=== PATIENT | male | born 1935 | race Asian ===

== ENCOUNTER → 2017-04-29 | Outpatient (CLI) | payer OTHER ==
[~2017-04-29] MED LIST: ASPI325T45 PO; ATOR-26 PO; INSDGI SC; ISOS30TA3 PO; LOSA25TA18 PO; MAGN250T22 PO; NVLGI SC; OMEP20CA59 PO
--- NOTE | 2017-04-29 13:44 | DIAGNOSTIC IMAGING REPORT ---
VIDEO SWALLOW HISTORY: DYSPHAGIA TECHNIQUE: Video fluoroscopic evaluation of swallowing was performed in the AP and lateral projections by the speech pathology staff. The patient is fed nectar-thick and thin liquid barium, a barium coated wafer, and barium pudding. FLUOROSCOPY TIME: 2.6 minutes. A cine loop submitted. COMPARISON STUDY: None. FINDINGS: There is normal hyoid excursion and epiglottic deflection. No significant penetration or aspiration identified. Mild cricopharyngeal dysfunction. Mild vallecular residue. IMPRESSION: 1. No aspiration identified. Mild cricopharyngeal dysfunction. 2. Please see the speech pathologist report for detailed findings and recommendations. Electronically signed by: Mick Spears M.D. 04/29/2017 1:43 PM Dictated Date/Time: 04/29/2017 1:41 PM
--- NOTE | 2017-04-29 14:49 | SWALLOWING EVALUATION ---
HISTORY: This 81 year-old man was referred for a VFSS at [facility] in order to address c/o solid food dysphagia and patient was concerned that he had a Zenker's diverticulum. The patient has a PMH significant for DM, neuropathy, GERD, CAD, bilateral TKA. Currently the patient's diet level is regular. PROCEDURE: The patient was seen in the Radiology Department of [facility] for the VFSS. Cursory examination of the oral cavity revealed adequate dentition. Movement of the articulators was WNL. The patient was seated on a stool and was viewed in both the Anterior-Posterior (A-P) and Lateral planes. Volitional phonation exercises completed in the A-P plane revealed bilateral vocal fold movement and vocal intensity within functional limits. In the lateral plane, the patient was given the following boluses: 1 tsp. thin liquid barium x 2, single swallow thin liquid barium self-presented from a cup, sequential swallows of thin liquid barium self-presented from a cup, 1 tsp. nectar-thick liquid barium, single swallow nectar-thick liquid barium self-presented from a cup, sequential swallows nectar-thick liquid barium self-presented from a cup, 1 tsp. barium pudding, and 1 club cracker with barium pudding. The patient was then repositioned into the A-P plane and given 1 tsp. barium pudding. RESULTS: Oral Stage: Labial closure was adequate. Liquid was held in a cohesive bolus. Mastication was timely and efficient. Tongue movement was brisk. There was no oral residue. Swallow was slightly delayed with the bolus head at the level of the valleculae at the initiation of the pharyngeal swallow. A slightly delayed swallow is considered functional for the patient's age. Pharyngeal Stage: Soft palate elevation was adequate. Laryngeal elevation was complete. There was partial anterior excursion of the hyoid. Epiglottic inversion was complete. Laryngeal vestibular closure was complete. Pharyngeal stripping wave and pharyngeal contraction were complete. Pharyngoesophageal segment (PES) opening was partial with partial obstruction of flow. Tongue base retraction was complete. There was a collection of residue in the valleculae after the initial swallow. Patient demonstrated no penetration or aspiration throughout the study. There was residue in the valleculae after the initial swallow; however, this was cleared with a second swallow. Reduced movement of the hyoid is considered functional for the patient's age. There was a marked cricopharyngeal impression on the esophageal lumen. Esophageal Stage: There was complete esophageal clearance. SUMMARY/RECOMMENDATIONS: This patient presents with no dysphagia. There was no evidence of a Zenker's diverticulum or evidence of an abnormal swallow for the patient's age. The patient does have a reduced PES opening and s/s chronic esophageal dysfunction. The following is recommended: 1. Regular diet, thin liquids 2. Patient may benefit from a completion of a Barium Swallow Study or upper GI series. A summary of the results and recommendations was discussed with patient and understanding was verbalized immediately following the study. He is anticipating f/u with the referring physician. Thank you for referral of this patient. Please contact me at if any additional information is needed. Emilee Tabor [facility]
== END | disposition home or self-care (01) ==
LOC: C.RAD 12:55
PROVIDERS: ATTEND Family Medicine
DX: R13.10 Dysphagia, unspecified (principal)

== ENCOUNTER 2020-05-27 04:21 | Inpatient (IN) ==
--- NOTE | 2020-05-27 04:29 | Emergency Department Note ---
Impression & Plan Acute hyperkalemia, Fever, SOB (shortness of breath), Acidosis, lactic, CHB (complete heart block), Acute renal failure ED Provider Note NAME: LORRAINE SANDS AGE: 84 SEX: M ARRIVES VIA: Ambulance INFORMANT: Patient, the daughter ED PROVIDER(S): Hortencia Garza DO CHIEF COMPLAINT: Shortness of breath and fever PLAN: Disposition: Patient was admitted through the [facility] to the ICU Condition: Critical condition MEDICAL DECISION MAKING: This is an 84-year-old male patient who presents to the emergency department with a one-week history of fever, exertional shortness of breath and extreme fatigue. The patient underwent COVID testing 3 days ago which was negative. He developed sudden increased shortness of breath tonight and EMS was called. The patient presents to the emergency department bradycardic and short of breath state and was found to be significantly hyperkalemic, dyspneic, and febrile. The patient was stabilized in the emergency department. Attempts were made to reverse the effects of the hyperkalemia. He remained bradycardic from complete heart block but his blood pressure remained stable. The patient was found to have an elevated troponin significant leukocytosis but no obvious source of infection was identified. Patient was treated with broad-spectrum antibiotics for the possibility of Sirs/sepsis. The case was discussed with both critical care medicine and the [facility] service. They will evaluate the patient for admission to the ICU. Triage Nursing notes reviewed and agree them. Additional history obtained from EMS. I also spoke with the patient's daughter multiple times on the phone Prior medical records reviewed Vital Signs: reviewed and remarkable for bradycardia and hypotension Differential diagnosis: Sepsis, CHF, PE, coronavirus, pneumothorax, toxic exposure, hypoglycemia, cardiac dysrhythmia, STEMI, electrolyte abnormality, hyperglycemia ER treatment provided: IV insulin IV dextrose Albuterol nebulized IV calcium gluconate IV daptomycin IV Primaxin IV normal saline bolus Diagnostics interpreted by me: ECG: Complete heart block at a rate of 51 with a widened QRS complex. Right bundle branch block. This is extremely concerning for hyperkalemia Repeat EKG: Complete heart block with a ventricular rate of 43 and widened QRS with a QRS duration of 134 ms. Cardiac Monitoring: The patient remains bradycardic with a rate of 40. Laboratory studies: ABG: pH 7.32 PCO2 22.4 PO2 84 bicarb 11.8 SPO2 of 96% CO2 of 12 See below Imaging studies: As per my interpretation Chest [id number] cardiomegaly with congestive heart failure HPI: 84/M arrives for evaluation of shortness of breath. This history was obtained from the patient's daughter while talking to her on the phone. She explains that approximately 1 week ago, the patient developed a fever and chills with a T-max of 102 degrees. She describes that he was taking aspirin for this. Since that time, the patient has remained extremely fatigued. 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 The patient did have COVID testing done 5 days ago. It was resulted 3 days ago and was negative. The family noticed increasing exertional shortness of breath 2 days ago. He became more concerned today because the patient was tossing and turning and moaning. States that he did not have enough energy to eat rice. They have been trying to encourage him to take sips of Gatorade and Pedialyte. The patient has been drinking a large amount of coconut water. ROS: See above HPI for pertinent positives & negatives. A total of 10 systems reviewed and were otherwise negative. PAST MEDICAL HISTORY:Diabetes, coronary artery disease, hypertension PAST SURGICAL HISTORY:See Below FAMILY HISTORY:See Below SOCIAL HISTORY:See Below HOME MEDICATIONS:See list ALLERGIES:See list VITALS:See Below PHYSICAL EXAMINATION: General: The patient appears agitated and confused on physical exam. HEENT: Head - normocephalic and atraumatic Pupils are equal, round, and reactive to light. Extraocular eye muscles are intact, and sclera are anicter ic. Nose - moist nasal mucosa without discharge. Mouth - moist buccal mucosa. Oropharynx is nonerythematous and there is no tonsillar exudate or edema noted. Neck: Supple; no JVD, nuchal rigidity, cervical lymphadenopathy Heart: Bradycardic rate and normal rhythm. There is a normal S1 and S2 with no murmurs, clicks, or gallops appreciated. Lungs: Diminished breath sounds in all lung scott clear to auscultation bilaterally with no wheezes, rales, or rhonchi. Abdomen: Soft, completely nontender, nondistended, with good bowel sounds. There are no palpable pulsatile masses or hepatosplenomegaly. There is no guarding, rigidity, or rebound noted. Extremities: No evidence of cyanosis, clubbing, or edema. There are easily palpable peripheral pulses. Skin: Pale, warm and diaphoretic with good turgor and no rashes. ED COURSE: Times/Reassessments: 0430: The patient was initially evaluated in room C5. A septic protocol was performed. He was moved to room C4 for better visibility by nursing staff. An order was placed for continuous cardiac monitoring as the patient was significantly bradycardic and appeared to be in a heart block A twelve-lead EKG was obtained. The patient's QRS complex was noted to be widened and I was concerned for hyperkalemia. A potassium level was quickly obtained and found to be elevated. I immediately began to treat with IV calcium gluconate, IV dextrose, IV insulin and nebulized albuterol. A septic protocol was performed. I spoke to the patient's daughter on the phone twice. EKG revealed a complete heart block. However, the patient was maintaining his blood pressure normally. O2 saturations were stable. Respiratory therapist made multiple attempts at obtaining an arterial blood gas. They initially obtained 2 samples that were clearly venous. The patient had a fever and significant leukocytosis with no obvious source of infection. He was treated with broad-spectrum antibiotics-IV daptomycin and IV Primaxin. There was a brief episode of hypotension. This in association with his fever made me concerned for sepsis, so he was bolused with 500 cc of saline, although there was evidence of congestive heart failure on chest x-ray and an elevated troponin. we paid close attention to his airway. He had no difficulty maintaining O2 saturations around 98%. He was moderately tachypneic but not hypoxic. Even though the patient just had a negative COVID test 2-3 days ago, we placed him in isolation and will retest him for COVID-19. There was no indication on chest x-ray for infiltration or opacity to suggest coronavirus. The case was discussed with Marquez Marquez PA-C from critical care medicine and Dr. Juarez from the [facility] service-both at the bedside. I have personally spent greater than 90 minutes of critical care time in the direct management of this patient. This includes bedside care, interpretation of diagnostic studies, and testing, discussion with consultants, patient, and family members, and other required patient management activities. This 90 minutes is in excess of all separately billable procedures. Hortencia Garza DO Past Med/Surg History Social History Smoking Status: Never smoker Hx Alcohol Use: No Hx Substance Use: No Preferred Language: Georgian Communication Ability: Effective Hash Slinger Required: No Beliefs That Will Affect Care: None marital status: Current Living Situation: Spouse and Family Other Information That Helps Us Care for You: No Feels Safe at Home: Yes Safety Concerns: Feels Safe At This Time Allergies Allergies Allergy/AdvReac Type Severity Reaction Status Date / Time rosuvastatin Allergy Severe chest pain Verified 05/27/20 05:34 Home Meds Home Medications Medication Instructions Recorded Confirmed amlodipine 2.5 mg PO DAILY 05/27/20 05/27/20 aspirin 650 mg PO DAILY 05/27/20 05/27/20 atorvastatin 80 mg PO DAILY 05/27/20 05/27/20 cyanocobalamin (vitamin B-12) 250 mcg SUBLINGUAL DAILY 05/27/20 05/27/20 empagliflozin [Jardiance] 10 mg PO DAILY 05/27/20 05/27/20 furosemide 20 mg PO DAILY PRN 05/27/20 05/27/20 glimepiride 1 mg PO QAM 05/27/20 05/27/20 insulin aspart U-100 [Novolog See Rx Instructions .ROUTE .COMPLEX 05/27/20 05/27/20 Flexpen U-100 Insulin] insulin glargine [Lantus Solostar 25 unit SUBCUT QAM 05/27/20 05/27/20 U-100 Insulin] isosorbide mononitrate 90 mg PO DAILY 05/27/20 05/27/20 levothyroxine 50 mcg PO DAILY 05/27/20 05/27/20 linagliptin-metformin [Jentadueto 1 tab PO DAILY 05/27/20 05/27/20 XR] magnesium oxide 250 mg PO DAILY 05/27/20 05/27/20 metoprolol succinate 25 mg PO DAILY 05/27/20 05/27/20 nitroglycerin [Nitrostat] 0.4 mg SUBLINGUAL UD PRN 05/27/20 05/27/20 omeprazole 20 mg PO DAILY 05/27/20 05/27/20 tamsulosin 0.4 mg PO HS 05/27/20 05/27/20 trazodone 25 mg PO 05/27/20 05/27/20 Results & Data (ED) Vital Signs Vital Signs - 24 hr 05/27/20 04:29 05/27/20 04:31 05/27/20 04:35 Temperature Temperature Source Pulse Rate 50 L 50 L 49 L Pulse Rate [Apical] Pulse Rate from SpO2 Sensor 50 L 50 L 49 L Respiratory Rate 17 19 17 Respiratory Effort / Characteristics Respiratory Depth Respiratory Pattern Blood Pressure 155/73 H Blood Pressure [Right Arm] Blood Pressure Mean 108 Blood Pressure Mean [Right Arm] Blood Pressure Position Blood Pressure Position [Right Arm] Pulse Oximetry 92 91 98 Oxygen Delivery Method Nasal Cannula Nasal Cannula Nasal Cannula Oxygen Flow Rate 2 2 2 Sepsis Recent Fever Within 48 Hours Sepsis New/Unexplained Change in Mental Status Sepsis Action Taken by Nursing 05/27/20 04:40 05/27/20 04:45 05/27/20 04:51 Temperature Temperature Source Pulse Rate 47 L 46 L 45 L Pulse Rate [Apical] Pulse Rate from SpO2 Sensor 47 L 46 L 45 L Respiratory Rate 14 13 17 Respiratory Effort / Characteristics Respiratory Depth Respiratory Pattern Blood Pressure Blood Pressure [Right Arm] Blood Pressure Mean Blood Pressure Mean [Right Arm] Blood Pressure Position Blood Pressure Position [Right Arm] Pulse Oximetry 95 94 96 Oxygen Delivery Method Nasal Cannula Nasal Cannula Nasal Cannula Oxygen Flow Rate 2 2 2 Sepsis Recent Fever Within 48 Hours Sepsis New/Unexplained Change in Mental Status Sepsis Action Taken by Nursing 05/27/20 04:55 05/27/20 05:00 05/27/20 05:05 Temperature Temperature Source Pulse Rate 44 L 49 L Pulse Rate [Apical] Pulse Rate from SpO2 Sensor 44 L 45 L 43 L Respiratory Rate 16 14 Respiratory Effort / Characteristics Respiratory Depth Respiratory Pattern Blood Pressure Blood Pressure [Right Arm] Blood Pressure Mean Blood Pressure Mean [Right Arm] Blood Pressure Position Blood Pressure Position [Right Arm] Pulse Oximetry 97 98 95 Oxygen Delivery Method Nasal Cannula Nasal Cannula Nasal Cannula Oxygen Flow Rate 2 2 2 Sepsis Recent Fever Within 48 Hours Sepsis New/Unexplained Change in Mental Status Sepsis Action Taken by Nursing 05/27/20 05:10 05/27/20 05:11 05/27/20 05:15 Temperature 38.0 C H Temperature Source Oral Pulse Rate 53 L 48 L 42 L Pulse Rate [Apical] 45 L Pulse Rate from SpO2 Sensor 43 L 43 L Respiratory Rate 13 22 22 Respiratory Effort / Characteristics Labored Labored Respiratory Depth Deep Respiratory Pattern Regular Blood Pressure 156/81 H Blood Pressure [Right Arm] 131/49 L Blood Pressure Mean 106 Blood Pressure Mean [Right Arm] 76 Blood Pressure Position Lying Blood Pressure Position [Right Arm] Lying Pulse Oximetry 96 91 96 Oxygen Delivery Method Nasal Cannula Room Air Nasal Cannula Oxygen Flow Rate 2 2 2 Sepsis Recent Fever Within 48 Hours Yes Sepsis New/Unexplained Change in Mental Status Yes Sepsis Action Taken by Nursing Physician Notified 05/27/20 05:35 05/27/20 05:55 05/27/20 05:56 Temperature Temperature Source Pulse Rate Pulse Rate [Apical] 45 L 56 L Pulse Rate from SpO2 Sensor Respiratory Rate 24 22 Respiratory Effort / Characteristics Spontaneous Labored Respiratory Depth Respiratory Pattern Blood Pressure Blood Pressure [Right Arm] 130/50 L Blood Pressure Mean Blood Pressure Mean [Right Arm] 76 Blood Pressure Position Blood Pressure Position [Right Arm] Lying Pulse Oximetry 98 98 Oxygen Delivery Method Nasal Cannula Nasal Cannula Nasal Cannula Oxygen Flow Rate 2 2 2 Sepsis Recent Fever Within 48 Hours Sepsis New/Unexplained Change in Mental Status Sepsis Action Taken by Nursing 05/27/20 06:55 05/27/20 07:38 Temperature Temperature Source Pulse Rate Pulse Rate [Apical] 44 L 40 L Pulse Rate from SpO2 Sensor Respiratory Rate 20 24 Respiratory Effort / Characteristics Respiratory Depth Respiratory Pattern Blood Pressure Blood Pressure [Right Arm] 108/42 L 104/54 L Blood Pressure Mean Blood Pressure Mean [Right Arm] 64 70 Blood Pressure Position Blood Pressure Position [Right Arm] Pulse Oximetry 100 100 Oxygen Delivery Method Nasal Cannula Nasal Cannula Oxygen Flow Rate 2 2 Sepsis Recent Fever Within 48 Hours Sepsis New/Unexplained Change in Mental Status Sepsis Action Taken by Nursing Laboratory Data Result diagrams: 05/28/20 04:02 05/28/20 04:52 Lab Results 05/27/20 05/27/20 05/27/20 Range/Units 05:02 05:03 05:03 WBC 16.67 H (4.8-10.8) K/uL RBC 3.71 L (4.7-6.1) M/uL Hgb 9.4 L (14.0-18.0) g/dL POC Hgb 9.9 L (14.0-18.0) g/dl Hct 29.3 L (42-52) % POC Hct 29 L (42-52) % MCV 79.0 L (80-100) fL MCH 25.3 (25-34) pg MCHC 32.1 (32-36) g/dL RDW Std Deviation 41.9 (36.4-46.3) fL RDW Coeff of Naren 14.7 H (11.5-14.5) % Plt Count 271 (130-400) K/uL MPV 11.1 H (7.4-10.4) fL Immature Gran % (Auto) 0.4 % Neut % (Auto) 84.3 % Lymph % (Auto) 8.6 % [place] % (Auto) 6.4 % Eos % (Auto) 0.2 % Baso % (Auto) 0.1 % Neut # (Auto) 14.04 H (1.4-6.5) K/uL Lymph # (Auto) 1.44 (1.2-3.4) K/uL [place] # (Auto) 1.06 H (0.11-0.59) K/uL Eos # (Auto) 0.04 (0-0.5) K/uL Baso # (Auto) 0.02 (0-0.2) K/uL Immature Gran # (Auto) 0.07 H (0.00-0.02) K/uL Echinocytes 1+ PT 13.7 H (9.0-12.0) Seconds INR 1.3 H (0.9-1.1) APTT 29.8 (21.0-31.0) Seconds PTT Ratio 1.1 D-Dimer 4820 H* (0-500) ug/L FEU POC pH (7.35-7.45) POC pCO2 (35-46) mmHg POC pO2 (80-95) mmHg POC HCO3 (19-24) mora/L POC Base Excess (-9-1.8) mora/L ABG pH ABG pCO2 ABG pO2 ABG HCO3 ABG O2 Saturation ABG Base Excess Curtis Test Barometric Pressure Oxygen Given POC Sodium 132 L (135-144) mmol/L Sodium (136-145) mmol/L POC Potassium 6.5 H* (3.3-5.0) mmol/L Potassium (3.5-5.1) mmol/L POC Chloride 105 (101-112) mmol/L Chloride (98-107) mmol/L Carbon Dioxide (21-32) mmol/L POC Total CO2 16 L (24-31) mmol/L Anion Gap (3-11) POC Anion Gap 18.0 (16-25) mmol/L POC BUN 40 H (7-18) mg/dl BUN (7-18) mg/dl Creatinine (0.6-1.4) mg/dl POC Creatinine 2.7 H (0.6-1.3) mg/dl Est Cr Clr Drug Dosing ml/min Est GFR ( Amer) Est GFR (Non-Af Amer) BUN/Creatinine Ratio (10-20) Glucose (70-99) mg/dl POC Glucose (other) 226 H (70-99) mg/dl Lactate (0.4-2.0) mmol/L Calcium (8.5-10.1) mg/dl POC Ioniz Calcium Lauren 1.08 L (1.12-1.32) mmol/l Magnesium (1.8-2.4) mg/dl Total Bilirubin (0.2-1) mg/dl AST (15-37) U/L ALT (12-78) U/L Alkaline Phosphatase (45-117) U/L Total Creatine Kinase (39-308) U/L Troponin I (0-0.045) ng/ml Total Protein (6.4-8.2) gm/dl Albumin (3.4-5.0) gm/dl Globulin (2.5-4.0) gm/dl Albumin/Globulin Ratio (0.9-2) Procalcitonin (0-0.5) ng/ml Urine Color Urine Appearance (Clear) Urine pH (4.5-7.5) Ur Specific Mccormick (1.000-1.030) Urine Protein (Negative) Urine Glucose (UA) (Negative) Urine Ketones (Negative) Urine Blood (Negative) Urine Nitrite (Negative) Urine Bilirubin (Negative) Urine Urobilinogen (Negative) Ur Leukocyte Esterase (Negative) Urine WBC (Auto) (0-5) /hpf Urine RBC (Auto) (0-4) /hpf U Hyaline Cast (Auto) (0-5) /lpf U Epithel Cells (Auto) (0-5) /lpf Urine Bacteria (Auto) (Negative) Adenovirus (PCR) (NotDetected) B. pertussis DNA (PCR) (NotDetected) B.parapertussis DNA PCR (NotDetected) Lyme Disease IgG Ab (Negative) Lyme Disease IgM Ab (Negative) C. pneumoniae DNA (PCR) (NotDetected) Coronavirus OC43 (PCR) (NotDetected) Coronavirus HKU1 (PCR) (NotDetected) Coronavirus 229E (PCR) (NotDetected) COVID-19 PCR (Negative) Coronavirus NL63 (PCR) (NotDetected) Human Metapneumovir PCR (NotDetected) Influenza Type A (PCR) (NotDetected) Influenza Type B (PCR) (NotDetected) M. pneumoniae (PCR) (NotDetected) Parainfluenza 1 (PCR) (NotDetected) Parainfluenza 2 (PCR) (NotDetected) Parainfluenza 3 (PCR) (NotDetected) Parainfluenza 4 (PCR) (NotDetected) RSV (PCR) (NotDetected) Entero/Rhino (PCR) (NotDetected) SARS-CoV-2 RNA (RT-PCR) 05/27/20 05/27/20 05/27/20 Range/Units 05:03 05:03 05:03 WBC (4.8-10.8) K/uL RBC (4.7-6.1) M/uL Hgb (14.0-18.0) g/dL POC Hgb (14.0-18.0) g/dl Hct (42-52) % POC Hct (42-52) % MCV (80-100) fL MCH (25-34) pg MCHC (32-36) g/dL RDW Std Deviation (36.4-46.3) fL RDW Coeff of Naren (11.5-14.5) % Plt Count (130-400) K/uL MPV (7.4-10.4) fL Immature Gran % (Auto) % Neut % (Auto) % Lymph % (Auto) % [place] % (Auto) % Eos % (Auto) % Baso % (Auto) % Neut # (Auto) (1.4-6.5) K/uL Lymph # (Auto) (1.2-3.4) K/uL [place] # (Auto) (0.11-0.59) K/uL Eos # (Auto) (0-0.5) K/uL Baso # (Auto) (0-0.2) K/uL Immature Gran # (Auto) (0.00-0.02) K/uL Echinocytes PT (9.0-12.0) Seconds INR (0.9-1.1) APTT (21.0-31.0) Seconds PTT Ratio D-Dimer (0-500) ug/L FEU POC pH (7.35-7.45) POC pCO2 (35-46) mmHg POC pO2 (80-95) mmHg POC HCO3 (19-24) mora/L POC Base Excess (-9-1.8) mora/L ABG pH ABG pCO2 ABG pO2 ABG HCO3 ABG O2 Saturation ABG Base Excess Curtis Test Barometric Pressure Oxygen Given POC Sodium (135-144) mmol/L Sodium 135 L (136-145) mmol/L POC Potassium (3.3-5.0) mmol/L Potassium 6.4 H* (3.5-5.1) mmol/L POC Chloride (101-112) mmol/L Chloride 106 (98-107) mmol/L Carbon Dioxide 17 L (21-32) mmol/L POC Total CO2 (24-31) mmol/L Anion Gap 13.0 H (3-11) POC Anion Gap (16-25) mmol/L POC BUN (7-18) mg/dl BUN 43 H (7-18) mg/dl Creatinine 2.73 H (0.6-1.4) mg/dl POC Creatinine (0.6-1.3) mg/dl Est Cr Clr Drug Dosing 22.2 ml/min Est GFR ( Amer) 24.0 Est GFR (Non-Af Amer) 20.7 BUN/Creatinine Ratio 15.6 (10-20) Glucose 228 H (70-99) mg/dl POC Glucose (other) (70-99) mg/dl Lactate (0.4-2.0) mmol/L Calcium 8.5 (8.5-10.1) mg/dl POC Ioniz Calcium Lauren (1.12-1.32) mmol/l Magnesium 1.8 (1.8-2.4) mg/dl Total Bilirubin 1.0 (0.2-1) mg/dl AST 45 H (15-37) U/L ALT 39 (12-78) U/L Alkaline Phosphatase 137 H (45-117) U/L Total Creatine Kinase 77 (39-308) U/L Troponin I 3.300 H* (0-0.045) ng/ml Total Protein 7.4 (6.4-8.2) gm/dl Albumin 2.5 L (3.4-5.0) gm/dl Globulin 4.9 H (2.5-4.0) gm/dl Albumin/Globulin Ratio 0.5 L (0.9-2) Procalcitonin 1.56 H (0-0.5) ng/ml Urine Color Urine Appearance (Clear) Urine pH (4.5-7.5) Ur Specific Mccormick (1.000-1.030) Urine Protein (Negative) Urine Glucose (UA) (Negative) Urine Ketones (Negative) Urine Blood (Negative) Urine Nitrite (Negative) Urine Bilirubin (Negative) Urine Urobilinogen (Negative) Ur Leukocyte Esterase (Negative) Urine WBC (Auto) (0-5) /hpf Urine RBC (Auto) (0-4) /hpf U Hyaline Cast (Auto) (0-5) /lpf U Epithel Cells (Auto) (0-5) /lpf Urine Bacteria (Auto) (Negative) Adenovirus (PCR) (NotDetected) B. pertussis DNA (PCR) (NotDetected) B.parapertussis DNA PCR (NotDetected) Lyme Disease IgG Ab (Negative) Lyme Disease IgM Ab (Negative) C. pneumoniae DNA (PCR) (NotDetected) Coronavirus OC43 (PCR) (NotDetected) Coronavirus HKU1 (PCR) (NotDetected) Coronavirus 229E (PCR) (NotDetected) COVID-19 PCR (Negative) Coronavirus NL63 (PCR) (NotDetected) Human Metapneumovir PCR (NotDetected) Influenza Type A (PCR) (NotDetected) Influenza Type B (PCR) (NotDetected) M. pneumoniae (PCR) (NotDetected) Parainfluenza 1 (PCR) (NotDetected) Parainfluenza 2 (PCR) (NotDetected) Parainfluenza 3 (PCR) (NotDetected) Parainfluenza 4 (PCR) (NotDetected) RSV (PCR) (NotDetected) Entero/Rhino (PCR) (NotDetected) SARS-CoV-2 RNA (RT-PCR) 05/27/20 05/27/20 05/27/20 Range/Units 05:03 05:22 05:33 WBC (4.8-10.8) K/uL RBC (4.7-6.1) M/uL Hgb (14.0-18.0) g/dL POC Hgb 9.5 L (14.0-18.0) g/dl Hct (42-52) % POC Hct 28 L (42-52) % MCV (80-100) fL MCH (25-34) pg MCHC (32-36) g/dL RDW Std Deviation (36.4-46.3) fL RDW Coeff of Naren (11.5-14.5) % Plt Count (130-400) K/uL MPV (7.4-10.4) fL Immature Gran % (Auto) % Neut % (Auto) % Lymph % (Auto) % [place] % (Auto) % Eos % (Auto) % Baso % (Auto) % Neut # (Auto) (1.4-6.5) K/uL Lymph # (Auto) (1.2-3.4) K/uL [place] # (Auto) (0.11-0.59) K/uL Eos # (Auto) (0-0.5) K/uL Baso # (Auto) (0-0.2) K/uL Immature Gran # (Auto) (0.00-0.02) K/uL Echinocytes PT (9.0-12.0) Seconds INR (0.9-1.1) APTT (21.0-31.0) Seconds PTT Ratio D-Dimer (0-500) ug/L FEU POC pH 7.37 (7.35-7.45) POC pCO2 27 L (35-46) mmHg POC pO2 20 L (80-95) mmHg POC HCO3 15 L (19-24) mora/L POC Base Excess -10.0 L (-9-1.8) mora/L ABG pH Cancelled ABG pCO2 Cancelled ABG pO2 Cancelled ABG HCO3 Cancelled ABG O2 Saturation Cancelled ABG Base Excess Cancelled Curtis Test Cancelled Barometric Pressure Cancelled Oxygen Given Cancelled POC Sodium 132 L (135-144) mmol/L Sodium (136-145) mmol/L POC Potassium 6.4 H* (3.3-5.0) mmol/L Potassium (3.5-5.1) mmol/L POC Chloride (101-112) mmol/L Chloride (98-107) mmol/L Carbon Dioxide (21-32) mmol/L POC Total CO2 16 L (24-31) mmol/L Anion Gap (3-11) POC Anion Gap (16-25) mmol/L POC BUN (7-18) mg/dl BUN (7-18) mg/dl Creatinine (0.6-1.4) mg/dl POC Creatinine (0.6-1.3) mg/dl Est Cr Clr Drug Dosing ml/min Est GFR ( Amer) Est GFR (Non-Af Amer) BUN/Creatinine Ratio (10-20) Glucose (70-99) mg/dl POC Glucose (other) (70-99) mg/dl Lactate (0.4-2.0) mmol/L Calcium (8.5-10.1) mg/dl POC Ioniz Calcium Lauren (1.12-1.32) mmol/l Magnesium (1.8-2.4) mg/dl Total Bilirubin (0.2-1) mg/dl AST (15-37) U/L ALT (12-78) U/L Alkaline Phosphatase (45-117) U/L Total Creatine Kinase (39-308) U/L Troponin I (0-0.045) ng/ml Total Protein (6.4-8.2) gm/dl Albumin (3.4-5.0) gm/dl Globulin (2.5-4.0) gm/dl Albumin/Globulin Ratio (0.9-2) Procalcitonin (0-0.5) ng/ml Urine Color Urine Appearance (Clear) Urine pH (4.5-7.5) Ur Specific Mccormick (1.000-1.030) Urine Protein (Negative) Urine Glucose (UA) (Negative) Urine Ketones (Negative) Urine Blood (Negative) Urine Nitrite (Negative) Urine Bilirubin (Negative) Urine Urobilinogen (Negative) Ur Leukocyte Esterase (Negative) Urine WBC (Auto) (0-5) /hpf Urine RBC (Auto) (0-4) /hpf U Hyaline Cast (Auto) (0-5) /lpf U Epithel Cells (Auto) (0-5) /lpf Urine Bacteria (Auto) (Negative) Adenovirus (PCR) (NotDetected) B. pertussis DNA (PCR) (NotDetected) B.parapertussis DNA PCR (NotDetected) Lyme Disease IgG Ab Negative (Negative) Lyme Disease IgM Ab Negative (Negative) C. pneumoniae DNA (PCR) (NotDetected) Coronavirus OC43 (PCR) (NotDetected) Coronavirus HKU1 (PCR) (NotDetected) Coronavirus 229E (PCR) (NotDetected) COVID-19 PCR (Negative) Coronavirus NL63 (PCR) (NotDetected) Human Metapneumovir PCR (NotDetected) Influenza Type A (PCR) (NotDetected) Influenza Type B (PCR) (NotDetected) M. pneumoniae (PCR) (NotDetected) Parainfluenza 1 (PCR) (NotDetected) Parainfluenza 2 (PCR) (NotDetected) Parainfluenza 3 (PCR) (NotDetected) Parainfluenza 4 (PCR) (NotDetected) RSV (PCR) (NotDetected) Entero/Rhino (PCR) (NotDetected) SARS-CoV-2 RNA (RT-PCR) 05/27/20 05/27/20 05/27/20 Range/Units 05:37 05:50 05:53 WBC (4.8-10.8) K/uL RBC (4.7-6.1) M/uL Hgb (14.0-18.0) g/dL POC Hgb (14.0-18.0) g/dl Hct (42-52) % POC Hct (42-52) % MCV (80-100) fL MCH (25-34) pg MCHC (32-36) g/dL RDW Std Deviation (36.4-46.3) fL RDW Coeff of Naren (11.5-14.5) % Plt Count (130-400) K/uL MPV (7.4-10.4) fL Immature Gran % (Auto) % Neut % (Auto) % Lymph % (Auto) % [place] % (Auto) % Eos % (Auto) % Baso % (Auto) % Neut # (Auto) (1.4-6.5) K/uL Lymph # (Auto) (1.2-3.4) K/uL [place] # (Auto) (0.11-0.59) K/uL Eos # (Auto) (0-0.5) K/uL Baso # (Auto) (0-0.2) K/uL Immature Gran # (Auto) (0.00-0.02) K/uL Echinocytes PT (9.0-12.0) Seconds INR (0.9-1.1) APTT (21.0-31.0) Seconds PTT Ratio D-Dimer (0-500) ug/L FEU POC pH (7.35-7.45) POC pCO2 (35-46) mmHg POC pO2 (80-95) mmHg POC HCO3 (19-24) mora/L POC Base Excess (-9-1.8) mora/L ABG pH ABG pCO2 ABG pO2 ABG HCO3 ABG O2 Saturation ABG Base Excess Curtis Test Barometric Pressure Oxygen Given POC Sodium (135-144) mmol/L Sodium (136-145) mmol/L POC Potassium (3.3-5.0) mmol/L Potassium (3.5-5.1) mmol/L POC Chloride (101-112) mmol/L Chloride (98-107) mmol/L Carbon Dioxide (21-32) mmol/L POC Total CO2 (24-31) mmol/L Anion Gap (3-11) POC Anion Gap (16-25) mmol/L POC BUN (7-18) mg/dl BUN (7-18) mg/dl Creatinine (0.6-1.4) mg/dl POC Creatinine (0.6-1.3) mg/dl Est Cr Clr Drug Dosing ml/min Est GFR ( Amer) Est GFR (Non-Af Amer) BUN/Creatinine Ratio (10-20) Glucose (70-99) mg/dl POC Glucose (other) (70-99) mg/dl Lactate 6.7 H* (0.4-2.0) mmol/L Calcium (8.5-10.1) mg/dl POC Ioniz Calcium Lauren (1.12-1.32) mmol/l Magnesium (1.8-2.4) mg/dl Total Bilirubin (0.2-1) mg/dl AST (15-37) U/L ALT (12-78) U/L Alkaline Phosphatase (45-117) U/L Total Creatine Kinase (39-308) U/L Troponin I (0-0.045) ng/ml Total Protein (6.4-8.2) gm/dl Albumin (3.4-5.0) gm/dl Globulin (2.5-4.0) gm/dl Albumin/Globulin Ratio (0.9-2) Procalcitonin (0-0.5) ng/ml Urine Color Dark Yellow Urine Appearance Cloudy A (Clear) Urine pH 5.0 (4.5-7.5) Ur Specific Mccormick 1.022 (1.000-1.030) Urine Protein 2+ H (Negative) Urine Glucose (UA) Negative (Negative) Urine Ketones Trace H (Negative) Urine Blood Negative (Negative) Urine Nitrite Negative (Negative) Urine Bilirubin Negative (Negative) Urine Urobilinogen Negative (Negative) Ur Leukocyte Esterase Negative (Negative) Urine WBC (Auto) 1-5 (0-5) /hpf Urine RBC (Auto) 0-4 (0-4) /hpf U Hyaline Cast (Auto) 5-10 H (0-5) /lpf U Epithel Cells (Auto) >30 H (0-5) /lpf Urine Bacteria (Auto) Negative (Negative) Adenovirus (PCR) (NotDetected) B. pertussis DNA (PCR) (NotDetected) B.parapertussis DNA PCR (NotDetected) Lyme Disease IgG Ab (Negative) Lyme Disease IgM Ab (Negative) C. pneumoniae DNA (PCR) (NotDetected) Coronavirus OC43 (PCR) (NotDetected) Coronavirus HKU1 (PCR) (NotDetected) Coronavirus 229E (PCR) (NotDetected) COVID-19 PCR (Negative) Coronavirus NL63 (PCR) (NotDetected) Human Metapneumovir PCR (NotDetected) Influenza Type A (PCR) (NotDetected) Influenza Type B (PCR) (NotDetected) M. pneumoniae (PCR) (NotDetected) Parainfluenza 1 (PCR) (NotDetected) Parainfluenza 2 (PCR) (NotDetected) Parainfluenza 3 (PCR) (NotDetected) Parainfluenza 4 (PCR) (NotDetected) RSV (PCR) (NotDetected) Entero/Rhino (PCR) (NotDetected) SARS-CoV-2 RNA (RT-PCR) Cancelled 05/27/20 05/27/20 05/27/20 Range/Units 05:53 05:53 06:00 WBC (4.8-10.8) K/uL RBC (4.7-6.1) M/uL Hgb (14.0-18.0) g/dL POC Hgb (14.0-18.0) g/dl Hct (42-52) % POC Hct (42-52) % MCV (80-100) fL MCH (25-34) pg MCHC (32-36) g/dL RDW Std Deviation (36.4-46.3) fL RDW Coeff of Naren (11.5-14.5) % Plt Count (130-400) K/uL MPV (7.4-10.4) fL Immature Gran % (Auto) % Neut % (Auto) % Lymph % (Auto) % [place] % (Auto) % Eos % (Auto) % Baso % (Auto) % Neut # (Auto) (1.4-6.5) K/uL Lymph # (Auto) (1.2-3.4) K/uL [place] # (Auto) (0.11-0.59) K/uL Eos # (Auto) (0-0.5) K/uL Baso # (Auto) (0-0.2) K/uL Immature Gran # (Auto) (0.00-0.02) K/uL Echinocytes PT (9.0-12.0) Seconds INR (0.9-1.1) APTT (21.0-31.0) Seconds PTT Ratio D-Dimer (0-500) ug/L FEU POC pH 7.33 L (7.35-7.45) POC pCO2 22 L (35-46) mmHg POC pO2 84 (80-95) mmHg POC HCO3 12 L (19-24) mora/L POC Base Excess -14.0 L (-9-1.8) mora/L ABG pH ABG pCO2 ABG pO2 ABG HCO3 ABG O2 Saturation ABG Base Excess Curtis Test Barometric Pressure Oxygen Given POC Sodium (135-144) mmol/L Sodium (136-145) mmol/L POC Potassium (3.3-5.0) mmol/L Potassium (3.5-5.1) mmol/L POC Chloride (101-112) mmol/L Chloride (98-107) mmol/L Carbon Dioxide (21-32) mmol/L POC Total CO2 22 L (24-31) mmol/L Anion Gap (3-11) POC Anion Gap (16-25) mmol/L POC BUN (7-18) mg/dl BUN (7-18) mg/dl Creatinine (0.6-1.4) mg/dl POC Creatinine (0.6-1.3) mg/dl Est Cr Clr Drug Dosing ml/min Est GFR ( Amer) Est GFR (Non-Af Amer) BUN/Creatinine Ratio (10-20) Glucose (70-99) mg/dl POC Glucose (other) (70-99) mg/dl Lactate (0.4-2.0) mmol/L Calcium (8.5-10.1) mg/dl POC Ioniz Calcium Lauren (1.12-1.32) mmol/l Magnesium (1.8-2.4) mg/dl Total Bilirubin (0.2-1) mg/dl AST (15-37) U/L ALT (12-78) U/L Alkaline Phosphatase (45-117) U/L Total Creatine Kinase (39-308) U/L Troponin I (0-0.045) ng/ml Total Protein (6.4-8.2) gm/dl Albumin (3.4-5.0) gm/dl Globulin (2.5-4.0) gm/dl Albumin/Globulin Ratio (0.9-2) Procalcitonin (0-0.5) ng/ml Urine Color Urine Appearance (Clear) Urine pH (4.5-7.5) Ur Specific Mccormick (1.000-1.030) Urine Protein (Negative) Urine Glucose (UA) (Negative) Urine Ketones (Negative) Urine Blood (Negative) Urine Nitrite (Negative) Urine Bilirubin (Negative) Urine Urobilinogen (Negative) Ur Leukocyte Esterase (Negative) Urine WBC (Auto) (0-5) /hpf Urine RBC (Auto) (0-4) /hpf U Hyaline Cast (Auto) (0-5) /lpf U Epithel Cells (Auto) (0-5) /lpf Urine Bacteria (Auto) (Negative) Adenovirus (PCR) Not Detected (NotDetected) B. pertussis DNA (PCR) Not Detected (NotDetected) B.parapertussis DNA PCR Not Detected (NotDetected) Lyme Disease IgG Ab (Negative) Lyme Disease IgM Ab (Negative) C. pneumoniae DNA (PCR) Not Detected (NotDetected) Coronavirus OC43 (PCR) Not Detected (NotDetected) Coronavirus HKU1 (PCR) Not Detected (NotDetected) Coronavirus 229E (PCR) Not Detected (NotDetected) COVID-19 PCR NEGATIVE (Negative) Coronavirus NL63 (PCR) Not Detected (NotDetected) Human Metapneumovir PCR Not Detected (NotDetected) Influenza Type A (PCR) Not Detected (NotDetected) Influenza Type B (PCR) Not Detected (NotDetected) M. pneumoniae (PCR) Not Detected (NotDetected) Parainfluenza 1 (PCR) Not Detected (NotDetected) Parainfluenza 2 (PCR) Not Detected (NotDetected) Parainfluenza 3 (PCR) Not Detected (NotDetected) Parainfluenza 4 (PCR) Not Detected (NotDetected) RSV (PCR) Not Detected (NotDetected) Entero/Rhino (PCR) Not Detected (NotDetected) SARS-CoV-2 RNA (RT-PCR) Administered Medications Atorvastatin Calcium (Lipitor) 80 mg PO DAILY [facility] Stop: 06/26/20 11:29 Last Admin: 05/28/20 09:32 Dose: 80 mg Documented by: [id number] Admin: 05/27/20 12:00 Dose: Not Given Documented by: [id number] Cyanocobalamin (Vitamin B-12) 250 mcg PO DAILY [facility] Stop: 06/27/20 08:59 Last Admin: 05/28/20 09:31 Dose: 250 mcg Documented by: [id number] Hydralazine HCl (Apresoline) 25 mg PO TID [facility] Stop: 06/27/20 13:59 Last Admin: 05/28/20 11:47 Dose: 25 mg Documented by: [id number] Cefepime HCl 2,000 mg/ Syringe 20 mls @ 5 mls/min IV DAILY@1200 [facility]; Protocol Stop: 06/06/20 11:59 Last Admin: 05/28/20 11:47 Dose: 5 mls/min Documented by: [id number] Insulin Aspart (Novolog Flexpen) 0 units SC [facility]; Protocol Stop: 06/27/20 11:29 Last Admin: 05/28/20 11:48 Dose: 3 units Documented by: [id number] Cosigned by: [id number] [facility]: 06/26/20 11:29 Last Admin: 05/28/20 05:02 Dose: 50 mcg Documented by: [id number] Admin: 05/27/20 12:00 Dose: Not Given Documented by: [id number] Magnesium Oxide (Mag-Ox) 400 mg PO DAILY [facility] Stop: 06/26/20 11:29 Last Admin: 05/28/20 09:32 Dose: 400 mg Documented by: [id number] Admin: 05/27/20 12:00 Dose: Not Given Documented by: [id number] Pantoprazole Sodium (Protonix) 40 mg PO DAILY [facility] Stop: 06/26/20 11:29 Last Admin: 05/28/20 09:32 Dose: 40 mg Documented by: [id number] Admin: 05/27/20 12:00 Dose: Not Given Documented by: [id number] Tamsulosin HCl (Flomax) 0.4 mg PO [facility] Stop: 06/26/20 20:59 Last Admin: 05/27/20 21:21 Dose: 0.4 mg Documented by: [id number] Trazodone HCl (Desyrel) 25 mg PO [facility] Stop: 06/26/20 20:59 Last Admin: 05/27/20 21:21 Dose: 25 mg Documented by: [id number] Discontinued Medications Albuterol (Ventolin 0.083% 2.5mg/3ml) Confirm Administered Dose 2.5 mg .ROUTE .STK-MED ONE Stop: 05/27/20 05:32 Last Admin: 05/27/20 06:29 Dose: Not Given Documented by: [id number] Albuterol (Ventolin 0.5% 2.5mg/0.5ml) 2.5 mg NEB NOW STA Stop: 05/27/20 06:12 Last Admin: 05/27/20 06:13 Dose: 2.5 mg Documented by: [id number] Atropine Sulfate (Atropine Sulfate) Confirm Administered Dose 1 mg IV .STK-MED ONE Stop: 05/27/20 10:18 Last Admin: 05/27/20 10:53 Dose: Not Given Documented by: [id number] Calcium Gluconate (Calcium Gluconate 10%) Confirm Administered Dose 1,000 mg IV .STK-MED ONE Stop: 05/27/20 05:20 Last Admin: 05/27/20 05:41 Dose: Not Given Documented by: [id number] Dextrose (Dextrose 50%) 50 ml IV NOW ONE Stop: 05/27/20 05:14 Last Admin: 05/27/20 05:41 Dose: 50 ml Documented by: [id number] Enoxaparin Sodium (Lovenox) [facility] Stop: 06/26/20 11:29 Last Admin: 05/27/20 12:32 Dose: 30 mg Documented by: [id number] Fentanyl Citrate (Fentanyl Citrate) Confirm Administered Dose 100 mcg .ROUTE .STK-MED ONE Stop: 05/27/20 10:37 Last Admin: 05/27/20 11:59 Dose: Not Given Documented by: [id number] Calcium Gluconate 1,000 mg/ (Sodium Chloride) 60 mls @ 240 mls/hr IV NOW STA Stop: 05/27/20 05:26 Last Infusion: 05/27/20 05:56 Dose: 0 mls/hr Documented by: [id number] Admin: 05/27/20 05:40 Dose: 240 mls/hr Documented by: [id number] Daptomycin 500 mg/ Syringe 10 mls @ 5 mls/min IV ONE ONE; Protocol Stop: 05/27/20 05:48 Last Admin: 05/27/20 06:29 Dose: Not Given Documented by: [id number] Imipenem/Cilastatin Sodium 500 (mg/ Dextrose) 110 mls @ 100 mls/hr IV NOW STA Stop: 05/27/20 06:52 Last Infusion: 05/27/20 07:39 Dose: 0 mls/hr Documented by: [id number] Admin: 05/27/20 06:29 Dose: 100 mls/hr Documented by: [id number] Doxycycline Hyclate 100 mg/ (Dextrose) 110 mls @ 50 mls/hr IV Q12H [facility] Stop: 06/03/20 10:31 Last Infusion: 05/27/20 14:15 Dose: 0 mls/hr Documented by: [id number] Admin: 05/27/20 11:39 Dose: 50 mls/hr Documented by: [id number] Cefepime HCl 2,000 mg/ Syringe 20 mls @ 5 mls/min IV NOW STA Stop: 05/27/20 10:41 Last Admin: 05/27/20 11:39 Dose: 5 mls/min Documented by: [id number] Vancomycin HCl 2,000 mg/ (Sodium Chloride) 540 mls @ 200 mls/hr IV NOW STA Stop: 05/27/20 13:19 Last Infusion: 05/27/20 14:31 Dose: 0 mls/hr Documented by: [id number] Admin: 05/27/20 11:40 Dose: 200 mls/hr Documented by: [id number] Sodium Chloride (Nss 1000ml) 1,000 mls @ 80 mls/hr IV .[id number] [facility] Stop: 06/26/20 15:14 Last Admin: 05/27/20 17:19 Dose: Not Given Documented by: [id number] Sodium Bicarbonate 150 meq/ (Sterile Water) 1,150 mls @ 50 mls/hr IV .Q23H [facility] Stop: 06/26/20 16:29 Last Infusion: 05/28/20 10:11 Dose: 0 mls/hr Documented by: [id number] Admin: 05/27/20 16:34 Dose: 50 mls/hr Documented by: [id number] Furosemide 80 mg/ Syringe 8 mls @ 4 mls/min IV ONE ONE Stop: 05/27/20 16:31 Last Admin: 05/27/20 16:34 Dose: 4 mls/min Documented by: [id number] Furosemide 80 mg/ Syringe 8 mls @ 4 mls/min IV ONE ONE Stop: 05/28/20 10:31 Last Admin: 05/28/20 11:47 Dose: 4 mls/min Documented by: [id number] Insulin Aspart (Novolog Flexpen) 0 units SC Q4 [facility]; Protocol Stop: 06/26/20 11:59 Last Admin: 05/28/20 09:29 Dose: 6 units Documented by: [id number] Cosigned by: [id number] Admin: 05/28/20 04:28 Dose: Not Given Documented by: [id number] Cosigned by: [id number] Admin: 05/27/20 23:28 Dose: Not Given Documented by: [id number] Cosigned by: [id number] Admin: 05/27/20 19:46 Dose: 1 units Documented by: [id number] Cosigned by: [id number] Admin: 05/27/20 17:48 Dose: Not Given Documented by: [id number] Cosigned by: [id number] Admin: 05/27/20 12:00 Dose: Not Given Documented by: [id number] Cosigned by: [id number] Insulin Glargine (Lantus Solostar Pen) 20 units SC NOW ONE; Protocol Stop: 05/27/20 11:46 Last Admin: 05/27/20 12:32 Dose: 20 units Documented by: [id number] Cosigned by: [id number] Insulin Glargine (Lantus Solostar Pen) 0 units SC DAILY@1999 ONE; Protocol Stop: 05/27/20 20:01 Last Admin: 05/27/20 19:45 Dose: 5 units Documented by: [id number] Cosigned by: [id number] Insulin Glargine (Lantus Solostar Pen) 15 units SC NOW STA; Protocol Stop: 05/28/20 12:12 Last Admin: 05/28/20 13:14 Dose: 15 units Documented by: [id number] Cosigned by: [id number] Insulin Human Regular (Novolin R U-100 Per Unit) 10 units IV NOW STA Stop: 05/27/20 05:13 Last Admin: 05/27/20 05:40 Dose: 10 units Documented by: [id number] Cosigned by: [id number] Midazolam HCl (Versed) Confirm Administered Dose 2 mg .ROUTE .STK-MED ONE Stop: 05/27/20 10:37 Last Admin: 05/27/20 12:00 Dose: Not Given Documented by: [id number] Patiromer (Veltassa) 8.4 gm PO DAILY [facility] Stop: 06/26/20 16:29 Last Admin: 05/28/20 10:10 Dose: Not Given Documented by: [id number] Admin: 05/27/20 18:16 Dose: 8.4 gm Documented by: [id number] Sodium Bicarbonate (Sodium Bicarbonate 8.4%) 50 meq IV NOW STA Stop: 05/27/20 13:57 Last Admin: 05/27/20 14:10 Dose: 50 meq Documented by: [id number] Discharge Plan Visit Data *Final* Discharge Date/Time: 05/27/20 09:24 Chief Complaint: Respiratory Problems Stated Complaint: BREATHING DIFFICULTY ED Provider: Hortencia Garza Discharge Problem: Acute hyperkalemia, Fever, SOB (shortness of breath), Acidosis, lactic, CHB (complete heart block), Acute renal failure Patient Disposition: Admitted As Inpatient Discharge Instructions Interventions: ED Discharge Assessment Last Done: 05/27/20 09:24 Discharge Problem: Fever Qualifiers: Fever type: unspecified Qualified Code(s): R50.9 - Fever, unspecified Acute renal failure Qualifiers: Acute renal failure type: unspecified Qualified Code(s): N17.9 - Acute kidney failure, unspecified
[2020-05-27] MEDS ORDERED: CALCIUM GLUCONATE 10% 1,000 MG in SODIUM CHLORIDE 0.9% 50 ML IV STA (05:12)
[2020-05-27] MEDS ORDERED: NovoLIN-R INSULIN PER UNIT CHARGE IV STA (05:12)
[2020-05-27 05:13] LABS: Hematocrit (blood only) 29.3 % (42-52); Hemoglobin 9.4 g/dL (14.0-18.0); Mean Corpuscular Hemoglobin 25.3 pg (25-34); Mean Corpuscular Hgb Conc 32.1 g/dL (32-36); Mean Platelet Volume 11.1 fL (7.4-10.4); Platelet Count 271 K/uL (130-400); RDW Coefficient of Variation 14.7 % (11.5-14.5); RDW Standard Deviation 41.9 fL (36.4-46.3); Red Blood Count 3.71 M/uL (4.7-6.1); White Blood Count 16.67 K/uL (4.8-10.8)
[2020-05-27] MEDS ORDERED: DEXTROSE 50% 50 ML SYRINGE IV ONE (05:13)
[2020-05-27 05:15] LABS: iSTAT Creatinine 2.7 mg/dl (0.6-1.3); iSTAT Hemoglobin 9.9 g/dl (14.0-18.0); iSTAT Ionized Calcium 1.08 mmol/l (1.12-1.32); iSTAT Potassium 6.5 mmol/L (3.3-5.0)
[2020-05-27] MEDS ORDERED: CALCIUM GLUCONATE 10% 10 ML VIAL IV ONE (05:19)
[2020-05-27] MEDS ORDERED: ALBUTEROL 0.083% NEBU SOLN 3 ML VIAL ONE (05:31)
[2020-05-27 05:40] LABS: Basophils # (auto) 0.02 K/uL (0-0.2); Basophils % (auto) 0.1 %; Echinocytes 1+; Eosinophils # (auto) 0.04 K/uL (0-0.5); Eosinophils % (auto) 0.2 %; Immature Granulocytes # (auto) 0.07 K/uL (0.00-0.02); Immature Granulocytes % (auto) 0.4 %; Lymphocytes # (auto) 1.44 K/uL (1.2-3.4); Lymphocytes % (auto) 8.6 %; Monocytes # (auto) 1.06 K/uL (0.11-0.59); Monocytes % (auto) 6.4 %; Neutrophils # (auto) 14.04 K/uL (1.4-6.5); Neutrophils % (auto) 84.3 %
[2020-05-27 05:45] LABS: INR 1.3 (0.9-1.1); Partial Thromboplastin Ratio 1.1; Partial Thromboplastin Time 29.8 Seconds (21.0-31.0); Prothrombin Time 13.7 Seconds (9.0-12.0)
[2020-05-27] MEDS ORDERED: DAPTOmycin 500 MG in SYRINGE 0 ML IV ONE (05:47)
[2020-05-27] MEDS ORDERED: IMIPENEM/CILASTATIN SODIUM 500 MG in DEXTROSE 5% 100 ML IV STA (05:47)
[2020-05-27] MEDS ORDERED: DAPTOMYCIN CONSULT ACTIVE PRN (05:47)
[2020-05-27] MEDS ORDERED: IMIPENEM/CILASTATIN CONSULT ACTIVE PRN (05:47)
[2020-05-27 05:49] LABS: D Dimer 4820 ug/L FEU (0-500)
[2020-05-27 05:50] LABS: Albumin Globulin Ratio 0.5 (0.9-2); Albumin Level 2.5 gm/dl (3.4-5.0); BUN Creatinine Ratio 15.6 (10-20); Calcium 8.5 mg/dl (8.5-10.1); Creatinine Clr Calc Pharmacy 22.2 ml/min; Est GFR (Non-African American) 20.7; Globulin 4.9 gm/dl (2.5-4.0); Magnesium 1.8 mg/dl (1.8-2.4); Potassium 6.4 mmol/L (3.5-5.1); Total Protein 7.4 gm/dl (6.4-8.2)
[2020-05-27] MEDS ORDERED: ALBUTEROL 0.5% NEB SOLN 2.5 MG/0.5 ML VIAL NEB STA (06:11)
[2020-05-27 06:29] LABS: Troponin I 3.3 ng/ml (0-0.045)
[2020-05-27 06:31] LABS: Appearance Urine Cloudy (Clear); Bacteria Urine Automated Negative (Negative); Bilirubin Urine Negative (Negative); Blood Urine Negative (Negative); Color Urine Dark Yellow; Epithelial Cell Urine Auto >30 /lpf (0-5); Glucose Urine UA Negative (Negative); Ketones Urine Trace (Negative); Leukocyte Esterase Urine Negative (Negative); Nitrite Urine Negative (Negative); Protein Urine 2+ (Negative); RBC Urine Automated 0-4 /hpf (0-4); Specific Gravity Urine 1.022 (1.000-1.030); Urobilinogen Urine Negative (Negative)
--- NOTE | 2020-05-27 07:40 | Critical Care Consultation ---
Date of Consultation May 27, 2020 Assessment & Plan (1) Admitted to intensive care unit: Reason Critically Ill: 84-year-old male presenting with fever concerns for possible infectious source as well as acute kidney injury with hyperkalemia and concerning bradycardia. NEURO - * CAM ICU: NEGATIVE * Patient does appear to have some slight difficulty with questioning (i.e. unable to provide date, specific location - [place]), but otherwise carries on full conversation. * No focal neurological deficits. * Continue to monitor for changes in mental status given current state of illness. CARDIAC/VASCULAR - * Bradycardia: * Appears to be in complete heart block. * Has been hemodynamically stable despite current rates. * ??source. * In the setting of febrile illness, will check Lyme serology. * ??2/2 ongoing beta carly use in the setting of ARF. * Appreciate cardiology consultation. * NSTEMI: * Likely demand in the setting of acuity of illness. * No ST elevations noted on EKG. * No c/o chest pain. * Patient is with SOB, cardiomegaly, CHF, and fever x1 wk -> ??possible Myocarditis? * Echo Pending. * Will add BioFire * COVID-19 pending. * Appreciate Cardiology guidance. * EKG: Sinus Bradycardia w/ Complete Heart block @[address] elevation. QTc 473 ms. * Monitor on telemetry. RESPIRATORY - * SOB: * Appears to have a moderate amount of pulmonary edema on CXR. * May have component of respiratory compensation in the metabolically acidotic patient. * ABG w/o significant concerns. GI/NUTRITION - * NPO at this time. RENAL/LYTES - * ARF: * Likely prerenal in the setting of hypovolemia from dehydration. * Patient clinically appears dry. * Will be difficult to provide IVF as the patient appears to have a degree of CHF already. * Patient on multiple nephrotoxic agents - D/C * High anion gap metabolic acidosis: * ??Lactic acidosis. * Also concern of ongoing Aspirin use as antipyretic. Will check salicilate levels. * Hyperkalemia: * Likely 2/2 ARF. * Received calcium gluconate, insulin, dextrose, and albuterol in the ED. * Will continue to trend. - * Would place Rodriguez for accurate I&Os ENDO - * DM * BSGs per unit protocol. ISS --> gtt per unit policy. * Hold home DM Rx * Hypothyroidism: * Will check TSH/Free T4. * Myxedema less likely, but certainly appropriate to check in the critically ill patient. HEME - * Anemia: * Uncertain of baseline. * Will trend. ID - * SIRS: * Fever for >1 wk -- associated myalgias, poor appetite, SOB. * Initially tested for COVID last week - NEGATIVE result on 05/24. * Agree with repeat testing given symptoms. * Uncertain source at this point. * Will check Lyme given complete heart block, fever, etc. * Received imipenem in the ED. * Will receive dose of Doxy and Vanc per hospitalist orders. * Lactate >6. * PCT elevated. * Will add BioFire LINES/IV ACCESS - * PIVs x2 DVT PROPHYLAXIS - * Heparin sq * SCDs I have personally spent 47 minutes of critical care time in the direct management of this patient. This is a life/limb threatening event. This includes time spent evaluating patient, direct bedside care, chart review, placing orders, interpretation of diagnostic studies, discussion with consultants, patient, and family members, as well as other required patient management activities. This time is exclusive of all separately billable procedures, and teaching time and separate from and in addition to any other critical care service time. Thank you for allowing us to participate in the care of this patient. Please refer to my attending physician's documentation for any further recommendations. (2) Fever: (3) Bradycardia: (4) SIRS (systemic inflammatory response syndrome): (5) SOB (shortness of breath): (6) Weakness: (7) Fatigue: (8) Myalgia: (9) Lactic acid acidosis: (10) Acute kidney injury: (11) High anion gap metabolic acidosis: (12) Hyperkalemia: Supervising Physician Co-Signing Physician Notes Patient discussed extensively with the overnight critical care PA. He is also independently seen and examined. 84-year-old with diabetes presenting with fevers and shortness of breath. Said fever since Wednesday. COVID test in the outpatient setting was negative. He was brought to the emergency room with weakness fatigue and shortness of breath. He was found to have acidemia and renal failure with hyperkalemia. He was given insulin dextrose and calcium in the emergency room. He denies headache. He was also found to have a borderline elevated troponin. He was seen by the hospitalist and admitted and due to the complexity of his issues recommended ICU monitoring. I assessed the patient immediately on arrival to the ICU. He was somewhat dusky with a heart rate in the 20s. Monitor demonstrated third-degree heart block. I contacted cardiology immediately and they presented to the bedside and made urgent arrangements to take the patient to the [facility] for a transvenous pacer. Atropine was also administered at that time. He remained hemodynamically stable. Transcutaneous pacing pads were also initiated and the patient was paced at a heart rate of 60. This improved his blood pressure. The constellation of symptoms is somewhat unclear. He presents with fevers leukocytosis anemia and acute renal failure with metabolic acidosis not attributable to DKA (lactate was elevated) as well as a markedly elevated BNP and troponin. His procalcitonin is also significantly elevated of unclear etiology. Review of the chest x-ray demonstrates cardiomegaly but no annette infiltrates. He did receive broad-spectrum antibiotics in the emergency room. Seems reasonable to continue broad-spectrum antibiotics for now. We will continue to work-up his renal function with calculation of fractional excretion of sodium. Echocardiogram and cardiology consultations are pending. Viral cardiomyopathy with myocarditis would be in the differential which would account for the fevers and potentially markedly elevated BNP. His abdominal exam is unrevealing and I am unclear what the source of his infection could be at this time. We will continue serial exams. We will check lactate later today. We will check follow-up blood gas. History of Present Illness History of Present Illness Patient is an 84-year-old male with a significant past medical history of coronary artery disease, hypertension, hyperlipidemia, BPH, diabetes, and hypothyroidism. Per conversation with colleagues and patient, he reportedly developed a fever last Wednesday. Throughout the week he has been experiencing generalized fatigue, muscle pains, as well as shortness of breath with exertion. He was seen at his primary care provider's office and had COVID testing performed. He received a NEGATIVE COVID result on Wednesday. Patient has had persistent fatigue and shortness of breath and is to the point that his daughter had to feed him and help him drink. He admits that he has had no appetite and has had little urine output. He does report that he urinates frequently, but does report a history of BPH and does urinate frequently and in small quantities. The patient denies any recent long distance travel. He reports no recent sick contacts. 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 He denies any outdoor activities. He denies any recent tick bites. Patient reports that he has been taking aspirin to help with his fevers. He states that he has been taking his daily medications as previously prescribed despite being ill. Other than the shortness of breath, the patient has complained of some mild abdominal discomfort. He denies any headaches, blurry vision, double vision, chest pain, palpitations, vomiting, diarrhea, or burning with urination. Allergies Allergy/AdvReac Type Severity Reaction Status Date / Time rosuvastatin Allergy Severe chest pain Verified 05/27/20 05:34 Home Medications Home Medications Medication Instructions Recorded Confirmed Type amlodipine 2.5 mg PO DAILY 05/27/20 05/27/20 History aspirin 650 mg PO DAILY 05/27/20 05/27/20 History atorvastatin 80 mg PO DAILY 05/27/20 05/27/20 History cyanocobalamin (vitamin B-12) 250 mcg SUBLINGUAL DAILY 05/27/20 05/27/20 History empagliflozin [Jardiance] 10 mg PO DAILY 05/27/20 05/27/20 History furosemide 20 mg PO DAILY PRN 05/27/20 05/27/20 History glimepiride 1 mg PO QAM 05/27/20 05/27/20 History insulin aspart U-100 [Novolog See Rx Instructions .ROUTE .COMPLEX 05/27/20 05/27/20 History Flexpen U-100 Insulin] insulin glargine [Lantus Solostar 25 unit SUBCUT QAM 05/27/20 05/27/20 History U-100 Insulin] isosorbide mononitrate 90 mg PO DAILY 05/27/20 05/27/20 History levothyroxine 50 mcg PO DAILY 05/27/20 05/27/20 History linagliptin-metformin [Jentadueto 1 tab PO DAILY 05/27/20 05/27/20 History XR] magnesium oxide 250 mg PO DAILY 05/27/20 05/27/20 History metoprolol succinate 25 mg PO DAILY 05/27/20 05/27/20 History nitroglycerin [Nitrostat] 0.4 mg SUBLINGUAL UD PRN 05/27/20 05/27/20 History omeprazole 20 mg PO DAILY 05/27/20 05/27/20 History tamsulosin 0.4 mg PO HS 05/27/20 05/27/20 History trazodone 25 mg PO HS 05/27/20 05/27/20 History Patient History Social History Smoking Status: Never smoker Hx Alcohol Use: No Hx Substance Use: No Preferred Language: Greenlandic Communication Ability: Effective Biochemist Required: No Beliefs That Will Affect Care: None Current Living Situation: Spouse and Family Other Information That Helps Us Care for You: No Feels Safe at Home: Yes Safety Concerns: Feels Safe At This Time Review of Systems Review of Systems: A complete 10 point review of systems was reviewed with the patient with pertinent positives and negatives as per history of present illness. All else were negative. Physical Exam Physical Exam: VITAL SIGNS - Vital signs and nursing notes were reviewed. GENERAL - 84-year-old male appearing his stated age who is in no acute distress. Answers questions appropriately for the most part. Slightly confused. SKIN - Without rashes. HEAD - NC/AT. EYES - PERRL with EOMI bilaterally. Sclera anicteric. EARS - No deformities of external structures noted on gross examination bilaterally. NOSE - Midline and without cyanosis. No epistaxis or purulent drainage noted. MOUTH/OROPHARYNX - Without perioral cyanosis. Buccal mucosa pink and dry. NECK - Neck with FROM. LUNGS - Chest wall symmetric without accessory muscle use, intercostals retractions, or central cyanosis. Coarse breath sounds noted. CARDIAC - RRR with S1/S2. No murmur, rubs, or gallops appreciated. ABDOMEN - Abdominal contour protuberant without pulsations or visible masses. BS normoactive all four quadrants. No tenderness, palpable masses, hepatosplenomegaly, or ascites noted. EXTREMITIES - No clubbing or peripheral cyanosis. No pretibial edema present. +3/5 radial and dorsalis pedis pulses palpated throughout. +5/5 strength noted in UE/LE bilaterally. NEUROLOGIC - Cranial nerves II through XII grossly intact. Sensory intact to light touch throughout. PSYCH -patient is awake and alert to person and place. He states the date is May 19. He takes time to answer current location. He does communicate well otherwise and answer questions appropriately. Results & Data Results & Data ([facility]) Vital Signs (Past 12 Hours) Vital Signs Temp Pulse Pulse Resp BP BP Pulse Ox 05/27/20 05:56 56 L 22 130/50 L 98 05/27/20 05:35 45 L 24 98 05/27/20 05:15 42 L 45 L 22 131/49 L 96 05/27/20 05:11 38.0 C H 48 L 22 156/81 H 91 05/27/20 05:10 53 L 13 96 05/27/20 05:05 49 L 14 95 05/27/20 05:00 44 L 16 98 05/27/20 04:55 97 05/27/20 04:51 45 L 17 96 05/27/20 04:45 46 L 13 94 05/27/20 04:40 47 L 14 95 05/27/20 04:35 49 L 17 98 05/27/20 04:31 50 L 19 91 05/27/20 04:29 50 L 17 155/73 H 92 Coding Level of Care Code Critical Care 1st 30-74 mins Diagnoses Admitted to intensive care unit Z78.9 Fever R50.9 Bradycardia R00.1 SIRS (systemic inflammatory response syndrome) R65.10 SOB (shortness of breath) R06.02 Weakness R53.1 Fatigue R53.83 Myalgia M79.10 Lactic acid acidosis E87.2 Acute kidney injury N17.9 High anion gap metabolic acidosis E87.2 Hyperkalemia E87.5 Time Spent (min) 47
[2020-05-27 07:42] LABS: Lyme Ab IgG w/WB Rflx Negative (Negative); Lyme Ab IgM w/WB Rflx Negative (Negative)
--- NOTE | 2020-05-27 08:01 | XRay Report ---
XR chest 1V portable CLINICAL HISTORY: SEPSIS dyspnea COMPARISON STUDY: 10/05/2013 FINDINGS: Moderate cardiomegaly. Prominent pulmonary vasculature. Diaphragms are smooth. Mild chronic elevation right hemidiaphragm. IMPRESSION: Congestive heart failure. ACT 112: Negative or not required by law. The above report was generated using voice recognition software. It may contain grammatical, syntax or spelling errors. Electronically signed by: Felice Babcock M.D. 05/27/2020 7:59 AM
[2020-05-27 08:59] LABS: Beta-Hydroxybutyrate 1.17 mg/dl (0.2-2.81); T4 Free Thyroxine 1.38 ng/dl (0.8-1.6); Thyroid Stimulating Hormone 3.1 uIu/ml (0.300-4.500)
[2020-05-27 09:31] LABS: Acetaminophen < 2 ug/ml (10-30); Salicylate < 1.7 mg/dl (2.8-20)
[2020-05-27 09:36] LABS: Adenovirus PCR Not Detected (NotDetected); Bordetella parapertussis PCR Not Detected (NotDetected); Bordetella pertussis PCR Not Detected (NotDetected); Chlamydia pneumoniae PCR Not Detected (NotDetected); Coronavirus 229E PCR Not Detected (NotDetected); Coronavirus HKU1 PCR Not Detected (NotDetected); Coronavirus NL63 PCR Not Detected (NotDetected); Coronavirus OC43PCR Not Detected (NotDetected); Human Metapneumovirus PCR Not Detected (NotDetected); Influenza A PCR Not Detected (NotDetected); Influenza B PCR Not Detected (NotDetected); Mycoplasma pneumoniae PCR Not Detected (NotDetected); Parainfluenza Virus 1 PCR Not Detected (NotDetected); Parainfluenza Virus 2 PCR Not Detected (NotDetected); Parainfluenza Virus 3 PCR Not Detected (NotDetected); Parainfluenza Virus 4 PCR Not Detected (NotDetected); Respiratory Syncytial VirusPCR Not Detected (NotDetected); Rhinovirus/Enterovirus PCR Not Detected (NotDetected)
--- NOTE | 2020-05-27 10:20 | History and Physical Report ---
DATE OF ADMISSION: 05/27/2020 CHIEF COMPLAINT: Fever and shortness of breath. HISTORY OF PRESENT ILLNESS: This is an 84-year-old male with past medical history significant for type 2 diabetes, hyperlipidemia, diabetic macular edema of right eye, hypothyroidism, CAD status post stent, asymptomatic bilateral carotid artery stenosis, GERD, diabetic polyneuropathy and retinopathy, now presents with ongoing fevers and shortness of breath with exertion. 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 Last Wednesday, he had developed fever. Since then, he is having weakness, fatigue, poor appetite, short of breath on minimal exertion and feeling nauseous, some abdominal discomfort. The patient also complains of neck pain. He said he could not flex his neck. This is going on for last 1 week. The fevers are coming in the nighttime and he takes 2 aspirins.His COVID test was done as outpatient at [facility] on 05/22/2020, it came back as negative. But his symptoms are not getting better, they are getting progressively getting worse, so he came to the ER. Initially he was somewhat confused and agitated and his labs showed he has wide complex rhythm and he has temp spike of 38. WBC of 16.6. D-dimer 4820. Potassium was 6.4, creatinine of 2.7. Lactate of 6.7. Troponin of 3.3. Chest x-ray with pulmonary congestion. He was started on oxygen. He was given insulin, dextrose and calcium gluconate in the ER and nebs treatment and is now somewhat alert and awake, can tell his name, knows he is in the hospital, tells today's date as 05/19/2020, but able to answer most of the questions. Denies any headache. Denies any chest pain. Has some nausea and abdominal discomfort. He has also complaints about neck pain. No blurred visions. Denies any tick bites. He says he does not go into the yard. He just works in the labs. Seem to be micturating fine. No rash seen. No lower extremity edema. As per daughter, he developed fever last Wednesday and daughter says she also developed some fever next day. They were worried about COVID. On the monitor, his rhythm looks like type 1 Wenckebach heart block. ALLERGIES: TO LOVASTATIN. PAST MEDICAL HISTORY: As mentioned above. PAST SURGICAL HISTORY: Cardiac cath, injection of the right eye, knee arthroscopy, removal of cataract lens, repair of hydrocele. MEDICATIONS: The patient is on glimepiride 1 mg p.o. daily, Jardiance 10 mg p.o. daily, isosorbide mononitrate 90 mg p.o. daily, amlodipine 2.5 mg p.o. daily, atorvastatin 80 mg p.o. daily, linagliptin and metformin 1000 mg tablet daily, Toprol-XL 25 mg p.o. daily, omeprazole 20 mg p.o. daily, insulin NovoLog 8 units at lunch and 20 units at dinner, Lantus 25 units once daily, Flomax 0.4 mg daily, trazodone 25 mg p.o. daily, Lasix 20 mg p.r.n., levothyroxine 50 mcg daily, Nitrostat 0.4 mg sublingual daily, aspirin 650 mg daily, vitamin B12 250 mcg daily, magnesium oxide 250 mg daily. FAMILY HISTORY: Significant for father had arthritis, diabetes, heart disorder. Father of [place] at age of 81. Mother has hypertension, diabetes. SOCIAL HISTORY: . Quit smoking in 2002, prior to that smoked half pack a day for 30 years. No alcohol use, no drug use. REVIEW OF SYMPTOMS: As per HPI. Rest of review of symptoms negative. PHYSICAL EXAMINATION: GENERAL: The patient is alert and awake, oriented to name and place, slightly confused with the dates. VITAL SIGNS: T-max 38, pulse 44, respiratory rate 20, blood pressure 108/42, oxygen 100% on 2 liters. HEENT: Pupils equal, round, reactive to light. Oral mucosa somewhat dry. NECK: No neck masses. Has some difficulty with movement of the neck. CARDIOVASCULAR SYSTEM: S1, S2 heard. Bradycardia. No murmurs, no gallop. RESPIRATORY SYSTEM: Normal AP diameter. No accessory muscle use. No wheezing, no crackles. ABDOMEN: Soft, bowel sounds present, nontender. No distention. CENTRAL NERVOUS SYSTEM: Alert and awake. Speech is clear. Insight is okay. Moves extremities. Obeys commands. EXTREMITIES: No edema, no erythema. LABORATORY DATA: WBC 16.6, hemoglobin 9.4, hematocrit 29.3, platelets 271. PT 13.7, INR 1.3. D-dimer 4820. Sodium 135, potassium 6.4, chloride 106, bicarb 17, BUN 43, creatinine 2.7, serum glucose 228, lactate 6.7, calcium 8.5, magnesium 1.8. Total bilirubin 1, AST 45, ALT 39, alkaline phosphatase 137. Total creatinine kinase 77. Troponin I 3.3. Procalcitonin 1.5. Urinalysis: +2 protein. Lyme disease pending. COVID pending. Chest x-ray: Bilateral pulmonary congestion. EKG shows sinus bradycardia with AV dissociation and wide QRS complex at 51, right bundle branch block. ASSESSMENT AND PLAN: This is an 84-year-old male who presents with ongoing fever and shortness of breath and found to have hyperkalemia, acute kidney injury, CHF. 1. 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 COVID test done on 05/22/2020 is negative. We are going to repeat the COVID test, Will empirically treat with IV vancomycin, IV cefepime, IV doxycycline. Denies any tick bites and does not work in the garden or yards. May need to do LP because the patient has neck pain if the COVID comes negative. All fluids as per Critical Care as the patient was having some pulmonary congestion.Will Follow cultures. Follow lyme screen.Bp ok currently. 2. CHF, pulmonary congestion on x-ray requiring oxygen 2 liters, getting short of breath on exertion. Currently blood pressure on the lower side, could not give any Lasix and also GWEN. Closely monitor in the ICU. We will get echocardiogram and consult Cardiology for further recommendation. 3. Elevated troponin, possible non-ST elevated NM, probably from underlying ongoing infectious process. We will follow serial cardiac enzymes, echocardiogram and Cardiology is consulted. 4. Hyperkalemia. Received insulin, dextrose and calcium gluconate in the ER. We will follow the repeat labs. Nephro consult. 5. Second degree Mobitz I heart block/Third degree block. Closely monitor in the ICU. Await Cardiology input.Hold his b carly. 6. Acute kidney injury on chronic kidney disease stage III. Baseline creatinine less than 1.4, current creatinine of 2.7. We will follow the repeat labs. Nephro consulted. 7. Elevated D-dimer, probably from ongoing infection. We will check the lower extremity Dopplers. 8. Metabolic acidosis and lactic acidosis, possibly from his ongoing illness. Sugars are 228, does not seem to be in DKA.Elevated lactic acid mostly from hypoxia/infection. 9. Elevated lactic acid, probably from ongoing infection and hypoxia. Could not give fluid because of congestion. We will await Critical Care input. Follow the repeat lactic acids. 10. Diabetes. We will hold his home medication, .ISS. Will monitor closely. 11. CAD status post stent. The patient is on Toprol-XL, Imdur which we will hold because of hypotension. . Continue his Lipitor. He is on 650 mg of aspirin .We will await Cardio input for aspirin dosing. 12. Hypothyroidism. Continue Synthroid. 13. BPH. Continue Flomax.bladder scan. 14. Deep venous thrombosis prophylaxis, SCDs for now. DISPOSITION: Closely monitor in the ICU. Level 1 full code as per my discussion with the daughter. BREN
[2020-05-27] MEDS: ATROPINE SULFATE 0.1 MG/ML 10ML SYR IV ONE ×2 (10:30→10:53)
[2020-05-27] MEDS ORDERED: CEFEPIME 2,000 MG in SYRINGE 7.5 ML IV SCH (10:32)
[2020-05-27] MEDS ORDERED: VANCOMYCIN CONSULT ACTIVE PRN (10:32)
[2020-05-27] MEDS ORDERED: ICU PROTOCOL FOR HYPERGLYCEMIA PRN (10:32)
[2020-05-27] MEDS ORDERED: DOXYCYCLINE HYCLATE 100 MG in DEXTROSE 5% 100 ML IV SCH (10:32)
[2020-05-27] MEDS ORDERED: VANCOMYCIN HCL 1,000 MG in SODIUM CHLORIDE 0.9% 250 ML IV SCH (10:32)
[2020-05-27] MEDS ORDERED: NITROGLYCERIN SL 0.4 MG/TAB TAB SL PRN (10:32)
[2020-05-27] MEDS ORDERED: PHARMACY GLYCEMIC MGMT CONSULT PRN (10:36)
[2020-05-27] MEDS ORDERED: MIDAZOLAM HCL 1 MG/ML 2ML VIAL ONE (10:36)
[2020-05-27] MEDS ORDERED: CEFEPIME CONSULT ACTIVE PRN (10:36)
[2020-05-27] MEDS ORDERED: fentaNYL citrate 100 MCG/2 ML VIAL ONE (10:36)
[2020-05-27] MEDS ORDERED: CEFEPIME 2,000 MG in SYRINGE 7.5 ML IV STA (10:38)
[2020-05-27] MEDS ORDERED: VANCOMYCIN HCL 2,000 MG in SODIUM CHLORIDE 0.9% 500 ML IV STA (10:38)
--- NOTE | 2020-05-27 11:13 | Cardiac Catheterization ---
Date of Service May 27, 2020 Cardiac Cath Report Cardiac Cath Report Procedure: 1. Temporary transvenous pacemaker History: This is an 84 year old male who has had a week of flu like symptoms. COVID test negative twice. Admitted through ED with hyperkalemia and ARF. Bradycardia not responsive to medications. Brought to recyclable materials sorter emergently for T-Pacer. Procedure summary: The patient was brought emergently to the cardiac catheterization lab. The patient was prepped and draped in the usual manner. Access was obtained using a retrograde Salinger technique from the right femoral vein. Under fluoroscopy a temporary pacing wire was advanced to the right ventricle. After thresholds were obtained the patient was left at a rate of 60 bpm with good capture. The patient responded immediately with stabilization of his blood pressure and oxygen saturation. He was returned to his room in stable condition.
--- NOTE | 2020-05-27 11:16 | Pharmacy Report ---
Glycemic Control Consultation - Date of Service May 27, 2020 - Scope Scope: Glycemic Pharmacist consulted for glycemic control and to write orders per [facility] inpatient glycemic control protocol. - Objective Weight: 79.9 kg Accuchecks BSG (last 24hrs): 05/27/20 05/27/20 05/27/20 05:02 05:03 07:05 Glucose 228 H POC Glucose 273 H POC Glucose (other) 226 H Laboratory Data (last 24hrs): 05/27/20 05/27/20 05:03 08:12 Potassium 6.4 H* Carbon Dioxide 17 L Anion Gap 13.0 H Creatinine 2.73 H Est Cr Clr Drug Dosing 22.2 Beta-Hydroxybutyric Acd 1.17 - Recent Pertinent Medications Outpatient Anti-diabetic Regimen: * Lantus 25 units SC qAM * Novolog 8 units with lunch and 22 units with dinner, plus correction factor of 25 mg/dL/unit (over 150 mg/dL) * Empagliflozin * Glimepiride * Linagliptin-metformin * A1c ordered for 05/28/20 Risk Factors for Insulin Resistance: * Infection * Recent Surgery: POD 0 s/p temporary pacemaker * Diet: NPO - Assessment & Plan Assessment & Plan: ASSESSMENT: * 84 yo M admitted 05/27 with possible infection, GWEN, and complete heart block of unknown etiology (? infectious vs. medication vs. other) and is now s/p emergent temporary pacemaker placement * BSG on arrival was 228 mg/dL. Patient received regular insulin 10 units IV and dextrose 50% 50 mL x1 for hyperkalemia and BSG increased to 273 mg/dL. BSG obtained after pacemaker was 173 mg/dL * Will continue basal/bolus for now - patient may require an insulin drip at some point, but since BSG now < 180 mg/dL with minimal glycemic intervention thus far, OK to defer drip for now * Will decrease basal dose as compared to home dose 2nd NPO status, but only by 20% as BSG was significantly elevated on admission. Additional basal insulin tonight if BSG >150 mg/dL PLAN FOR INPATIENT GLYCEMIC CONTROL: * Holding outpatient oral diabetes medications * Basal insulin * Lantus 20 units SQ x1. Additional 5 or 10 units tonight if BSG >150 mg/dL or >180 mg/dL, respectively * Bolus insulin * NovoLog q4h * Goal Range: Low 120 mg/dL - High 150 mg/dL * Correction Factor: 25 mg/dL/unit * Nutritional / Prandial insulin per carb ratio of 1 unit per 10 grams CHO consumed * Please note that the plan above was derived based on current level of insulin resistance and hospital stress. These recommendations are appropriate for inpatient admission only. Plan of care upon discharge will need to be reassessed to avoid potential outpatient hypo/hyperglycemia. Thank you.
[2020-05-27 11:26] LABS: iSTAT Hemoglobin 9.5 g/dl (14.0-18.0); iSTAT Potassium 6.4 mmol/L (3.3-5.0); iSTAT Sodium 132 mmol/L (135-144)
[2020-05-27 11:27] LABS: iSTAT Arterial Blood Gas HCO3 15 meg/L (19-24); iSTAT Arterial Blood Gas pCO2 27 mmHg (35-46); iSTAT Arterial Blood Gas pH 7.37 (7.35-7.45); iSTAT Arterial Blood Gas pO2 20 mmHg (80-95); iSTAT Carbon Dioxide 16 mmol/L (24-31); iSTAT Hematocrit 28 % (42-52)
[2020-05-27] MEDS ORDERED: ENOXAPARIN INJ 30 MG/0.3 ML SYR SQ SCH (11:30)
[2020-05-27 11:31] LABS: iSTAT Arterial Blood Gas HCO3 12 meg/L (19-24); iSTAT Arterial Blood Gas pCO2 22 mmHg (35-46); iSTAT Arterial Blood Gas pH 7.33 (7.35-7.45); iSTAT Arterial Blood Gas pO2 84 mmHg (80-95); iSTAT Carbon Dioxide 22 mmol/L (24-31)
--- NOTE | 2020-05-27 11:40 | Cardiology Consultation ---
Date of Consultation May 27, 2020 Assessment & Plan (1) Hyperkalemia: (2) High anion gap metabolic acidosis: (3) Acute kidney injury: (4) Lactic acid acidosis: (5) Bradycardia: The patient received a temporary pacing line in the [facility] and his blood pressure immediately stabilized. He left the [facility] and was admitted to the ICU in critical but stable condition. History of Present Illness Attending Physician: Boyd Juarez MD History of Present Illness This is an 84-year-old male patient who is not a good historian. Most of the information is taken from the medical record and limited discussion with his son. He has had the flu for approximately a week. He has had 2 COVID test which are negative. He presented to the emergency department with dehydration, acute renal failure and hyperkalemia along with bradycardia and hypotension. Medications did not correct his bradycardia and he was taken emergently to the cardiac catheterization lab where he received a temporary pacing wire. According to his son he has no significant cardiac history. Allergies Allergy/AdvReac Type Severity Reaction Status Date / Time rosuvastatin Allergy Severe chest pain Verified 05/27/20 05:34 Home Medications Home Medications Medication Instructions Recorded Confirmed Type amlodipine 2.5 mg PO DAILY 05/27/20 05/27/20 History aspirin 650 mg PO DAILY 05/27/20 05/27/20 History atorvastatin 80 mg PO DAILY 05/27/20 05/27/20 History cyanocobalamin (vitamin B-12) 250 mcg SUBLINGUAL DAILY 05/27/20 05/27/20 History empagliflozin [Jardiance] 10 mg PO DAILY 05/27/20 05/27/20 History furosemide 20 mg PO DAILY PRN 05/27/20 05/27/20 History glimepiride 1 mg PO QAM 05/27/20 05/27/20 History insulin aspart U-100 [Novolog See Rx Instructions .ROUTE .COMPLEX 05/27/20 05/27/20 History Flexpen U-100 Insulin] insulin glargine [Lantus Solostar 25 unit SUBCUT QAM 05/27/20 05/27/20 History U-100 Insulin] isosorbide mononitrate 90 mg PO DAILY 05/27/20 05/27/20 History levothyroxine 50 mcg PO DAILY 05/27/20 05/27/20 History linagliptin-metformin [Jentadueto 1 tab PO DAILY 05/27/20 05/27/20 History XR] magnesium oxide 250 mg PO DAILY 05/27/20 05/27/20 History metoprolol succinate 25 mg PO DAILY 05/27/20 05/27/20 History nitroglycerin [Nitrostat] 0.4 mg SUBLINGUAL UD PRN 05/27/20 05/27/20 History omeprazole 20 mg PO DAILY 05/27/20 05/27/20 History tamsulosin 0.4 mg PO HS 05/27/20 05/27/20 History trazodone 25 mg PO HS 05/27/20 05/27/20 History Patient History Social History Smoking Status: Never smoker Hx Alcohol Use: No Hx Substance Use: No Preferred Language: Syriac Communication Ability: Effective Director Of Market Research Required: No Beliefs That Will Affect Care: None Current Living Situation: Spouse and Family Other Information That Helps Us Care for You: No Feels Safe at Home: Yes Safety Concerns: Feels Safe At This Time Review of Systems Review of Systems: All systems reviewed & are unremarkable except as noted in HPI & below and Unobtainable due to reduced consciousness Physical Exam Physical Exam: General: Moderate distress Head: normocephalic, no masses, lesions, tenderness or abnormalities Eyes: conjunctiva are pink and non-injected, sclera clear Neck: supple, no adenopathy, no bruits, normal jugular venous pulse, no hepatojugular reflux Chest: normal shape and normal respiratory effort Lungs: clear to auscultation and percussion Cardiac Exam: - irregular rate & rhythm, no murmurs gallops or rubs - normal S1, normal S2 Pulses: 2(+) throughout Abdomen: abdomen soft, non-tender, no abnormal masses and no hepatosplenomegaly Musculoskeletal: no gait disturbance, no joint inflammation, no deforming arthritis Extremities: no edema and no cyanosis Neuro: grossly normal exam Results & Data ([facility]) Vital Signs (Past 12 Hours) Vital Signs Temp Pulse Pulse Resp BP BP Pulse Ox 05/27/20 10:35 65 14 96 05/27/20 10:30 66 37 H 05/27/20 10:25 28 L 05/27/20 10:20 31 L 99 05/27/20 10:15 28 L 05/27/20 10:10 24 05/27/20 10:05 30 H 99 05/27/20 10:00 26 H 96 05/27/20 09:55 27 H 96 05/27/20 09:50 28 H 95/47 L 97 05/27/20 09:45 34 L 16 96 05/27/20 09:40 34 L 15 05/27/20 08:52 43 L 16 135/63 95 05/27/20 08:24 37.6 C H 40 L 22 128/54 L 100 05/27/20 07:38 40 L 24 104/54 L 100 05/27/20 06:55 44 L 20 108/42 L 100 05/27/20 05:56 56 L 22 130/50 L 98 05/27/20 05:35 45 L 24 98 05/27/20 05:15 42 L 45 L 22 131/49 L 96 05/27/20 05:11 38.0 C H 48 L 22 156/81 H 91 05/27/20 05:10 53 L 13 96 05/27/20 05:05 49 L 14 95 05/27/20 05:00 44 L 16 98 05/27/20 04:55 97 05/27/20 04:51 45 L 17 96 05/27/20 04:45 46 L 13 94 05/27/20 04:40 47 L 14 95 05/27/20 04:35 49 L 17 98 05/27/20 04:31 50 L 19 91 05/27/20 04:29 50 L 17 155/73 H 92 Laboratory Results Laboratory Results - last 24 hr 05/27/20 05/27/20 05/27/20 05:02 05:03 05:03 WBC 16.67 H RBC 3.71 L Hgb 9.4 L POC Hgb 9.9 L Hct 29.3 L POC Hct 29 L MCV 79.0 L MCH 25.3 MCHC 32.1 RDW Std Deviation 41.9 RDW Coeff of Naren 14.7 H Plt Count 271 MPV 11.1 H Immature Gran % (Auto) 0.4 Neut % (Auto) 84.3 Lymph % (Auto) 8.6 [place] % (Auto) 6.4 Eos % (Auto) 0.2 Baso % (Auto) 0.1 Neut # (Auto) 14.04 H Lymph # (Auto) 1.44 [place] # (Auto) 1.06 H Eos # (Auto) 0.04 Baso # (Auto) 0.02 Immature Gran # (Auto) 0.07 H Echinocytes 1+ PT 13.7 H INR 1.3 H APTT 29.8 PTT Ratio 1.1 D-Dimer 4820 H* POC pH POC pCO2 POC pO2 POC HCO3 POC Base Excess ABG pH ABG pCO2 ABG pO2 ABG HCO3 ABG O2 Saturation ABG Base Excess Curtis Test Barometric Pressure Oxygen Given POC Sodium 132 L Sodium POC Potassium 6.5 H* Potassium POC Chloride 105 Chloride Carbon Dioxide POC Total CO2 16 L Anion Gap POC Anion Gap 18.0 POC BUN 40 H BUN Creatinine POC Creatinine 2.7 H Est Cr Clr Drug Dosing Est GFR ( Amer) Est GFR (Non-Af Amer) BUN/Creatinine Ratio Glucose POC Glucose POC Glucose (other) 226 H Lactate Calcium POC Ioniz Calcium Lauren 1.08 L Magnesium Total Bilirubin AST ALT Alkaline Phosphatase Lactate Dehydrogenase Total Creatine Kinase Troponin I NT-Pro-B Natriuret Pep Total Protein Albumin Globulin Albumin/Globulin Ratio Beta-Hydroxybutyric Acd Procalcitonin TSH Free T4 Urine Color Urine Appearance Urine pH Ur Specific [place] Urine Protein Urine Glucose (UA) Urine Ketones Urine Blood Urine Nitrite Urine Bilirubin Urine Urobilinogen Ur Leukocyte Esterase Urine WBC (Auto) Urine RBC (Auto) U Hyaline Cast (Auto) U Epithel Cells (Auto) Urine Bacteria (Auto) Nasal Screen MRSA (PCR) Salicylates Acetaminophen Adenovirus (PCR) B. pertussis DNA (PCR) B.parapertussis DNA PCR Lyme Disease IgG Ab Lyme Disease IgM Ab C. pneumoniae DNA (PCR) Coronavirus OC43 (PCR) Coronavirus HKU1 (PCR) Coronavirus 229E (PCR) COVID-19 PCR Coronavirus NL63 (PCR) Human Metapneumovir PCR Influenza Type A (PCR) Influenza Type B (PCR) M. pneumoniae (PCR) Parainfluenza 1 (PCR) Parainfluenza 2 (PCR) Parainfluenza 3 (PCR) Parainfluenza 4 (PCR) RSV (PCR) Entero/Rhino (PCR) SARS-CoV-2 RNA (RT-PCR) 05/27/20 05/27/20 05/27/20 05:03 05:03 05:03 WBC RBC Hgb POC Hgb Hct POC Hct MCV MCH MCHC RDW Std Deviation RDW Coeff of Naren Plt Count MPV Immature Gran % (Auto) Neut % (Auto) Lymph % (Auto) [place] % (Auto) Eos % (Auto) Baso % (Auto) Neut # (Auto) Lymph # (Auto) [place] # (Auto) Eos # (Auto) Baso # (Auto) Immature Gran # (Auto) Echinocytes PT INR APTT PTT Ratio D-Dimer POC pH POC pCO2 POC pO2 POC HCO3 POC Base Excess ABG pH ABG pCO2 ABG pO2 ABG HCO3 ABG O2 Saturation ABG Base Excess Curtis Test Barometric Pressure Oxygen Given POC Sodium Sodium 135 L POC Potassium Potassium 6.4 H* POC Chloride Chloride 106 Carbon Dioxide 17 L POC Total CO2 Anion Gap 13.0 H POC Anion Gap POC BUN BUN 43 H Creatinine 2.73 H POC Creatinine Est Cr Clr Drug Dosing 22.2 Est GFR ( Amer) 24.0 Est GFR (Non-Af Amer) 20.7 BUN/Creatinine Ratio 15.6 Glucose 228 H POC Glucose POC Glucose (other) Lactate Calcium 8.5 POC Ioniz Calcium Lauren Magnesium 1.8 Total Bilirubin 1.0 AST 45 H ALT 39 Alkaline Phosphatase 137 H Lactate Dehydrogenase Total Creatine Kinase 77 Troponin I 3.300 H* NT-Pro-B Natriuret Pep Total Protein 7.4 Albumin 2.5 L Globulin 4.9 H Albumin/Globulin Ratio 0.5 L Beta-Hydroxybutyric Acd Procalcitonin 1.56 H TSH Free T4 Urine Color Urine Appearance Urine pH Ur Specific [place] Urine Protein Urine Glucose (UA) Urine Ketones Urine Blood Urine Nitrite Urine Bilirubin Urine Urobilinogen Ur Leukocyte Esterase Urine WBC (Auto) Urine RBC (Auto) U Hyaline Cast (Auto) U Epithel Cells (Auto) Urine Bacteria (Auto) Nasal Screen MRSA (PCR) Salicylates Acetaminophen Adenovirus (PCR) B. pertussis DNA (PCR) B.parapertussis DNA PCR Lyme Disease IgG Ab Lyme Disease IgM Ab C. pneumoniae DNA (PCR) Coronavirus OC43 (PCR) Coronavirus HKU1 (PCR) Coronavirus 229E (PCR) COVID-19 PCR Coronavirus NL63 (PCR) Human Metapneumovir PCR Influenza Type A (PCR) Influenza Type B (PCR) M. pneumoniae (PCR) Parainfluenza 1 (PCR) Parainfluenza 2 (PCR) Parainfluenza 3 (PCR) Parainfluenza 4 (PCR) RSV (PCR) Entero/Rhino (PCR) SARS-CoV-2 RNA (RT-PCR) 05/27/20 05/27/20 05/27/20 05:03 05:22 05:33 WBC RBC Hgb POC Hgb 9.5 L Hct POC Hct 28 L MCV MCH MCHC RDW Std Deviation RDW Coeff of Naren Plt Count MPV Immature Gran % (Auto) Neut % (Auto) Lymph % (Auto) [place] % (Auto) Eos % (Auto) Baso % (Auto) Neut # (Auto) Lymph # (Auto) [place] # (Auto) Eos # (Auto) Baso # (Auto) Immature Gran # (Auto) Echinocytes PT INR APTT PTT Ratio D-Dimer POC pH 7.37 POC pCO2 27 L POC pO2 20 L POC HCO3 15 L POC Base Excess -10.0 L ABG pH Cancelled ABG pCO2 Cancelled ABG pO2 Cancelled ABG HCO3 Cancelled ABG O2 Saturation Cancelled ABG Base Excess Cancelled Curtis Test Cancelled Barometric Pressure Cancelled Oxygen Given Cancelled POC Sodium 132 L Sodium POC Potassium 6.4 H* Potassium POC Chloride Chloride Carbon Dioxide POC Total CO2 16 L Anion Gap POC Anion Gap POC BUN BUN Creatinine POC Creatinine Est Cr Clr Drug Dosing Est GFR ( Amer) Est GFR (Non-Af Amer) BUN/Creatinine Ratio Glucose POC Glucose POC Glucose (other) Lactate Calcium POC Ioniz Calcium Lauren Magnesium Total Bilirubin AST ALT Alkaline Phosphatase Lactate Dehydrogenase Total Creatine Kinase Troponin I NT-Pro-B Natriuret Pep Total Protein Albumin Globulin Albumin/Globulin Ratio Beta-Hydroxybutyric Acd Procalcitonin TSH Free T4 Urine Color Urine Appearance Urine pH Ur Specific [place] Urine Protein Urine Glucose (UA) Urine Ketones Urine Blood Urine Nitrite Urine Bilirubin Urine Urobilinogen Ur Leukocyte Esterase Urine WBC (Auto) Urine RBC (Auto) U Hyaline Cast (Auto) U Epithel Cells (Auto) Urine Bacteria (Auto) Nasal Screen MRSA (PCR) Salicylates Acetaminophen Adenovirus (PCR) B. pertussis DNA (PCR) B.parapertussis DNA PCR Lyme Disease IgG Ab Negative Lyme Disease IgM Ab Negative C. pneumoniae DNA (PCR) Coronavirus OC43 (PCR) Coronavirus HKU1 (PCR) Coronavirus 229E (PCR) COVID-19 PCR Coronavirus NL63 (PCR) Human Metapneumovir PCR Influenza Type A (PCR) Influenza Type B (PCR) M. pneumoniae (PCR) Parainfluenza 1 (PCR) Parainfluenza 2 (PCR) Parainfluenza 3 (PCR) Parainfluenza 4 (PCR) RSV (PCR) Entero/Rhino (PCR) SARS-CoV-2 RNA (RT-PCR) 05/27/20 05/27/20 05/27/20 05:37 05:50 05:53 WBC RBC Hgb POC Hgb Hct POC Hct MCV MCH MCHC RDW Std Deviation RDW Coeff of Naren Plt Count MPV Immature Gran % (Auto) Neut % (Auto) Lymph % (Auto) [place] % (Auto) Eos % (Auto) Baso % (Auto) Neut # (Auto) Lymph # (Auto) [place] # (Auto) Eos # (Auto) Baso # (Auto) Immature Gran # (Auto) Echinocytes PT INR APTT PTT Ratio D-Dimer POC pH POC pCO2 POC pO2 POC HCO3 POC Base Excess ABG pH ABG pCO2 ABG pO2 ABG HCO3 ABG O2 Saturation ABG Base Excess Curtis Test Barometric Pressure Oxygen Given POC Sodium Sodium POC Potassium Potassium POC Chloride Chloride Carbon Dioxide POC Total CO2 Anion Gap POC Anion Gap POC BUN BUN Creatinine POC Creatinine Est Cr Clr Drug Dosing Est GFR ( Amer) Est GFR (Non-Af Amer) BUN/Creatinine Ratio Glucose POC Glucose POC Glucose (other) Lactate 6.7 H* Calcium POC Ioniz Calcium Lauren Magnesium Total Bilirubin AST ALT Alkaline Phosphatase Lactate Dehydrogenase Total Creatine Kinase Troponin I NT-Pro-B Natriuret Pep Total Protein Albumin Globulin Albumin/Globulin Ratio Beta-Hydroxybutyric Acd Procalcitonin TSH Free T4 Urine Color Dark Yellow Urine Appearance Cloudy A Urine pH 5.0 Ur Specific [place] 1.022 Urine Protein 2+ H Urine Glucose (UA) Negative Urine Ketones Trace H Urine Blood Negative Urine Nitrite Negative Urine Bilirubin Negative Urine Urobilinogen Negative Ur Leukocyte Esterase Negative Urine WBC (Auto) 1-5 Urine RBC (Auto) 0-4 U Hyaline Cast (Auto) 5-10 H U Epithel Cells (Auto) >30 H Urine Bacteria (Auto) Negative Nasal Screen MRSA (PCR) Salicylates Acetaminophen Adenovirus (PCR) B. pertussis DNA (PCR) B.parapertussis DNA PCR Lyme Disease IgG Ab Lyme Disease IgM Ab C. pneumoniae DNA (PCR) Coronavirus OC43 (PCR) Coronavirus HKU1 (PCR) Coronavirus 229E (PCR) COVID-19 PCR Coronavirus NL63 (PCR) Human Metapneumovir PCR Influenza Type A (PCR) Influenza Type B (PCR) M. pneumoniae (PCR) Parainfluenza 1 (PCR) Parainfluenza 2 (PCR) Parainfluenza 3 (PCR) Parainfluenza 4 (PCR) RSV (PCR) Entero/Rhino (PCR) SARS-CoV-2 RNA (RT-PCR) Cancelled 05/27/20 05/27/20 05/27/20 05:53 05:53 06:00 WBC RBC Hgb POC Hgb Hct POC Hct MCV MCH MCHC RDW Std Deviation RDW Coeff of Naren Plt Count MPV Immature Gran % (Auto) Neut % (Auto) Lymph % (Auto) [place] % (Auto) Eos % (Auto) Baso % (Auto) Neut # (Auto) Lymph # (Auto) [place] # (Auto) Eos # (Auto) Baso # (Auto) Immature Gran # (Auto) Echinocytes PT INR APTT PTT Ratio D-Dimer POC pH 7.33 L POC pCO2 22 L POC pO2 84 POC HCO3 12 L POC Base Excess -14.0 L ABG pH ABG pCO2 ABG pO2 ABG HCO3 ABG O2 Saturation ABG Base Excess Curtis Test Barometric Pressure Oxygen Given POC Sodium Sodium POC Potassium Potassium POC Chloride Chloride Carbon Dioxide POC Total CO2 22 L Anion Gap POC Anion Gap POC BUN BUN Creatinine POC Creatinine Est Cr Clr Drug Dosing Est GFR ( Amer) Est GFR (Non-Af Amer) BUN/Creatinine Ratio Glucose POC Glucose POC Glucose (other) Lactate Calcium POC Ioniz Calcium Lauren Magnesium Total Bilirubin AST ALT Alkaline Phosphatase Lactate Dehydrogenase Total Creatine Kinase Troponin I NT-Pro-B Natriuret Pep Total Protein Albumin Globulin Albumin/Globulin Ratio Beta-Hydroxybutyric Acd Procalcitonin TSH Free T4 Urine Color Urine Appearance Urine pH Ur Specific [place] Urine Protein Urine Glucose (UA) Urine Ketones Urine Blood Urine Nitrite Urine Bilirubin Urine Urobilinogen Ur Leukocyte Esterase Urine WBC (Auto) Urine RBC (Auto) U Hyaline Cast (Auto) U Epithel Cells (Auto) Urine Bacteria (Auto) Nasal Screen MRSA (PCR) Salicylates Acetaminophen Adenovirus (PCR) Not Detected B. pertussis DNA (PCR) Not Detected B.parapertussis DNA PCR Not Detected Lyme Disease IgG Ab Lyme Disease IgM Ab C. pneumoniae DNA (PCR) Not Detected Coronavirus OC43 (PCR) Not Detected Coronavirus HKU1 (PCR) Not Detected Coronavirus 229E (PCR) Not Detected COVID-19 PCR NEGATIVE Coronavirus NL63 (PCR) Not Detected Human Metapneumovir PCR Not Detected Influenza Type A (PCR) Not Detected Influenza Type B (PCR) Not Detected M. pneumoniae (PCR) Not Detected Parainfluenza 1 (PCR) Not Detected Parainfluenza 2 (PCR) Not Detected Parainfluenza 3 (PCR) Not Detected Parainfluenza 4 (PCR) Not Detected RSV (PCR) Not Detected Entero/Rhino (PCR) Not Detected SARS-CoV-2 RNA (RT-PCR) 05/27/20 05/27/20 05/27/20 07:05 08:12 08:12 WBC RBC Hgb POC Hgb Hct POC Hct MCV MCH MCHC RDW Std Deviation RDW Coeff of Naren Plt Count MPV Immature Gran % (Auto) Neut % (Auto) Lymph % (Auto) [place] % (Auto) Eos % (Auto) Baso % (Auto) Neut # (Auto) Lymph # (Auto) [place] # (Auto) Eos # (Auto) Baso # (Auto) Immature Gran # (Auto) Echinocytes PT INR APTT PTT Ratio D-Dimer POC pH POC pCO2 POC pO2 POC HCO3 POC Base Excess ABG pH ABG pCO2 ABG pO2 ABG HCO3 ABG O2 Saturation ABG Base Excess Curtis Test Barometric Pressure Oxygen Given POC Sodium Sodium POC Potassium Potassium POC Chloride Chloride Carbon Dioxide POC Total CO2 Anion Gap POC Anion Gap POC BUN BUN Creatinine POC Creatinine Est Cr Clr Drug Dosing Est GFR ( Amer) Est GFR (Non-Af Amer) BUN/Creatinine Ratio Glucose POC Glucose 273 H POC Glucose (other) Lactate Calcium POC Ioniz Calcium Lauren Magnesium Total Bilirubin AST ALT Alkaline Phosphatase Lactate Dehydrogenase Total Creatine Kinase Troponin I NT-Pro-B Natriuret Pep 81833 H Total Protein Albumin Globulin Albumin/Globulin Ratio Beta-Hydroxybutyric Acd 1.17 Procalcitonin TSH 3.100 Free T4 1.38 Urine Color Urine Appearance Urine pH Ur Specific [place] Urine Protein Urine Glucose (UA) Urine Ketones Urine Blood Urine Nitrite Urine Bilirubin Urine Urobilinogen Ur Leukocyte Esterase Urine WBC (Auto) Urine RBC (Auto) U Hyaline Cast (Auto) U Epithel Cells (Auto) Urine Bacteria (Auto) Nasal Screen MRSA (PCR) Salicylates < 1.7 L Acetaminophen < 2 L Adenovirus (PCR) B. pertussis DNA (PCR) B.parapertussis DNA PCR Lyme Disease IgG Ab Lyme Disease IgM Ab C. pneumoniae DNA (PCR) Coronavirus OC43 (PCR) Coronavirus HKU1 (PCR) Coronavirus 229E (PCR) COVID-19 PCR Coronavirus NL63 (PCR) Human Metapneumovir PCR Influenza Type A (PCR) Influenza Type B (PCR) M. pneumoniae (PCR) Parainfluenza 1 (PCR) Parainfluenza 2 (PCR) Parainfluenza 3 (PCR) Parainfluenza 4 (PCR) RSV (PCR) Entero/Rhino (PCR) SARS-CoV-2 RNA (RT-PCR) 05/27/20 05/27/20 05/27/20 08:12 08:12 09:45 WBC RBC Hgb POC Hgb Hct POC Hct MCV MCH MCHC RDW Std Deviation RDW Coeff of Naren Plt Count MPV Immature Gran % (Auto) Neut % (Auto) Lymph % (Auto) [place] % (Auto) Eos % (Auto) Baso % (Auto) Neut # (Auto) Lymph # (Auto) [place] # (Auto) Eos # (Auto) Baso # (Auto) Immature Gran # (Auto) Echinocytes PT INR APTT PTT Ratio D-Dimer POC pH POC pCO2 POC pO2 POC HCO3 POC Base Excess ABG pH ABG pCO2 ABG pO2 ABG HCO3 ABG O2 Saturation ABG Base Excess Curtis Test Barometric Pressure Oxygen Given POC Sodium Sodium POC Potassium Potassium POC Chloride Chloride Carbon Dioxide POC Total CO2 Anion Gap POC Anion Gap POC BUN BUN Creatinine POC Creatinine Est Cr Clr Drug Dosing Est GFR ( Amer) Est GFR (Non-Af Amer) BUN/Creatinine Ratio Glucose POC Glucose POC Glucose (other) Lactate 4.0 H* Calcium POC Ioniz Calcium Lauren Magnesium Total Bilirubin AST ALT Alkaline Phosphatase Lactate Dehydrogenase 680 H Total Creatine Kinase Troponin I NT-Pro-B Natriuret Pep Total Protein Albumin Globulin Albumin/Globulin Ratio Beta-Hydroxybutyric Acd Procalcitonin TSH Free T4 Urine Color Urine Appearance Urine pH Ur Specific [place] Urine Protein Urine Glucose (UA) Urine Ketones Urine Blood Urine Nitrite Urine Bilirubin Urine Urobilinogen Ur Leukocyte Esterase Urine WBC (Auto) Urine RBC (Auto) U Hyaline Cast (Auto) U Epithel Cells (Auto) Urine Bacteria (Auto) Nasal Screen MRSA (PCR) Pending Salicylates Acetaminophen Adenovirus (PCR) B. pertussis DNA (PCR) B.parapertussis DNA PCR Lyme Disease IgG Ab Lyme Disease IgM Ab C. pneumoniae DNA (PCR) Coronavirus OC43 (PCR) Coronavirus HKU1 (PCR) Coronavirus 229E (PCR) COVID-19 PCR Coronavirus NL63 (PCR) Human Metapneumovir PCR Influenza Type A (PCR) Influenza Type B (PCR) M. pneumoniae (PCR) Parainfluenza 1 (PCR) Parainfluenza 2 (PCR) Parainfluenza 3 (PCR) Parainfluenza 4 (PCR) RSV (PCR) Entero/Rhino (PCR) SARS-CoV-2 RNA (RT-PCR) 05/27/20 11:26 WBC RBC Hgb POC Hgb Hct POC Hct MCV MCH MCHC RDW Std Deviation RDW Coeff of Naren Plt Count MPV Immature Gran % (Auto) Neut % (Auto) Lymph % (Auto) [place] % (Auto) Eos % (Auto) Baso % (Auto) Neut # (Auto) Lymph # (Auto) [place] # (Auto) Eos # (Auto) Baso # (Auto) Immature Gran # (Auto) Echinocytes PT INR APTT PTT Ratio D-Dimer POC pH POC pCO2 POC pO2 POC HCO3 POC Base Excess ABG pH ABG pCO2 ABG pO2 ABG HCO3 ABG O2 Saturation ABG Base Excess Curtis Test Barometric Pressure Oxygen Given POC Sodium Sodium POC Potassium Potassium POC Chloride Chloride Carbon Dioxide POC Total CO2 Anion Gap POC Anion Gap POC BUN BUN Creatinine POC Creatinine Est Cr Clr Drug Dosing Est GFR ( Amer) Est GFR (Non-Af Amer) BUN/Creatinine Ratio Glucose POC Glucose 173 H POC Glucose (other) Lactate Calcium POC Ioniz Calcium Luaren Magnesium Total Bilirubin AST ALT Alkaline Phosphatase Lactate Dehydrogenase Total Creatine Kinase Troponin I NT-Pro-B Natriuret Pep Total Protein Albumin Globulin Albumin/Globulin Ratio Beta-Hydroxybutyric Acd Procalcitonin TSH Free T4 Urine Color Urine Appearance Urine pH Ur Specific [place] Urine Protein Urine Glucose (UA) Urine Ketones Urine Blood Urine Nitrite Urine Bilirubin Urine Urobilinogen Ur Leukocyte Esterase Urine WBC (Auto) Urine RBC (Auto) U Hyaline Cast (Auto) U Epithel Cells (Auto) Urine Bacteria (Auto) Nasal Screen MRSA (PCR) Salicylates Acetaminophen Adenovirus (PCR) B. pertussis DNA (PCR) B.parapertussis DNA PCR Lyme Disease IgG Ab Lyme Disease IgM Ab C. pneumoniae DNA (PCR) Coronavirus OC43 (PCR) Coronavirus HKU1 (PCR) Coronavirus 229E (PCR) COVID-19 PCR Coronavirus NL63 (PCR) Human Metapneumovir PCR Influenza Type A (PCR) Influenza Type B (PCR) M. pneumoniae (PCR) Parainfluenza 1 (PCR) Parainfluenza 2 (PCR) Parainfluenza 3 (PCR) Parainfluenza 4 (PCR) RSV (PCR) Entero/Rhino (PCR) SARS-CoV-2 RNA (RT-PCR) Medications Administered Current Inpatient Medications Aspirin (Ecotrin) 650 mg PO DAILY [facility] Stop: 06/26/20 10:31 Atorvastatin Calcium (Lipitor) 80 mg PO DAILY [facility] Stop: 06/26/20 11:29 Cyanocobalamin (Vitamin B-12) 250 mcg PO DAILY AMAURI Stop: 06/27/20 08:59 Enoxaparin Sodium (Lovenox) 30 mg SQ QAM A[facility] Stop: 06/26/20 11:29 Doxycycline Hyclate 100 mg/ (Dextrose) 110 mls @ 50 mls/hr IV Q12H [facility] Stop: 06/03/20 10:31 Vancomycin HCl 2,000 mg/ (Sodium Chloride) 540 mls @ 200 mls/hr IV NOW STA Stop: 05/27/20 13:19 Insulin Aspart (Novolog Flexpen) 0 units SC Q4 AMAURI; Protocol Stop: 06/26/20 11:59 Insulin Glargine (Lantus Solostar Pen) 20 units SC NOW ONE; Protocol Stop: 05/27/20 11:46 Levothyroxine Sodium (Synthroid) 50 mcg PO DAILYBB AMAURI Stop: 06/26/20 11:29 Magnesium Oxide (Mag-Ox) 400 mg PO DAILY AMAURI Stop: 06/26/20 11:29 Miscellaneous Information (Consult) 1 ea N/A UD PRN PRN Reason: Consult Stop: 06/26/20 10:31 Miscellaneous Information (Cefepime Consult Active) 1 ea N/A UD PRN PRN Reason: Consult Stop: 06/26/20 10:35 Miscellaneous Information (Consult Glycemic Management Pharmacy) 1 ea N/A UD PRN PRN Reason: Consult Stop: 06/26/20 10:35 Nitroglycerin (Nitrostat) 0.4 mg UD PRN PRN Reason: Chest Pain Stop: 06/26/20 10:31 Pantoprazole Sodium (Protonix) 40 mg PO DAILY AMAURI Stop: 06/26/20 11:29 Tamsulosin HCl (Flomax) 0.4 mg PO HS [facility] Stop: 06/26/20 20:59 Trazodone HCl (Desyrel) 25 mg PO HS AMAURI Stop: 06/26/20 20:59
[2020-05-27] MEDS ORDERED: INSULIN GLARGINE SOLOSTAR 100 UNITS/ML 3 ML PEN SC ONE ×2 (11:45→20:00)
[2020-05-27] MEDS: LEVOTHYROXINE SODIUM 50 MCG TABLET PO SCH (12:00)
[2020-05-27] MEDS ORDERED: INSULIN ASPART 100 UNITS/ML 3 ML PEN SC SCH (12:00)
[2020-05-27] MEDS: INSULIN ASPART 100 UNITS/ML 3 ML PEN SC SCH ×4 (12:00→23:28)
[2020-05-27] MEDS: PANTOprazole 40 MG TAB PO SCH (12:00)
[2020-05-27] MEDS: MAGNESIUM OXIDE 400 MG TAB PO SCH (12:00)
[2020-05-27] MEDS: ATORVASTATIN 40 MG TAB PO SCH (12:00)
[2020-05-27 12:49] LABS: BUN Creatinine Ratio 14.6 (10-20); Calcium 8.8 mg/dl (8.5-10.1); Creatinine Clr Calc Pharmacy 18.8 ml/min; Est GFR (African American) 19.6; Est GFR (Non-African American) 16.9; Magnesium 1.9 mg/dl (1.8-2.4); Potassium 6.2 mmol/L (3.5-5.1)
[2020-05-27 12:55] LABS: Troponin I 3.6 ng/ml (0-0.045)
--- NOTE | 2020-05-27 13:03 | Pharmacy Report ---
Pharmacy Abx Dose Short Note - Date of Service May 27, 2020 - Assessment & Plan Assessment * 84 year old M empirically receiving cefepime, doxycycline, and vancomycin for possible meningitis and/or PNA * MRSA nasal swab, [employer] CSF panel, Lyme IgG/IgM, and COVID-19 tests all negative * GWEN noted with SCr increasing 2.7 to 3.2 mg/dL today Vancomycin * Vancomycin 25 mg/kg loading dose despite GWEN selected 2nd severity of illness and need for high levels for adequate [employer]ISTRATOR penetration for meningitis coverage * Given significant GWEN, will dose by level. Will obtain one this evening and again tomorrow AM Plan * Random level tonight @ 1999. If less than 25 mcg/mL, give 500 mg x1 * Random level again tomorrow AM Pharmacy will continue to follow and will adjust dose/frequency as necessary. Thank you.
[2020-05-27] MEDS ORDERED: SODIUM BICARB 8.4% INJ 50 MEQ/50 ML SYR IV STA (13:56)
[2020-05-27 14:45] LABS: Sodium Random Urine < 5 mmol/L
--- NOTE | 2020-05-27 14:55 | Ultrasound Report ---
BILATERAL LOWER EXTREMITY VENOUS DOPPLER HISTORY: Acutely elevated d-dimer elevated d dimer COMPARISON STUDY: Duplex Doppler study 10/05/2013 FINDINGS: There is normal compressibility, flow, and augmentation within the bilateral lower extremit y deep venous systems. The right upper and mid thigh were unable to be imaged secondary to a reported vascular line in place. IMPRESSION: No DVT within the right or left lower extremity. ACT 112: Negative or not required by law. Electronically signed by: Tc Clifton M.D. 05/27/2020 2:53 PM
--- NOTE | 2020-05-27 15:04 | Ultrasound Report ---
RENAL ULTRASOUND CLINICAL HISTORY: renal failure COMPARISON STUDY: None. TECHNIQUE: Sonography of the kidneys and the urinary bladder was performed. FINDINGS: Right kidney measures 9.9 cm in maximal dimension and the left measures 9 cm. There is no h ydronephrosis. There is mild renal cortical thinning. Kidneys are slightly echogenic. There is a 1 cm cyst within the lower pole of the right kidney. The bladder is collapsed, containing a Rodriguez. IMPRESSION: No hydronephrosis. ACT 112: Negative or not required by law. Electronically signed by: Tevin Lopez M.D. 05/27/2020 3:03 PM
[2020-05-27] MEDS ORDERED: SODIUM CHLORIDE 0.9% 1000ML 1,000 ML IV SCH (15:15)
[2020-05-27] MEDS ORDERED: SODIUM BICARBONATE 8.4% 150 MEQ in WATER, STERILE 1,000 ML IV SCH (16:30)
[2020-05-27] MEDS ORDERED: FUROSEMIDE 80 MG in SYRINGE 0 ML IV ONE (16:30)
--- NOTE | 2020-05-27 16:30 | Consultation Report ---
DATE OF CONSULTATION: 05/27/2020 NEPHROLOGY CONSULTATION REASON FOR CONSULT: Acute renal failure, hyperkalemia. HISTORY OF PRESENT ILLNESS: The patient is an 84-year-old male with history of longstanding type 2 diabetes with chronic kidney disease stage III with a baseline creatinine of 1.4, presented to the hospital earlier today because of increasing shortness of breath. He had fever about a week ago and was checked for COVID test, which was negative. He was presumed to be having some flu-like illness. However, he was also having intermittent chest pain as well as increasing shortness of breath with nausea and poor appetite. In the Emergency Department, workup showed elevated white count, elevated creatinine of 2.7, elevated lactic acid, with elevated potassium of 6.4. Chest x-ray showed congestive heart failure. He was started on insulin. Hyperkalemia was initially managed medically, but it is still high. He is making urine and has a Rodriguez catheter. He was significantly bradycardic with hypotension and was taken to cardiac catheterization lab where he has received a temporary pacing wire. Since the pacemaker wire has been placed, blood pressure and heart rate is better. He is getting normal saline at 70 mL per hour. ALLERGIES: STATIN. PAST MEDICAL HISTORY: Type 2 diabetes, hyperlipidemia, diabetic macular edema, hypothyroidism, coronary artery disease, status post stent, asymptomatic bilateral carotid artery stenosis, GERD, diabetic neuropathy and retinopathy, knee surgery. MEDICATIONS: List was reviewed and is as per the medicine reconciliation list. FAMILY HISTORY: Reviewed, negative for renal disease or dialysis. SOCIAL HISTORY: . Quit smoking in 2002. REVIEW OF SYSTEMS: As per HPI illness stated, otherwise 12 systems reviewed and negative. PHYSICAL EXAMINATION: GENERAL: Elderly white male who is actually awake, alert, oriented x3. He is not in any respiratory distress at this time. VITAL SIGNS: Blood pressure most recently is 148/64, temperature 36.9, 93% on 2 liter nasal cannula, pulse rate 60. HEENT: Mucous membranes moist. NECK: Supple. CHEST: Bilaterally decreased breath sounds and occasional crackles. CARDIOVASCULAR: S1, S2 regular. ABDOMEN: Soft, nontender. EXTREMITIES: Show no edema. LABORATORY TESTS: Reviewed. Hemoglobin 9.4, WBC count 16,000, platelet count 271. Sodium 132, potassium 6.2, bicarbonate 18, anion gap 12, BUN 47, creatinine 3.23. Troponin 3.6. BNP 17,600. Chest x-ray: CHF. ASSESSMENT AND PLAN: An 84-year-old male with preexisting chronic kidney disease stage III secondary to longstanding diabetes, now presenting with acute renal failure with a rising creatinine associated with hyperkalemia. Acute renal failure: This is secondary to bradycardia with hypotension. The patient reported having chest pain and intermittent lightheadedness even a week ago, which could very well be intermittent bradycardia. Hyperkalemia and acute renal failure is the result of hypoperfusion in the setting of bradycardia and low blood pressure. Continue to hold all nephrotoxic agents. He has evidence of congestive heart failure at this time and does not need IV fluid, so we will stop normal saline. However, we will give him some bicarb drip mainly to correct metabolic acidosis and hyperkalemia. We will also give him Veltassa if available in the hospital formulary for hyperkalemia management. Also, give him Lasix 80 mg IV x1. At this time, creatinine is still rising, but we have at least couple of days to wait for the renal recovery to happen before we have to think about doing dialysis. He is making urine, so I am hopeful that with his better blood pressure and better heart rate that he will not need dialysis support. No detailed workup needed for acute renal failure etiology. BREN
[2020-05-27 16:49] LABS: Base Excess VBG -4.3 mEq/L; HCO3 VBG 20 mmol/L; PCO2 VBG 34 mmHg (38-50); PO2 VBG 30 mmHg; pH VBG 7.39 (7.36-7.41)
[2020-05-27 16:50] LABS: Oxygen Saturation VBG < 60.0 %
[2020-05-27 17:09] LABS: BUN Creatinine Ratio 16.2 (10-20); Calcium 8.6 mg/dl (8.5-10.1); Creatinine Clr Calc Pharmacy 20.8 ml/min; Est GFR (African American) 22.2; Est GFR (Non-African American) 19.2; Potassium 6.3 mmol/L (3.5-5.1)
[2020-05-27] MEDS: PATIROMER CALCIUM SORBITEX 8.4 GM PACK PO SCH (18:16)
--- NOTE | 2020-05-27 19:04 | Hospitalist Progress Note ---
Date of Service May 27, 2020 Assessment & Plan (1) Gram-negative bacteremia: Fevers on admission have subsided on cefepime. Initial blood cultures are revealing GN bacteremia. New 3rd degree heart block s/p temp transvenous pacer and feeling better. Urine is clear. Unclear source. Cont monitoring (2) Third degree heart block: s/p transvenous pacer until bacteremia clears. (3) Hyperkalemia: received a GI potassium binder, repeat. Management per Nephrology who is consulted. (4) High anion gap metabolic acidosis: Management per ICU team and Neprhrology who started a bicarb drip. (5) Acute kidney injury: h/o CKD Stage III at baseline. Likely secondary to prolonged illness and hypoperfusion of the kidneys in the setting of bradycardia and low blood pressure. Cont to monitor BMP and avoid nephrotoxic agents when able. Renally dose meds when appropriate. (6) Acute diastolic (congestive) heart failure: in setting of AV block. Fluids stopped and Lasic given per Nephro. TVP in place as above. (7) DVT prophylaxis: SCDs in setting of possible upcoming procedure Full Code Dispo-cont ICU monitoring. Flores Richardson DO [facility] Hospitalist Admission and Anticipated Discharge Date Admission Date: May 27, 2020 Subjective 84 yo M with 10 dayd of fever presented to the ER and was in 3rd deg heart block. 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 Patient reports feeling much better. Currently growing GNB in his blood. Denies h/o tick bites. Urine clear, no overt skin wounds present. Denies recent travel. Review of Systems Review of Systems: All systems reviewed & are unremarkable except as noted in Subjective Physical Exam Physical Exam: CONSTITUTIONAL: WNWD, vitals as above, generally well- appearing EYES: pupils are equal and round bilaterally, normal conjunctivae, no scleral icterus ENT: external ear and nose normal, oropharynx clear, MMM RESPIRATORY: clear to auscultation bilaterally, no crackles, rales or wheezes, normal respiratory effort CARDIOVASCULAR: regular rate and rhythm, S1 and 2 heard without murmurs, gallops or rubs, no JVD, no peripheral edema GASTROINTESTINAL: soft, nontender, nondistended MUSCULOSKELETAL: strength 5/5 throughout, head is normocephalic and atraumatic, temporary venous pacer inserted into right groin with leg immobilzer brace in place on RLE SKIN: warm and dry NEUROLOGIC: No facial palsy, no dysarthria. CN 2-12 grossly intact, normal cognition, normal speech, no gross focal neuro deficits. PSYCHIATRIC: alert cooperative and oriented to person, place and time. Results & Data Results & Data ([facility]) Vital Signs (Past 12 Hours) Vital Signs Temp Pulse Pulse Resp BP BP Pulse Ox 05/27/20 17:34 36.6 C 05/27/20 17:22 60 29 H 131/63 94 05/27/20 16:51 60 28 H 155/67 H 92 05/27/20 16:23 60 15 145/61 H 93 05/27/20 16:00 60 05/27/20 15:51 60 37 H 126/72 96 05/27/20 15:22 60 32 H 123/72 95 05/27/20 14:53 60 23 128/72 96 05/27/20 14:22 60 22 95/49 L 05/27/20 14:00 60 34 H 98 05/27/20 13:22 60 36 H 119/65 05/27/20 12:52 60 37 H 148/64 H 93 05/27/20 12:21 60 25 H 120/61 05/27/20 11:51 60 33 H 103/59 L 98 05/27/20 11:37 60 26 H 125/50 L 98 05/27/20 11:30 36.9 C 05/27/20 11:21 60 35 H 129/69 05/27/20 11:19 60 21 109/76 05/27/20 10:35 65 14 96 05/27/20 10:30 66 37 H 05/27/20 10:25 28 L 05/27/20 10:20 31 L 99 05/27/20 10:15 28 L 05/27/20 10:10 24 05/27/20 10:05 30 H 99 05/27/20 10:00 26 H 96 05/27/20 09:55 27 H 96 05/27/20 09:50 28 H 95/47 L 97 05/27/20 09:45 34 L 16 96 05/27/20 09:40 34 L 15 05/27/20 08:52 43 L 16 135/63 95 05/27/20 08:24 37.6 C H 40 L 22 128/54 L 100 05/27/20 07:38 40 L 24 104/54 L 100 Laboratory Results Short CBC 05/27/20 Range/Units 05:03 WBC 16.67 H (4.8-10.8) K/uL Hgb 9.4 L (14.0-18.0) g/dL Hct 29.3 L (42-52) % Plt Count 271 (130-400) K/uL BMP 05/27/20 05/27/20 05/27/20 05:03 11:26 16:34 Sodium 135 L 133 L 135 L Potassium 6.4 H* 6.2 H* 6.3 H* Chloride 106 104 107 Carbon Dioxide 17 L 18 L 20 L BUN 43 H 47 H 47 H Creatinine 2.73 H 3.23 H D 2.91 H D Glucose 228 H 193 H 162 H Calcium 8.5 8.8 8.6 Cardiac Enzymes 05/27/20 05/27/20 05/27/20 Range/Units 05:03 11:26 16:34 Total Creatine Kinase 77 (39-308) U/L Troponin I 3.300 H* 3.600 H* 3.010 H* (0-0.045) ng/ml Liver Function 05/27/20 Range/Units 05:03 Total Bilirubin 1.0 (0.2-1) mg/dl AST 45 H (15-37) U/L ALT 39 (12-78) U/L Alkaline Phosphatase 137 H (45-117) U/L Albumin 2.5 L (3.4-5.0) gm/dl Urine 05/27/20 Range/Units 05:50 Urine Color Dark Yellow Urine Appearance Cloudy A (Clear) Urine pH 5.0 (4.5-7.5) Ur Specific [place] 1.022 (1.000-1.030) Urine Protein 2+ H (Negative) Urine Glucose (UA) Negative (Negative) Medications Administered Current Inpatient Medications Aspirin (Ecotrin) 650 mg PO DAILY [facility] Stop: 06/27/20 08:59 Atorvastatin Calcium (Lipitor) 80 mg PO DAILY [facility] Stop: 06/26/20 11:29 Last Admin: 05/27/20 12:00 Dose: Not Given Documented by: Cyanocobalamin (Vitamin B-12) 250 mcg PO DAILY [facility] Stop: 06/27/20 08:59 Doxycycline Hyclate 100 mg/ (Dextrose) 110 mls @ 50 mls/hr IV Q12H [facility] Stop: 06/03/20 10:31 Last Infusion: 05/27/20 14:15 Dose: Infused Documented by: Cefepime HCl 2,000 mg/ Syringe 20 mls @ 5 mls/min IV DAILY@1200 [facility]; Protocol Stop: 06/06/20 11:59 Sodium Bicarbonate 150 meq/ (Sterile Water) 1,150 mls @ 50 mls/hr IV .Q23H [facility] Stop: 06/26/20 16:29 Last Admin: 05/27/20 16:34 Dose: 50 mls/hr Documented by: Insulin Aspart (Novolog Flexpen) 0 units SC Q4 [facility]; Protocol Stop: 06/26/20 11:59 Last Admin: 05/27/20 17:48 Dose: Not Given Documented by: Insulin Glargine (Lantus Solostar Pen) 0 units SC DAILY@2000 [facility]; Protocol Stop: 05/27/20 20:01 [facility]ine [facility] Stop: 06/26/20 11:29 Last Admin: 05/27/20 12:00 Dose: Not Given Documented by: Magnesium Oxide (Mag-Ox) 400 mg PO DAILY [facility] Stop: 06/26/20 11:29 Last Admin: 05/27/20 12:00 Dose: Not Given Documented by: Miscellaneous Information (Consult) 1 ea N/A UD PRN PRN Reason: Consult Stop: 06/26/20 10:31 Miscellaneous Information (Cefepime Consult Active) 1 ea N/A UD PRN PRN Reason: Consult Stop: 06/26/20 10:35 Miscellaneous Information (Consult Glycemic Management Pharmacy) 1 ea N/A UD PRN PRN Reason: Consult Stop: 06/26/20 10:35 Nitroglycerin (Nitrostat) 0.4 mg SL UD PRN PRN Reason: Chest Pain Stop: 06/26/20 10:31 Ondansetron HCl (Zofran) 4 mg IV Q6H PRN PRN Reason: Nausea Stop: 06/26/20 13:01 Pantoprazole Sodium (Protonix) 40 mg PO DAILY [facility] Stop: 06/26/20 11:29 Last Admin: 05/27/20 12:00 Dose: Not Given Documented by: Patiromer (Veltassa) 8.4 gm PO DAILY [facility] Stop: 06/26/20 16:29 Last Admin: 05/27/20 18:16 Dose: 8.4 gm Documented by: Tamsulosin HCl (Flomax) 0.4 mg PO HS [facility] Stop: 06/26/20 20:59 Trazodone HCl (Desyrel) 25 mg PO HS [facility] Stop: 06/26/20 20:59
[2020-05-27] MEDS: TRAZODONE HCL 50 MG TAB PO SCH (21:21)
[2020-05-27] MEDS: TAMSULOSIN HCL 0.4 MG CAP PO SCH (21:21)
[2020-05-28] MEDS: INSULIN ASPART 100 UNITS/ML 3 ML PEN SC SCH ×5 (04:28→21:09)
[2020-05-28 04:35] LABS: Basophils # (auto) 0.03 K/uL (0-0.2); Basophils % (auto) 0.2 %; Eosinophils # (auto) 0.04 K/uL (0-0.5); Eosinophils % (auto) 0.3 %; Hematocrit (blood only) 28.2 % (42-52); Hemoglobin 9.1 g/dL (14.0-18.0); Immature Granulocytes # (auto) 0.03 K/uL (0.00-0.02); Immature Granulocytes % (auto) 0.2 %; Lymphocytes # (auto) 1.76 K/uL (1.2-3.4); Lymphocytes % (auto) 13.4 %; Mean Corpuscular Hemoglobin 25.5 pg (25-34); Mean Corpuscular Hgb Conc 32.3 g/dL (32-36); Mean Platelet Volume 12.7 fL (7.4-10.4); Monocytes # (auto) 1.12 K/uL (0.11-0.59); Monocytes % (auto) 8.5 %; Neutrophils % (auto) 77.4 %; Platelet Count 245 K/uL (130-400); RDW Coefficient of Variation 15.1 % (11.5-14.5); RDW Standard Deviation 42.8 fL (36.4-46.3); Red Blood Count 3.57 M/uL (4.7-6.1); White Blood Count 13.18 K/uL (4.8-10.8)
[2020-05-28] MEDS: LEVOTHYROXINE SODIUM 50 MCG TABLET PO SCH (05:02)
[2020-05-28 05:14] LABS: INR 1.5 (0.9-1.1); Prothrombin Time 15.3 Seconds (9.0-12.0)
[2020-05-28 05:20] LABS: Albumin Level 2.4 gm/dl (3.4-5.0); BUN Creatinine Ratio 18.4 (10-20); Bilirubin Direct 0.4 mg/dl (0-0.2); Calcium 8.8 mg/dl (8.5-10.1); Creatinine Clr Calc Pharmacy 22.1 ml/min; Est GFR (African American) 23.8; Est GFR (Non-African American) 20.5; Magnesium 1.8 mg/dl (1.8-2.4); Phosphorus 3.9 mg/dl (2.5-4.9); Potassium 4.2 mmol/L (3.5-5.1); Total Protein 6.9 gm/dl (6.4-8.2)
[2020-05-28 06:19] LABS: Estimated Average Glucose 203 mg/dl; Hemoglobin A1C 8.7 % (4.5-5.6)
--- NOTE | 2020-05-28 07:04 | XRay Report ---
XR chest 1V portable CLINICAL HISTORY: f/u dyspnea COMPARISON STUDY: 05/27/2020 FINDINGS: Moderate stable cardiomegaly. Temporary cardiac pacemaker placed. No evidence for pneumotho rax. Persistent prominence of the pulmonary vasculature. IMPRESSION: 1. Placement of a temporary cardiac pacemaker. 2. No evidence of pneumothorax. 3. Components of congestive failure stable to minimally improved from the prior study. ACT 112: Negative or not required by law. The above report was generated using voice recognition software. It may contain grammatical, syntax or spelling errors. Electronically signed by: Felice Babcock M.D. 05/28/2020 7:02 AM
[2020-05-28] MEDS ORDERED: DEXTROSE 50% 50 ML SYRINGE IV PRN (07:45)
[2020-05-28] MEDS ORDERED: CARBOHYDRATES FOR HYPOGLYCEMIA PO PRN (07:45)
[2020-05-28] MEDS ORDERED: GLUCOSE 40% GEL 15 GM TUBE PO PRN (07:45)
[2020-05-28] MEDS ORDERED: GLUCAGON FOR INJ 1 MG VIAL IM PRN (07:45)
[2020-05-28] MEDS ORDERED: GLUCOSE 10 TABS/TUBE PO PRN (07:45)
[2020-05-28] MEDS ORDERED: ASPIRIN 325 MG ECTAB PO SCH (09:00)
--- NOTE | 2020-05-28 09:05 | Critical Care Progress Note ---
Date of Service May 28, 2020 Assessment & Plan (1) Admitted to intensive care unit: Reason Critically Ill: 84-year-old male here with a PMHx significant for coronary artery disease, CKD? who presented with weakness, nausea, vomiting and who was admitted for third-degree heart block, gram-negative sepsis. Neuro - * metabolic encephalopathy likely secondary to gram-negative sepsis CAM ICU: NEGATIVE Sedation: None Analgesia: None A&O x2, improved from yesterday Cardiac - * Acute diastolic congestive heart failure * Echo showing 65 to 70% EF, mild left atrial dilation, moderate concentric LVH, mild aortic stenosis, mild mitral and tricuspid regurg * Likely exacerbated due to bradycardia and ensuing low cardiac output * New third degree AV kelley block with symptomatic bradycardia * Temporary transvenous pacer controlling rate at 60 bpm * Natural rate approximately 40 to 45 bpm when pacer is paused * Will likely require permanent pacemaker placement prior to discharge following clearing of bacteremia * Lyme titer is negative * Questionable viral myocarditis; ESR and CRP both elevated however no signs of pericardial effusion or pericarditis on cardiac echo * Hypertension * Started on hydralazine 25 mg 3 times daily as patient is not able to receive first-line medications (beta-blockers, ACEs/ARBs) in setting of renal failure and third-degree heart block * Appreciate cardiology's continuing recommendations for overall cardiac improvement Respiratory - * New O2 requirement on admissionnow resolved * Breathing comfortably on room air O2 sat 91 * Chest x-ray showing cardiomegaly and pulmonary vascular congestion mildly improved after 80 of Lasix IV yesterday * Will continue with Lasix today GI - * Heart healthy diet started today, fluid restriction of 2 L/day * Transaminitis * Likely secondary to shock liver in setting of gram-negative sepsis * AST rise to 741 from 45 in 24 hours, ALT up to 689 from 39, alk phos 135 yesterday 137 * EBV panel to rule out viral hepatitis * Bio fire negative * Coagulopathy * PT 15.3, INR 1.5 * Patient not on any blood thinners * Elevated d-dimer at 4820 on admission * Venous ultrasound of extremities negative on 05/27 RENAL/LYTES - * Cardiorenal syndrome leading to renal failure and ensuing metabolic acidosis * Renal failure likely secondary to poor cardiac output with bradycardia leading to renal failure with proteinuria, sediment in urine, acidotic state * Metabolic acidosis improving status post resection of 50 mEq of bicarb * Kidney ultrasound on 05/27 for hydronephrosis or renal cysts * Appreciate nephrology's continuing recommendations regarding care of this patient * Lactic acidosis secondary to gram-negative sepsis * Improving down to 2.1 this morning * LDH 680 on admission * Fluid balance * -765 mL over last 24 hours; -595 mL per stay * Electrolytes repleted as needed - * No acute issues, patient denies any burning with urination, dysuria, increased frequency, hematuria prior to admission * Rodriguez in place * BPH with Flomax at home * Urine culture sent to help isolate source of gram-negative sepsis ENDO -diabetes type 2 on multiple medications at home. ICU hyper and hypoglycemia protocol to manage sugars HEME - * Microcytic anemia * 9.1 down from 9.4 yesterday, MCV 79, RDW within normal limits * Possibly secondary to iron deficiency; unsure when patient's last colonoscopy was * Patient is a strict vegetarian and is at risk for B12 and folate deficiency ID - * Gram-negative bacteremia from an unknown source * Blood cultures growing gram-negative rods in 3 out of 4 vials. Repeat blood cultures ordered this morning. Pro-Gagandeep elevated to 29.63 from 1.56 yesterday * Coverage with cefepime * Urine culture sent to identification of source of infection * CT abdomen pelvis with oral contrast this afternoon to identify any source of intra-abdominal infection * No pain to palpation on abdominal exam however belly is firm but not rigid * Last fever was at 5 AM on 05/27 * Less likely to be pulmonary in setting of lack of respiratory distress on room air. Less likely to be meningitic given patient's overall normal behavior and stable vitals INTEGUMENTARY - * Concerns at this time LINES/IV ACCESS - PIVs intact. Right femoral transvenous pacemaker in place DVT PROPHYLAXIS - Subcu heparin twice daily Thank you for allowing us to be part of this patient's care. Please refer to Dr. Corona's documentation for any further recommendations. (2) Acute diastolic (congestive) heart failure: (3) Third degree heart block: (4) Gram-negative bacteremia: (5) Hyperkalemia: (6) High anion gap metabolic acidosis: (7) Acute kidney injury: (8) Lactic acid acidosis: (9) Fatigue: (10) Weakness: (11) SOB (shortness of breath): (12) Fever: (13) Hypertension: (14) Vomiting: Admission and Anticipated Discharge Date Admission Date: May 27, 2020 Supervising Physician Co-Signing Physician Notes Patient seen and examined. Discussed with cardiology as well as ICU bedside nurse and family practice resident and on multidisciplinary rounds. Patient is improved clinically. His blood pressure is now slightly hypertensive. He is making adequate urine. His mental status continues to clear. His labs did demonstrate mild evidence of probable shock liver. His acid-base status and electrolytes are improved. He is growing gram-negative rods from his blood cultures, speciation pending. Continue current antimicrobial agents. Will check CT of the abdomen and pelvis to evaluate for potential source of bacterial translocation. Reluctant to pursue permanent pacemaker until bacteremia has been adequately treated and cleared. White count and fever curve are improved. Keep bedrest as long as transvenous pacemaker is in place through the groin. Family will be updated via phone Subjective Feeling well this a.m., denies any abdominal pain, nausea, vomiting. He is eager to have breakfast. Does attest to having chills and feeling feverish. No shortness of breath or trouble breathing, no chest pain no palpitations. Review of Systems Review of Systems: All systems reviewed & are unremarkable except as noted in Subjective Physical Exam Physical Exam: VITAL SIGNS - Vital signs and nursing notes were reviewed. GENERAL -84-year-old male in no acute distress SKIN - Without rashes. HEAD - NC/AT. EYES - PERRL. Sclera anicteric. Palpebral conjunctiva pink and moist with no injection noted. EARS - No deformities of external structures noted on gross examination bilaterally. NOSE - Midline and without cyanosis. No epistaxis or purulent drainage noted. MOUTH/OROPHARYNX -normal dentition, without perioral cyanosis. NECK - Supple to palpation. No nuchal rigidity. LUNGS -clear to auscultation bilaterally patient does not take very deep breaths full sitting up, no wheezes, crackles, rhonchi, rales appreciated CARDIAC -transvenously paced at 60 bpm. No murmur, rubs, or gallops appreciated. ABDOMEN -soft nontender nondistended with normal bowel sounds. EXTREMITIES - No clubbing or peripheral cyanosis. No pretibial edema present. radial and dorsalis pedis pulses palpated bilaterally. NEUROLOGIC - No focal neurological deficits noted on exam. Results & Data Results & Data ([facility]) Vital Signs (Past 12 Hours) Vital Signs Temp Pulse Pulse Resp BP BP Pulse Ox 05/28/20 07:22 60 24 130/63 93 05/28/20 06:22 60 22 127/64 94 05/28/20 06:00 60 13 96 05/28/20 05:22 60 20 144/56 H 93 05/28/20 05:00 60 26 H 92 05/28/20 04:30 60 23 92 05/28/20 04:00 36.7 C 60 22 129/68 92 05/28/20 03:30 60 24 91 05/28/20 03:00 60 24 128/55 L 92 05/28/20 02:30 60 24 93 05/28/20 02:00 60 17 131/54 L 92 05/28/20 01:00 60 24 104/61 92 05/28/20 00:30 60 25 H 92 05/28/20 00:00 37.2 C 60 26 H 131/59 L 94 05/27/20 23:30 60 24 92 05/27/20 23:00 60 24 152/70 H 94 05/27/20 22:00 60 22 130/71 99 05/27/20 21:30 60 27 H 98 Pulse Ox 05/28/20 07:22 05/28/20 06:22 05/28/20 06:00 05/28/20 05:22 05/28/20 05:00 92 05/28/20 04:30 05/28/20 04:00 05/28/20 03:30 05/28/20 03:00 05/28/20 02:30 05/28/20 02:00 05/28/20 01:00 05/28/20 00:30 05/28/20 00:00 05/27/20 23:30 05/27/20 23:00 05/27/20 22:00 05/27/20 21:30 CBC: WBC 13.18, hemoglobin 9.1, platelet 245 BUN 51, creatinine 2.75. BMP otherwise within normal limits. Notable bicarb increased to 26 from 18 Phosphorus 3.9, lactate down to 2.1, magnesium 1.8, calcium 8.8 Hepatic panel: AST 741, ALT 689, alk phos 135, PT 15.3, INR 1.5, Total bili 1, direct bili 8.4, albumin 2.4 Urine sodium less than 5, urine creatinine 192. Fena calculation: Prerenal azotemia Troponin: 3.01, proBNP 17,600 on admission, d-dimer 4820 on admission Bio fire negative, UA showing 2+ protein no leukocyte esterase or nitrites, greater than 30 epithelial cells, blood culture growing gram-negative bacilli in 3 tubes, Lyme titers negative Resident Activity Tracking Resident Involvement: Resident Care Provided Care Provided: Adult [facility]
[2020-05-28] MEDS: CYANOCOBALAMIN (VITAMIN B-12) 100 MCG TABLET PO SCH (09:31)
[2020-05-28] MEDS: PANTOprazole 40 MG TAB PO SCH (09:32)
[2020-05-28] MEDS: MAGNESIUM OXIDE 400 MG TAB PO SCH (09:32)
[2020-05-28] MEDS: ATORVASTATIN 40 MG TAB PO SCH (09:32)
[2020-05-28] MEDS: PATIROMER CALCIUM SORBITEX 8.4 GM PACK PO SCH (10:10)
[2020-05-28] MEDS ORDERED: FUROSEMIDE 80 MG in SYRINGE 0 ML IV ONE (10:30)
--- NOTE | 2020-05-28 10:31 | Progress Notes ---
DATE: 05/28/2020 SUBJECTIVE: Overnight, the patient has improved significantly. He made 2600 mL of urine. Blood pressure is no longer low, in fact, it is high. He is much less short of breath and is not weak anymore. Labs have also improved except LFT. PHYSICAL EXAMINATION: VITAL SIGNS: Blood pressure 151/115, pulse rate 60, temperature 36.9, 91% on room air. HEENT: Mucous membranes are moist. NECK: Supple. No jugular venous distention. CHEST: Bilateral decreased breath sounds and occasional crackles. CARDIOVASCULAR: S1, S2 regular. ABDOMEN: Soft, nontender. EXTREMITIES: Shows no edema. LABORATORY TESTS: Shows slightly improved kidney function. Creatinine is now down to 2.75, BUN is 51. Lactic acid also trending down and is down to 2.1. LFT with liver enzymes trending up. Potassium 4.2, bicarbonate 26. Sodium 138. Chest x-ray shows slightly improved congestive heart failure. ASSESSMENT AND PLAN: An 84-year-old male with preexisting chronic kidney disease stage III secondary to longstanding diabetes, now presenting with acute renal failure in the setting of symptomatic severe bradycardia. Acute renal failure. This was secondary to severe hypoperfusion of the kidneys related with bradycardia with hypotension. The patient is making significant improvement from renal standpoint. Very good urine output with just 1 dose of Lasix. Hyperkalemia and metabolic acidosis has normalized with medical management. So can stop bicarb drip and veltassa. He still has some evidence of congestive heart failure and will give 1 dose of Lasix 80 mg IV x1 today. I am fairly confident that he will not require dialysis and should have further renal recovery in the coming days. MTDD
--- NOTE | 2020-05-28 10:34 | Cardiology Progress Note ---
Date of Service May 28, 2020 Assessment & Plan (1) Hyperkalemia: (2) High anion gap metabolic acidosis: (3) Acute kidney injury: (4) Lactic acid acidosis: (5) Bradycardia: The patient received a temporary pacing line in the [facility] and his blood pressure immediately stabilized. He left the [facility] and was admitted to the ICU in critical but stable condition. (6) Gram-negative bacteremia: (7) Third degree heart block: The patient provided additional history to me and I was able to review the records. He actually had a cardiac catheterization performed by myself in 2012 for chest pain. At that time he had a small diagonal branch which was not amendable to intervention that was narrowed. He has been treated medically following that procedure for long time and has done well. The patient has grown out Gram negative bacillus out of his blood so he is bacteremic. I temporarily paused his pacemaker and his underlying rhythm is third-degree heart block. Now that his electrolytes have been restored he does have an adequate escape rhythm of around 50 to 60 bpm. Echocardiogram shows fairly well-preserved LV function and no significant valvular pathology. At this time I would continue with the temporary pacemaker. He is not a candidate for a permanent pacemaker at this time due to the bacteremia. I am uncertain as to whether the heart block will clear over time once his infection is treated and his metabolic problems correct but we can still hold out hope. For now I would continue with his temporary pacemaker. Subjective The patient is more alert today and able to provide a better history. He has started to recover and feels improved. Review of Systems Review of Systems: All systems reviewed & are unremarkable except as noted in HPI & below Nothing additional to add. Physical Exam Physical Exam: General: no acute distress and stated age Head: normocephalic, no masses, lesions, tenderness or abnormalities Eyes: conjunctiva are pink and non-injected, sclera clear Neck: supple, no adenopathy, no bruits, normal jugular venous pulse, no hepatojugular reflux Chest: normal shape and normal respiratory effort Lungs: clear to auscultation and percussion Cardiac Exam: - regular rate & rhythm, no murmurs gallops or rubs - normal S1, normal S2 Pulses: 2(+) throughout Abdomen: abdomen soft, non-tender, no abnormal masses and no hepatosplenomegaly Musculoskeletal: no gait disturbance, no joint inflammation, no deforming arthritis Extremities: The T pacer site is clean and dry. Neuro: grossly normal exam Results & Data Vital Signs (Past 12 Hours) Vital Signs Temp Pulse Resp BP Pulse Ox Pulse Ox 05/28/20 09:22 60 23 151/115 H 91 05/28/20 08:23 62 22 145/82 H 92 05/28/20 08:00 36.9 C 60 18 93 05/28/20 07:22 60 24 130/63 93 05/28/20 06:22 60 22 127/64 94 05/28/20 06:00 60 13 96 05/28/20 05:22 60 20 144/56 H 93 05/28/20 05:00 60 26 H 92 92 05/28/20 04:30 60 23 92 05/28/20 04:00 36.7 C 60 22 129/68 92 05/28/20 03:30 60 24 91 05/28/20 03:00 60 24 128/55 L 92 05/28/20 02:30 60 24 93 05/28/20 02:00 60 17 131/54 L 92 05/28/20 01:00 60 24 104/61 92 05/28/20 00:30 60 25 H 92 05/28/20 00:00 37.2 C 60 26 H 131/59 L 94 05/27/20 23:30 60 24 92 05/27/20 23:00 60 24 152/70 H 94 Laboratory Results Laboratory Results - last 24 hr 05/27/20 05/27/20 05/27/20 05:33 06:00 09:45 WBC RBC Hgb POC Hgb 9.5 L Hct POC Hct 28 L MCV MCH MCHC RDW Std Deviation RDW Coeff of Naren Plt Count MPV Immature Gran % (Auto) Neut % (Auto) Lymph % (Auto) Dickson % (Auto) Eos % (Auto) Baso % (Auto) Neut # (Auto) Lymph # (Auto) Dickson # (Auto) Eos # (Auto) Baso # (Auto) Immature Gran # (Auto) ESR PT INR POC pH 7.37 7.33 L POC pCO2 27 L 22 L POC pO2 20 L 84 POC HCO3 15 L 12 L POC Total CO2 16 L 22 L POC Base Excess -10.0 L -14.0 L VBG pH VBG pCO2 VBG pO2 VBG HCO3 VBG O2 Saturation VBG Base Excess Barometric Pressure POC Sodium 132 L Sodium POC Potassium 6.4 H* Potassium Chloride Carbon Dioxide Anion Gap BUN Creatinine Est Cr Clr Drug Dosing Est GFR ( Amer) Est GFR (Non-Af Amer) BUN/Creatinine Ratio Glucose POC Glucose Estimat Average Glucose Hemoglobin A1c Lactate Calcium Phosphorus Magnesium Total Bilirubin Direct Bilirubin AST ALT Alkaline Phosphatase Troponin I C-Reactive Protein Total Protein Albumin Procalcitonin Ur Random Creatinine Ur Random Sodium Nasal Screen MRSA (PCR) Negative EBV Capsid Ag IgG Ab EBV Capsid Ag IgM Ab EBV Nuclear Antigen Ab EBV Antibody Interp Monoscreen 05/27/20 05/27/20 05/27/20 11:26 11:26 11:26 WBC RBC Hgb POC Hgb Hct POC Hct MCV MCH MCHC RDW Std Deviation RDW Coeff of Naren Plt Count MPV Immature Gran % (Auto) Neut % (Auto) Lymph % (Auto) Dickson % (Auto) Eos % (Auto) Baso % (Auto) Neut # (Auto) Lymph # (Auto) Dickson # (Auto) Eos # (Auto) Baso # (Auto) Immature Gran # (Auto) ESR 89 H PT INR POC pH POC pCO2 POC pO2 POC HCO3 POC Total CO2 POC Base Excess VBG pH VBG pCO2 VBG pO2 VBG HCO3 VBG O2 Saturation VBG Base Excess Barometric Pressure POC Sodium Sodium 133 L POC Potassium Potassium 6.2 H* Chloride 104 Carbon Dioxide 18 L Anion Gap 12.0 H BUN 47 H Creatinine 3.23 H D Est Cr Clr Drug Dosing 18.8 Est GFR ( Amer) 19.6 Est GFR (Non-Af Amer) 16.9 BUN/Creatinine Ratio 14.6 Glucose 193 H POC Glucose 173 H Estimat Average Glucose Hemoglobin A1c Lactate Calcium 8.8 Phosphorus Magnesium 1.9 Total Bilirubin Direct Bilirubin AST ALT Alkaline Phosphatase Troponin I 3.600 H* C-Reactive Protein Total Protein Albumin Procalcitonin Ur Random Creatinine Ur Random Sodium Nasal Screen MRSA (PCR) EBV Capsid Ag IgG Ab EBV Capsid Ag IgM Ab EBV Nuclear Antigen Ab EBV Antibody Interp Monoscreen 05/27/20 05/27/20 05/27/20 11:26 14:00 16:34 WBC RBC Hgb POC Hgb Hct POC Hct MCV MCH MCHC RDW Std Deviation RDW Coeff of Naren Plt Count MPV Immature Gran % (Auto) Neut % (Auto) Lymph % (Auto) Dickson % (Auto) Eos % (Auto) Baso % (Auto) Neut # (Auto) Lymph # (Auto) Dickson # (Auto) Eos # (Auto) Baso # (Auto) Immature Gran # (Auto) ESR PT INR POC pH POC pCO2 POC pO2 POC HCO3 POC Total CO2 POC Base Excess VBG pH VBG pCO2 VBG pO2 VBG HCO3 VBG O2 Saturation VBG Base Excess Barometric Pressure POC Sodium Sodium POC Potassium Potassium Chloride Carbon Dioxide Anion Gap BUN Creatinine Est Cr Clr Drug Dosing Est GFR ( Amer) Est GFR (Non-Af Amer) BUN/Creatinine Ratio Glucose POC Glucose Estimat Average Glucose Hemoglobin A1c Lactate Calcium Phosphorus Magnesium Total Bilirubin Direct Bilirubin AST ALT Alkaline Phosphatase Troponin I 3.010 H* C-Reactive Protein 8.19 H Total Protein Albumin Procalcitonin Ur Random Creatinine 192.0 Ur Random Sodium < 5 Nasal Screen MRSA (PCR) EBV Capsid Ag IgG Ab EBV Capsid Ag IgM Ab EBV Nuclear Antigen Ab EBV Antibody Interp Monoscreen 05/27/20 05/27/20 05/27/20 16:34 16:34 16:34 WBC RBC Hgb POC Hgb Hct POC Hct MCV MCH MCHC RDW Std Deviation RDW Coeff of Naren Plt Count MPV Immature Gran % (Auto) Neut % (Auto) Lymph % (Auto) Dickson % (Auto) Eos % (Auto) Baso % (Auto) Neut # (Auto) Lymph # (Auto) Dickson # (Auto) Eos # (Auto) Baso # (Auto) Immature Gran # (Auto) ESR PT INR POC pH POC pCO2 POC pO2 POC HCO3 POC Total CO2 POC Base Excess VBG pH 7.39 VBG pCO2 34 L VBG pO2 30 VBG HCO3 20 VBG O2 Saturation < 60.0 VBG Base Excess -4.3 Barometric Pressure 727.1 POC Sodium Sodium 135 L POC Potassium Potassium 6.3 H* Chloride 107 Carbon Dioxide 20 L Anion Gap 8.0 BUN 47 H Creatinine 2.91 H D Est Cr Clr Drug Dosing 20.8 Est GFR ( Amer) 22.2 Est GFR (Non-Af Amer) 19.2 BUN/Creatinine Ratio 16.2 Glucose 162 H POC Glucose Estimat Average Glucose Hemoglobin A1c Lactate 2.2 H* Calcium 8.6 Phosphorus Magnesium Total Bilirubin Direct Bilirubin AST ALT Alkaline Phosphatase Troponin I C-Reactive Protein Total Protein Albumin Procalcitonin Ur Random Creatinine Ur Random Sodium Nasal Screen MRSA (PCR) EBV Capsid Ag IgG Ab EBV Capsid Ag IgM Ab EBV Nuclear Antigen Ab EBV Antibody Interp Monoscreen 05/27/20 05/27/20 05/27/20 17:23 19:37 23:18 WBC RBC Hgb POC Hgb Hct POC Hct MCV MCH MCHC RDW Std Deviation RDW Coeff of Naren Plt Count MPV Immature Gran % (Auto) Neut % (Auto) Lymph % (Auto) Dickson % (Auto) Eos % (Auto) Baso % (Auto) Neut # (Auto) Lymph # (Auto) Dickson # (Auto) Eos # (Auto) Baso # (Auto) Immature Gran # (Auto) ESR PT INR POC pH POC pCO2 POC pO2 POC HCO3 POC Total CO2 POC Base Excess VBG pH VBG pCO2 VBG pO2 VBG HCO3 VBG O2 Saturation VBG Base Excess Barometric Pressure POC Sodium Sodium POC Potassium Potassium Chloride Carbon Dioxide Anion Gap BUN Creatinine Est Cr Clr Drug Dosing Est GFR ( Amer) Est GFR (Non-Af Amer) BUN/Creatinine Ratio Glucose POC Glucose 175 H 153 H 96 Estimat Average Glucose Hemoglobin A1c Lactate Calcium Phosphorus Magnesium Total Bilirubin Direct Bilirubin AST ALT Alkaline Phosphatase Troponin I C-Reactive Protein Total Protein Albumin Procalcitonin Ur Random Creatinine Ur Random Sodium Nasal Screen MRSA (PCR) EBV Capsid Ag IgG Ab EBV Capsid Ag IgM Ab EBV Nuclear Antigen Ab EBV Antibody Interp Monoscreen 05/28/20 05/28/20 05/28/20 03:39 03:40 04:02 WBC RBC Hgb POC Hgb Hct POC Hct MCV MCH MCHC RDW Std Deviation RDW Coeff of Naren Plt Count MPV Immature Gran % (Auto) Neut % (Auto) Lymph % (Auto) Dickson % (Auto) Eos % (Auto) Baso % (Auto) Neut # (Auto) Lymph # (Auto) Dickson # (Auto) Eos # (Auto) Baso # (Auto) Immature Gran # (Auto) ESR PT INR POC pH POC pCO2 POC pO2 POC HCO3 POC Total CO2 POC Base Excess VBG pH VBG pCO2 VBG pO2 VBG HCO3 VBG O2 Saturation VBG Base Excess Barometric Pressure POC Sodium Sodium POC Potassium Potassium Chloride Carbon Dioxide Anion Gap BUN Creatinine Est Cr Clr Drug Dosing Est GFR ( Amer) Est GFR (Non-Af Amer) BUN/Creatinine Ratio Glucose POC Glucose 69 L* 72 Estimat Average Glucose Hemoglobin A1c Lactate Calcium Phosphorus Magnesium Total Bilirubin Direct Bilirubin AST ALT Alkaline Phosphatase Troponin I C-Reactive Protein Total Protein Albumin Procalcitonin Cancelled Ur Random Creatinine Ur Random Sodium Nasal Screen MRSA (PCR) EBV Capsid Ag IgG Ab EBV Capsid Ag IgM Ab EBV Nuclear Antigen Ab EBV Antibody [facility] 05/28/20 05/28/20 05/28/20 04:02 04:02 04:02 WBC 13.18 H RBC 3.57 L Hgb 9.1 L POC Hgb Hct 28.2 L POC Hct MCV 79.0 L MCH 25.5 MCHC 32.3 RDW Std Deviation 42.8 RDW Coeff of Naren 15.1 H Plt Count 245 MPV 12.7 H Immature Gran % (Auto) 0.2 Neut % (Auto) 77.4 Lymph % (Auto) 13.4 Dickson % (Auto) 8.5 Eos % (Auto) 0.3 Baso % (Auto) 0.2 Neut # (Auto) 10.20 H Lymph # (Auto) 1.76 Dickson # (Auto) 1.12 H Eos # (Auto) 0.04 Baso # (Auto) 0.03 Immature Gran # (Auto) 0.03 H ESR PT INR POC pH POC pCO2 POC pO2 POC HCO3 POC Total CO2 POC Base Excess VBG pH VBG pCO2 VBG pO2 VBG HCO3 VBG O2 Saturation VBG Base Excess Barometric Pressure POC Sodium Sodium Cancelled POC Potassium Potassium Cancelled Chloride Cancelled Carbon Dioxide Cancelled Anion Gap Cancelled BUN Cancelled Creatinine Cancelled Est Cr Clr Drug Dosing Cancelled Est GFR ( Amer) Cancelled Est GFR (Non-Af Amer) Cancelled BUN/Creatinine Ratio Cancelled Glucose Cancelled POC Glucose Estimat Average Glucose Cancelled Hemoglobin A1c Cancelled Lactate Calcium Cancelled Phosphorus Cancelled Magnesium Cancelled Total Bilirubin Cancelled Direct Bilirubin Cancelled AST Cancelled ALT Cancelled Alkaline Phosphatase Cancelled Troponin I C-Reactive Protein Total Protein Cancelled Albumin Cancelled Procalcitonin Ur Random Creatinine Ur Random Sodium Nasal Screen MRSA (PCR) EBV Capsid Ag IgG Ab EBV Capsid Ag IgM Ab EBV Nuclear Antigen Ab EBV Antibody [facility] 05/28/20 05/28/20 05/28/20 04:02 04:02 04:52 WBC RBC Hgb POC Hgb Hct POC Hct MCV MCH MCHC RDW Std Deviation RDW Coeff of Naren Plt Count MPV Immature Gran % (Auto) Neut % (Auto) Lymph % (Auto) Dickson % (Auto) Eos % (Auto) Baso % (Auto) Neut # (Auto) Lymph # (Auto) Dickson # (Auto) Eos # (Auto) Baso # (Auto) Immature Gran # (Auto) ESR PT Cancelled INR Cancelled POC pH POC pCO2 POC pO2 POC HCO3 POC Total CO2 POC Base Excess VBG pH VBG pCO2 VBG pO2 VBG HCO3 VBG O2 Saturation VBG Base Excess Barometric Pressure POC Sodium Sodium 138 POC Potassium Potassium 4.2 D Chloride 103 Carbon Dioxide 26 Anion Gap 9.0 BUN 51 H Creatinine 2.75 H Est Cr Clr Drug Dosing 22.1 Est GFR ( Amer) 23.8 Est GFR (Non-Af Amer) 20.5 BUN/Creatinine Ratio 18.4 Glucose 114 H POC Glucose Estimat Average Glucose Hemoglobin A1c Lactate Cancelled Calcium 8.8 Phosphorus 3.9 Magnesium 1.8 Total Bilirubin 1.0 Direct Bilirubin 0.4 H AST 741 H ALT 689 H Alkaline Phosphatase 135 H Troponin I C-Reactive Protein Total Protein 6.9 Albumin 2.4 L Procalcitonin Ur Random Creatinine Ur Random Sodium Nasal Screen MRSA (PCR) EBV Capsid Ag IgG Ab EBV Capsid Ag IgM Ab EBV Nuclear Antigen Ab EBV Antibody Interp Monoscreen 05/28/20 05/28/20 05/28/20 04:52 04:52 04:52 WBC RBC Hgb POC Hgb Hct POC Hct MCV MCH MCHC RDW Std Deviation RDW Coeff of Naren Plt Count MPV Immature Gran % (Auto) Neut % (Auto) Lymph % (Auto) Dickson % (Auto) Eos % (Auto) Baso % (Auto) Neut # (Auto) Lymph # (Auto) Dickson # (Auto) Eos # (Auto) Baso # (Auto) Immature Gran # (Auto) ESR PT 15.3 H INR 1.5 H POC pH POC pCO2 POC pO2 POC HCO3 POC Total CO2 POC Base Excess VBG pH VBG pCO2 VBG pO2 VBG HCO3 VBG O2 Saturation VBG Base Excess Barometric Pressure POC Sodium Sodium POC Potassium Potassium Chloride Carbon Dioxide Anion Gap BUN Creatinine Est Cr Clr Drug Dosing Est GFR ( Amer) Est GFR (Non-Af Amer) BUN/Creatinine Ratio Glucose POC Glucose Estimat Average Glucose Hemoglobin A1c Lactate 2.1 H* Calcium Phosphorus Magnesium Total Bilirubin Direct Bilirubin AST ALT Alkaline Phosphatase Troponin I C-Reactive Protein Total Protein Albumin Procalcitonin 29.63 H Ur Random Creatinine Ur Random Sodium Nasal Screen MRSA (PCR) EBV Capsid Ag IgG Ab EBV Capsid Ag IgM Ab EBV Nuclear Antigen Ab EBV Antibody Interp Monoscreen 05/28/20 05/28/20 05/28/20 04:52 09:13 09:13 WBC RBC Hgb POC Hgb Hct POC Hct MCV MCH MCHC RDW Std Deviation RDW Coeff of Naren Plt Count MPV Immature Gran % (Auto) Neut % (Auto) Lymph % (Auto) Dickson % (Auto) Eos % (Auto) Baso % (Auto) Neut # (Auto) Lymph # (Auto) Dickson # (Auto) Eos # (Auto) Baso # (Auto) Immature Gran # (Auto) ESR PT INR POC pH POC pCO2 POC pO2 POC HCO3 POC Total CO2 POC Base Excess VBG pH VBG pCO2 VBG pO2 VBG HCO3 VBG O2 Saturation VBG Base Excess Barometric Pressure POC Sodium Sodium POC Potassium Potassium Chloride Carbon Dioxide Anion Gap BUN Creatinine Est Cr Clr Drug Dosing Est GFR ( Amer) Est GFR (Non-Af Amer) BUN/Creatinine Ratio Glucose POC Glucose Estimat Average Glucose 203 Hemoglobin A1c 8.7 H Lactate Calcium Phosphorus Magnesium Total Bilirubin Direct Bilirubin AST ALT Alkaline Phosphatase Troponin I C-Reactive Protein Total Protein Albumin Procalcitonin Ur Random Creatinine Ur Random Sodium Nasal Screen MRSA (PCR) EBV Capsid Ag IgG Ab Pending EBV Capsid Ag IgM Ab Pending EBV Nuclear Antigen Ab Pending EBV Antibody Interp Pending Monoscreen Negative 05/28/20 09:19 WBC RBC Hgb POC Hgb Hct POC Hct MCV MCH MCHC RDW Std Deviation RDW Coeff of Naren Plt Count MPV Immature Gran % (Auto) Neut % (Auto) Lymph % (Auto) Dickson % (Auto) Eos % (Auto) Baso % (Auto) Neut # (Auto) Lymph # (Auto) Dickson # (Auto) Eos # (Auto) Baso # (Auto) Immature Gran # (Auto) ESR PT INR POC pH POC pCO2 POC pO2 POC HCO3 POC Total CO2 POC Base Excess VBG pH VBG pCO2 VBG pO2 VBG HCO3 VBG O2 Saturation VBG Base Excess Barometric Pressure POC Sodium Sodium POC Potassium Potassium Chloride Carbon Dioxide Anion Gap BUN Creatinine Est Cr Clr Drug Dosing Est GFR ( Amer) Est GFR (Non-Af Amer) BUN/Creatinine Ratio Glucose POC Glucose 154 H Estimat Average Glucose Hemoglobin A1c Lactate Calcium Phosphorus Magnesium Total Bilirubin Direct Bilirubin AST ALT Alkaline Phosphatase Troponin I C-Reactive Protein Total Protein Albumin Procalcitonin Ur Random Creatinine Ur Random Sodium Nasal Screen MRSA (PCR) EBV Capsid Ag IgG Ab EBV Capsid Ag IgM Ab EBV Nuclear Antigen Ab EBV Antibody Interp Monoscreen Diagnostic Findings The patient had an echocardiogram completed and actually, although it is a limited study, has well-preserved left ventricular function and no significant valvular pathology. Medications Administered Current Inpatient Medications Aspirin (Ecotrin) 650 mg PO DAILY AMAURI Stop: 06/27/20 08:59 Atorvastatin Calcium (Lipitor) 80 mg PO DAILY AMAURI Stop: 06/26/20 11:29 Last Admin: 05/28/20 09:32 Dose: 80 mg Documented by: Cyanocobalamin (Vitamin B-12) 250 mcg PO DAILY AMAURI Stop: 06/27/20 08:59 Last Admin: 05/28/20 09:31 Dose: 250 mcg Documented by: Dextrose (Dextrose 50%) 25 - 50 ml IV UD PRN; Protocol PRN Reason: Hypoglycemia Protocol Stop: 06/27/20 07:44 Glucagon (Glucagen) 1 mg IM UD PRN; Protocol PRN Reason: Hypoglycemia Protocol Stop: 06/27/20 07:44 Glucose (Glucose 40%) 15 - 30 gm PO UD PRN; Protocol PRN Reason: Hypoglycemia Protocol Stop: 06/27/20 07:44 Glucose (Dex4 Glucose) 4 - 8 tabs PO UD PRN; Protocol PRN Reason: Hypoglycemia Protocol Stop: 06/27/20 07:44 Heparin Sodium (Porcine) (Heparin Sodium (Porcine)) 5,000 units SQ Q12 AMAURI Stop: 06/27/20 20:59 Hydralazine HCl (Apresoline) 25 mg PO TID AMAURI Stop: 06/27/20 13:59 Cefepime HCl 2,000 mg/ Syringe 20 mls @ 5 mls/min IV DAILY@1200 AMAURI; Protocol Stop: 06/06/20 11:59 Furosemide 80 mg/ Syringe 8 mls @ 4 mls/min IV ONE ONE Stop: 05/28/20 10:31 Insulin Aspart (Novolog Flexpen) 0 units SC Q4 AMAURI; Protocol Stop: 06/26/20 11:59 Last Admin: 05/28/20 09:29 Dose: 6 units Documented by: Levothyroxine Sodium (Synthroid) 50 mcg PO DAILYBB [facility] Stop: 06/26/20 11:29 Last Admin: 05/28/20 05:02 Dose: 50 mcg Documented by: Magnesium Oxide (Mag-Ox) 400 mg PO DAILY AMAURI Stop: 06/26/20 11:29 Last Admin: 05/28/20 09:32 Dose: 400 mg Documented by: Miscellaneous (Carbohydrates For Hypoglycemia) 15 - 30 gm PO UD PRN PRN Reason: Hypoglycemia Treatment Stop: 06/27/20 07:44 Miscellaneous Information (Cefepime Consult Active) 1 ea N/A UD PRN PRN Reason: Consult Stop: 06/26/20 10:35 Miscellaneous Information (Consult Glycemic Management Pharmacy) 1 ea N/A UD PRN PRN Reason: Consult Stop: 06/26/20 10:35 Nitroglycerin (Nitrostat) 0.4 mg SL UD PRN PRN Reason: Chest Pain Stop: 06/26/20 10:31 Ondansetron HCl (Zofran) 4 mg IV Q6H PRN PRN Reason: Nausea Stop: 06/26/20 13:01 Pantoprazole Sodium (Protonix) 40 mg PO DAILY AMAURI Stop: 06/26/20 11:29 Last Admin: 05/28/20 09:32 Dose: 40 mg Documented by: Tamsulosin HCl (Flomax) 0.4 mg PO HS [facility] Stop: 06/26/20 20:59 Last Admin: 05/27/20 21:21 Dose: 0.4 mg Documented by: Trazodone HCl (Desyrel) 25 mg PO HS [facility] Stop: 06/26/20 20:59 Last Admin: 05/27/20 21:21 Dose: 25 mg Documented by:
--- NOTE | 2020-05-28 10:46 | Pharmacy Report ---
Pharmacy Glycemic Short Note 2 - Date of Service May 28, 2020 - Glycemic Short BSG Results (Last 24 hours): 05/27/20 05/27/20 05/27/20 11:26 11:26 16:34 Glucose 193 H 162 H POC Glucose 173 H 05/27/20 05/27/20 05/27/20 17:23 19:37 23:18 Glucose POC Glucose 175 H 153 H 96 05/28/20 05/28/20 05/28/20 03:39 03:40 04:02 Glucose Cancelled POC Glucose 69 L* 72 05/28/20 05/28/20 04:52 09:19 Glucose 114 H POC Glucose 154 H Outpatient Anti-diabetic Regimen: * Lantus 25 units SC qAM * Novolog 8 units with lunch and 22 units with dinner, plus correction factor of 25 mg/dL/unit (over 150 mg/dL) * Empagliflozin * Glimepiride * Linagliptin-metformin * A1c 8.7% on 05/28/20 Risk Factors for Insulin Resistance: * Bacteremia * Recent Surgery: POD 1 s/p temporary pacemaker * Diet: T2DM ASSESSMENT: 05/28/20 * BSG's trended down nicely yesterday after starting basal/bolus, with the exception of one mild hypoglycemic event overnight (BSG 69 mg/dL), likely due to Lantus * BSG's increased back to goal by this AM. Diet now ordered, starting with breakfast * Will decrease Lantus as compared to yesterday, but only slightly as patient now ordered a diet and the hypoglycemic event was transient and mild 05/27/20 * 84 yo M admitted 05/27 with possible infection, GWEN, and complete heart block of unknown etiology (? infectious vs. medication vs. other) and is now s/p emergent temporary pacemaker placement * BSG on arrival was 228 mg/dL. Patient received regular insulin 10 units IV and dextrose 50% 50 mL x1 for hyperkalemia and BSG increased to 273 mg/dL. BSG obtained after pacemaker was 173 mg/dL * Will continue basal/bolus for now - patient may require an insulin drip at some point, but since BSG now < 180 mg/dL with minimal glycemic intervention thus far, OK to defer drip for now * Will decrease basal dose as compared to home dose 2nd NPO status, but only by 20% as BSG was significantly elevated on admission. Additional basal insulin tonight if BSG >150 mg/dL PLAN FOR INPATIENT GLYCEMIC CONTROL: * Continue to hold outpatient oral diabetes medications * Basal insulin * Lantus 15 units SQ x1. Additional 5 units tonight if BSG >150 mg/dL * Bolus insulin * NovoLog ACHS * Goal Range: Low 120 mg/dL - High 150 mg/dL * Correction Factor: 25 mg/dL/unit * Nutritional / Prandial insulin per carb ratio of 1 unit per 10 grams CHO consumed
[2020-05-28] MEDS ORDERED: CEFEPIME 2,000 MG in SYRINGE 7.5 ML IV SCH (12:00)
[2020-05-28] MEDS ORDERED: INSULIN GLARGINE SOLOSTAR 100 UNITS/ML 3 ML PEN SC STA (12:11)
--- NOTE | 2020-05-28 12:33 | CT Scan Report ---
CT abd pelvis oral con only CLINICAL HISTORY: Sepsis. Possible acute abdominal infection. COMPARISON STUDY: No previous studies for comparison. FINDINGS: The patient was scanned following administration of dilute oral contrast. No intravenous co ntrast was administered. A dose reduction technique was utilized according to the principles of ALARA There is a moderate right pleural effusion and small left pleural effusion. Associated basilar airspa ce opacities while nonspecific likely representing compressive atelectasis. No focal hepatic masses are visualized in this noncontrast study. No gallbladder abnormalities are visualized. No splenic masses are visualized. No pancreatic masses are visualized. Neither adrenal gland is pathologically enlarged. There is no hydronephrosis. No renal, ureteral, or bladder calculi are visualized. There are no transition zones indicate bowel obstruction. There is no evidence of acute diverticuliti s. There is no evidence of acute appendicitis. There is no ascites. There is no free intraperitoneal air. There is a tiny fat-containing left inguinal hernia. There is a joint Rodriguez catheter. There is air within the bladder likely iatrogenic. There is mild prostatomegaly. There is a right femoral venous catheter which extends to the level the heart. No bony destructive lesions are visualized. The study is compromised due to motion artifact. There is no pathologic adenopathy. IMPRESSION: 1. Motion degraded study 2. Bilateral pleural effusions right greater than left 3. No evidence of bowel obstruction. No evidence of free air 4. No renal, ureteral, or bladder calculi identified 5. No evidence of acute appendicitis. No evidence of acute diverticulitis. 6. Air within the bladder likely iatrogenic ACT 112: Negative or not required by law. Electronically signed by: Manuel Gomez M.D. 05/28/2020 12:31 PM
--- NOTE | 2020-05-28 13:17 | Billing Data ---
Date of Service May 28, 2020 Coding Level of Care Code 01755 Subseq Hosp Care Lvl 3
--- NOTE | 2020-05-28 18:03 | Hospitalist Progress Note ---
Date of Service May 28, 2020 Assessment & Plan (1) Sepsis: Gram negative septicemia-uncertain etiology. Procalcitonin elevated today. Cont cefepime. (2) Diarrhea: stool studies pending. (3) Elevated LFTs: Possible related to hypoperfusion in sepsis. No RUQ pain on exam. EBV considered as an etiology as it can cause elevations in LFTs, fever, fatigue and heart block. Monospot negative, awaiting EBV serologies. Trend LFTs in am. (4) Gram-negative bacteremia: Gram negative bacteremia present without speciation yet. Repeat blood cultures are pending. Urine cultures pending. He continues to fever today and now has elevated LFTs on labwork. No abdominal pain. CT a/p revealed no acute intra-abdominal process. Pleural effusions present. Uncertain etiology. Cont cefepime and follow repeat cultures. (5) Third degree heart block: s/p transvenous pacer still ongoing until bacteremia clears. (6) Acute diastolic (congestive) heart failure: in setting of AV block and sepsis. Lasix again given today. Some hypoxia present 90% on 2LPM. Pleural effusions noted on CT scan today. TVP in place as above. (7) Hyperkalemia: received a GI potassium binder per Nephro and this has normalized. (8) High anion gap metabolic acidosis: resolved, bicarbonate drip was stopped. (9) Acute kidney injury: h/o CKD Stage III at baseline. Likely secondary to prolonged illness and hypoperfusion of the kidneys in the setting of bradycardia and low blood pressure. Cont to monitor BMP and avoid nephrotoxic agents when able. Renally dose meds when appropriate. Renal function is improved on labwork today. (10) DVT prophylaxis: Heparuin Full Code Dispo-cont ICU monitoring. Flores Richardson DO [facility] Hospitalist Admission and Anticipated Discharge Date Admission Date: May 27, 2020 Subjective more somnolent he was awoken from sleep-minimal conversation denies pain states it was a tough day febrile, LFTs elevated, continues on the transvenous pacer Review of Systems Review of Systems: Unobtainable due to cognitive status (limited ROS) Physical Exam Physical Exam: CONSTITUTIONAL: WNWD, vitals as above, generally well- appearing EYES: pupils are equal and round bilaterally, normal conjunctivae, no scleral icterus ENT: external ear and nose normal, oropharynx clear, MMM RESPIRATORY: clear to auscultation bilaterally, no crackles, rales or wheezes, normal respiratory effort CARDIOVASCULAR: regular rate and rhythm, S1 and 2 heard without murmurs, gallops or rubs, no JVD, no peripheral edema GASTROINTESTINAL: soft, nontender, nondistended MUSCULOSKELETAL: strength 5/5 throughout, head is normocephalic and atraumatic, temporary venous pacer inserted into right groin with leg immobilzer brace in place on RLE SKIN: warm and dry NEUROLOGIC: No facial palsy, no dysarthria. CN 2-12 grossly intact, somnolent, normal speech, no gross focal neuro deficits. Results & Data Results & Data ([facility]) Vital Signs (Past 12 Hours) Vital Signs Temp Pulse Resp BP Pulse Ox 05/28/20 16:01 60 28 H 103/45 L 90 05/28/20 15:01 37.8 C H 68 25 H 142/60 H 92 05/28/20 14:00 37.9 C H 32 H 108/68 92 05/28/20 13:02 60 24 131/62 94 05/28/20 12:01 37.7 C H 60 20 123/55 L 93 05/28/20 11:47 60 19 115/67 93 05/28/20 10:00 60 22 05/28/20 09:22 60 23 151/115 H 91 05/28/20 08:23 62 22 145/82 H 92 05/28/20 08:00 36.9 C 60 18 93 05/28/20 07:22 60 24 130/63 93 05/28/20 06:22 60 22 127/64 94 Laboratory Results Short CBC 05/28/20 Range/Units 04:02 WBC 13.18 H (4.8-10.8) K/uL Hgb 9.1 L (14.0-18.0) g/dL Hct 28.2 L (42-52) % Plt Count 245 (130-400) K/uL BMP 05/28/20 05/28/20 04:02 04:52 Sodium Cancelled 138 Potassium Cancelled 4.2 D Chloride Cancelled 103 Carbon Dioxide Cancelled 26 BUN Cancelled 51 H Creatinine Cancelled 2.75 H Glucose Cancelled 114 H Calcium Cancelled 8.8 Liver Function 05/28/20 05/28/20 Range/Units 04:02 04:52 Total Bilirubin Cancelled 1.0 Direct Bilirubin Cancelled 0.4 H AST Cancelled 741 H ALT Cancelled 689 H Alkaline Phosphatase Cancelled 135 H Albumin Cancelled 2.4 L Medications Administered Current Inpatient Medications Aspirin (Ecotrin) 650 mg PO DAILY [facility] Stop: 06/27/20 08:59 Atorvastatin Calcium (Lipitor) 80 mg PO DAILY [facility] Stop: 06/26/20 11:29 Last Admin: 05/28/20 09:32 Dose: 80 mg Documented by: Cyanocobalamin (Vitamin B-12) 250 mcg PO DAILY [facility] Stop: 06/27/20 08:59 Last Admin: 05/28/20 09:31 Dose: 250 mcg Documented by: Dextrose (Dextrose 50%) 25 - 50 ml IV UD PRN; Protocol PRN Reason: Hypoglycemia Protocol Stop: 06/27/20 07:44 Glucagon (Glucagen) 1 mg IM UD PRN; Protocol PRN Reason: Hypoglycemia Protocol Stop: 06/27/20 07:44 Glucose (Glucose 40%) 15 - 30 gm PO UD PRN; Protocol PRN Reason: Hypoglycemia Protocol Stop: 06/27/20 07:44 Glucose (Dex4 Glucose) 4 - 8 tabs PO UD PRN; Protocol PRN Reason: Hypoglycemia Protocol Stop: 06/27/20 07:44 Heparin Sodium (Porcine) (Heparin Sodium (Porcine)) 5,000 units SQ Q12 [facility] Stop: 06/27/20 20:59 Hydralazine HCl (Apresoline) 25 mg PO TID [facility] Stop: 06/27/20 13:59 Last Admin: 05/28/20 11:47 Dose: 25 mg Documented by: Cefepime HCl 2,000 mg/ Syringe 20 mls @ 5 mls/min IV DAILY@1200 [facility]; Protocol Stop: 06/06/20 11:59 Last Admin: 05/28/20 11:47 Dose: 5 mls/min Documented by: Insulin Aspart (Novolog Flexpen) 0 units SC ACHS [facility]; Protocol Stop: 06/27/20 11:29 Last Admin: 05/28/20 15:17 Dose: 1 units Documented by: Insulin Glargine (Lantus Solostar Pen) 0 units SC HS ONE; Protocol Stop: 05/28/20 21:01 Levothyroxine Sodium (Synthroid) 50 mcg PO DAILYBB [facility] Stop: 06/26/20 11:29 Last Admin: 05/28/20 05:02 Dose: 50 mcg Documented by: Magnesium Oxide (Mag-Ox) 400 mg PO DAILY [facility] Stop: 06/26/20 11:29 Last Admin: 05/28/20 09:32 Dose: 400 mg Documented by: Miscellaneous (Carbohydrates For Hypoglycemia) 15 - 30 gm PO UD PRN PRN Reason: Hypoglycemia Treatment Stop: 06/27/20 07:44 Miscellaneous Information (Cefepime Consult Active) 1 ea N/A UD PRN PRN Reason: Consult Stop: 06/26/20 10:35 Miscellaneous Information (Consult Glycemic Management Pharmacy) 1 ea N/A UD PRN PRN Reason: Consult Stop: 06/26/20 10:35 Nitroglycerin (Nitrostat) 0.4 mg SL UD PRN PRN Reason: Chest Pain Stop: 06/26/20 10:31 Ondansetron HCl (Zofran) 4 mg IV Q6H PRN PRN Reason: Nausea Stop: 06/26/20 13:01 Pantoprazole Sodium (Protonix) 40 mg PO DAILY [facility] Stop: 06/26/20 11:29 Last Admin: 05/28/20 09:32 Dose: 40 mg Documented by: Tamsulosin HCl (Flomax) 0.4 mg PO [facility] Stop: 06/26/20 20:59 Last Admin: 05/27/20 21:21 Dose: 0.4 mg Documented by: Trazodone HCl (Desyrel) 25 mg PO HS [facility] Stop: 06/26/20 20:59 Last Admin: 05/27/20 21:21 Dose: 25 mg Documented by:
[2020-05-28] MEDS ORDERED: INSULIN GLARGINE SOLOSTAR 100 UNITS/ML 3 ML PEN SC ONE (21:00)
[2020-05-28] MEDS: TAMSULOSIN HCL 0.4 MG CAP PO SCH (21:11)
[2020-05-28] MEDS: TRAZODONE HCL 50 MG TAB PO SCH (21:11)
[2020-05-28] MEDS: HEPARIN SOD 5,000 UNIT/0.5 ML VIAL SQ SCH (21:12)
[2020-05-29 04:51] LABS: Basophils # (auto) 0.01 K/uL (0-0.2); Basophils % (auto) 0.1 %; Hematocrit (blood only) 28.4 % (42-52); Hemoglobin 9.3 g/dL (14.0-18.0); Immature Granulocytes # (auto) 0.07 K/uL (0.00-0.02); Immature Granulocytes % (auto) 0.4 %; Lymphocytes # (auto) 1.71 K/uL (1.2-3.4); Lymphocytes % (auto) 8.6 %; Mean Corpuscular Hemoglobin 25.7 pg (25-34); Mean Corpuscular Hgb Conc 32.7 g/dL (32-36); Mean Corpuscular Volume 78.5 fL (80-100); Monocytes # (auto) 1.29 K/uL (0.11-0.59); Monocytes % (auto) 6.5 %; Neutrophils % (auto) 84.4 %; Platelet Count 209 K/uL (130-400); RDW Coefficient of Variation 14.9 % (11.5-14.5); RDW Standard Deviation 42.5 fL (36.4-46.3); Red Blood Count 3.62 M/uL (4.7-6.1); White Blood Count 19.78 K/uL (4.8-10.8)
[2020-05-29] MEDS: ONDANSETRON INJ 2 MG/ML 2 ML VIAL IV PRN ×2 (05:01→21:17)
[2020-05-29 05:08] LABS: INR 1.5 (0.9-1.1); Prothrombin Time 15.2 Seconds (9.0-12.0)
[2020-05-29 05:10] LABS: Albumin Level 2.1 gm/dl (3.4-5.0); BUN Creatinine Ratio 22.8 (10-20); Bilirubin Direct 0.5 mg/dl (0-0.2); Calcium 8.4 mg/dl (8.5-10.1); Creatinine Clr Calc Pharmacy 23.2 ml/min; Est GFR (African American) 25.2; Est GFR (Non-African American) 21.8; Magnesium 1.8 mg/dl (1.8-2.4); Potassium 4.5 mmol/L (3.5-5.1)
[2020-05-29 05:20] LABS: Phosphorus 5.5 mg/dl (2.5-4.9); Total Protein 6.7 gm/dl (6.4-8.2)
[2020-05-29] MEDS: LEVOTHYROXINE SODIUM 50 MCG TABLET PO SCH (05:52)
[2020-05-29] MEDS ORDERED: INSULIN GLARGINE SOLOSTAR 100 UNITS/ML 3 ML PEN SC ONE (07:30)
[2020-05-29] MEDS: INSULIN ASPART 100 UNITS/ML 3 ML PEN SC SCH ×4 (07:47→21:13)
[2020-05-29] MEDS: HEPARIN SOD 5,000 UNIT/0.5 ML VIAL SQ SCH ×2 (07:48→21:16)
--- NOTE | 2020-05-29 08:00 | Critical Care Progress Note ---
Date of Service May 29, 2020 Assessment & Plan (1) Admitted to intensive care unit: Reason Critically Ill: 84-year-old male here with a PMHx significant for coronary artery disease, CKD? who presented with weakness, nausea, vomiting and who was admitted for third-degree heart block, gram-negative sepsis. Neuro - * metabolic encephalopathy likely secondary to gram-negative sepsis CAM ICU: NEGATIVE Sedation: None Analgesia: None A&O x2, remains pleasantly delirious. 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 Cardiac - * Acute diastolic congestive heart failure * Echo showing 65 to 70% EF, mild left atrial dilation, moderate concentric LVH, mild aortic stenosis, mild mitral and tricuspid regurg * Likely exacerbated due to bradycardia and ensuing low cardiac output * New third degree AV kelley block with symptomatic bradycardia * Temporary transvenous pacer controlling rate at 60 bpm * Continues to have third degree heart block with junctional escape rhythm at a rate of 40 * Will require permanent pacemaker placement; given degree of bacteremia there is some hesitation to placing external hardware and patient will he remains bacteremic. Telemedicine consult placed to [facility] infectious disease to elucidate at what point patient would be safe to undergo procedure balancing risk of keeping an temporary external pacemaker in versus putting in a permanent pacemaker while bacteremic. * Hypertension * Started on hydralazine 25 mg 3 times daily as patient is not able to receive first-line medications (beta-blockers, ACEs/ARBs) in setting of renal failure and third-degree heart block * Appreciate cardiology's continuing recommendations for overall cardiac improvement Respiratory - * New O2 requirement on admissionnow resolved * Breathing comfortably on room air O2 sat 91 * Chest x-ray showing cardiomegaly and pulmonary vascular congestion mildly improved after 80 of Lasix IV yesterday * Will continue with Lasix today per nephro GI - * Heart healthy diet started today, fluid restriction of 2 L/day * Transaminitis: Improving * Likely secondary to shock liver in setting of gram-negative sepsis * Will continue to monitor hepatic panel into tomorrow to ensure resolution * EBV panel to rule out viral hepatitis * Bio fire negative * Coagulopathy * PT 15.2, INR 1.5 * Patient not on any blood thinners * Elevated d-dimer at 4820 on admission * Venous ultrasound of extremities negative on 05/27 RENAL/LYTES - * Cardiorenal syndrome leading to renal failure and ensuing metabolic acidosis * Renal failure likely secondary to poor cardiac output with bradycardia leading to renal failure with proteinuria, sediment in urine, acidotic state * Metabolic acidosis improved * Kidney ultrasound on 05/27 for hydronephrosis or renal cysts * Appreciate nephrology's continuing recommendations regarding care of this patient * Lactic acidosis secondary to gram-negative sepsis * Improving down to 1.7 this morning * LDH 680 on admission * Fluid balance * +434 mL over last 24 hours; -1.2L per stay * Electrolytes repleted as needed - * No acute issues, patient denies any burning with urination, dysuria, increased frequency, hematuria prior to admission * Rodriguez in place * BPH with Flomax at home * Urine culture sent to help isolate source of gram-negative sepsis ENDO -diabetes type 2 on multiple medications at home. ICU hyper and hypoglycemia protocol to manage sugars HEME - * Microcytic anemia * 9.1 down from 9.4 yesterday, MCV 79, RDW within normal limits * Possibly secondary to iron deficiency; unsure when patient's last colonoscopy was * Patient is a strict vegetarian and is at risk for B12 and folate deficiency ID - * Gram-negative bacteremia likely from GI bacterial translocation or source * Consult placed to [facility] infectious disease telemedicine; concern for leaving transvenous temporary pacemaker and body for too long which could become site of infection versus placement of a permanent pacemaker in setting of bacteremia. Patient is currently on day 3 out of 14 of antibiotics. She recommendations regarding appropriate timing in course of infection for pacemaker placement. * Initial blood cultures growing E. coli sensitive to ceftriaxone. Repeat surveillance blood cultures pending from yesterday, will be 24 hours at 11:30 AM today. Pro-Gagandeep elevated to 50.23 from 23 yesterday * Coverage narrowed to Rocephin per Ecoli specification * Urine culture pending * CT abdomen pelvis with oral contrast negative for intra-abdominal infection * Last fever was at 5 AM on 05/27 * Less likely to be pulmonary in setting of lack of respiratory distress on room air. Less likely to be meningitic given patient's overall normal behavior and stable vitals INTEGUMENTARY - * No concerns at this time LINES/IV ACCESS - PIVs intact. Right femoral transvenous pacemaker in place DVT PROPHYLAXIS - SCDs, subcu heparin Thank you for allowing us to be part of this patient's care. Please refer to Dr. Corona's documentation for any further recommendations. (2) Acute diastolic (congestive) heart failure: (3) Third degree heart block: (4) Gram-negative bacteremia: (5) Hyperkalemia: (6) High anion gap metabolic acidosis: (7) Acute kidney injury: (8) Lactic acid acidosis: (9) Fatigue: (10) Weakness: (11) SOB (shortness of breath): (12) Fever: (13) Hypertension: (14) Vomiting: Admission and Anticipated Discharge Date Admission Date: May 27, 2020 Supervising Physician Co-Signing Physician Notes Patient seen and examined. EMR reviewed. Agree with assessment and plan as noted by the family practice resident. Patient was discussed with the bedside ICU nurse and on ICU multidisciplinary rounds. He continues to show slow and steady improvement. He remains dependent on his transvenous pacer and will likely require permanent pacemaker at some point. The timing of this is dependent on his bacteremia. This appears to be E. coli of an unclear source. GI and etiologies are possible however no significant findings on his urinalysis and CT of the abdomen and pelvis did not demonstrate significant abnormality. ID consultation through [facility] has been requested to guide timing of placement of permanent pacemaker, and additional work-up as well as to determine duration of antibiotics but given his unclear etiology would favor likely 2 weeks. Unfortunately, physical therapy and Occupational Therapy are hampered by his femoral transvenous pacemaker. We could potentially discuss transitioning it to a jugular approach if it looks like it is going to be a prolonged process. His LFTs and kidney function are improving. The etiology of his elevated procalcitonin is somewhat unclear and is not entirely congruent with his clinical picture so we will continue to follow for now. Subjective Still feeling nauseous this morning. Says that chills and rigor's had improved since yesterday afternoon. Does attest to feeling lightheaded if he lifts his head with some transient loss of vision when he does so. Remains pleasantly delirious Review of Systems Review of Systems: All systems reviewed & are unremarkable except as noted in HPI & below Physical Exam Physical Exam: VITAL SIGNS - Vital signs and nursing notes were reviewed. GENERAL -84-year-old male in no acute distress SKIN - Without rashes. HEAD - NC/AT. EYES - PERRL. Sclera anicteric. Palpebral conjunctiva pink and moist with no injection noted. EARS - No deformities of external structures noted on gross examination bilaterally. NOSE - Midline and without cyanosis. No epistaxis or purulent drainage noted. MOUTH/OROPHARYNX -normal dentition, without perioral cyanosis. NECK - Supple to palpation. No nuchal rigidity. LUNGS -clear to auscultation bilaterally, no wheezes, crackles, rhonchi, rales appreciated CARDIAC -transvenously paced at 60 bpm. No murmur, rubs, or gallops appreciated. ABDOMEN -soft nontender nondistended with normal bowel sounds. EXTREMITIES - No clubbing or peripheral cyanosis. No pretibial edema present. radial and dorsalis pedis pulses palpated bilaterally. NEUROLOGIC - No focal neurological deficits noted on exam. Results & Data Results & Data ([facility]) Vital Signs (Past 12 Hours) Vital Signs Temp Pulse Resp BP Pulse Ox 05/29/20 06:00 61 20 134/61 95 05/29/20 05:30 60 23 95 05/29/20 05:00 60 18 126/57 L 96 05/29/20 04:30 60 15 95 05/29/20 04:00 36.6 C 60 19 91/45 L 92 05/29/20 03:30 60 16 92 05/29/20 03:00 60 19 118/51 L 94 05/29/20 02:30 60 19 93 05/29/20 02:00 65 16 117/55 L 94 05/29/20 01:30 60 21 94 05/29/20 01:00 60 24 124/58 L 95 05/29/20 00:30 60 17 94 05/29/20 00:00 36.8 C 60 24 111/75 92 05/28/20 23:30 60 23 93 05/28/20 23:00 60 19 107/55 L 93 05/28/20 22:30 60 18 94 05/28/20 22:00 60 20 102/47 L 95 05/28/20 21:30 60 20 94 05/28/20 21:00 60 21 104/55 L 96 05/28/20 20:30 60 20 96 White blood cell: 19.78, hemoglobin 9.3, platelet 209 PT 15.2, INR 1.5 Electrolytes within normal limits, creatinine improving to 2.62 AST and ALT decreasing, 407 and 623 respectively alk phos 150 Lactate 1.7, calcium 8.4, Chuy 5.5, mag 1.8, total bili 1.0, direct bili 0.5 Positive for 34 mL over the past 24 hours, -1.2 L for admission Micro studies: C. difficile negative, initial blood culture growing E. coli sensitive to ceftriaxone. Surveillance blood cultures from yesterday still pending will be 24 hours at 11:30 AM today. Urine cultures pending, stool white blood cell E. coli and cultures pending Giardia stool pending. EBV pending. Resident Activity Tracking Resident Involvement: Resident Care Provided Care Provided: Adult Hospital Medicine
[2020-05-29] MEDS: PANTOprazole 40 MG TAB PO SCH (08:16)
[2020-05-29] MEDS: ATORVASTATIN 40 MG TAB PO SCH (08:16)
[2020-05-29] MEDS: MAGNESIUM OXIDE 400 MG TAB PO SCH (08:16)
[2020-05-29] MEDS: CYANOCOBALAMIN (VITAMIN B-12) 100 MCG TABLET PO SCH (08:17)
--- NOTE | 2020-05-29 08:44 | Cardiology Progress Note ---
Date of Service May 29, 2020 Assessment & Plan (1) CHB (complete heart block): (2) Acute renal failure: (3) Sepsis: (4) Gram-negative bacteremia: The patient remains in complete heart block. The temporary pacemaker is functioning appropriately. He has grown out E. coli in his blood. He is currently being treated with antibiotics. He will most likely need a permanent pacemaker. The timing of that procedure is difficult to discern at this time due to the bacteremia. We typically cannot put in a device during an infection as the device could become seeded resulting in the need to remove. I would recommend that we have an ID consultation to help us with this decision. The EP service is aware of the possible need for pacemaker. In regard to the troponin elevation, I believe that this is multifactorial including hypotension, sepsis and acute renal failure. I do not believe that the troponin elevation is due to acute coronary syndrome. The initial echocardiogram completed on admission indicates well-preserved left ventricular function. I do not believe that he needs an immediate invasive work-up. Subjective The patient is more alert today. Hemodynamically stable. Review of Systems Review of Systems: All systems reviewed & are unremarkable except as noted in HPI & below Nothing additional to add. Physical Exam Physical Exam: General: no acute distress and stated age Head: normocephalic, no masses, lesions, tenderness or abnormalities Eyes: conjunctiva are pink and non-injected, sclera clear Neck: supple, no adenopathy, no bruits, normal jugular venous pulse, no hepatojugular reflux Chest: normal shape and normal respiratory effort Lungs: clear to auscultation and percussion Cardiac Exam: - regular rate & rhythm, no murmurs gallops or rubs - normal S1, normal S2 Pulses: 2(+) throughout Abdomen: abdomen soft, non-tender, no abnormal masses and no hepatosplenomegaly Musculoskeletal: no gait disturbance, no joint inflammation, no deforming arthritis Extremities: Pacer site right groin clean and dry Neuro: grossly normal exam Results & Data Vital Signs (Past 12 Hours) Vital Signs Temp Pulse Resp BP Pulse Ox 05/29/20 08:02 36.6 C 60 21 93/59 L 97 05/29/20 07:01 60 22 127/68 95 05/29/20 06:00 61 20 134/61 95 05/29/20 05:30 60 23 95 07/29/20 05:00 60 18 126/57 L 96 05/29/20 04:30 60 15 95 05/29/20 04:00 36.6 C 60 19 91/45 L 92 05/29/20 03:30 60 16 92 05/29/20 03:00 60 19 118/51 L 94 05/29/20 02:30 60 19 93 05/29/20 02:00 65 16 117/55 L 94 05/29/20 01:30 60 21 94 05/29/20 01:00 60 24 124/58 L 95 05/29/20 00:30 60 17 94 05/29/20 00:00 36.8 C 60 24 111/75 92 05/28/20 23:30 60 23 93 05/28/20 23:00 60 19 107/55 L 93 05/28/20 22:30 60 18 94 05/28/20 22:00 60 20 102/47 L 95 05/28/20 21:30 60 20 94 05/28/20 21:00 60 21 104/55 L 96 Laboratory Results Laboratory Results - last 24 hr 05/28/20 05/28/20 05/28/20 09:13 09:13 09:19 WBC RBC Hgb Hct MCV MCH MCHC RDW Std Deviation RDW Coeff of Naren Plt Count MPV Immature Gran % (Auto) Neut % (Auto) Lymph % (Auto) [place] % (Auto) Eos % (Auto) Baso % (Auto) Neut # (Auto) Lymph # (Auto) [place] # (Auto) Eos # (Auto) Baso # (Auto) Immature Gran # (Auto) PT INR Sodium Potassium Chloride Carbon Dioxide Anion Gap BUN Creatinine Est Cr Clr Drug Dosing Est GFR ( Amer) Est GFR (Non-Af Amer) BUN/Creatinine Ratio Glucose POC Glucose 154 H Lactate Calcium Phosphorus Magnesium Total Bilirubin Direct Bilirubin AST ALT Alkaline Phosphatase Total Protein Albumin Procalcitonin Stl C. diff Tox B Gene Stool Comments EBV Capsid Ag IgG Ab Pending EBV Capsid Ag IgM Ab Pending EBV Nuclear Antigen Ab Pending EBV Antibody Interp Pending Giardia Antigen Monoscreen Negative 05/28/20 05/28/20 05/28/20 11:32 14:30 14:30 WBC RBC Hgb Hct MCV MCH MCHC RDW Std Deviation RDW Coeff of Naren Plt Count MPV Immature Gran % (Auto) Neut % (Auto) Lymph % (Auto) [place] % (Auto) Eos % (Auto) Baso % (Auto) Neut # (Auto) Lymph # (Auto) [place] # (Auto) Eos # (Auto) Baso # (Auto) Immature Gran # (Auto) PT INR Sodium Potassium Chloride Carbon Dioxide Anion Gap BUN Creatinine Est Cr Clr Drug Dosing Est GFR ( Amer) Est GFR (Non-Af Amer) BUN/Creatinine Ratio Glucose POC Glucose 167 H Lactate Calcium Phosphorus Magnesium Total Bilirubin Direct Bilirubin AST ALT Alkaline Phosphatase Total Protein Albumin Procalcitonin Stl C. diff Tox B Gene Stool Comments Pending EBV Capsid Ag IgG Ab EBV Capsid Ag IgM Ab EBV Nuclear Antigen Ab EBV Antibody Interp Giardia Antigen Pending Monoscreen 05/28/20 05/28/20 05/28/20 14:30 15:15 20:10 WBC RBC Hgb Hct MCV MCH MCHC RDW Std Deviation RDW Coeff of Naren Plt Count MPV Immature Gran % (Auto) Neut % (Auto) Lymph % (Auto) [place] % (Auto) Eos % (Auto) Baso % (Auto) Neut # (Auto) Lymph # (Auto) [place] # (Auto) Eos # (Auto) Baso # (Auto) Immature Gran # (Auto) PT INR Sodium Potassium Chloride Carbon Dioxide Anion Gap BUN Creatinine Est Cr Clr Drug Dosing Est GFR ( Amer) Est GFR (Non-Af Amer) BUN/Creatinine Ratio Glucose POC Glucose 151 H 140 H Lactate Calcium Phosphorus Magnesium Total Bilirubin Direct Bilirubin AST ALT Alkaline Phosphatase Total Protein Albumin Procalcitonin Stl C. diff Tox B Gene Negative Cdiff Gene Stool Comments EBV Capsid Ag IgG Ab EBV Capsid Ag IgM Ab EBV Nuclear Antigen Ab EBV Antibody Interp Giardia Antigen Monoscreen 05/29/20 05/29/20 05/29/20 04:31 04:31 04:31 WBC 19.78 H RBC 3.62 L Hgb 9.3 L Hct 28.4 L MCV 78.5 L MCH 25.7 MCHC 32.7 RDW Std Deviation 42.5 RDW Coeff of Naren 14.9 H Plt Count 209 MPV 11.0 H Immature Gran % (Auto) 0.4 Neut % (Auto) 84.4 Lymph % (Auto) 8.6 [place] % (Auto) 6.5 Eos % (Auto) 0.0 Baso % (Auto) 0.1 Neut # (Auto) 16.70 H Lymph # (Auto) 1.71 [place] # (Auto) 1.29 H Eos # (Auto) 0.00 Baso # (Auto) 0.01 Immature Gran # (Auto) 0.07 H PT INR Sodium 137 Potassium 4.5 Chloride 102 Carbon Dioxide 27 Anion Gap 8.0 BUN 60 H Creatinine 2.62 H Est Cr Clr Drug Dosing 23.2 Est GFR ( Amer) 25.2 Est GFR (Non-Af Amer) 21.8 BUN/Creatinine Ratio 22.8 H Glucose 211 H POC Glucose Lactate Calcium 8.4 L Phosphorus 5.5 H D Magnesium 1.8 Total Bilirubin 1.0 Direct Bilirubin 0.5 H AST 407 H ALT 623 H Alkaline Phosphatase 150 H Total Protein 6.7 Albumin 2.1 L Procalcitonin 50.23 H Stl C. diff Tox B Gene Stool Comments EBV Capsid Ag IgG Ab EBV Capsid Ag IgM Ab EBV Nuclear Antigen Ab EBV Antibody Interp Giardia Antigen Monoscreen 05/29/20 05/29/20 05/29/20 04:31 04:31 05:57 WBC RBC Hgb Hct MCV MCH MCHC RDW Std Deviation RDW Coeff of Naren Plt Count MPV Immature Gran % (Auto) Neut % (Auto) Lymph % (Auto) [place] % (Auto) Eos % (Auto) Baso % (Auto) Neut # (Auto) Lymph # (Auto) [place] # (Auto) Eos # (Auto) Baso # (Auto) Immature Gran # (Auto) PT 15.2 H INR 1.5 H Sodium Potassium Chloride Carbon Dioxide Anion Gap BUN Creatinine Est Cr Clr Drug Dosing Est GFR ( Amer) Est GFR (Non-Af Amer) BUN/Creatinine Ratio Glucose POC Glucose 256 H Lactate 1.7 Calcium Phosphorus Magnesium Total Bilirubin Direct Bilirubin AST ALT Alkaline Phosphatase Total Protein Albumin Procalcitonin Stl C. diff Tox B Gene Stool Comments EBV Capsid Ag IgG Ab EBV Capsid Ag IgM Ab EBV Nuclear Antigen Ab EBV Antibody Interp Giardia Antigen Monoscreen 05/29/20 07:46 WBC RBC Hgb Hct MCV MCH MCHC RDW Std Deviation RDW Coeff of Naren Plt Count MPV Immature Gran % (Auto) Neut % (Auto) Lymph % (Auto) [place] % (Auto) Eos % (Auto) Baso % (Auto) Neut # (Auto) Lymph # (Auto) [place] # (Auto) Eos # (Auto) Baso # (Auto) Immature Gran # (Auto) PT INR Sodium Potassium Chloride Carbon Dioxide Anion Gap BUN Creatinine Est Cr Clr Drug Dosing Est GFR ( Amer) Est GFR (Non-Af Amer) BUN/Creatinine Ratio Glucose POC Glucose 202 H Lactate Calcium Phosphorus Magnesium Total Bilirubin Direct Bilirubin AST ALT Alkaline Phosphatase Total Protein Albumin Procalcitonin Stl C. diff Tox B Gene Stool Comments EBV Capsid Ag IgG Ab EBV Capsid Ag IgM Ab EBV Nuclear Antigen Ab EBV Antibody Interp Giardia Antigen Monoscreen Medications Administered Current Inpatient Medications Aspirin (Ecotrin) 650 mg PO DAILY [facility] Stop: 06/27/20 08:59 Atorvastatin Calcium (Lipitor) 80 mg PO DAILY [facility] Stop: 06/26/20 11:29 Last Admin: 05/29/20 08:16 Dose: Not Given Documented by: Cyanocobalamin (Vitamin B-12) 250 mcg PO DAILY [facility] Stop: 06/27/20 08:59 Last Admin: 05/29/20 08:17 Dose: Not Given Documented by: Dextrose (Dextrose 50%) 25 - 50 ml IV UD PRN; Protocol PRN Reason: Hypoglycemia Protocol Stop: 06/27/20 07:44 Glucagon (Glucagen) 1 mg IM UD PRN; Protocol PRN Reason: Hypoglycemia Protocol Stop: 06/27/20 07:44 Glucose (Glucose 40%) 15 - 30 gm PO UD PRN; Protocol PRN Reason: Hypoglycemia Protocol Stop: 06/27/20 07:44 Glucose (Dex4 Glucose) 4 - 8 tabs PO UD PRN; Protocol PRN Reason: Hypoglycemia Protocol Stop: 06/27/20 07:44 Heparin Sodium (Porcine) (Heparin Sodium (Porcine)) 5,000 units SQ Q12 [facility] Stop: 06/27/20 20:59 Last Admin: 05/29/20 07:48 Dose: 5,000 units Documented by: Hydralazine HCl (Apresoline) 25 mg PO TID [facility] Stop: 06/27/20 13:59 Last Admin: 05/29/20 08:16 Dose: Not Given Documented by: Ceftriaxone Sodium 2,000 mg/ (Dextrose) 70 mls @ 100 mls/hr IV DAILY [facility]; Protocol Stop: 06/12/20 08:59 Insulin Aspart (Novolog Flexpen) 0 units SC ACHS [facility]; Protocol Stop: 06/27/20 11:29 Last Admin: 05/29/20 07:47 Dose: 5 units Documented by: Levothyroxine Sodium (Synthroid) 50 mcg PO DAILYBB [facility] Stop: 06/26/20 11:29 Last Admin: 05/29/20 05:52 Dose: 50 mcg Documented by: Magnesium Oxide (Mag-Ox) 400 mg PO DAILY [facility] Stop: 06/26/20 11:29 Last Admin: 05/29/20 08:16 Dose: Not Given Documented by: Miscellaneous (Carbohydrates For Hypoglycemia) 15 - 30 gm PO UD PRN PRN Reason: Hypoglycemia Treatment Stop: 06/27/20 07:44 Miscellaneous Information (Consult Glycemic Management Pharmacy) 1 ea N/A UD PRN PRN Reason: Consult Stop: 06/26/20 10:35 Nitroglycerin (Nitrostat) 0.4 mg SL UD PRN PRN Reason: Chest Pain Stop: 06/26/20 10:31 Ondansetron HCl (Zofran) 4 mg IV Q6H PRN PRN Reason: Nausea Stop: 06/26/20 13:01 Last Admin: 05/29/20 05:01 Dose: 4 mg Documented by: Pantoprazole Sodium (Protonix) 40 mg PO DAILY [facility] Stop: 06/26/20 11:29 Last Admin: 05/29/20 08:16 Dose: Not Given Documented by: Tamsulosin HCl (Flomax) 0.4 mg PO HS [facility] Stop: 06/26/20 20:59 Last Admin: 05/28/20 21:11 Dose: Not Given Documented by: Trazodone HCl (Desyrel) 25 mg PO HS [facility] Stop: 06/26/20 20:59 Last Admin: 05/28/20 21:11 Dose: Not Given Documented by: (1) Acute renal failure Acute renal failure type: unspecified Qualified Code(s): N17.9 - Acute kidney failure, unspecified
[2020-05-29] MEDS: cefTRIAXone SODIUM 2,000 MG in DEXTROSE 5% 50 ML IV SCH (09:00)
--- NOTE | 2020-05-29 10:15 | Pharmacy Report ---
Pharmacy Glycemic Short Note 2 - Date of Service May 29, 2020 - Glycemic Short BSG Results (Last 24 hours): 05/28/20 05/28/20 05/28/20 11:32 15:15 20:10 Glucose POC Glucose 167 H 151 H 140 H 05/29/20 05/29/20 05/29/20 04:31 05:57 07:46 Glucose 211 H POC Glucose 256 H 202 H Outpatient Anti-diabetic Regimen: * Lantus 25 units SC qAM * Novolog 8 units with lunch and 22 units with dinner, plus correction factor of 25 mg/dL/unit (over 150 mg/dL) * Empagliflozin * Glimepiride * Linagliptin-metformin * A1c 8.7% on 05/28/20 Risk Factors for Insulin Resistance: * Bacteremia * Recent Surgery: POD 2 s/p temporary pacemaker * Diet: T2DM ASSESSMENT: 05/29/20 * BSG's ranged 140-167 mg/dL yesterday from breakfast to bedtime. AM fasting BSG this AM elevated to 202 mg/dL, after reduction in Lantus yesterday. However, this increase is not likely to be solely due to reduced Lantus dose because the patient ate crackers from his son at around 0000 last night that were not covered with insulin (per JULIA Melgar) * Nausea/vomiting noted yesterday at dinner. Today, patient did consume irena amara for breakfast * OK to cautiously increase Lantus, but not to the amount that caused minor hypoglycemic event on overnight 05/27 to 05/28 * No change to Novolog at this time - CHO ratio seems appropriate based on trend yesterday. Adequacy of correction factor can be assessed based on breakfast to lunch BSG as this will be the first time significant correctional insulin has been administered 05/28/20 * BSG's trended down nicely yesterday after starting basal/bolus, with the exce ption of one mild hypoglycemic event overnight (BSG 69 mg/dL), likely due to Lantus * BSG's increased back to goal by this AM. Diet now ordered, starting with breakfast * Will decrease Lantus as compared to yesterday, but only slightly as patient now ordered a diet and the hypoglycemic event was transient and mild 05/27/20 * 84 yo M admitted 05/27 with possible infection, GWEN, and complete heart block of unknown etiology (? infectious vs. medication vs. other) and is now s/p emergent temporary pacemaker placement * BSG on arrival was 228 mg/dL. Patient received regular insulin 10 units IV and dextrose 50% 50 mL x1 for hyperkalemia and BSG increased to 273 mg/dL. BSG obtained after pacemaker was 173 mg/dL * Will continue basal/bolus for now - patient may require an insulin drip at some point, but since BSG now < 180 mg/dL with minimal glycemic intervention thus far, OK to defer drip for now * Will decrease basal dose as compared to home dose 2nd NPO status, but only by 20% as BSG was significantly elevated on admission. Additional basal insulin tonight if BSG >150 mg/dL PLAN FOR INPATIENT GLYCEMIC CONTROL: * Continue to hold outpatient oral diabetes medications * Basal insulin * Lantus 22 units SQ x1 * Bolus insulin * NovoLog ACHS * Goal Range: Low 110 mg/dL - High 140 mg/dL * Correction Factor: 25 mg/dL/unit * Nutritional / Prandial insulin per carb ratio of 1 unit per 10 grams CHO consumed
--- NOTE | 2020-05-29 11:31 | Hospitalist Progress Note ---
Date of Service May 29, 2020 Assessment & Plan (1) Sepsis: E coli septicemia-uncertain etiology. On 04/25/2020, he underwent podiatric treatment of thickened toenails and acute ulcer of the toe. Per the history given, the patient cut his big toe and it was bleeding badly. At this visit he underwent toenail debridement with an electric notch grinder, and an ulceration was noted with limited skin breakdown. Also must consider further investigation into biliary system with us liver as patient is still clinically ill without a clear etiology of infection. MRCP considered but ? if this can be performed with TVP in place. LFTs have decreased slightly. Repeat cultures are negative so far. Abdomen is not distended or very tender. US to look for biliary duct dilation and/or presence of stones/sludge. Re-evaluate with focus on more detailed foot exam. Appreciate ID recs. Procalcitonin elevated today. Cefepime was switched to ceftriaxone per ICU team with ID recommending adjustment to cefazolin to avoid negative side effects of ceftriaxone on biliary tract. Defer this change to ICU team. May consider GI consultation. Trend LFTs. (2) Diarrhea: stool studies pending. C-diff negative (3) Elevated LFTs: Possible related to hypoperfusion in sepsis. No RUQ pain on exam. EBV considered as an etiology as it can cause elevations in LFTs, fever, fatigue and heart block. Monospot negative, awaiting EBV serologies. Acute hepatitis panel requested. US liver as above. (4) Third degree heart block: s/p transvenous pacer still ongoing until bacteremia clears, then OK for pacer implantation if still needed after 72 hours. (5) Acute diastolic (congestive) heart failure: in setting of AV block and sepsis. Pleural effusions and fluid management with Lasix per nephrology. Oxygenation has improved/hypoxia resolved. (6) Acute kidney injury: h/o CKD Stage III at baseline. Likely secondary to prolonged illness and hypoperfusion of the kidneys in the setting of bradycardia and low blood pressure, therefore, possible ATN. Cont to monitor BMP and avoid nephrotoxic agents when able. Renally dose meds when appropriate. Renal function is improved on labwork today. (7) DMII (diabetes mellitus, type 2): Insulin per ICU protocol. A1C reflects poor control 8.7. This is complicated by diabetic polyneurpopathy. (8) DVT prophylaxis: Heparuin Full Code Dispo-cont ICU monitoring. Flores Richardson DO [facility] Hospitalist Admission and Anticipated Discharge Date Admission Date: May 27, 2020 Subjective The patient continues to report malaise and shaking chills Denies pain transvenous pacer is still in place He is tolerating PO LFTs have come down slightly Initial blood cultures reveal a clearance of e coli ID consult with [facility] telemedicine Review of Systems Review of Systems: All systems reviewed & are unremarkable except as noted in Subjective Physical Exam Physical Exam: CONSTITUTIONAL: WNWD, vitals as above, generally ill- appearing, appears more alert today EYES: pupils are equal and round bilaterally, normal conjunctivae, no scleral icterus ENT: external ear and nose normal, MMM RESPIRATORY: clear to auscultation bilaterally, no crackles, rales or wheezes, normal respiratory effort CARDIOVASCULAR: regular rate and rhythm, S1 and 2 heard without murmurs, gallops or rubs, no JVD, no peripheral edema GASTROINTESTINAL: soft, nontender, nondistended MUSCULOSKELETAL: strength 5/5 throughout, head is normocephalic and atraumatic, temporary venous pacer inserted into right groin with leg immobilizer brace in place on RLE SKIN: warm and dry NEUROLOGIC: No facial palsy, no dysarthria. CN 2-12 grossly intact, somnolent, normal speech, no gross focal neuro deficits. Results & Data Results & Data ([facility]) Vital Signs (Past 12 Hours) Vital Signs Temp Pulse Resp BP Pulse Ox 05/29/20 11:01 50 L 20 123/68 93 05/29/20 10:01 50 L 13 103/52 L 90 05/29/20 09:02 51 L 18 113/60 95 05/29/20 08:02 36.6 C 60 21 93/59 L 97 05/29/20 07:01 60 22 127/68 95 05/29/20 06:00 61 20 134/61 95 05/29/20 05:30 60 23 95 05/29/20 05:00 60 18 126/57 L 96 05/29/20 04:30 60 15 95 05/29/20 04:00 36.6 C 60 19 91/45 L 92 05/29/20 03:30 60 16 92 05/29/20 03:00 60 19 118/51 L 94 05/29/20 02:30 60 19 93 05/29/20 02:00 65 16 117/55 L 94 05/29/20 01:30 60 21 94 05/29/20 01:00 60 24 124/58 L 95 05/29/20 00:30 60 17 94 05/29/20 00:00 36.8 C 60 24 111/75 92 Laboratory Results Short CBC 05/29/20 Range/Units 04:31 WBC 19.78 H (4.8-10.8) K/uL Hgb 9.3 L (14.0-18.0) g/dL Hct 28.4 L (42-52) % Plt Count 209 (130-400) K/uL BMP 05/29/20 04:31 Sodium 137 Potassium 4.5 Chloride 102 Carbon Dioxide 27 BUN 60 H Creatinine 2.62 H Glucose 211 H Calcium 8.4 L Liver Function 05/29/20 Range/Units 04:31 Total Bilirubin 1.0 (0.2-1) mg/dl Direct Bilirubin 0.5 H (0-0.2) mg/dl AST 407 H (15-37) U/L ALT 623 H (12-78) U/L Alkaline Phosphatase 150 H (45-117) U/L Albumin 2.1 L (3.4-5.0) gm/dl Medications Administered Current Inpatient Medications Aspirin (Ecotrin) 650 mg PO DAILY [facility] Stop: 06/27/20 08:59 Atorvastatin Calcium (Lipitor) 80 mg PO DAILY [facility] Stop: 06/26/20 11:29 Last Admin: 05/29/20 08:16 Dose: Not Given Documented by: Cyanocobalamin (Vitamin B-12) 250 mcg PO DAILY [facility] Stop: 06/27/20 08:59 Last Admin: 05/29/20 08:17 Dose: Not Given Documented by: Dextrose (Dextrose 50%) 25 - 50 ml IV UD PRN; Protocol PRN Reason: Hypoglycemia Protocol Stop: 06/27/20 07:44 Glucagon (Glucagen) 1 mg IM UD PRN; Protocol PRN Reason: Hypoglycemia Protocol Stop: 06/27/20 07:44 Glucose (Glucose 40%) 15 - 30 gm PO UD PRN; Protocol PRN Reason: Hypoglycemia Protocol Stop: 06/27/20 07:44 Glucose (Dex4 Glucose) 4 - 8 tabs PO UD PRN; Protocol PRN Reason: Hypoglycemia Protocol Stop: 06/27/20 07:44 Heparin Sodium (Porcine) (Heparin Sodium (Porcine)) 5,000 units SQ Q12 [facility] Stop: 06/27/20 20:59 Last Admin: 05/29/20 21:16 Dose: 5,000 units Documented by: Hydralazine HCl (Apresoline) 25 mg PO TID [facility] Stop: 06/27/20 13:59 Last Admin: 05/29/20 08:16 Dose: Not Given Documented by: Ceftriaxone Sodium 2,000 mg/ (Dextrose) 70 mls @ 100 mls/hr IV DAILY [facility]; Protocol Stop: 06/12/20 08:59 Last Infusion: 05/29/20 09:44 Dose: Infused Documented by: Insulin Aspart (Novolog Flexpen) 0 units SC ACHS [facility]; Protocol Stop: 06/27/20 11:29 Last Admin: 05/29/20 21:13 Dose: Not Given Documented by: Levothyroxine Sodium (Synthroid) 50 mcg PO DAILYBB [facility] Stop: 06/26/20 11:29 Last Admin: 05/29/20 05:52 Dose: 50 mcg Documented by: Magnesium Oxide (Mag-Ox) 400 mg PO DAILY [facility] Stop: 06/26/20 11:29 Last Admin: 05/29/20 08:16 Dose: Not Given Documented by: Miscellaneous (Carbohydrates For Hypoglycemia) 15 - 30 gm PO UD PRN PRN Reason: Hypoglycemia Treatment Stop: 06/27/20 07:44 Miscellaneous Information (Consult Glycemic Management Pharmacy) 1 ea N/A UD PRN PRN Reason: Consult Stop: 06/26/20 10:35 Nitroglycerin (Nitrostat) 0.4 mg SL UD PRN PRN Reason: Chest Pain Stop: 06/26/20 10:31 Ondansetron HCl (Zofran) 4 mg IV Q6H PRN PRN Reason: Nausea Stop: 06/26/20 13:01 Last Admin: 05/29/20 21:17 Dose: 4 mg Documented by: Pantoprazole Sodium (Protonix) 40 mg PO DAILY [facility] Stop: 06/26/20 11:29 Last Admin: 05/29/20 08:16 Dose: Not Given Documented by: Tamsulosin HCl (Flomax) 0.4 mg PO HS [facility] Stop: 06/26/20 20:59 Last Admin: 05/29/20 21:15 Dose: 0.4 mg Documented by: Trazodone HCl (Desyrel) 25 mg PO HS [facility] Stop: 06/26/20 20:59 Last Admin: 05/29/20 21:15 Dose: 25 mg Documented by:
--- NOTE | 2020-05-29 11:41 | Progress Notes ---
DATE: 05/29/2020 SUBJECTIVE: Overnight, the patient did improve further. He is making urine, although the amount has slowed down. Blood pressure is somewhat low now. He did grow bacteria in the blood culture and that led to CT scan of the abdomen and pelvis. PHYSICAL EXAMINATION: VITAL SIGNS: Blood pressure 103/52, pulse rate 50, temperature 36.6, 90% on room air. HEENT: Mucous membrane is moist. NECK: Supple. No jugular venous distention. CHEST: Bilateral decreased breath sounds with basal crackles. CARDIOVASCULAR: S1, S2 regular. ABDOMEN: Soft, nontender. EXTREMITIES: Shows no edema. LABORATORY TESTS: From this morning shows hemoglobin 9.3, WBC count is higher at 20,000, platelet count 209. Creatinine is down a little bit and is down to 2.6, BUN 60, lactic acid has now normalized. Phosphorus is slightly high at 5.5, albumin 2.1. Procalcitonin very elevated 50,000. IMAGING: Chest x-ray shows slightly improved congestive heart failure. CT abdomen and pelvis shows bilateral pleural effusion, right greater than left. ASSESSMENT AND PLAN: An 84-year-old male who was admitted with severe symptomatic bradycardia secondary to complete heart block and then it caused acute renal failure with hyperkalemia for which I have been consulted. Acute renal failure. Creatinine is trending down slowly. Given that he is an 84-year-old with 20+ years of diabetes with preexisting chronic kidney disease, renal recovery will not be very fast, but at least it is trending in the right direction. Does not need dialysis at this time. He still has evidence of fluid overload in the form of bilateral pleural effusion, but for the last 12 hours, there are multiple readings with low blood pressure. So I would like to hold off on the Lasix for today, although there is no absolute contraindication as such if he needs it. MTDD
--- NOTE | 2020-05-29 13:04 | Billing Data ---
Date of Service May 29, 2020 Coding Level of Care Code 38358 Subseq Hosp Care Lvl 3
--- NOTE | 2020-05-29 16:27 | Electrocardiogram Report ---
Test Reason : Blood Pressure : / mmHG Vent. Rate : 051 BPM Atrial Rate : 052 BPM P-R Int : 000 ms QRS Dur : 136 ms QT Int : 504 ms P-R-T Axes : 074 092 044 degrees QTc Int : 464 ms Sinus bradycardia with A-V dissociation and Wide QRS rhythm with complete heart block Right bundle branch block Abnormal ECG When compared with ECG of 24-SEP-2015 00:19, AV Block has replaced Sinus rhythm Vent. rate has decreased BY 36 BPM Confirmed by Philipp Nair ([id number]) on 05/29/2020 4:27:04 PM Referred By: REFERRED SELF Confirmed By:Philipp Nair
--- NOTE | 2020-05-29 16:27 | Electrocardiogram Report ---
Test Reason : Blood Pressure : / mmHG Vent. Rate : 043 BPM Atrial Rate : 050 BPM P-R Int : 000 ms QRS Dur : 134 ms QT Int : 560 ms P-R-T Axes : 072 105 084 degrees QTc Int : 473 ms Poor data quality, interpretation may be adversely affected Sinus bradycardia with complete heart block and Wide QRS rhythm Right bundle branch block Abnormal ECG When compared with ECG of 27-MAY-2020 04:29, (unconfirmed) No significant change was found Confirmed by Philipp Nair ([id number]) on 05/29/2020 4:27:16 PM Referred By: REFERRED SELF Confirmed By:Philipp Nair
[2020-05-29] MEDS: TAMSULOSIN HCL 0.4 MG CAP PO SCH (21:15)
[2020-05-29] MEDS: TRAZODONE HCL 50 MG TAB PO SCH (21:15)
[2020-05-30 05:07] LABS: Basophils # (auto) 0.01 K/uL (0-0.2); Basophils % (auto) 0.1 %; Eosinophils # (auto) 0.02 K/uL (0-0.5); Eosinophils % (auto) 0.1 %; Hemoglobin 9.9 g/dL (14.0-18.0); Immature Granulocytes # (auto) 0.08 K/uL (0.00-0.02); Immature Granulocytes % (auto) 0.5 %; Lymphocytes # (auto) 2.13 K/uL (1.2-3.4); Lymphocytes % (auto) 12.7 %; Mean Corpuscular Hemoglobin 25.3 pg (25-34); Mean Corpuscular Volume 76.7 fL (80-100); Mean Platelet Volume 10.6 fL (7.4-10.4); Monocytes # (auto) 1.54 K/uL (0.11-0.59); Monocytes % (auto) 9.2 %; Neutrophils # (auto) 12.98 K/uL (1.4-6.5); Neutrophils % (auto) 77.4 %; Platelet Count 205 K/uL (130-400); RDW Coefficient of Variation 14.9 % (11.5-14.5); RDW Standard Deviation 41.5 fL (36.4-46.3); Red Blood Count 3.91 M/uL (4.7-6.1); White Blood Count 16.76 K/uL (4.8-10.8)
[2020-05-30 05:19] LABS: INR 1.3 (0.9-1.1)
[2020-05-30 05:24] LABS: Albumin Level 2.2 gm/dl (3.4-5.0); BUN Creatinine Ratio 25.7 (10-20); Calcium 8.7 mg/dl (8.5-10.1); Creatinine Clr Calc Pharmacy 24.8 ml/min; Est GFR (African American) 27.4; Est GFR (Non-African American) 23.6; Potassium 4.3 mmol/L (3.5-5.1)
[2020-05-30 05:32] LABS: Bilirubin Direct 0.3 mg/dl (0-0.2); Bilirubin,Total 0.7 mg/dl (0.2-1); C Reactive Protein 14.5 mg/dl (0-0.29); Phosphorus 4.1 mg/dl (2.5-4.9); Total Protein 7.1 gm/dl (6.4-8.2)
[2020-05-30] MEDS: LEVOTHYROXINE SODIUM 50 MCG TABLET PO SCH (06:13)
--- NOTE | 2020-05-30 07:44 | Ultrasound Report ---
US liver HISTORY: 84 years-old Male r/o biliary stones/obstruction acute right upper quadrant abdominal pain COMPARISON: CT abdomen pelvis 05/28/2020, renal ultrasound 05/27/2020. TECHNIQUE: Multiple real-time sonographic images of the abdominal right upper quadrant were obtained assessing grayscale appearance and color flow FINDINGS: Study is limited secondary to patient condition and inability to breath-hold during the exam. Overlyi ng bowel gas also limits the study. Right pleural effusion incidentally noted. Visualized pancreas is unremarkable. The liver is within normal limits. No cholelithiasis, gallbladde r wall thickening or pericholecystic fluid. Sonographic Francisco sign reported as negative. Normal comm on bile duct, 4 mm. No right-sided hydronephrosis. 8 mm hypoechoic lesion without color flow involving the lower pole rig ht kidney suggestive of a complex cyst. IMPRESSION: Unremarkable right upper quadrant abdominal ultrasound. ACT 112: Negative or not required by law. The above report was generated using voice recognition software. It may contain grammatical, syntax o r spelling errors. Electronically signed by: Tc Clifton M.D. 05/30/2020 7:42 AM
[2020-05-30] MEDS: INSULIN ASPART 100 UNITS/ML 3 ML PEN SC SCH ×4 (07:47→21:16)
[2020-05-30] MEDS: HEPARIN SOD 5,000 UNIT/0.5 ML VIAL SQ SCH ×2 (07:49→21:19)
[2020-05-30] MEDS: MAGNESIUM OXIDE 400 MG TAB PO SCH (07:49)
[2020-05-30] MEDS: ATORVASTATIN 40 MG TAB PO SCH (07:49)
[2020-05-30] MEDS: CYANOCOBALAMIN (VITAMIN B-12) 100 MCG TABLET PO SCH (07:50)
[2020-05-30] MEDS: PANTOprazole 40 MG TAB PO SCH (07:50)
[2020-05-30] MEDS: cefTRIAXone SODIUM 2,000 MG in DEXTROSE 5% 50 ML IV SCH (07:55)
[2020-05-30] MEDS ORDERED: INSULIN GLARGINE SOLOSTAR 100 UNITS/ML 3 ML PEN SC ONE (08:00)
--- NOTE | 2020-05-30 08:08 | Critical Care Progress Note ---
Date of Service May 30, 2020 Assessment & Plan (1) Admitted to intensive care unit: Reason Critically Ill: 84-year-old male here with a PMHx significant for coronary artery disease, CKD? who presented with weakness, nausea, vomiting and who was admitted for third-degree heart block, gram-negative sepsis. Neuro - * metabolic encephalopathy likely secondary to gram-negative sepsis vs baseline delirium CAM ICU: NEGATIVE Sedation: None Analgesia: None A&O x2, remains pleasantly delirious. 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 Cardiac - * Acute diastolic congestive heart failure * Echo showing 65 to 70% EF, mild left atrial dilation, moderate concentric LVH, mild aortic stenosis, mild mitral and tricuspid regurg * Likely exacerbated due to bradycardia and ensuing low cardiac output * New third degree AV kelley block with symptomatic bradycardia * Temporary transvenous pacer controlling rate at 60 bpm * Continues to have third degree heart block with junctional escape rhythm at a rate of 40 * [facility] * Hypertension * Started on hydralazine 25 mg 3 times daily as inpatient; holding in setting of low-normal BP * Appreciate cardiology's continuing recommendations for overall cardiac improvement Respiratory - * New O2 requirement on admissionnow resolved * Breathing comfortably on room air O2 sat 91 * improved with 2 days of 80 mg IV lasix GI - * Heart healthy diet ordered but has been restricting to fluids in setting of nausea and emesis x1, fluid restriction of 2 L/day * Transaminitis: Improving * Likely secondary to shock liver in setting of gram-negative sepsis * Acute hepatitis panel pending * Bio fire negative RENAL/LYTES - * Cardiorenal syndrome leading to renal failure and ensuing metabolic acidosis * Renal failure likely secondary to poor cardiac output with bradycardia leading to renal failure with proteinuria, sediment in urine, acidotic state * Metabolic acidosis improved * Kidney ultrasound on 05/27 for hydronephrosis or renal cysts * Appreciate nephrology's continuing recommendations regarding care of this patient * Lactic acidosis secondary to gram-negative sepsis: resolved * Fluid balance * +375 mL over last 24 hours; -813mL per stay * Electrolytes repleted as needed - * No acute issues, patient denies any burning with urination, dysuria, increased frequency, hematuria prior to admission * Rodriguez in place * BPH with Flomax at home * Urine culture sent to help isolate source of gram-negative sepsis; no growth ENDO -diabetes type 2 on multiple medications at home. ICU hyper and hypoglycemia protocol to manage sugars. A1c 8.7 HEME - * Microcytic anemia * 9.1 down from 9.4 yesterday, MCV 79, RDW within normal limits * Possibly secondary to iron deficiency; unsure when patient's last colonoscopy was * Patient is a strict vegetarian and is at risk for B12 and folate deficiency ID - * Gram-negative bacteremia likely from GI bacterial translocation or source * [facility] infectious [facility]med[facility]; recommended switch from ceftriaxone to ancef as less likely to cause biliary irritation. recommended RUQ US to eval for cholestatic disease. Wait until blood cultures negative for 72 hours prior to pacer placement. * E. Coli bacteremia; surveillance cultures from 05/28 negative at 24 hours. Abx started on 05/27. * Coverage narrowed to Rocephin per Ecoli specification * Urine culture no growth * CT abdomen pelvis with oral contrast negative for intra-abdominal infection * Last fever was at 5 AM on 05/27 * Less likely to be pulmonary in setting of lack of respiratory distress on room air. Less likely to be meningitic given patient's overall normal behavior and stable vitals. RUQ US negative for pericholecystic fluid or cholelithiasis. INTEGUMENTARY - * No concerns at this time LINES/IV ACCESS - PIVs intact. Right femoral transvenous pacemaker in place DVT PROPHYLAXIS - SCDs, subcu heparin Progression of care: plan for permanent pacemaker tomorrow, PT, OT, downgrade out of ICU after pacer placement as long as remains stable. Will need to finish 14 days of antibiotic course. Thank you for allowing us to be part of this patient's care. Please refer to Dr. Corona's documentation for any further recommendations. (2) Acute diastolic (congestive) heart failure: (3) Third degree heart block: (4) Gram-negative bacteremia: (5) Hyperkalemia: (6) High anion gap metabolic acidosis: (7) Acute kidney injury: (8) Lactic acid acidosis: (9) Fatigue: (10) Weakness: (11) SOB (shortness of breath): (12) Fever: (13) Hypertension: (14) Vomiting: Admission and Anticipated Discharge Date Admission Date: May 27, 2020 Supervising Physician Co-Signing Physician Notes Patient seen and examined. Discussed with family practice resident and agree with assessment plan as noted. Patient was discussed on multidisciplinary rounds and with bedside ICU nurse. He continues to show slow and steady improvement. ID consultation from [facility] was reviewed and appreciated. Will check right upper quadrant ultrasound. Antibiotics changed to cefazolin per the recommendations. Recommendations to place permanent pacemaker 72 hours after last negative blood cultures reviewed. He should be okay to undergo pacemaker implantation tomorrow. Would complete at least 10 to 14 days of antimicrobial therapy. Once his temporary pacemaker is removed we will get him up and moving around. PT and OT consultations will be obtained. His laboratory values are continuing to trend in the right direction. Subjective Continues to be nauseous this morning. Otherwise denies any subjective changes in mood or overall health. Review of Systems Constitutional: no fever, no chills, no body aches and no fatigue Respiratory: no cough and no dyspnea Cardiovascular: no chest pain, no dyspnea and no edema Gastrointestinal: + nausea; no abdominal pain, no vomiting, no constipation and no diarrhea/loose stools Physical Exam Physical Exam: VITAL SIGNS - Vital signs and nursing notes were reviewed. GENERAL -84-year-old male in no acute distress SKIN - Without rashes. HEAD - NC/AT. EYES - PERRL. Sclera anicteric. Palpebral conjunctiva pink and moist with no injection noted. EARS - No deformities of external structures noted on gross examination bilaterally. NOSE - Midline and without cyanosis. No epistaxis or purulent drainage noted. MOUTH/OROPHARYNX -normal dentition, without perioral cyanosis. NECK - Supple to palpation. No nuchal rigidity. LUNGS -clear to auscultation bilaterally, no wheezes, crackles, rhonchi, rales appreciated CARDIAC -transvenously paced at 60 bpm. No murmur, rubs, or gallops appreciated. ABDOMEN -soft nontender nondistended with normal bowel sounds. Negative Francisco sign, no tenderness at McBurney's point. No rebound or guarding. EXTREMITIES - No clubbing or peripheral cyanosis. No pretibial edema present. radial and dorsalis pedis pulses palpated bilaterally. NEUROLOGIC - No focal neurological deficits noted on exam. Results & Data Results & Data ([facility]) Vital Signs (Past 12 Hours) Vital Signs Temp Pulse Resp BP Pulse Ox 07/30/20 06:01 37.4 C 52 L 25 H 139/109 H 89 L 05/30/20 05:02 50 L 30 H 118/66 86 L 05/30/20 04:01 50 L 29 H 123/54 L 90 05/30/20 03:49 50 L 26 H 111/45 L 95 05/30/20 03:01 55 L 26 H 111/45 L 85 L 05/30/20 02:01 50 L 24 126/52 L 94 05/30/20 01:01 51 L 21 126/57 L 93 05/30/20 00:01 51 L 32 H 125/61 05/30/20 00:00 51 L 05/29/20 23:01 37.7 C H 52 L 30 H 117/47 L 87 L 05/29/20 22:01 37.7 C H 52 L 30 H 118/52 L 88 L 05/29/20 21:01 37.7 C H 54 L 28 H 126/57 L 98 WBC down to 16.76, hemoglobin 9.9, platelet 285 PT 14, INR 1.3 AST down to 315, ALT down to 605, alk phos elevated at 135> 150 > 161. 0.7, direct bili 0.3 Electrolytes within normal limits, creatinine decreasing to 2.45, BUN 63 Glucose elevated at 247 Hepatitis panel pending Right upper quadrant ultrasound negative Blood culture from 05/27+ for E. coli sensitive to Rocephin. Blood culture from 05/28- at 24 hours, will be 72 hours on 731 at 11:30 AM. Stool smear, white blood cell, toxin analysis, culture all negative thus far. Resident Activity Tracking Resident Involvement: Resident Care Provided Care Provided: Adult Hospital Medicine
--- NOTE | 2020-05-30 08:39 | Cardiology Progress Note ---
Date of Service May 30, 2020 Assessment & Plan (1) CHB (complete heart block): (2) Acute renal failure: (3) Sepsis: (4) Gram-negative bacteremia: The patient remains in complete heart block. The temporary pacemaker is functioning appropriately. The ID consult is appreciated. 72 hours after the last negative blood culture would make it possible to put in the permanent pacemaker tomorrow. I will notify the [employer] in the EP service. Subjective The patient had an uneventful night. He is resting comfortably, but has had some nausea this morning. Review of Systems Review of Systems: All systems reviewed & are unremarkable except as noted in HPI & below Nothing additional to add Physical Exam Physical Exam: General: no acute distress and stated age Head: normocephalic, no masses, lesions, tenderness or abnormalities Eyes: conjunctiva are pink and non-injected, sclera clear Neck: supple, no adenopathy, no bruits, normal jugular venous pulse, no hepatojugular reflux Chest: normal shape and normal respiratory effort Lungs: clear to auscultation and percussion Cardiac Exam: - regular rate & rhythm, no murmurs gallops or rubs - normal S1, normal S2 Pulses: 2(+) throughout Abdomen: abdomen soft, non-tender, no abnormal masses and no hepatosplenomegaly Musculoskeletal: no gait disturbance, no joint inflammation, no deforming arthritis Extremities: Pacer site is clean and dry. Neuro: grossly normal exam Results & Data Vital Signs (Past 12 Hours) Vital Signs Temp Pulse Resp BP Pulse Ox 05/30/20 06:01 37.4 C 52 L 25 H 139/109 H 89 L 05/30/20 05:02 50 L 30 H 118/66 86 L 05/30/20 04:01 50 L 29 H 123/54 L 90 05/30/20 03:49 50 L 26 H 111/45 L 95 05/30/20 03:01 55 L 26 H 111/45 L 85 L 05/30/20 02:01 50 L 24 126/52 L 94 05/30/20 01:01 51 L 21 126/57 L 93 05/30/20 00:01 51 L 32 H 125/61 05/30/20 00:00 51 L 05/29/20 23:01 37.7 C H 52 L 30 H 117/47 L 87 L 05/29/20 22:01 37.7 C H 52 L 30 H 118/52 L 88 L 05/29/20 21:01 37.7 C H 54 L 28 H 126/57 L 98 Laboratory Results Laboratory Results - last 24 hr 05/28/20 05/29/20 05/29/20 09:13 11:40 14:56 WBC RBC Hgb Hct MCV MCH MCHC RDW Std Deviation RDW Coeff of Naren Plt Count MPV Immature Gran % (Auto) Neut % (Auto) Lymph % (Auto) Bee % (Auto) Eos % (Auto) Baso % (Auto) Neut # (Auto) Lymph # (Auto) Bee # (Auto) Eos # (Auto) Baso # (Auto) Immature Gran # (Auto) PT INR Sodium Potassium Chloride Carbon Dioxide Anion Gap BUN Creatinine Est Cr Clr Drug Dosing Est GFR ( Amer) Est GFR (Non-Af Amer) BUN/Creatinine Ratio Glucose POC Glucose 176 H 215 H Calcium Phosphorus Magnesium Total Bilirubin Direct Bilirubin AST ALT Alkaline Phosphatase C-Reactive Protein Total Protein Albumin EBV Capsid Ag IgG Ab 627.00 H EBV Capsid Ag IgM Ab <36.00 EBV Nuclear Antigen Ab 30.00 H EBV Antibody Interp SEE NOTE Hepatitis A IgM Ab Hep Bs Antigen Hep B Core IgM Ab Hepatitis C Antibody 05/29/20 05/30/20 05/30/20 20:30 04:53 04:53 WBC 16.76 H RBC 3.91 L Hgb 9.9 L Hct 30.0 L MCV 76.7 L MCH 25.3 MCHC 33.0 RDW Std Deviation 41.5 RDW Coeff of Naren 14.9 H Plt Count 205 MPV 10.6 H Immature Gran % (Auto) 0.5 Neut % (Auto) 77.4 Lymph % (Auto) 12.7 Bee % (Auto) 9.2 Eos % (Auto) 0.1 Baso % (Auto) 0.1 Neut # (Auto) 12.98 H Lymph # (Auto) 2.13 Bee # (Auto) 1.54 H Eos # (Auto) 0.02 Baso # (Auto) 0.01 Immature Gran # (Auto) 0.08 H PT INR Sodium 136 Potassium 4.3 Chloride 101 Carbon Dioxide 28 Anion Gap 7.0 BUN 63 H Creatinine 2.45 H Est Cr Clr Drug Dosing 24.8 Est GFR ( Amer) 27.4 Est GFR (Non-Af Amer) 23.6 BUN/Creatinine Ratio 25.7 H Glucose 170 H POC Glucose 143 H Calcium 8.7 Phosphorus 4.1 D Magnesium 2.0 Total Bilirubin 0.7 Direct Bilirubin 0.3 H AST 315 H ALT 605 H Alkaline Phosphatase 161 H C-Reactive Protein 14.50 H Total Protein 7.1 Albumin 2.2 L EBV Capsid Ag IgG Ab EBV Capsid Ag IgM Ab EBV Nuclear Antigen Ab EBV Antibody Interp Hepatitis A IgM Ab Hep Bs Antigen Hep B Core IgM Ab Hepatitis C Antibody 05/30/20 05/30/20 05/30/20 04:53 04:53 04:53 WBC RBC Hgb Hct MCV MCH MCHC RDW Std Deviation RDW Coeff of Naren Plt Count MPV Immature Gran % (Auto) Neut % (Auto) Lymph % (Auto) Bee % (Auto) Eos % (Auto) Baso % (Auto) Neut # (Auto) Lymph # (Auto) Bee # (Auto) Eos # (Auto) Baso # (Auto) Immature Gran # (Auto) PT 14.0 H INR 1.3 H Sodium Potassium Chloride Carbon Dioxide Anion Gap BUN Creatinine Est Cr Clr Drug Dosing Est GFR ( Amer) Est GFR (Non-Af Amer) BUN/Creatinine Ratio Glucose POC Glucose Calcium Phosphorus Magnesium Total Bilirubin Direct Bilirubin AST ALT Alkaline Phosphatase C-Reactive Protein Total Protein Albumin EBV Capsid Ag IgG Ab EBV Capsid Ag IgM Ab EBV Nuclear Antigen Ab EBV Antibody Interp Hepatitis A IgM Ab Pending Hep Bs Antigen Pending Hep B Core IgM Ab Pending Hepatitis C Antibody Pending 05/30/20 07:21 WBC RBC Hgb Hct MCV MCH MCHC RDW Std Deviation RDW Coeff of Naren Plt Count MPV Immature Gran % (Auto) Neut % (Auto) Lymph % (Auto) Bee % (Auto) Eos % (Auto) Baso % (Auto) Neut # (Auto) Lymph # (Auto) Bee # (Auto) Eos # (Auto) Baso # (Auto) Immature Gran # (Auto) PT INR Sodium Potassium Chloride Carbon Dioxide Anion Gap BUN Creatinine Est Cr Clr Drug Dosing Est GFR ( Amer) Est GFR (Non-Af Amer) BUN/Creatinine Ratio Glucose POC Glucose 247 H Calcium Phosphorus Magnesium Total Bilirubin Direct Bilirubin AST ALT Alkaline Phosphatase C-Reactive Protein Total Protein Albumin EBV Capsid Ag IgG Ab EBV Capsid Ag IgM Ab EBV Nuclear Antigen Ab EBV Antibody Interp Hepatitis A IgM Ab Hep Bs Antigen Hep B Core IgM Ab Hepatitis C Antibody Medications Administered Current Inpatient Medications Aspirin (Ecotrin) 650 mg PO DAILY AMAURI Stop: 06/27/20 08:59 Atorvastatin Calcium (Lipitor) 80 mg PO DAILY AMAURI Stop: 06/26/20 11:29 Last Admin: 05/30/20 07:49 Dose: 80 mg Documented by: Cyanocobalamin (Vitamin B-12) 250 mcg PO DAILY AMAURI Stop: 06/27/20 08:59 Last Admin: 05/30/20 07:50 Dose: 250 mcg Documented by: Dextrose (Dextrose 50%) 25 - 50 ml IV UD PRN; Protocol PRN Reason: Hypoglycemia Protocol Stop: 06/27/20 07:44 Glucagon (Glucagen) 1 mg IM UD PRN; Protocol PRN Reason: Hypoglycemia Protocol Stop: 06/27/20 07:44 Glucose (Glucose 40%) 15 - 30 gm PO UD PRN; Protocol PRN Reason: Hypoglycemia Protocol Stop: 06/27/20 07:44 Glucose (Dex4 Glucose) 4 - 8 tabs PO UD PRN; Protocol PRN Reason: Hypoglycemia Protocol Stop: 06/27/20 07:44 Heparin Sodium (Porcine) (Heparin Sodium (Porcine)) 5,000 units SQ Q12 AMAURI Stop: 06/27/20 20:59 Last Admin: 05/30/20 07:49 Dose: 5,000 units Documented by: Hydralazine HCl (Apresoline) 25 mg PO TID AMAURI Stop: 06/27/20 13:59 Last Admin: 05/29/20 08:16 Dose: Not Given Documented by: Ceftriaxone Sodium 2,000 mg/ (Dextrose) 70 mls @ 100 mls/hr IV DAILY AMAURI; Protocol Stop: 06/12/20 08:59 Last Admin: 05/30/20 07:55 Dose: 100 mls/hr Documented by: Insulin Aspart (Novolog Flexpen) 0 units SC ACHS AMAURI; Protocol Stop: 06/27/20 11:29 Last Admin: 05/30/20 07:47 Dose: 6 units Documented by: Insulin Aspart (Novolog Flexpen) 0 units SC TODAY@0000,0400 AMAURI; Protocol Stop: 05/31/20 04:01 Levothyroxine Sodium (Synthroid) 50 mcg PO DAILYBB AMAURI Stop: 06/26/20 11:29 Last Admin: 05/30/20 06:13 Dose: 50 mcg Documented by: Magnesium Oxide (Mag-Ox) 400 mg PO DAILY AMAURI Stop: 06/26/20 11:29 Last Admin: 05/30/20 07:49 Dose: 400 mg Documented by: Miscellaneous (Carbohydrates For Hypoglycemia) 15 - 30 gm PO UD PRN PRN Reason: Hypoglycemia Treatment Stop: 06/27/20 07:44 Miscellaneous Information (Consult Glycemic Management Pharmacy) 1 ea N/A UD PRN PRN Reason: Consult Stop: 06/26/20 10:35 Nitroglycerin (Nitrostat) 0.4 mg SL UD PRN PRN Reason: Chest Pain Stop: 06/26/20 10:31 Ondansetron HCl (Zofran) 4 mg IV Q6H PRN PRN Reason: Nausea Stop: 06/26/20 13:01 Last Admin: 05/29/20 21:17 Dose: 4 mg Documented by: Pantoprazole Sodium (Protonix) 40 mg PO DAILY AMAURI Stop: 06/26/20 11:29 Last Admin: 05/30/20 07:50 Dose: 40 mg Documented by: Tamsulosin HCl (Flomax) 0.4 mg PO HS AMAURI Stop: 06/26/20 20:59 Last Admin: 05/29/20 21:15 Dose: 0.4 mg Documented by: Trazodone HCl (Desyrel) 25 mg PO HS AMAURI Stop: 06/26/20 20:59 Last Admin: 05/29/20 21:15 Dose: 25 mg Documented by: (1) Acute renal failure Acute renal failure type: unspecified Qualified Code(s): N17.9 - Acute kidney failure, unspecified
[2020-05-30 09:06] LABS: Hepatitis B Surface Antigen Neg (Neg)
[2020-05-30 09:35] LABS: Hepatitis C IgG 13Yrs+Old_Rflx Neg (Neg)
--- NOTE | 2020-05-30 10:16 | Pharmacy Report ---
Pharmacy Glycemic Short Note 2 - Date of Service May 30, 2020 - Glycemic Short BSG Results (Last 24 hours): 05/29/20 05/29/20 05/29/20 11:40 14:56 20:30 Glucose POC Glucose 176 H 215 H 143 H 05/30/20 05/30/20 04:53 07:21 Glucose 170 H POC Glucose 247 H Outpatient Anti-diabetic Regimen: * Lantus 25 units SC qAM * Novolog 8 units with lunch and 22 units with dinner, plus correction factor of 25 mg/dL/unit (over 150 mg/dL) * Empagliflozin * Glimepiride * Linagliptin-metformin * A1c 8.7% on 05/28/20 Risk Factors for Insulin Resistance: * Bacteremia * Recent Surgery: POD 3 s/p temporary pacemaker. Anticipate permanent pacemaker placement tomorrow. * Diet: T2DM, but nausea noted ASSESSMENT: 05/30/20 * BSG again >200 mg/dL at dinner yesterday, but the BSG was obtained early (~1456) thus the Novolog administered at lunch may not have had sufficient time to take effect. But also likely that Novolog parameters may be too loose. Will therefore tighten this AM * AM fasting BSG again >200 mg/dL, but again, the patient consumed CHO overnight last night (two OJ and two apple juice) without insulin coverage. Will add on overnight checks/coverage for ongoing snacking. Will not increase Lantus at this time as still unclear what AM *fasting* BSG would be without snacking overnight and plan is for permanent pacemaker placement tomorrow * Patient still nauseated this AM per RN - anticipate only moderate po intake today 05/29/20 * BSG's ranged 140-167 mg/dL yesterday from breakfast to bedtime. AM fasting BSG this AM elevated to 202 mg/dL, after reduction in Lantus yesterday. However, this increase is not likely to be solely due to reduced Lantus dose because the patient ate crackers from his son at around 0000 last night that were not covered with insulin (per Talia, RN) * Nausea/vomiting noted yesterday at dinner. Today, patient did consume irena amara for breakfast * OK to cautiously increase Lantus, but not to the amount that caused minor hypoglycemic event on overnight 05/27 to 7/28 * No change to Novolog at this time - CHO ratio seems appropriate based on trend yesterday. Adequacy of correction factor can be assessed based on breakfast to lunch BSG as this will be the first time significant correctional insulin has been administered 05/28/20 * BSG's trended down nicely yesterday after starting basal/bolus, with the exception of one mild hypoglycemic event overnight (BSG 69 mg/dL), likely due to Lantus * BSG's increased back to goal by this AM. Diet now ordered, starting with breakfast * Will decrease Lantus as compared to yesterday, but only slightly as patient now ordered a diet and the hypoglycemic event was transient and mild 05/27/20 * 84 yo M admitted 05/27 with possible infection, GWEN, and complete heart block of unknown etiology (? infectious vs. medication vs. other) and is now s/p emergent temporary pacemaker placement * BSG on arrival was 228 mg/dL. Patient received regular insulin 10 units IV and dextrose 50% 50 mL x1 for hyperkalemia and BSG increased to 273 mg/dL. BSG obtained after pacemaker was 173 mg/dL * Will continue basal/bolus for now - patient may require an insulin drip at some point, but since BSG now < 180 mg/dL with minimal glycemic intervention thus far, OK to defer drip for now * Will decrease basal dose as compared to home dose 2nd NPO status, but only by 20% as BSG was significantly elevated on admission. Additional basal insulin tonight if BSG >150 mg/dL PLAN FOR INPATIENT GLYCEMIC CONTROL: * Continue to hold outpatient oral diabetes medications * Basal insulin * Lantus 22 units SQ x1 * Bolus insulin * NovoLog ACHS * Goal Range: Low 110 mg/dL - High 140 mg/dL * Correction Factor: 20 mg/dL/unit * Nutritional / Prandial insulin per carb ratio of 1 unit per 9 grams CHO consumed
--- NOTE | 2020-05-30 12:48 | Hospitalist Progress Note ---
Date of Service May 30, 2020 Assessment & Plan (1) E. coli septicemia: Clinically improved on current antibiotic therapy. Recent toe injury causing open traumatic ulcer on right great toe in this diabetic patient with neuropathy. Consider this may be a source. ID was notified. Liver US was normal overnight and serologies pending or negative at this time. Prostatitis may be another consideration. Improving on current antibiotic therapy. (2) Third degree heart block: s/p transvenous pacer still ongoing until bacteremia clears, then OK for pacer implantation if still needed after 72 hours. (3) Heart murmur: New on exam today. Recent echo two days ago reveals mild . Cont to monitor. (4) Acute diastolic (congestive) heart failure: in setting of AV block and sepsis. Pleural effusions and fluid management with Lasix per nephrology. Oxygenation has improved/hypoxia resolved. Cont diuresis per Nephrology (5) Elevated LFTs: Possible related to hypoperfusion in sepsis. No RUQ pain on exam. EBV considered as an etiology as it can cause elevations in LFTs, fever, fatigue and heart block. Monospot negative, EBV serologies reflect prior infection, but not active infection. Acute hepatitis panel requested. US liver as above. (6) Acute kidney injury: h/o CKD Stage III at baseline. Likely secondary to prolonged illness and hypoperfusion of the kidneys in the setting of bradycardia and low blood pressure, therefore, possible ATN. Cont to monitor BMP and avoid nephrotoxic agents when able. Renally dose meds when appropriate. Renal function is improved on labwork today. (7) Sepsis: E coli septicemia-uncertain etiology possibly entry from self-inflicted toe wound a couple of weeks back. On 04/25/2020, he underwent podiatric treatment of thickened toenails and acute ulcer of the toe. Per the history g iven, the patient cut his big toe and it was bleeding badly. He reports applying a home antiseptic. At this visit he underwent toenail debridement with an electric feed grinder, and an ulceration was noted with limited skin breakdown. Also must consider further investigation into biliary system with us liver as patient is still clinically ill without a clear etiology of infection. Liver us was negative overnight. Do not feel further investigation with MRCP is needed. Aminotransferases continue to decline. Repeat cultures are negative so far. Pacemaker placement likely after 72 hours of first culture clearing. Cefepime was switched to ceftriaxone per ICU team with ID recommending adjustment to cefazolin to avoid negative side effects of ceftriaxone on biliary tract. Defer this change to ICU team. (8) Diarrhea: Negative stool studies, negative c-diff. Still with some loose stool that is infrequent. On lactose free diet (9) DMII (diabetes mellitus, type 2): Insulin per ICU protocol. A1C reflects poor control 8.7. This is complicated by diabetic polyneurpopathy. (10) DVT prophylaxis: Heparin Full Code Dispo-cont ICU monitoring. DO Bhargavi Means Hospitalist Admission and Anticipated Discharge Date Admission Date: May 27, 2020 Subjective Pt feeling better today reports confusion and nausea this morning which cleared but he declined breakfast Just ate lunch and no issues remains afebrile Denies abdominal pain or distension New 3/6 CLAUDIA heard on exam today-recent echo on 05/27 reveals some mild Right great toe with a well healed ulceration that doesn't appear superinfected- surrounding skin is not erythematous. Pt reports trying to clip his toenails around late April and caused "alot of bleeding", he then applied a home remedy antiseptic. Review of Systems Review of Systems: All systems reviewed & are unremarkable except as noted in Subjective Physical Exam Physical Exam: CONSTITUTIONAL: WNWD, vitals as above, generally well-chintan earing EYES: pupils are equal and round bilaterally, normal conjunctivae, no scleral icterus ENT: external ear and nose normal, MMM RESPIRATORY: some coarse crackles heard on the left lower field, otherwise clear throughout, no rales or wheezes, normal respiratory effort CARDIOVASCULAR: regular rate and rhythm, S1 and 2 heard without murmurs, gallops or rubs, no JVD, no peripheral edema GASTROINTESTINAL: soft, nontender, nondistended MUSCULOSKELETAL: generalized weakness, has difficulty sitting up in bed on his own. head is normocephalic and atraumatic, temporary venous pacer inserted into right groin with leg immobilizer brace in place on RLE SKIN: warm and dry NEUROLOGIC: No facial palsy, no dysarthria. CN 2-12 grossly intact, normal speech, no gross focal neuro deficits. PSYCHIATRIC: alert and appropriate Results & Data Results & Data ([facility]) Vital Signs (Past 12 Hours) Vital Signs Temp Pulse Resp BP Pulse Ox 05/30 09:00 50 L 28 H 88 L 05/30/20 08:14 50 L 30 H 113/74 88 L 05/30/20 08:00 37.3 C 50 L 15 94 05/30/20 07:15 50 L 28 H 84 L 05/30/20 06:01 37.4 C 52 L 25 H 139/109 H 89 L 05/30/20 05:02 50 L 30 H 118/66 86 L 05/30/20 04:01 50 L 29 H 123/54 L 90 05/30/20 03:49 50 L 26 H 111/45 L 95 05/30/20 03:01 55 L 26 H 111/45 L 85 L 05/30/20 02:01 50 L 24 126/52 L 94 05/30/20 01:01 51 L 21 126/57 L 93 Laboratory Results Short CBC 05/30/20 Range/Units 04:53 WBC 16.76 H (4.8-10.8) K/uL Hgb 9.9 L (14.0-18.0) g/dL Hct 30.0 L (42-52) % Plt Count 205 (130-400) K/uL BMP 05/30/20 04:53 Sodium 136 Potassium 4.3 Chloride 101 Carbon Dioxide 28 BUN 63 H Creatinine 2.45 H Glucose 170 H Calcium 8.7 Liver Function 05/30/20 Range/Units 04:53 Total Bilirubin 0.7 (0.2-1) mg/dl Direct Bilirubin 0.3 H (0-0.2) mg/dl AST 315 H (15-37) U/L ALT 605 H (12-78) U/L Alkaline Phosphatase 161 H (45-117) U/L Albumin 2.2 L (3.4-5.0) gm/dl Diagnostic Findings US liver HISTORY: 84 years-old Male r/o biliary stones/obstruction acute right upper quadrant abdominal pain COMPARISON: CT abdomen pelvis 05/28/2020, renal ultrasound 05/27/2020. TECHNIQUE: Multiple real-time sonographic images of the abdominal right upper quadrant were obtained assessing grayscale appearance and color flow FINDINGS: Study is limited secondary to patient condition and inability to breath-hold during the exam. Overlying bowel gas also limits the study. Right pleural effusion incidentally noted. Visualized pancreas is unremarkable. The liver is within normal limits. No cholelithiasis, gallbladder wall thickening or pericholecystic fluid. Sonographic Francisco sign reported as negative. Normal common bile duct, 4 mm. No right-sided hydronephrosis. 8 mm hypoechoic lesion without color flow involving the lower pole right kidney suggestive of a complex cyst. IMPRESSION: Unremarkable right upper quadrant abdominal ultrasound. Medications Administered Current Inpatient Medications Aspirin (Ecotrin) 650 mg PO DAILY [facility] Stop: 06/27/20 08:59 Atorvastatin Calcium (Lipitor) 80 mg PO DAILY [facility] Stop: 06/26/20 11:29 Last Admin: 05/30/20 07:49 Dose: 80 mg Documented by: Cyanocobalamin (Vitamin B-12) 250 mcg PO DAILY [facility] Stop: 06/27/20 08:59 Last Admin: 05/30/20 07:50 Dose: 250 mcg Documented by: Dextrose (Dextrose 50%) 25 - 50 ml IV UD PRN; Protocol PRN Reason: Hypoglycemia Protocol Stop: 06/27/20 07:44 Glucagon (Glucagen) 1 mg IM UD PRN; Protocol PRN Reason: Hypoglycemia Protocol Stop: 06/27/20 07:44 Glucose (Glucose 40%) 15 - 30 gm PO UD PRN; Protocol PRN Reason: Hypoglycemia Protocol Stop: 06/27/20 07:44 Glucose (Dex4 Glucose) 4 - 8 tabs PO UD PRN; Protocol PRN Reason: Hypoglycemia Protocol Stop: 06/27/20 07:44 Heparin Sodium (Porcine) (Heparin Sodium (Porcine)) 5,000 units SQ Q12 [facility] Stop: 06/27/20 20:59 Last Admin: 05/30/20 07:49 Dose: 5,000 units Documented by: Hydralazine HCl (Apresoline) 25 mg PO TID [facility] Stop: 06/27/20 13:59 Last Admin: 05/29/20 08:16 Dose: Not Given Documented by: Cefazolin Sodium (Ancef 1000mg) 1,000 mg in 7.5 mls @ 2.5 mls/min IV Q12 [facility]; Protocol Stop: 06/14/20 20:59 Cefazolin Sodium (Ancef 2000mg) 2,000 mg in 15 mls @ 3.75 mls/min IV TODAY@0900 ONE Stop: 05/31/20 09:03 Insulin Aspart (Novolog Flexpen) 0 units SC ACHS [facility]; Protocol Stop: 06/27/20 11:29 Last Admin: 05/30/20 12:11 Dose: 3 units Documented by: Insulin Aspart (Novolog Flexpen) 0 units SC TODAY@0000,0400 [facility]; Protocol Stop: 05/31/20 04:01 Levothyroxine Sodium (Synthroid) 50 mcg PO DAILYBB [facility] Stop: 06/26/20 11:29 Last Admin: 05/30/20 06:13 Dose: 50 mcg Documented by: Magnesium Oxide (Mag-Ox) 400 mg PO DAILY [facility] Stop: 06/26/20 11:29 Last Admin: 05/30/20 07:49 Dose: 400 mg Documented by: Miscellaneous (Carbohydrates For Hypoglycemia) 15 - 30 gm PO UD PRN PRN Reason: Hypoglycemia Treatment Stop: 06/27/20 07:44 Miscellaneous Information (Consult Glycemic Management Pharmacy) 1 ea N/A UD PRN PRN Reason: Consult Stop: 06/26/20 10:35 Miscellaneous Information () 1 ea N/A UD PRN PRN Reason: Consult Stop: 06/29/20 09:50 Nitroglycerin (Nitrostat) 0.4 mg SL UD PRN PRN Reason: Chest Pain Stop: 06/26/20 10:31 Ondansetron HCl (Zofran) 4 mg IV Q6H PRN PRN Reason: Nausea Stop: 06/26/20 13:01 Last Admin: 05/29/20 21:17 Dose: 4 mg Documented by: Pantoprazole Sodium (Protonix) 40 mg PO DAILY [facility] Stop: 06/26/20 11:29 Last Admin: 05/30/20 07:50 Dose: 40 mg Documented by: Tamsulosin HCl (Flomax) 0.4 mg PO HS [facility] Stop: 06/26/20 20:59 Last Admin: 05/29/20 21:15 Dose: 0.4 mg Documented by: Trazodone HCl (Desyrel) 25 mg PO HS [facility] Stop: 06/26/20 20:59 Last Admin: 05/29/20 21:15 Dose: 25 mg Documented by:
--- NOTE | 2020-05-30 16:18 | Billing Data ---
Date of Service May 30, 2020 Coding Level of Care Code 04844 Subseq Hosp Care Lvl 3
[2020-05-30] MEDS: ONDANSETRON INJ 2 MG/ML 2 ML VIAL IV PRN (21:16)
[2020-05-30] MEDS: TRAZODONE HCL 50 MG TAB PO SCH (21:16)
[2020-05-30] MEDS: TAMSULOSIN HCL 0.4 MG CAP PO SCH (21:19)
[2020-05-31] MEDS: INSULIN ASPART 100 UNITS/ML 3 ML PEN SC SCH ×7 (00:29→21:43)
[2020-05-31 03:37] LABS: Hepatitis A Antibody IgM NON-REACTIVE (NON-REACTIVE); Hepatitis B Core Antibody IgM NON-REACTIVE (NON-REACTIVE)
[2020-05-31 04:19] LABS: Basophils # (auto) 0.02 K/uL (0-0.2); Basophils % (auto) 0.1 %; Eosinophils # (auto) 0.05 K/uL (0-0.5); Eosinophils % (auto) 0.3 %; Hematocrit (blood only) 29.5 % (42-52); Hemoglobin 9.5 g/dL (14.0-18.0); Immature Granulocytes # (auto) 0.06 K/uL (0.00-0.02); Immature Granulocytes % (auto) 0.4 %; Lymphocytes # (auto) 2.05 K/uL (1.2-3.4); Lymphocytes % (auto) 12.3 %; Mean Corpuscular Hemoglobin 25.3 pg (25-34); Mean Corpuscular Hgb Conc 32.2 g/dL (32-36); Mean Corpuscular Volume 78.7 fL (80-100); Mean Platelet Volume 11.1 fL (7.4-10.4); Monocytes # (auto) 1.72 K/uL (0.11-0.59); Monocytes % (auto) 10.3 %; Neutrophils # (auto) 12.79 K/uL (1.4-6.5); Neutrophils % (auto) 76.6 %; Platelet Count 213 K/uL (130-400); RDW Standard Deviation 42.9 fL (36.4-46.3); Red Blood Count 3.75 M/uL (4.7-6.1); White Blood Count 16.69 K/uL (4.8-10.8)
[2020-05-31 04:29] LABS: INR 1.3 (0.9-1.1); Partial Thromboplastin Ratio 1.1; Partial Thromboplastin Time 31.6 Seconds (21.0-31.0); Prothrombin Time 13.5 Seconds (9.0-12.0)
[2020-05-31 04:41] LABS: Albumin Level 2.1 gm/dl (3.4-5.0); BUN Creatinine Ratio 25.2 (10-20); Bilirubin Direct 0.4 mg/dl (0-0.2); Calcium 8.3 mg/dl (8.5-10.1); Creatinine Clr Calc Pharmacy 22.6 ml/min; Est GFR (African American) 24.6; Est GFR (Non-African American) 21.2; Magnesium 2.2 mg/dl (1.8-2.4); Potassium 3.8 mmol/L (3.5-5.1)
[2020-05-31 04:44] LABS: Bilirubin,Total 0.9 mg/dl (0.2-1); Phosphorus 4.1 mg/dl (2.5-4.9); Total Protein 7.2 gm/dl (6.4-8.2)
[2020-05-31] MEDS ORDERED: CEFAZOLIN 250 MG/ML 1 GM VIAL IV SCH (06:00)
[2020-05-31] MEDS: LEVOTHYROXINE SODIUM 50 MCG TABLET PO SCH (06:15)
[2020-05-31] MEDS ORDERED: INSULIN GLARGINE SOLOSTAR 100 UNITS/ML 3 ML PEN SC ONE ×2 (07:30→16:30)
--- NOTE | 2020-05-31 07:57 | Critical Care Progress Note ---
Date of Service May 31, 2020 Assessment & Plan (1) Admitted to intensive care unit: Reason Critically Ill: 84-year-old male here with a PMHx significant for coronary artery disease, CKD? who presented with weakness, nausea, vomiting and who was admitted for third-degree heart block, gram-negative sepsis. Neuro - * No acute concerns CAM ICU: NEGATIVE Sedation: None Analgesia: None A&O x2, remains pleasantly delirious at times. 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 Otherwise able to follow along with plans of care and is eager to get up out of bed and back to his normal self. Cardiac - * Acute diastolic congestive heart failure: Resolved * Echo showing 65 to 70% EF, mild left atrial dilation, moderate concentric LVH, mild aortic stenosis, mild mitral and tricuspid regurg * Likely exacerbated due to bradycardia and ensuing low cardiac output * New third degree AV kelley block with symptomatic bradycardia * Scheduled for permanent pacemaker placement today at [address] Nair from [facility] cardiology * Discussion with Dr. Hsu from [facility] cardiology this morning patient appears to be in 2-1 heart block and is able to pace himself at approximately 50 bpm with the external temporary pacer set to 40 bpm. There was some concern that patient may have endocarditis as a source of infection however Dr. Hsu was able to examine patient's previous echo from 2019 and compared to echo done 2 days ago. He notes that while patient has risk factor of valvular regurgitation and disease the 2 echoes are almost identical in appearance and concern for endocarditis is low. * Hypertension * Started on hydralazine 25 mg 3 times daily as inpatient; holding in setting of low-normal BP * Appreciate cardiology's continuing recommendations for overall cardiac improvement Respiratory - * New O2 requirement on admissionnow resolved * Breathing comfortably on room air O2 sat 91 * improved with 2 days of 80 mg IV lasix GI - * Heart healthy diet ordered but has been restricting to fluids in setting of nausea and emesis x1, fluid restriction of 2 L/day * Transaminitis: Improving * Likely secondary to shock liver in setting of gram-negative sepsis * GGT mildly elevated at 78, alk phos remains elevated. Transaminitis improving. Patient shows no signs of gallbladder disease on right upper quadrant ultrasound, CT abdomen, physical exam. 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 and ensuing metabolic acidosis * Renal failure likely secondary to poor cardiac output with bradycardia leading to renal failure with proteinuria, sediment in urine, acidotic state * Metabolic acidosis improved * Kidney ultrasound on 05/27 for hydronephrosis or renal cysts * Appreciate nephrology's continuing recommendations regarding care of this patient * Lactic acidosis secondary to gram-negative sepsis: resolved * Fluid balance * +375 mL over last 24 hours; -813mL per stay * Electrolytes repleted as needed - * No acute issues, patient denies any burning with urination, dysuria, increased frequency, hematuria prior to admission * Rodriguez in place * BPH with Flomax at home * Urine culture sent to help isolate source of gram-negative sepsis; no growth ENDO -diabetes type 2 on multiple medications at home. ICU hyper and hypoglycemia protocol to manage sugars. A1c 8.7 HEME - * Microcytic anemia * 9.1 down from 9.4 yesterday, MCV 79, RDW within normal limits * Possibly secondary to iron deficiency; unsure when patient's last colonoscopy was * Patient is a strict vegetarian and is at risk for B12 and folate deficiency ID - * Gram-negative bacteremia likely from GI bacterial translocation or source * Consult placed to [facility] infectious disease telemedicine; recommended switch from ceftriaxone to ancef as less likely to cause biliary irritation. Right upper quadrant ultrasound negative for cholestatic dise ase. * E. Coli bacteremia; surveillance cultures from 05/28 negative at 48 hours. Abx started on 05/27. * Urine culture no growth * CT abdomen pelvis with oral contrast negative for intra-abdominal infection * Last fever was at 5 AM on 05/27 * Less likely to be pulmonary in setting of lack of respiratory distress on room air. Less likely to be meningitic given patient's overall normal behavior and stable vitals. RUQ US negative for pericholecystic fluid or cholelithiasis. CT abdomen with p.o. contrast negative for diverticulitis or intra-abdominal infection. Outpatient podiatry note from April 2020 noting patient had an injury/ulcer to his feet. Argument could be made that if patient stepped in fecal matter or somehow got that on an open wound that could be his point of entry for bacteria however this is unlikely in the setting of lack of purulent skin infection this day. Most likely patient was in AV block for multiple days at home which would cause him to be in a low forward flow state and become hypoperfused which would allow damage to bowel and a translocation of bacteria from bowel to the arterial system and allow opportunity for sepsis. INTEGUMENTARY - * No concerns at this time LINES/IV ACCESS - PIVs intact. Right femoral transvenous pacemaker in place DVT PROPHYLAXIS - SCDs, subcu heparin held prior to pacemaker placement. Will be restarted with 05/31 PM dose Progression of care: plan for permanent pacemaker today, PT, OT, downgrade out of ICU after pacer placement as long as remains stable. Will need to finish 14 days of IV antibiotic course. Thank you for allowing us to be part of this patient's care. Please refer to Dr. Corona's documentation for any further recommendations. (2) Acute diastolic (congestive) heart failure: (3) Third degree heart block: (4) Gram-negative bacteremia: (5) Hyperkalemia: (6) High anion gap metabolic acidosis: (7) Acute kidney injury: (8) Lactic acid acidosis: (9) Fatigue: (10) Weakness: (11) SOB (shortness of breath): (12) Fever: (13) Hypertension: (14) Vomiting: Admission and Anticipated Discharge Date Admission Date: May 27, 2020 Supervising Physician Co-Signing Physician Notes Patient seen and examined. EMR reviewed. Discussed with ICU nurse and on multidisciplinary rounds. Agree with assessment and plan as noted by family practice resident. Continue antibiotics for gram-negative bacteremia. Source still not clearly identified. Will need 14 days of therapy. LFTs are improving. Right upper quadrant ultrasound unrevealing. Plans to go for permanent pacemaker today. Once transvenous pacemaker is removed, the patient can transfer to telemetry. He will need PT OT evaluations and to increase his activity level and get up out of bed. Will sign off once the transvenous pacemaker is placed and the patient can go to the floor. Please call us if we can be of additional pulmonary critical care assistance Subjective Continues to feel nauseous this morning. Denies any other complaints at this time. Review of Systems Constitutional: no fever, no chills, no body aches and no fatigue Respiratory: no cough and no dyspnea Cardiovascular: no chest pain, no dyspnea and no edema Gastrointestinal: + nausea; no abdominal pain, no vomiting, no constipation and no diarrhea/loose stools Physical Exam Physical Exam: VITAL SIGNS - Vital signs and nursing notes were reviewed. GENERAL -84-year-old male in no acute distress SKIN - Without rashes. HEAD - NC/AT. EYES - PERRL. Sclera anicteric. Palpebral conjunctiva pink and moist with no injection noted. EARS - No deformities of external structures noted on gross examination bi laterally. NOSE - Midline and without cyanosis. No epistaxis or purulent drainage noted. MOUTH/OROPHARYNX -normal dentition, without perioral cyanosis. NECK - Supple to palpation. No nuchal rigidity. LUNGS -clear to auscultation bilaterally, no wheezes, crackles, rhonchi, rales appreciated CARDIAC -pacer set to 40 bpm, pacing self at 57 bpm in 2-1 heart block. 2/6 aortic stenosis murmur heard at the sternal border, no rubs, or gallops appreciated. ABDOMEN -soft nontender nondistended with normal bowel sounds. Negative Francisco sign, no tenderness at McBurney's point. No rebound or guarding. EXTREMITIES -right transvenous femoral pacemaker in place. No clubbing or peripheral cyanosis. No pretibial edema present. radial and dorsalis pedis pulses palpated bilaterally. NEUROLOGIC - No focal neurological deficits noted on exam. Results & Data Results & Data ([facility]) Vital Signs (Past 12 Hours) Vital Signs Temp Pulse Resp BP Pulse Ox 05/31/20 06:02 50 L 15 122/59 L 94 05/31/20 05:02 52 L 19 125/55 L 92 05/31/20 04:03 36.6 C 56 L 27 H 129/58 L 94 05/31/20 03:02 54 L 27 H 131/59 L 92 05/31/20 02:02 54 L 18 143/56 H 89 L 05/31/20 01:02 52 L 16 124/55 L 93 05/31/20 00:02 36.5 C 50 L 24 125/61 94 05/31/20 00:00 50 L 05/30/20 23:02 50 L 22 116/54 L 93 05/30/20 22:02 49 L 24 118/50 L 92 05/30/20 21:02 50 L 22 125/40 L 84 L 07/30/20 20:02 36.5 C 53 L 20 124/55 L 93 White count stable at 16,000 has not significantly decreased from yesterday. GGT 78 with an upper limit of normal of 70. ALT and AST continue to downtrend, alk phos remains elevated at 150. Surveillance blood cultures negative at 48 hours, will be 72 hours 1130 this morning. Urine culture, stool culture, E. coli Shiga toxin, stool white blood cell smear all negative for infection. Resident Activity Tracking Resident Involvement: Resident Care Provided Care Provided: Adult [facility]
[2020-05-31] MEDS: ATORVASTATIN 40 MG TAB PO SCH (08:31)
[2020-05-31] MEDS: PANTOprazole 40 MG TAB PO SCH (08:32)
[2020-05-31] MEDS ORDERED: CEFAZOLIN 2000MG 2,000 MG/15 ML SYR IV ONE (09:00)
[2020-05-31] MEDS: MAGNESIUM OXIDE 400 MG TAB PO SCH (09:14)
[2020-05-31] MEDS: CYANOCOBALAMIN (VITAMIN B-12) 100 MCG TABLET PO SCH (09:14)
--- NOTE | 2020-05-31 09:32 | Cardiology Progress Note ---
Date of Service May 31, 2020 Assessment & Plan (1) Third degree heart block: Patient presented 05/27 with complaints of fever and dyspnea on exertion, onset of symptoms 1 week. He was found to have symptomatic bradycardia, acute kidney injury, and hyperkalemia. There was concern for third-degree AV block earlier this hospital stay, and an emergent temporary transvenous pacemaker was placed via the right femoral vein on 05/27/2020. Hyperkalemia has since resolved. He remains bradycardic. I turned down his pacemaker Rate from 50 bpm to 40 bpm this morning, and [place] conduction is visualized. EKG captured x2 at 905 and 9:07 AM suggests 2-1 AV block, with ventricular rate in the 50-54 Per minute range. At present, patient's blood pressure is stable with a systolic reading in the 120s, with [place] conduction. I do think however he will need permanent pacemaker heart rate support in the future, and I believe he is stable to proceed with dual-chamber permanent pacemaker later today as previously planned. Patient was agreeable to this. (2) E. coli septicemia: Fevers have resolved. 2 out of 2 blood cultures drawn 05/27/2020 revealed E. coli, repeat cultures performed 05/28/2020, have been negative thus far. Source remains unclear, but this is not unusual bacteria to cause endocarditis. Continue current treatment with cefepime. (3) Heart murmur: II/ systolic murmur heard on exam today. Patient has a known history of mild aortic valve stenosis which have been followed as an outpatient. On his most recent outpatient visit note dated 07/18/2019, a II-III/ systolic murmur was documented, and I do not think his murmur today is any different that than which was described then. I reviewed his recent transthoracic echocardiogram performed 05/27/2020. Moderate posterior mitral annular calcification noted. Aortic valve calcification noted, with a linear mobile echodensity noted on the aortic aspect of the aortic valve. I reviewed the comparison images obtained as an outpatient in January,, and the images obtained at that time are similar, and a believe this is a chronic valvular strand unchanged compared to previous echo. I do not think a transesophageal echocardiogram, as previously noted, E. coli would be an unusual bacteria to be implicated in [place] valve endocarditis. (4) Elevated LFTs: LFTs are trending down. (5) Acute renal failure: Historically, creatinine was 1.4 as an outpatient on 01/03/2020. Creatinine 2.68 today, 2.45 yesterday. Urine output stable. Likely ATN due to sepsis,And transient hypotension. DVT prophylaxis: Patient is on subcutaneous heparin 5000 units every 12. Believe it is most prudent to proceed with permanent pacemaker implantation to day, and removal of the femoral vein Temporary transvenous pacemaker in an effort to reduce risk of venous thromboembolic event or source of infection. Case discussed with Dr Guzman, Dr Nair, Dr Corona. Subjective Chief complaint: Follow-up bradycardia Subjective: Patient seen in cardiology follow-up. He is known to the undersigned as I previously followed him as an outpatient from 2009 until 2012, more recently, he has followed with Felice Riggins PA-C of our practice with most recent outpatient visit on 07/18/2019. The patient is awake and oriented. He recognized me and was pleased to see me. He remains supine, in bed, and has a temporary pacemaker wire at the right femoral vein site. The pacemaker is functioning appropriately at a rate of 50 bpm on my arrival. Blood pressure stable. Outpatient Problem List: 1.ASCVD. Coronary angiography on 08/11/13 at [facility] demonstrating diffuse minor coronary artery disease throughout the major branches of the coronary arteries. There was a small to medium size second diagonal branch of the LAD had a 90% stenosis. The vessel was graded to be 1 mm or less in diameter and supplied only a small portion of the myocardium. The LAD was noted to have a 50% narrowing at the crux in its mid segment. 2. Mild Aortic stenosis 3.Mildly dilated aortic root 4.Carotid artery stenosis 5.Hypertension 6.Dyslipidemia 7.Type II diabetes mellitus with neuropathy 8.Hypothyroidism 9.Anemia. 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 cell arteritis 12.Osteoarthritis Review of Systems Review of Systems: All systems reviewed & are unremarkable except as noted in HPI & below Physical Exam 2 Physical Exam: Temp Pulse Resp BP Pulse Ox 37.4 C 50 L 20 114/68 96 05/31/20 08:00 05/31/20 08:00 05/31/20 08:00 05/31/20 08:00 05/31/20 08:00 Constitutional: WD/WN, vitals as above Respiratory: normal respiratory effort, lungs clear to auscultation Cardiovascular: Rate/Rhythm: regular rate Heart Sounds: + murmur (II/ SM noted at RSB) Vessels: no JVD Extremities: no edema Results & Data Vital Signs (Past 12 Hours) Vital Signs Temp Pulse Pulse Resp BP BP Pulse Ox 05/31/20 08:00 37.4 C 50 L 50 L 20 114/68 96 05/31/20 06:02 50 L 15 122/59 L 94 05/31/20 05:02 52 L 19 125/55 L 92 05/31/20 04:03 36.6 C 56 L 27 H 129/58 L 94 05/31/20 03:02 54 L 27 H 131/59 L 92 05/31/20 02:02 54 L 18 143/56 H 89 L 05/31/20 01:02 52 L 16 124/55 L 93 05/31/20 00:02 36.5 C 50 L 24 125/61 94 05/31/20 00:00 50 L 05/30/20 23:02 50 L 22 116/54 L 93 05/30/20 22:02 49 L 24 118/50 L 92 Laboratory Results Cardiac Enzymes 05/31/20 Range/Units 04:09 AST 154 H (15-37) U/L Coagulation 05/31/20 Range/Units 04:09 PT 13.5 H (9.0-12.0) Seconds APTT 31.6 H (21.0-31.0) Seconds CBC 05/31/20 Range/Units 04:09 WBC 16.69 H (4.8-10.8) K/uL RBC 3.75 L (4.7-6.1) M/uL Hgb 9.5 L (14.0-18.0) g/dL Hct 29.5 L (42-52) % Plt Count 213 (130-400) K/uL Neut # (Auto) 12.79 H (1.4-6.5) K/uL Lymph # (Auto) 2.05 (1.2-3.4) K/uL [place] # (Auto) 1.72 H (0.11-0.59) K/uL Eos # (Auto) 0.05 (0-0.5) K/uL Baso # (Auto) 0.02 (0-0.2) K/uL Comprehensive Metabolic Panel 05/31/20 Range/Units 04:09 Sodium 137 (136-145) mmol/L Potassium 3.8 (3.5-5.1) mmol/L Chloride 101 (98-107) mmol/L Carbon Dioxide 27 (21-32) mmol/L BUN 68 H (7-18) mg/dl Creatinine 2.68 H (0.6-1.4) mg/dl Glucose 146 H (70-99) mg/dl Calcium 8.3 L (8.5-10.1) mg/dl Direct Bilirubin 0.4 H (0-0.2) mg/dl AST 154 H (15-37) U/L ALT 413 H (12-78) U/L Alkaline Phosphatase 154 H (45-117) U/L Total Protein 7.2 (6.4-8.2) gm/dl Albumin 2.1 L (3.4-5.0) gm/dl Intake and Output 05/30/20 05/31/20 05/31/20 22:59 06:59 14:59 Intake Total 30 / 30 Output Total 75 / 660 335 / 660 60 / 60 Balance -75 / -90 -335 / -90 - Intake: Oral Output: Urine Amount (Catheter) 75 / 660 335 / 660 60 / 60 Rodriguez/Indwelling 75 / 660 335 / 660 60 / 60 Other: Weight 79.8 kg (1) Acute renal failure Acute renal failure type: unspecified Qualified Code(s): N17.9 - Acute kidney failure, unspecified
--- NOTE | 2020-05-31 09:54 | Communication Note ---
Date of Service: May 31, 2020 I called and updated patient's daughter , Remy, with patient's progress and plans for pacemaker today. Questions answered to her satisfaction. Patient p ermitted to have 1 visitor at a time today.
--- NOTE | 2020-05-31 10:49 | Pharmacy Report ---
Pharmacy Glycemic Short Note 2 - Date of Service May 31, 2020 - Glycemic Short BSG Results (Last 24 hours): 05/30/20 05/30/20 05/30/20 11:30 16:19 21:09 Glucose POC Glucose 184 H 209 H 202 H 05/31/20 05/31/20 05/31/20 00:28 04:01 04:09 Glucose 146 H POC Glucose 158 H 157 H Outpatient Anti-diabetic Regimen: * Lantus 25 units SC qAM * Novolog 8 units with lunch and 22 units with dinner, plus correction factor of 25 mg/dL/unit (over 150 mg/dL) * Empagliflozin * Glimepiride * Linagliptin-metformin * A1c 8.7% on 05/28/20 Risk Factors for Insulin Resistance: * Bacteremia * Recent Surgery: POD 3 s/p temporary pacemaker. Anticipate permanent pacemaker placement tomorrow. * Diet: T2DM, but nausea noted ASSESSMENT: 05/31/20 * BSGs elevated much of the day yesterday. These BSGs were mostly reflective of a fasting state. Patient did have 22 units of basal insulin on board. In addition to this, he also received 18 units SQ Novolog correction. BSGs have drifted down to 150s range this AM. Patient is NPO this AM for pacemaker placement at ~1300. Will give half-dose basal this AM while NPO, with plans to give remainder post-op. Will resume increased once daily basal dose tomorrow AM * Will add BSG checks overnight for supplemental correctional insulin should new basal insulin dose fall short. 05/30/20 * BSG again >200 mg/dL at dinner yesterday, but the BSG was obtained early (~1456) thus the Novolog administered at lunch may not have had sufficient time to take effect. But also likely that Novolog parameters may be too loose. Will therefore tighten this AM * AM fasting BSG again >200 mg/dL, but again, the patient consumed CHO overnight last night (two OJ and two apple juice) without insulin coverage. Will add on overnight checks/coverage for ongoing snacking. Will not increase Lantus at this time as still unclear what AM *fasting* BSG would be without snacking overnight and plan is for permanent pacemaker placement tomorrow * Patient still nauseated this AM per RN - anticipate only moderate po intake today 05/29/20 * BSG's ranged 140-167 mg/dL yesterday from breakfast to bedtime. AM fasting BSG this AM elevated to 202 mg/dL, after reduction in Lantus yesterday. However, this increase is not likely to be solely due to reduced Lantus dose because the patient ate crackers from his son at around 0000 last night that were not covered with insulin (per Talia RN) * Nausea/vomiting noted yesterday at dinner. Today, patient did consume irena amara for breakfast * OK to cautiously increase Lantus, but not to the amount that caused minor hypoglycemic event on overnight 05/27 to 05/28 * No change to Novolog at this time - CHO ratio seems appropriate based on trend yesterday. Adequacy of correction factor can be assessed based on breakfast to lunch BSG as this will be the first time significant correctional insulin has been administered PLAN FOR INPATIENT GLYCEMIC CONTROL: * Continue to hold outpatient oral diabetes medications * Basal insulin * Lantus 13 units x 1 this AM, 15 units x 1 this afternoon * Lantus 28 units daily starting 06/01 * Bolus insulin * NovoLog ACHS and at 0200 tonight * Goal Range: Low 110 mg/dL - High 140 mg/dL * Correction Factor: 20 mg/dL/unit * Nutritional / Prandial insulin per carb ratio of 1 unit per 8 grams CHO consumed
[2020-05-31] MEDS ORDERED: LIDOCAINE HCL 1% 20 ML VIAL ONE (12:05)
[2020-05-31] MEDS ORDERED: fentaNYL citrate 100 MCG/2 ML VIAL ONE (12:05)
[2020-05-31] MEDS ORDERED: MIDAZOLAM HCL 5 MG/ML 1 ML VIAL ONE (12:05)
[2020-05-31] MEDS ORDERED: BACITRACIN OINT 0.9 GM PKT ONE (12:05)
[2020-05-31] MEDS ORDERED: BACITRACIN INJ 50,000 UNIT VIAL ONE (12:05)
[2020-05-31] MEDS ORDERED: CEFAZOLIN 250 MG/ML 1 GM VIAL ONE (12:24)
--- NOTE | 2020-05-31 12:28 | History & Physical Bridge Note ---
Date of Service May 31, 2020 History & Physical Bridge Note I have examined the patient, reviewed the History & Physical and in the interval since the performance of the History & Physical I have noted the following changes of clinical significance: no changes noted. I discussed the procedure with him in detail, including the indications, procedure, risks and alternatives. He is agreeable. Consent for the procedure obtained. I also discussed sedation with him and he agrees. Consent obtained.
--- NOTE | 2020-05-31 12:30 | Pre Anesthesia Assessment ---
Date of Service May 31, 2020 Pre Sedation Assessment Vital Signs Temp Pulse Pulse Resp BP BP Pulse Ox 05/31/20 11:03 37.5 C 55 L 22 137/62 05/31/20 11:00 56 L 17 92 05/31/20 10:02 47 L 16 101/67 96 05/31/20 10:00 37.4 C 54 L 23 89 L 05/31/20 09:21 53 L 22 124/65 96 05/31/20 09:02 54 L 20 137/73 92 05/31/20 09:00 47 L 26 H 91 05/31/20 08:02 50 L 17 122/65 91 05/31/20 08:00 37.4 C 52 L 50 L 24 114/68 94 05/31/20 07:02 50 L 15 114/68 82 L 05/31/20 07:00 52 L 27 H 92 05/31/20 06:02 50 L 15 122/59 L 94 05/31/20 05:02 52 L 19 125/55 L 92 05/31/20 04:03 36.6 C 56 L 27 H 129/58 L 94 05/31/20 03:02 54 L 27 H 131/59 L 92 05/31/20 02:02 54 L 18 143/56 H 89 L 05/31/20 01:02 52 L 16 124/55 L 93 05/31/20 00:02 36.5 C 50 L 24 125/61 94 05/31/20 00:00 50 L 05/30/20 23:02 50 L 22 116/54 L 93 05/30/20 22:02 49 L 24 118/50 L 92 05/30/20 21:02 50 L 22 125/40 L 84 L 05/30/20 20:02 36.5 C 53 L 20 124/55 L 93 05/30/20 19:02 54 L 22 102/86 95 05/30/20 16:03 63 29 H 120/49 L 86 L 05/30/20 16:00 62 31 H 93 05/30/20 15:33 62 29 H 95/43 L 89 L 05/30/20 15:02 60 23 80/44 L 89 L 05/30/20 15:00 60 24 88 L 05/30/20 14:01 54 L 28 H 128/50 L 87 L 05/30/20 14:00 54 L 25 H 91 05/30/20 13:01 53 L 26 H 113/53 L 91 05/30/20 13:00 53 L 26 H 91 Cardiovascular RRR, no murmur, no edema Respiratory normal respiratory effort, lungs clear to auscultation Pre-Sedation Airway Assessment Smoking Status: Never smoker Hx Sleep Apnea: No Hx Difficult Intubation: No Short, Thick Neck: No Thyromental Distance: < 3.5 Finger Breadths Oral Cavity: + WNL Mallampati Class: III ASA: ASA3 NPO Status Date of Last Intake of Fluids: 05/30/20 Date of Last Intake of Solid Food: 05/30/20 Procedure Planning Contraindications for Sedation: none Current Medications Reviewed: Yes Notes The planned sedation has been discussed with the patient. Informed Consent was obtained. I have identified the patient, determined the appropriateness of sedation and have assessed the patient immediately prior to the procedure. All medicine(s) and interventions are by my order.
--- NOTE | 2020-05-31 12:58 | Billing Data ---
Date of Service May 31, 2020 Coding Level of Care Code 43551 Subseq Hosp Care Lvl 3
[2020-05-31] MEDS ORDERED: ACETAMINOPHEN 325 MG TAB PO PRN (13:35)
[2020-05-31] MEDS ORDERED: ACETAMINOPHEN W/CODEINE #3 1 TAB PO PRN (13:35)
--- NOTE | 2020-05-31 13:35 | Electrophysiology Report ---
Date of Service May 31, 2020 Electrophysiology Procedure Electrophysiology Procedure Report Preoperative diagnosis: Complete heart block Postoperative diagnosis: Same Procedure: Dual-chamber pacemaker implantation Surgeon: Philipp Nair MD Estimated blood loss: 50 cc Complications: None Disposition: Area Development Consultant recovery Procedure details: After obtaining informed consent for the procedure, the patient was brought to the laboratory and prepped and draped in the standard sterile manner. The left prepectoral region was anesthetized with 1% lidocaine local anesthetic and left axillary venipuncture was performed by percutaneous technique and a guidewire placed through the left subclavian vein into the superior vena cava. The area was further infiltrated with 1% lidocaine local anesthetic and a 5 cm incision was made parallel to the left clavicle and 2 cm below it and carried down to the anterior pectoralis fascia. A pacemaker pocket was formed by blunt dissection anterior to the pectoralis fascia and a bacitracin-soaked sponge (50,000 units in 50 cc normal saline solution) was placed in the pocket. An 8 [place] Medtronic lead introducer was placed over the guidewire into the left subclavian vein, the dilator and guidewire were removed and a bipolar active fixation steroid tipped ventricular lead was advanced through the introducer into the superior vena cava. A guidewire was placed through the introducer and the introducer was stripped from the lead and guidewire. Another 8 [place] Medtronic lead introducer was placed over the guidewire into the left subclavian vein, the dilator and guidewire were removed and a bipolar active fixation steroid tipped atrial lead was advanced through the introducer into the superior vena cava. A guidewire was placed back through the introducer and the introducer was stripped from the lead and guidewire. Using a curved stylette the ventricular lead was advanced through the right ventricular outflow tract into the pulmonary artery and then using a straight stylette was positioned in the right ventricular apex. The screw was extended fixing the lead in position. Pacing and sensing thresholds were evaluated in bipolar configuration and are recorded on the implant data sheet. Using a curved stylette the atrial lead was positioned in the region of the atrial appendage and the screw extended fixing the lead in position. Pacing and sensing thresholds were evaluated in bipolar configuration and are recorded on the imp lant data sheet. Once the leads were in position they were attached to the anterior pectoralis fascia using 2 sutures of 2-0 silk around each lead collar. The bacitracin- soaked sponge was removed from the pocket, hemostasis was obtained, the pacemaker was attached to the leads and placed in the pocket with the leads coiled beneath it. Blood loss was higher than usual due to high venous pressures during the initial part of the case however by the conclusion of the case there was no further venous bleeding. The incision was closed with a running double subcutaneous closure of 3-0 Vicryl absorbable suture, followed by running subcuticular skin closure of 4-0 Vicryl absorbable suture. Bacitracin ointment was placed on the incision and a pressure dressing applied. [facility] Electrophysiology codes Pacing Procedure 1: Pacin Insert/Replace Pacer A & V PG Moderate Sedation Codes Moderate Sedation Codes Procedure 1: Sedation/Anesthesia: 74775 Mod Sedation by the same physician;Init15 Min Child Age 5 & Up Procedure 2: Sedation/Anesthesia: 27210 Mod Sedation by the same physician; Ea [id number] Minutes
--- NOTE | 2020-05-31 15:47 | Progress Notes ---
DATE: 05/31/2020 SUBJECTIVE: The patient feels good. Denies any nausea, vomiting, chest pain, shortness of breath. 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 Vital signs appears good. He is making lots of urine. Rodriguez catheter is planning to be removed. OBJECTIVE: VITAL SIGNS: Blood pressure 114/72, pulse rate 89, temperature 37.5, 94% on 3 liter nasal cannula. HEENT: Mucous membranes moist. NECK: Supple. No jugular venous distention. CHEST: Bilateral clear to auscultation. CARDIOVASCULAR: S1, S2 regular. ABDOMEN: Soft, nontender. EXTREMITIES: Shows no edema. LABORATORY TESTS: Reviewed. Sodium 137, potassium 3.8, BUN 68, creatinine 2.68. Liver enzymes trending down. Albumin 2.1. ASSESSMENT AND PLAN: An 84-year-old male who was admitted with severe symptomatic bradycardia secondary to complete heart block which then caused acute renal failure with hyperkalemia. He also had Escherichia coli bacteremia. Acute renal failure secondary to combination of symptomatic bradycardia/hypotension from complete heart block as well as bacteremia. Renal function did get slightly better, but now has plateaued. He most likely has some degree of ischemic acute tubular necrosis because of hypotension and bradycardia, so renal recovery may be a protracted, but in any case, no fluid overload and no issues with electrolyte at this time and does not need dialysis. Continue to follow renal panel daily. He will need to be followed in outpatient Nephrology sometime next week and have a renal panel done.
--- NOTE | 2020-05-31 16:40 | Hospitalist Progress Note ---
Date of Service May 31, 2020 Assessment & Plan (1) E. coli septicemia: Clinically improved on current antibiotic therapy. Recent toe injury causing open traumatic ulcer on right great toe in this diabetic patient with neuropathy. Consider this may be a source. ID was notified. Prostatitis may be another consideration. Improving on current antibiotic therapy. (2) Third degree heart block: s/p pacemaker placement (3) Acute diastolic (congestive) heart failure: Compensated. Oxygenation has improved/hypoxia resolved. No further diuresis at this point. (4) Elevated LFTs: Possible related to hypoperfusion in sepsis. No RUQ pain on exam. EBV considered as an etiology as it can cause elevations in LFTs, fever, fatigue and heart block. Monospot negative, EBV serologies reflect prior infection, but not active infection. Acute hepatitis panel requested and negative. US liver negative. (5) Sepsis: E coli septicemia-uncertain etiology possibly entry from self-inflicted toe wound a couple of weeks back. On 04/25/2020, he underwent podiatric treatment of thickened toenails and acute ulcer of the toe. Per the history given, the patient cut his big toe and it was bleeding badly. He reports applying a home antiseptic. At this visit he underwent toenail debridement with an electric knife setter grinder machine, and an ulceration was noted with limited skin breakdown. Also must consider further investigation into biliary system with us liver as patient is still clinically ill without a clear etiology of infection. Liver us was negative overnight. Do not feel further investigation with MRCP is needed. Aminotransferases continue to decline. Repeat cultures are negative so far. Pacemaker placement likely after 72 hours of first culture clearing. Cefepime was switched to ceftriaxone per ICU team with ID recommending adjustment to cefazolin to avoid negative side effects of ceftriaxone on biliary tract. Defer this change to ICU team. (6) ATN (acute tubular necrosis): h/o CKD Stage III at baseline. Likely secondary to prolonged illness and hypoperfusion of the kidneys in the setting of bradycardia and low blood pressure, therefore, possible ATN. Cont to monitor BMP and avoid nephrotoxic agents when able. Renally dose meds when appropriate. Renal function has plateaued. ATN possible per Nephro. Monitor daily BMP. (7) DMII (diabetes mellitus, type 2): Cont basal with correction factor and carb coverage. Some corrections today and added BID LAntus. A1C reflects poor control 8.7. This is complicated by diabetic polyneurpopathy. (8) DVT prophylaxis: Heparin Full Code Dispo-cont ICU monitoring. DO Bhargavi Means Hospitalist Admission and Anticipated Discharge Date Admission Date: May 27, 2020 Subjective PM placed today Doing well post-procedure tolerating PO denies SOB or pain Review of Systems Review of Systems: All systems reviewed & are unremarkable except as noted in Subjective Physical Exam Physical Exam: CONSTITUTIONAL: WNWD, vitals as above, generally well- appearing but fatigued EYES: pupils are equal and round bilaterally, normal conjunctivae, no scleral icterus ENT: external ear and nose normal, MMM RESPIRATORY: some coarse crackles heard at the bases, otherwise clear throughout, no rales or wheezes, normal respiratory effort CHEST WALL: New Pacer pocket created with device in place. Covered with gauze. CARDIOVASCULAR: regular rate and rhythm, S1 and 2 heard without murmurs, gallops or rubs, no JVD, no peripheral edema GASTROINTESTINAL: soft, nontender, nondistended MUSCULOSKELETAL: generalized weakness. head is normocephalic and atraumatic SKIN: warm and dry NEUROLOGIC: No facial palsy, no dysarthria. CN 2-12 grossly intact, normal speech, no gross focal neuro deficits. PSYCHIATRIC: alert and appropriate Results & Data Results & Data ([facility]) Vital Signs (Past 12 Hours) Vital Signs Temp Pulse Pulse Resp BP BP Pulse Ox 05/31/20 16:03 89 05/31/20 14:45 37.5 C 89 25 H 94 05/31/20 14:33 83 20 114/72 94 05/31/20 14:30 87 20 91 05/31/20 14:27 37.6 C H 81 24 140/82 92 05/31/20 14:18 81 22 122/100 05/31/20 14:15 95 H 22 05/31/20 14:05 36.6 C 84 20 140/82 92 05/31/20 14:03 79 24 130/65 05/31/20 14:00 74 05/31/20 13:45 80 18 160/58 H 97 05/31/20 13:38 82 20 173/80 H 96 05/31/20 11:03 37.5 C 55 L 22 137/62 05/31/20 11:00 56 L 17 92 05/31/20 10:02 47 L 16 101/67 96 05/31/20 10:00 37.4 C 54 L 23 89 L 05/31/20 09:21 53 L 22 124/65 96 05/31/20 09:02 54 L 20 137/73 92 05/31/20 09:00 47 L 26 H 91 05/31/20 08:02 50 L 17 122/65 91 05/31/20 08:00 37.4 C 52 L 50 L 24 114/68 94 05/31/20 07:02 50 L 15 114/68 82 L 05/31/20 07:00 52 L 27 H 92 05/31/20 06:02 50 L 15 122/59 L 94 05/31/20 05:02 52 L 19 125/55 L 92 Laboratory Results Short CBC 05/31/20 Range/Units 04:09 WBC 16.69 H (4.8-10.8) K/uL Hgb 9.5 L (14.0-18.0) g/dL Hct 29.5 L (42-52) % Plt Count 213 (130-400) K/uL BMP 05/31/20 04:09 Sodium 137 Potassium 3.8 Chloride 101 Carbon Dioxide 27 BUN 68 H Creatinine 2.68 H Glucose 146 H Calcium 8.3 L Liver Function 05/30/20 05/31/20 Range/Units 04:43 04:09 Total Bilirubin 0.9 (0.2-1) mg/dl Direct Bilirubin 0.4 H (0-0.2) mg/dl GGT 78 H (3-70) U/L AST 154 H (15-37) U/L ALT 413 H (12-78) U/L Alkaline Phosphatase 154 H (45-117) U/L Albumin 2.1 L (3.4-5.0) gm/dl Medications Administered Current Inpatient Medications Acetaminophen (Tylenol) 650 mg PO Q4H PRN PRN Reason: Mild pain (rating 1,2,3) Stop: 06/30/20 13:34 Acetaminophen/Codeine Phosphate (Tylenol W/Codeine #3) 1 - 2 tab PO Q4H PRN PRN Reason: Moderate-Severe Pain Stop: 06/30/20 13:34 Aspirin (Ecotrin) 650 mg PO DAILY [facility] Stop: 06/27/20 08:59 Atorvastatin Calcium (Lipitor) 80 mg PO DAILY [facility] Stop: 06/26/20 11:29 Last Admin: 05/31/20 08:31 Dose: 80 mg Documented by: Cefazolin Sodium (Ancef) 1,000 mg IV PREOP AMAURI; Protocol Stop: 06/01/20 05:59 Last Admin: 05/31/20 13:23 Dose: Not Given Documented by: Cyanocobalamin (Vitamin B-12) 250 mcg PO DAILY A[facility] Stop: 06/27/20 08:59 Last Admin: 05/31/20 09:14 Dose: Not Given Documented by: Dextrose (Dextrose 50%) 25 - 50 ml IV UD PRN; Protocol PRN Reason: Hypoglycemia Protocol Stop: 06/27/20 07:44 Glucagon (Glucagen) 1 mg IM UD PRN; Protocol PRN Reason: Hypoglycemia Protocol Stop: 06/27/20 07:44 Glucose (Glucose 40%) 15 - 30 gm PO UD PRN; Protocol PRN Reason: Hypoglycemia Protocol Stop: 06/27/20 07:44 Glucose (Dex4 Glucose) 4 - 8 tabs PO UD PRN; Protocol PRN Reason: Hypoglycemia Protocol Stop: 06/27/20 07:44 Heparin Sodium (Porcine) (Heparin Sodium (Porcine)) 5,000 units SQ Q12 [facility] Stop: 06/27/20 20:59 Last Admin: 05/30/20 21:19 Dose: 5,000 units Documented by: Hydralazine HCl (Apresoline) 25 mg PO TID [facility] Stop: 06/27/20 13:59 Last Admin: 05/29/20 08:16 Dose: Not Given Documented by: Cefazolin Sodium (Ancef 1000mg) 1,000 mg in 7.5 mls @ 2.5 mls/min IV Q12 [facility]; Protocol Stop: 06/14/20 20:59 Insulin Aspart (Novolog Flexpen) 0 units SC ACHS [facility]; Protocol Stop: 06/27/20 11:29 Last Admin: 05/31/20 15:02 Dose: 9 units Documented by: Insulin Aspart (Novolog Flexpen) 0 units SC TODAY@0200 ONE; Protocol Stop: 06/01/20 02:01 Levothyroxine Sodium (Synthroid) 50 mcg PO DAILYBB [facility] Stop: 06/26/20 11:29 Last Admin: 05/31/20 06:15 Dose: 50 mcg Documented by: Magnesium Oxide (Mag-Ox) 400 mg PO DAILY A[facility] Stop: 06/26/20 11:29 Last Admin: 05/31/20 09:14 Dose: Not Given Documented by: Miscellaneous (Carbohydrates For Hypoglycemia) 15 - 30 gm PO UD PRN PRN Reason: Hypoglycemia Treatment Stop: 06/27/20 07:44 Miscellaneous Information (Consult Glycemic Management Pharmacy) 1 ea N/A UD PRN PRN Reason: Consult Stop: 06/26/20 10:35 Miscellaneous Information () 1 ea N/A UD PRN PRN Reason: Consult Stop: 06/29/20 09:50 Nitroglycerin (Nitrostat) 0.4 mg SL UD PRN PRN Reason: Chest Pain Stop: 06/26/20 10:31 Ondansetron HCl (Zofran) 4 mg IV Q6H PRN PRN Reason: Nausea Stop: 06/26/20 13:01 Last Admin: 05/30/20 21:16 Dose: 4 mg Documented by: Pantoprazole Sodium (Protonix) 40 mg PO DAILY AMA[facility] Stop: 06/26/20 11:29 Last Admin: 05/31/20 08:32 Dose: 40 mg Documented by: Tamsulosin HCl (Flomax) 0.4 mg PO HS [facility] Stop: 06/26/20 20:59 Last Admin: 05/30/20 21:19 Dose: 0.4 mg Documented by: Trazodone HCl (Desyrel) 25 mg PO HS [facility] Stop: 06/26/20 20:59 Last Admin: 05/30/20 21:16 Dose: 25 mg Documented by:
--- NOTE | 2020-05-31 17:09 | Post Anesthesia Assessment ---
Date of Service May 31, 2020 Post Sedation Assessment Vital Signs Temp Pulse Pulse Resp BP BP Pulse Ox 05/31/20 16:03 89 05/31/20 14:45 37.5 C 89 25 H 94 05/31/20 14:33 83 20 114/72 94 05/31/20 14:30 87 20 91 05/31/20 14:27 37.6 C H 81 24 140/82 92 05/31/20 14:18 81 22 122/100 05/31/20 14:15 95 H 22 05/31/20 14:05 36.6 C 84 20 140/82 92 05/31/20 14:03 79 24 130/65 05/31/20 14:00 74 05/31/20 13:45 80 18 160/58 H 97 05/31/20 13:38 82 20 173/80 H 96 05/31/20 11:03 37.5 C 55 L 22 137/62 05/31/20 11:00 56 L 17 92 05/31/20 10:02 47 L 16 101/67 96 05/31/20 10:00 37.4 C 54 L 23 89 L 05/31/20 09:21 53 L 22 124/65 96 05/31/20 09:02 54 L 20 137/73 92 05/31/20 09:00 47 L 26 H 91 05/31/20 08:02 50 L 17 122/65 91 05/31/20 08:00 37.4 C 52 L 50 L 24 114/68 94 05/31/20 07:02 50 L 15 114/68 82 L 05/31/20 07:00 52 L 27 H 92 05/31/20 06:02 50 L 15 122/59 L 94 05/31/20 05:02 52 L 19 125/55 L 92 05/31/20 04:03 36.6 C 56 L 27 H 129/58 L 94 05/31/20 03:02 54 L 27 H 131/59 L 92 05/31/20 02:02 54 L 18 143/56 H 89 L 05/31/20 01:02 52 L 16 124/55 L 93 05/31/20 00:02 36.5 C 50 L 24 125/61 94 05/31/20 00:00 50 L 05/30/20 23:02 50 L 22 116/54 L 93 05/30/20 22:02 49 L 24 118/50 L 92 05/30/20 21:02 50 L 22 125/40 L 84 L 05/30/20 20:02 36.5 C 53 L 20 124/55 L 93 05/30/20 19:02 54 L 22 102/86 95 Discharge Sedation Level of Care: Fast Track Phase II Post Sedation Plan On clinical assessment, the patient appears to have tolerated the sedation without complications. Patient is recovering as anticipated. Patient will continue to be monitored by nursing and may be discharged when sedation discharge criteria are met per below protocol. Upon Completions of procedure up to 15 minutes continue every 5 minute vital signs and the P.A.R. score; then discharge to a Phase I or Fast Track to Phase II per the following guidelines: * Discharge Patient to appropriate Phase II area if PAR is 8 or greater or return to pre- procedure baseline. The post - procedure orders will be as directed. * If PAR score is less than 8 or not return to pre-procedure baseline then patient will follow Phase I monitoring till PAR is reached for Phase II. The Phase I may be done in procedure room or may call to secure a Phase I area. * If naloxone or flumazenil are used for reversal, hold in Phase I for continued monitoring from when last reversal dose was given for a minimum of 60 minutes or longer pending the nurse and/or physician discretion of patient condition before discharge to Phase II. Please call the Sedation Physician to re-evaluate and complete post-note for discharge to Phase II area. Do NOT discharge from procedure sedation or Phase 1 until post- sedation evaluation note is complete by procedure /sedation MD Sedation Discharge Instructions to be given to the patient at discharge to home.
[2020-05-31] MEDS ORDERED: LORATADINE 10 MG TAB PO ONE (17:18)
[2020-05-31] MEDS ORDERED: INSULIN ASPART 100 UNITS/ML 3 ML PEN SC SCH (19:12)
[2020-05-31] MEDS ORDERED: LANTUS PER UNIT CHARGE SQ SCH (21:00)
[2020-05-31] MEDS: TRAZODONE HCL 50 MG TAB PO SCH (21:41)
[2020-05-31] MEDS: CEFAZOLIN 1000MG 1,000 MG/7.5 ML SYR IV SCH (21:41)
[2020-05-31] MEDS: TAMSULOSIN HCL 0.4 MG CAP PO SCH (21:42)
[2020-06-01] MEDS ORDERED: INSULIN ASPART 100 UNITS/ML 3 ML PEN SC ONE (02:00)
[2020-06-01] MEDS ORDERED: ALBUMIN 25% 50 ML IV ONE (02:33)
[2020-06-01 05:04] LABS: Basophils # (auto) 0.02 K/uL (0-0.2); Basophils % (auto) 0.1 %; Eosinophils # (auto) 0.19 K/uL (0-0.5); Eosinophils % (auto) 1.4 %; Hematocrit (blood only) 27.8 % (42-52); Hemoglobin 8.8 g/dL (14.0-18.0); Immature Granulocytes # (auto) 0.05 K/uL (0.00-0.02); Immature Granulocytes % (auto) 0.4 %; Lymphocytes # (auto) 1.76 K/uL (1.2-3.4); Lymphocytes % (auto) 13.1 %; Mean Corpuscular Hemoglobin 24.9 pg (25-34); Mean Corpuscular Hgb Conc 31.7 g/dL (32-36); Mean Corpuscular Volume 78.5 fL (80-100); Mean Platelet Volume 10.7 fL (7.4-10.4); Monocytes # (auto) 1.09 K/uL (0.11-0.59); Monocytes % (auto) 8.1 %; Neutrophils % (auto) 76.9 %; Platelet Count 219 K/uL (130-400); RDW Coefficient of Variation 14.8 % (11.5-14.5); RDW Standard Deviation 42.9 fL (36.4-46.3); Red Blood Count 3.54 M/uL (4.7-6.1); White Blood Count 13.41 K/uL (4.8-10.8)
[2020-06-01 05:22] LABS: Albumin Level 2.1 gm/dl (3.4-5.0); BUN Creatinine Ratio 30.6 (10-20); Bilirubin Direct 0.3 mg/dl (0-0.2); Calcium 8.4 mg/dl (8.5-10.1); Creatinine Clr Calc Pharmacy 25.4 ml/min; Est GFR (African American) 28.2; Est GFR (Non-African American) 24.3; Magnesium 2.4 mg/dl (1.8-2.4); Potassium 4.1 mmol/L (3.5-5.1)
[2020-06-01 05:40] LABS: Bilirubin,Total 0.9 mg/dl (0.2-1); Phosphorus 3.2 mg/dl (2.5-4.9); Total Protein 7.3 gm/dl (6.4-8.2)
[2020-06-01] MEDS: LEVOTHYROXINE SODIUM 50 MCG TABLET PO SCH (06:28)
[2020-06-01] MEDS: ACETAMINOPHEN 325 MG TAB PO PRN (06:28)
--- NOTE | 2020-06-01 07:07 | Electrocardiogram Report ---
Test Reason : Blood Pressure : / mmHG Vent. Rate : 051 BPM Atrial Rate : 093 BPM P-R Int : 000 ms QRS Dur : 128 ms QT Int : 604 ms P-R-T Axes : 069 039 -10 degrees QTc Int : 556 ms Sinus tachycardia with complete heart block Junctional rhythm with pvc Non-specific intra-ventricular conduction block Cannot rule out Inferior infarct , age undetermined Abnormal ECG When compared with ECG of 27-MAY-2020 05:07, No significant change Confirmed by Philipp Nair ([id number]) on 06/01/2020 7:06:59 AM Referred By: REFERRED SELF Confirmed By:Philipp Nair
--- NOTE | 2020-06-01 07:08 | Electrocardiogram Report ---
Test Reason : Blood Pressure : / mmHG Vent. Rate : 055 BPM Atrial Rate : 055 BPM P-R Int : 204 ms QRS Dur : 082 ms QT Int : 586 ms P-R-T Axes : 067 033 017 degrees QTc Int : 560 ms Poor data quality, interpretation may be adversely affected Sinus tachycardia with complete heart block Junctional rhythm with occasional Premature ventricular complexes Cannot rule out Inferior infarct (cited on or before 31-MAY-2020) Abnormal ECG When compared with ECG of 31-MAY-2020 09:05, (unconfirmed) No significant change Confirmed by Philipp Nair ([id number]) on 06/01/2020 7:08:26 AM Referred By: REFERRED SELF Confirmed By:Philipp Nair
--- NOTE | 2020-06-01 07:18 | Electrocardiogram Report ---
Test Reason : Blood Pressure : / mmHG Vent. Rate : 082 BPM Atrial Rate : 082 BPM P-R Int : 188 ms QRS Dur : 162 ms QT Int : 496 ms P-R-T Axes : 051 -58 075 degrees QTc Int : 579 ms Atrial-sensed ventricular-paced rhythm Abnormal ECG When compared with ECG of 31-MAY-2020 09:07, (unconfirmed) Electronic ventricular pacemaker is now Present Vent. rate has increased BY 27 BPM Confirmed by Philipp Nair ([id number]) on 06/01/2020 7:18:06 AM Referred By: REFERRED SELF Confirmed By:Philipp Nair
[2020-06-01] MEDS: PANTOprazole 40 MG TAB PO SCH (08:21)
[2020-06-01] MEDS: CYANOCOBALAMIN (VITAMIN B-12) 100 MCG TABLET PO SCH (08:21)
[2020-06-01] MEDS: LORATADINE 10 MG TAB PO SCH (08:21)
[2020-06-01] MEDS: INSULIN ASPART 100 UNITS/ML 3 ML PEN SC SCH ×4 (08:26→20:36)
[2020-06-01] MEDS: CEFAZOLIN 1000MG 1,000 MG/7.5 ML SYR IV SCH (08:28)
--- NOTE | 2020-06-01 08:59 | XRay Report ---
XR chest 2V PA/lateral CLINICAL HISTORY: EXACT TIME ORDERED Evaluate for pneumothorax and l COMPARISON STUDY: 05/28/2020 FINDINGS: Bipolar cardiac pacer placed. Leads are in good position. No evidence of pneumothorax. IMPRESSION: Bipolar cardiac pacer in good position. No evidence for pneumothorax. ACT 112: Negative or not required by law. The above report was generated using voice recognition software. It may contain grammatical, syntax or spelling errors. Electronically signed by: Felice Babcock M.D. 06/01/2020 8:57 AM
--- NOTE | 2020-06-01 12:07 | Hospitalist Progress Note ---
Date of Service June 01, 2020 Assessment & Plan (1) E. coli septicemia: Clinically improved on current antibiotic therapy. Recent toe injury causing open traumatic ulcer on right great toe in this diabetic patient with neuropathy. Consider this may be a source. ID was notified. Prostatitis may be another consideration. Improving on current antibiotic therapy. I did notice an isolated elevation in temp overnight to 38C, and am now seeing another temp 37.7 with an increase in heart rate this afternoon. Some considerations for this include: cefazolin not adequate coverage for E coli, possible pacer pocket infection (thought less likely with site looking good and no pain or swelling present), possible PE or DVT with recent immobilization in the setting of sepsis. He just received contrast with PM placement yesterday in the setting of ATN. Plan to get some labs and repeat blood cultures now, also will switch cefazolin back to ceftriaxone now. Although there was initial concern for biliary sludging as a side effect of rocephin, the biliary tract is not thought to be a source of infection here. Will await labs and monitor in PCU for further clinical response. (2) Third degree heart block: s/p pacemaker placement and doing well post-operatively. (3) Acute diastolic (congestive) heart failure: Compensated. Oxygenation has improved/hypoxia resolved. No further diuresis at this point. (4) Elevated LFTs: Resolving, Possible related to hypoperfusion in sepsis. No RUQ pain on exam. EBV considered as an etiology as it can cause elevations in LFTs, fever, fatigue and heart block. Monospot negative, EBV serologies reflect prior infection, but not active infection. Acute hepatitis panel requested and negative. US liver negative. (5) Sepsis: initially resolved, but now may be developing a second wave with tachycardia, persistent fever, and increased RR and fatigue/malaise today. (6) ATN (acute tubular necrosis): h/o CKD Stage III at baseline. Likely secondary to prolonged illness and hypoperfusion of the kidneys in the setting of bradycardia and low blood pressure, therefore, possible ATN. Cont to monitor BMP and avoid nephrotoxic agents when able. Renally dose meds when appropriate. Renal function has plateaued. ATN possible per Nephro. Monitor daily BMP. (7) DMII (diabetes mellitus, type 2): Cont basal with correction factor and carb coverage. Continue management per glycemic pharmacist. A1C reflects poor control 8.7. This is complicated by diabetic polyneuroppathy. (8) DVT prophylaxis: Heparin Full Code Dispo-transferred from ICU to PCU [facility] on 05[facility] Ad[facility] and Anticipated Discharge Date Admission Date: May 27, 2020 Subjective fatigued but denies any issues today working with PT and OT Tolerating PO PM site feels fine and no complications. Daughter at bedside and discussed the case and plan at length--all questions answered. We also discussed rehab as a possibility Review of Systems Review of Systems: All systems reviewed & are unremarkable except as noted in Subjective Physical Exam Physical Exam: CONSTITUTIONAL: WNWD, vitals as above, generally well- appearing but fatigued EYES: pupils are equal and round bilaterally, normal conjunctivae, no scleral icterus ENT: external ear and nose normal, MMM RESPIRATORY: some coarse crackles heard at the bases, otherwise clear throughout, no rales or wheezes, normal respiratory effort CHEST WALL: New Pacer pocket created with device in place. Covered with gauze. CARDIOVASCULAR: regular rate and rhythm, S1 and 2 heard without murmurs, gallops or rubs, no JVD, no peripheral edema GASTROINTESTINAL: soft, nontender, nondistended MUSCULOSKELETAL: generalized weakness. head is normocephalic and atraumatic SKIN: warm and dry, closed ulceration on right great toe. NEUROLOGIC: No facial palsy, no dysarthria. CN 2-12 grossly intact, normal speech, no gross focal neuro deficits. PSYCHIATRIC: alert and appropriate Results & Data Results & Data ([facility]) Vital Signs (Past 12 Hours) Vital Signs Temp Pulse Pulse Resp BP BP Pulse Ox 06/01/20 11:39 36.8 C 85 15 140/68 95 06/01/20 10:00 78 18 06/01/20 09:00 84 26 H 06/01/20 08:00 86 25 H 06/01/20 07:28 36.7 C 82 18 111/57 L 97 06/01/20 07:00 86 25 H 06/01/20 04:00 38.1 C H 86 26 H 108/66 95 Laboratory Results Short CBC 06/01/20 Range/Units 04:47 WBC 13.41 H (4.8-10.8) K/uL Hgb 8.8 L (14.0-18.0) g/dL Hct 27.8 L (42-52) % Plt Count 219 (130-400) K/uL BMP 06/01/20 04:47 Sodium 137 Potassium 4.1 Chloride 102 Carbon Dioxide 29 BUN 73 H Creatinine 2.39 H Glucose 146 H Calcium 8.4 L Liver Function 06/01/20 Range/Units 04:47 Total Bilirubin 0.9 (0.2-1) mg/dl Direct Bilirubin 0.3 H (0-0.2) mg/dl AST 94 H (15-37) U/L ALT 190 H (12-78) U/L Alkaline Phosphatase 138 H (45-117) U/L Albumin 2.1 L (3.4-5.0) gm/dl Medications Administered Current Inpatient Medications Acetaminophen (Tylenol) 650 mg PO Q6H PRN PRN Reason: Fever Stop: 07/01/20 05:18 Last Admin: 06/01/20 06:28 Dose: 650 mg Documented by: Acetaminophen/Codeine Phosphate (Tylenol W/Codeine #3) 1 - 2 tab PO Q4H PRN PRN Reason: Moderate-Severe Pain Stop: 06/30/20 13:34 Aspirin (Ecotrin) 650 mg PO DAILY A[facility] Stop: 06/27/20 08:59 Atorvastatin Calcium (Lipitor) 80 mg PO DAILY [facility] Stop: 06/26/20 11:29 Last Admin: 05/31/20 08:31 Dose: 80 mg Documented by: Cyanocobalamin (Vitamin B-12) 250 mcg PO DAILY [facility] Stop: 06/27/20 08:59 Last Admin: 06/01/20 08:21 Dose: 250 mcg Documented by: Dextrose (Dextrose 50%) 25 - 50 ml IV UD PRN; Protocol PRN Reason: Hypoglycemia Protocol Stop: 06/27/20 07:44 Glucagon (Glucagen) 1 mg IM UD PRN; Protocol PRN Reason: Hypoglycemia Protocol Stop: 06/27/20 07:44 Glucose (Glucose 40%) 15 - 30 gm PO UD PRN; Protocol PRN Reason: Hypoglycemia Protocol Stop: 06/27/20 07:44 Glucose (Dex4 Glucose) 4 - 8 tabs PO UD PRN; Protocol PRN Reason: Hypoglycemia Protocol Stop: 06/27/20 07:44 Heparin Sodium (Porcine) (Heparin Sodium (Porcine)) 5,000 units SQ Q12 [facility] Stop: 06/27/20 20:59 Last Admin: 05/30/20 21:19 Dose: 5,000 units Documented by: Hydralazine HCl (Apresoline) 25 mg PO TID [facility] Stop: 06/27/20 13:59 Last Admin: 05/29/20 08:16 Dose: Not Given Documented by: Cefazolin Sodium (Ancef 1000mg) 1,000 mg in 7.5 mls @ 2.5 mls/min IV Q12 [facility]; Protocol Stop: 06/14/20 20:59 Last Admin: 06/01/20 08:28 Dose: 2.5 mls/min Documented by: Insulin Aspart (Novolog Flexpen) 0 units SC ACHS [facility]; Protocol Stop: 06/27/20 11:29 Last Admin: 06/01/20 08:26 Dose: 1 units Documented by: Levothyroxine Sodium (Synthroid) 50 mcg PO DAILYBB [facility] Stop: 06/26/20 11:29 Last Admin: 06/01/20 06:28 Dose: 50 mcg Documented by: Loratadine (Claritin) 10 mg PO QAM [facility] Stop: 07/01/20 08:59 Last Admin: 06/01/20 08:21 Dose: 10 mg Documented by: Magnesium Oxide (Mag-Ox) 400 mg PO DAILY [facility] Stop: 06/26/20 11:29 Last Admin: 05/31/20 09:14 Dose: Not Given Documented by: Miscellaneous (Carbohydrates For Hypoglycemia) 15 - 30 gm PO UD PRN PRN Reason: Hypoglycemia Treatment Stop: 06/27/20 07:44 Miscellaneous Information (Consult Glycemic Management Pharmacy) 1 ea N/A UD PRN PRN Reason: Consult Stop: 06/26/20 10:35 Miscellaneous Information () 1 ea N/A UD PRN PRN Reason: Consult Stop: 06/29/20 09:50 Nitroglycerin (Nitrostat) 0.4 mg SL UD PRN PRN Reason: Chest Pain Stop: 06/26/20 10:31 Ondansetron HCl (Zofran) 4 mg IV Q6H PRN PRN Reason: Nausea Stop: 06/26/20 13:01 Last Admin: 05/30/20 21:16 Dose: 4 mg Documented by: Pantoprazole Sodium (Protonix) 40 mg PO DAILY [facility] Stop: 06/26/20 11:29 Last Admin: 06/01/20 08:21 Dose: 40 mg Documented by: Tamsulosin HCl (Flomax) 0.4 mg PO [facility] Stop: 06/26/20 20:59 Last Admin: 05/31/20 21:42 Dose: 0.4 mg Documented by: Trazodone HCl (Desyrel) 25 mg PO [facility] Stop: 06/26/20 20:59 Last Admin: 05/31/20 21:41 Dose: 25 mg Documented by:
--- NOTE | 2020-06-01 12:07 | Cardiology Progress Note ---
Date of Service June 01, 2020 Assessment & Plan (1) CHB (complete heart block): Status post dual-chamber permanent pacemaker. Blood pressure much improved. Patient suffering from deconditioning, as he has been on bedrest with temporary pacemaker in place for several days. Current antibiotic treatment for E. coli bacteremia. Anemia is a chronic issue for patient. Hgb is however lower today. Given risk for DVT PE, need to resume SQ heparin prophylaxis despite anemia. Will continue to hold ASA. Hold statin due to elevated LFTS. Hold hydralazine as BP improves. Subjective Follow up symptomatic bradycardia. Patient underwent dual-chamber permanent pacemaker yesterday which went well. Blood pressure has been much improved. Creatinine trending toward normal. Review of Systems Review of Systems: All systems reviewed & are unremarkable except as noted in HPI & below Physical Exam Physical Exam: Temp Pulse Resp BP Pulse Ox 36.8 C 85 15 140/68 95 06/01/20 11:39 06/01/20 11:39 06/01/20 11:39 06/01/20 11:39 06/01/20 11:39 Constitutional: WD/WN, vitals as above Respiratory: normal respiratory effort, lungs clear to auscultation Cardiovascular: Rate/Rhythm: regular rate Heart Sounds: + murmur (II/6 systolic murmur heard best at the right sternal border) Vessels: no JVD Right femoral vein access site, clean dry and intact, no hematoma Chest (Breasts): Additional Comments: Left infraclavicular pacemaker pocket clean dry and intact, incision tenderness, no drainage. Gastrointestinal (Abdomen): normal bowel sounds, soft, nontender, no hepatosplenomegaly Neurologic: PERRL, EOMI, accommodation nl, no face palsy, no dysarthria Results & Data Vital Signs (Past 12 Hours) Vital Signs Temp Pulse Pulse Resp BP BP Pulse Ox 06/01/20 11:39 36.8 C 85 15 140/68 95 06/01/20 10:00 78 18 06/01/20 09:00 84 26 H 06/01/20 08:00 86 25 H 06/01/20 07:28 36.7 C 82 18 111/57 L 97 06/01/20 07:00 86 25 H 06/01/20 04:00 38.1 C H 86 26 H 108/66 95 06/01/20 00:00 36.7 C 88 22 142/82 H 96 Laboratory Results Chest x-ray reveals appropriate lead position, no pneumothorax. Post procedure EKG performed 05/31/2020 1424 revealed sinus rhythm with atrial sensing and ventricular paced QRS complexes. Hgb 8.8 down from 9.5 MCV 78.5 Creatinine 2.392.68, prehospital baseline, 1.4 mg /dl
[2020-06-01] MEDS ORDERED: HEPARIN SOD 5,000 UNIT/0.5 ML VIAL SQ STA (12:12)
[2020-06-01] MEDS: INSULIN GLARGINE SOLOSTAR 100 UNITS/ML 3 ML PEN SC SCH (17:05)
[2020-06-01 20:24] LABS: Basophils # (auto) 0.02 K/uL (0-0.2); Basophils % (auto) 0.1 %; Eosinophils % (auto) 2.2 %; Hematocrit (blood only) 27.3 % (42-52); Hemoglobin 8.8 g/dL (14.0-18.0); Immature Granulocytes # (auto) 0.05 K/uL (0.00-0.02); Immature Granulocytes % (auto) 0.4 %; Lymphocytes % (auto) 12.3 %; Mean Corpuscular Hemoglobin 25.3 pg (25-34); Mean Corpuscular Hgb Conc 32.2 g/dL (32-36); Mean Corpuscular Volume 78.4 fL (80-100); Monocytes # (auto) 1.36 K/uL (0.11-0.59); Monocytes % (auto) 9.8 %; Neutrophils # (auto) 10.41 K/uL (1.4-6.5); Neutrophils % (auto) 75.2 %; Platelet Count 243 K/uL (130-400); RDW Standard Deviation 42.5 fL (36.4-46.3); Red Blood Count 3.48 M/uL (4.7-6.1); White Blood Count 13.84 K/uL (4.8-10.8)
[2020-06-01] MEDS: TAMSULOSIN HCL 0.4 MG CAP PO SCH (20:34)
[2020-06-01] MEDS: TRAZODONE HCL 50 MG TAB PO SCH (20:34)
[2020-06-01] MEDS: HEPARIN SOD 5,000 UNIT/0.5 ML VIAL SQ SCH (20:34)
[2020-06-01] MEDS: ONDANSETRON INJ 2 MG/ML 2 ML VIAL IV PRN (20:35)
[2020-06-01] MEDS: cefTRIAXone SODIUM 2,000 MG in DEXTROSE 5% 50 ML IV SCH (20:35)
[2020-06-01 20:42] LABS: Albumin Level 2.2 gm/dl (3.4-5.0); BUN Creatinine Ratio 28.9 (10-20); Calcium 8.8 mg/dl (8.5-10.1); Creatinine Clr Calc Pharmacy 25.6 ml/min; Est GFR (African American) 28.5; Est GFR (Non-African American) 24.6; Potassium 3.8 mmol/L (3.5-5.1)
[2020-06-01 20:45] LABS: Albumin Globulin Ratio 0.4 (0.9-2); Bilirubin,Total 0.6 mg/dl (0.2-1); Globulin 4.9 gm/dl (2.5-4.0); Total Protein 7.1 gm/dl (6.4-8.2)
[2020-06-02 04:54] LABS: Basophils # (auto) 0.02 K/uL (0-0.2); Basophils % (auto) 0.1 %; Eosinophils # (auto) 0.34 K/uL (0-0.5); Eosinophils % (auto) 2.5 %; Hematocrit (blood only) 26.7 % (42-52); Hemoglobin 8.4 g/dL (14.0-18.0); Immature Granulocytes # (auto) 0.05 K/uL (0.00-0.02); Immature Granulocytes % (auto) 0.4 %; Lymphocytes # (auto) 2.15 K/uL (1.2-3.4); Lymphocytes % (auto) 15.6 %; Mean Corpuscular Hemoglobin 24.9 pg (25-34); Mean Corpuscular Hgb Conc 31.5 g/dL (32-36); Mean Corpuscular Volume 79.2 fL (80-100); Mean Platelet Volume 10.5 fL (7.4-10.4); Monocytes # (auto) 1.36 K/uL (0.11-0.59); Monocytes % (auto) 9.9 %; Neutrophils # (auto) 9.84 K/uL (1.4-6.5); Neutrophils % (auto) 71.5 %; Platelet Count 238 K/uL (130-400); RDW Standard Deviation 43.1 fL (36.4-46.3); Red Blood Count 3.37 M/uL (4.7-6.1); White Blood Count 13.76 K/uL (4.8-10.8)
[2020-06-02 05:14] LABS: Albumin Level 2.1 gm/dl (3.4-5.0); BUN Creatinine Ratio 33.3 (10-20); Bilirubin Direct 0.3 mg/dl (0-0.2); Calcium 8.2 mg/dl (8.5-10.1); Creatinine Clr Calc Pharmacy 28.5 ml/min; Est GFR (African American) 32.4; Magnesium 2.4 mg/dl (1.8-2.4); Potassium 3.9 mmol/L (3.5-5.1)
[2020-06-02 05:16] LABS: Bilirubin,Total 0.6 mg/dl (0.2-1)
[2020-06-02] MEDS: LEVOTHYROXINE SODIUM 50 MCG TABLET PO SCH (05:38)
[2020-06-02] MEDS: LORATADINE 10 MG TAB PO SCH (07:41)
[2020-06-02] MEDS: PANTOprazole 40 MG TAB PO SCH (07:41)
[2020-06-02] MEDS: CYANOCOBALAMIN (VITAMIN B-12) 100 MCG TABLET PO SCH (07:41)
[2020-06-02] MEDS: HEPARIN SOD 5,000 UNIT/0.5 ML VIAL SQ SCH ×2 (07:43→20:50)
[2020-06-02] MEDS: INSULIN GLARGINE SOLOSTAR 100 UNITS/ML 3 ML PEN SC SCH (07:43)
[2020-06-02] MEDS: INSULIN ASPART 100 UNITS/ML 3 ML PEN SC SCH ×4 (07:45→20:51)
[2020-06-02 08:19] LABS: Reticulocyte % 1.6 % (0.5-2.0); Reticulocytes # 0.06 10^6/uL (0.02-0.10)
[2020-06-02] MEDS: AMLODIPINE BESYLATE 5 MG TAB PO SCH (08:47)
[2020-06-02] MEDS: METOPROLOL SUCC 25MG EXT REL TAB PO SCH (08:47)
[2020-06-02 09:00] LABS: Ferritin 235.1 ng/ml (8-388)
--- NOTE | 2020-06-02 12:23 | Cardiology Progress Note ---
Date of Service June 02, 2020 Assessment & Plan (1) Third degree heart block: Status post permanent pacemaker 05/31/2020. Incision stable without erythema or drainage. We will arrange interrogation/wound check to be performed 6 to 10 days post procedure as an outpatient. Continue to increase activity as tolerated. Patient still suffering from deconditioning. Resume prior to hospital treatment with metoprolol and amlodipine has history of hypertension and CAD. (2) Heart murmur: Chronic. Moderate aortic stenosis. Monitor. (3) E. coli septicemia: Fever resolved.Repeat cultures negative. Continue rosuvastatin. (4) Acute kidney injury: Likely due to ANT from low BP in setting of sepsis and heart block. Creatinine down to 2.13 today having peaked at 3.23 mg/dl. (5) Iron deficiency anemia: Proceed with Iron sucrose IV today. Subjective Patient feeling better overall, still states that he has some degree of fatigue. Blood pressure stable. Creatinine trending toward improvement. Sinus rhythm in the 70 to 80 bpm range noted without pacing at present on telemetry. Review of Systems Review of Systems: All systems reviewed & are unremarkable except as noted in HPI & below Physical Exam Physical Exam: Temp Pulse Resp BP Pulse Ox 37.3 C 87 24 120/68 90 06/02/20 11:14 06/02/20 11:14 06/02/20 11:14 06/02/20 11:14 06/02/20 11:14 Respiratory: normal respiratory effort, lungs clear to auscultation Cardiovascular: Rate/Rhythm: regular rate and regular rhythm Heart Sounds: + murmur (II/ systolic murmur heard best at right sternal border) Gastrointestinal (Abdomen): normal bowel sounds, soft, nontender, no hepatosplenomegaly Neurologic: PERRL, EOMI, accommodation nl, no face palsy, no dysarthria Results & Data Vital Signs (Past 12 Hours) Vital Signs Temp Pulse Pulse Resp BP BP Pulse Ox 06/02/20 11:14 37.3 C 87 24 120/68 90 06/02/20 11:00 86 21 06/02/20 10:00 94 H 23 06/02/20 09:00 90 23 06/02/20 08:00 105 H 18 06/02/20 07:38 38 C H 100 H 22 127/78 93 06/02/20 07:00 101 H 22 06/02/20 04:00 37.0 C 93 H 25 H 147/74 H 98 Laboratory Results Cardiac Enzymes 06/01/20 06/02/20 Range/Units 20:02 04:36 AST 79 H 65 H (15-37) U/L CBC 06/01/20 06/02/20 Range/Units 20:02 04:36 WBC 13.84 H 13.76 H (4.8-10.8) K/uL RBC 3.48 L 3.37 L (4.7-6.1) M/uL Hgb 8.8 L 8.4 L (14.0-18.0) g/dL Hct 27.3 L 26.7 L (42-52) % Plt Count 243 238 (130-400) K/uL Neut # (Auto) 10.41 H 9.84 H (1.4-6.5) K/uL Lymph # (Auto) 1.70 2.15 (1.2-3.4) K/uL [place] # (Auto) 1.36 H 1.36 H (0.11-0.59) K/uL Eos # (Auto) 0.30 0.34 (0-0.5) K/uL Baso # (Auto) 0.02 0.02 (0-0.2) K/uL Comprehensive Metabolic Panel 06/01/20 06/02/20 Range/Units 20:02 04:36 Sodium 135 L 137 (136-145) mmol/L Potassium 3.8 3.9 (3.5-5.1) mmol/L Chloride 101 102 (98-107) mmol/L Carbon Dioxide 28 28 (21-32) mmol/L BUN 69 H 71 H (7-18) mg/dl Creatinine 2.37 H 2.13 H (0.6-1.4) mg/dl Glucose 141 H 184 H (70-99) mg/dl Calcium 8.8 8.2 L (8.5-10.1) mg/dl Direct Bilirubin 0.3 H (0-0.2) mg/dl AST 79 H 65 H (15-37) U/L ALT 101 H 72 (12-78) U/L Alkaline Phosphatase 149 H 146 H (45-117) U/L Total Protein 7.1 7.0 (6.4-8.2) gm/dl Albumin 2.2 L 2.1 L (3.4-5.0) gm/dl Intake and Output 06/01/20 06/02/20 06/02/20 22:59 06:59 14:59 Intake Total 170 / 740 220 / 740 Output Total 200 / 975 600 / 975 Balance -30 / -235 -380 / -235 Intake: IV 70 / 70 Rocephin 2,000 mg In D5w 50 ml 70 / 70 @ 100 mls/hr IV Q24H [facility] Rx#: [id number] Oral 100 / 670 220 / 670 Output: Urine 200 / 975 600 / 975 Other: # Unmeasured Voids 2 1 Weight 77.5 kg
[2020-06-02] MEDS ORDERED: IRON SUCROSE 200 MG in 0.9 % SODIUM CHLORIDE 100 ML IV ONE (13:00)
--- NOTE | 2020-06-02 13:56 | Pharmacy Report ---
Pharmacy Glycemic Short Note 2 - Date of Service June 02, 2020 - Glycemic Short BSG Results (Last 24 hours): 06/01/20 06/01/20 06/01/20 16:20 20:02 20:32 Glucose 141 H POC Glucose 200 H 177 H 06/02/20 06/02/20 06/02/20 04:36 07:38 11:13 Glucose 184 H POC Glucose 163 H 152 H Outpatient Anti-diabetic Regimen: * Lantus 25 units SC qAM * Novolog 8 units with lunch and 22 units with dinner, plus correction factor of 25 mg/dL/unit (over 150 mg/dL) * Empagliflozin * Glimepiride * Linagliptin-metformin * A1c 8.7% on 05/28/20 Risk Factors for Insulin Resistance: * Bacteremia * Recent Surgery: POD 2 s/p pacemaker insertion * Diet: T2DM ASSESSMENT: 06/02/20: * Patient received 43 units of insulin yesterday: * 28 units of basal and 15 units of bolus * BSGs ranged from 127 - 202 mg/dL * Fasting BSG of 163 mg/dL is above goal. Of note, Lantus was given late yesterday, therefore slight elevation is anticipated. Continue current dose. * Novolog carb ratio was tightened yesterday (from 8 to 7). Will continue for now. I suspect post prandial elevation yesterday may have been partially due to Lantus dose wearing off. 05/31/20 * BSGs elevated much of the day yesterday. These BSGs were mostly reflective of a fasting state. Patient did have 22 units of basal insulin on board. In addition to this, he also received 18 units SQ Novolog correction. BSGs have drifted down to 150s range this AM. Patient is NPO this AM for pacemaker placement at ~1300. Will give half-dose basal this AM while NPO, with plans to give remainder post-op. Will resume increased once daily basal dose tomorrow AM * Will add BSG checks overnight for supplemental correctional insulin should new basal insulin dose fall short. 05/30/20 * BSG again >200 mg/dL at dinner yesterday, but the BSG was obtained early (~1456) thus the Novolog administered at lunch may not have had sufficient time to take effect. But also likely that Novolog parameters may be too loose. Will therefore tighten this AM * AM fasting BSG again >200 mg/dL, but again, the patient consumed CHO overnight last night (two OJ and two apple juice) without insulin coverage. Will add on overnight checks/coverage for ongoing snacking. Will not increase Lantus at this time as still unclear what AM *fasting* BSG would be without snacking overnight and plan is for permanent pacemaker placement tomorrow * Patient still nauseated this AM per RN - anticipate only moderate po intake today 05/29/20 * BSG's ranged 140-167 mg/dL yesterday from breakfast to bedtime. AM fasting BSG this AM elevated to 202 mg/dL, after reduction in Lantus yesterday. However, this increase is not likely to be solely due to reduced Lantus dose because the patient ate crackers from his son at around 0000 last night that were not covered with insulin (per Talia, RN) * Nausea/vomiting noted yesterday at dinner. Today, patient did consume irena amara for breakfast * OK to cautiously increase Lantus, but not to the amount that caused minor h ypoglycemic event on overnight 05/27 to 05/28 * No change to Novolog at this time - CHO ratio seems appropriate based on trend yesterday. Adequacy of correction factor can be assessed based on breakfast to lunch BSG as this will be the first time significant correctional insulin has been administered PLAN FOR INPATIENT GLYCEMIC CONTROL: * Continue to hold outpatient oral diabetes medications * Basal insulin * Continue Lantus 28 units daily * Bolus insulin * NovoLog ACHS and at 0200 tonight * Goal Range: Low 110 mg/dL - High 140 mg/dL * Correction Factor: 20 mg/dL/unit * Nutritional / Prandial insulin per carb ratio of 1 unit per 7 grams CHO consumed
--- NOTE | 2020-06-02 13:57 | Hospitalist Progress Note ---
Date of Service June 02, 2020 Assessment & Plan (1) E. coli septicemia: Clinically improved on current antibiotic therapy. Recent toe injury causing open traumatic ulcer on right great toe in this diabetic patient with neuropathy. Consider this may be a source. ID was notified. Prostatitis may be another consideration. Improving on current antibiotic therapy. I did notice an isolated elevation in temp overnight and repeated blood cultures (neg so far) and changed abx back to ceftriaxone. He is clinically improved with no further fever since this morning. . (2) Third degree heart block: s/p pacemaker placement and doing well post-operatively. (3) Acute diastolic (congestive) heart failure: Compensated. Oxygenation has improved/hypoxia resolved. No further diuresis at this point. (4) Elevated LFTs: Resolving, Possible related to hypoperfusion in sepsis. No RUQ pain on exam. EBV considered as an etiology as it can cause elevations in LFTs, fever, fatigue and heart block. Monospot negative, EBV serologies reflect prior infection, but not active infection. Acute hepatitis panel requested and negative. US liver negative. (5) Sepsis: initially resolved, but now may be developing a second wave with tachycardia, persistent fever, and increased RR and fatigue/malaise today. (6) ATN (acute tubular necrosis): h/o CKD Stage III at baseline. Likely secondary to prolonged illness and hypoperfusion of the kidneys in the setting of bradycardia and low blood pressure, therefore, possible ATN. Cont to monitor BMP and avoid nephrotoxic agents when able. Renally dose meds when appropriate. Renal function has plateaued. ATN possible per Nephro. Monitor daily BMP. (7) DMII (diabetes mellitus, type 2): Cont basal with correction factor and carb coverage. Continue management per glycemic pharmacist. A1C reflects poor control 8.7. This is complicated by diabetic polyneuroppathy. (8) DVT prophylaxis: Heparin Full Code Dispo-transferred from ICU to PCU monitoring on 05/31 Flores Richardson DO [facility] Hospitalist Admission and Anticipated Discharge Date Admission Date: May 27, 2020 Subjective periodic fever over past 36 hours. He was becoming tachycardic last night with some increased work of breathing. Out of concern for re-emerging infection since switching to cefazolin, repeat blood cultures were drawn and prelimiary reading is clear. Labwork was drawn with no changes. Furthermore, his cefazolin was changed to ceftriaxone. He appears brighter today. Daughter at bedisde and answered her questions for 20 minutes or so. During this time i heard him cough twice, which he said he began doing yesterday. He also fell asleep multiple times. Daughter was very concerned he was delirious which is not the case as he is oriented x 3 and is following my instructions. Pt reports no pain of significance. Review of Systems Review of Systems: All systems reviewed & are unremarkable except as noted in Subjective Physical Exam Physical Exam: CONSTITUTIONAL: WNWD, vitals as above, generally well- appearing but fatigued EYES: pupils are equal and round bilaterally, normal conjunctivae, no scleral icterus ENT: external ear and nose normal, MMM RESPIRATORY: some coarse crackles heard at the bases, otherwise clear throughout, no rales or wheezes, normal respiratory effort CHEST WALL: New Pacer pocket created with device in place. Covered with gauze that is c/d/i. No pocket seroma seen. CARDIOVASCULAR: regular rate and rhythm, S1 and 2 heard without murmurs, gallops or rubs, no JVD, no peripheral edema GASTROINTESTINAL: soft, nontender, nondistended MUSCULOSKELETAL: generalized weakness. head is normocephalic and atraumatic SKIN: warm and dry, closed ulceration on right great toe. NEUROLOGIC: No facial palsy, no dysarthria. CN 2-12 grossly intact, normal speech, no gross focal neuro deficits. PSYCHIATRIC: alert and appropriate Results & Data Results & Data ([facility]) Vital Signs (Past 12 Hours) Vital Signs Temp Pulse Pulse Resp BP BP Pulse Ox 06/02/20 12:30 87 21 06/02/20 12:00 88 23 06/02/20 11:30 88 21 06/02/20 11:14 37.3 C 87 24 120/68 90 06/02/20 11:00 86 21 06/02/20 10:00 94 H 23 06/02/20 09:00 90 23 06/02/20 08:00 105 H 18 06/02/20 07:38 38 C H 100 H 22 127/78 93 06/02/20 07:00 101 H 22 06/02/20 04:00 37.0 C 93 H 25 H 147/74 H 98 Laboratory Results Short CBC 08/01/20 08/02/20 Range/Units 20:02 04:36 WBC 13.84 H 13.76 H (4.8-10.8) K/uL Hgb 8.8 L 8.4 L (14.0-18.0) g/dL Hct 27.3 L 26.7 L (42-52) % Plt Count 243 238 (130-400) K/uL BMP 06/01/20 06/02/20 20:02 04:36 Sodium 135 L 137 Potassium 3.8 3.9 Chloride 101 102 Carbon Dioxide 28 28 BUN 69 H 71 H Creatinine 2.37 H 2.13 H Glucose 141 H 184 H Calcium 8.8 8.2 L Liver Function 06/01/20 06/02/20 Range/Units 20:02 04:36 Total Bilirubin 0.6 0.6 (0.2-1) mg/dl Direct Bilirubin 0.3 H (0-0.2) mg/dl AST 79 H 65 H (15-37) U/L ALT 101 H 72 (12-78) U/L Alkaline Phosphatase 149 H 146 H (45-117) U/L Albumin 2.2 L 2.1 L (3.4-5.0) gm/dl Medications Administered Current Inpatient Medications Acetaminophen (Tylenol) 650 mg PO Q6H PRN PRN Reason: Fever Stop: 07/01/20 05:18 Last Admin: 06/01/20 06:28 Dose: 650 mg Documented by: Acetaminophen/Codeine Phosphate (Tylenol W/Codeine #3) 1 - 2 tab PO Q4H PRN PRN Reason: Moderate-Severe Pain Stop: 06/30/20 13:34 Amlodipine [facility] ([facility]) [facility] [place]: 07/02/20 08:59 Last Admin: 06/02/20 08:47 Dose: 2.5 mg Documented by: Aspirin (Ecotrin) 650 mg PO DAILY [facility] Stop: 06/27/20 08:59 Atorvastatin Calcium (Lipitor) 80 mg PO DAILY [facility] Stop: 06/26/20 11:29 Last Admin: 05/31/20 08:31 Dose: 80 mg Documented by: Cyanocobalamin (Vitamin B-12) 250 mcg PO DAILY [facility] Stop: 06/27/20 08:59 Last Admin: 06/02/20 07:41 Dose: 250 mcg Documented by: Dextrose (Dextrose 50%) 25 - 50 ml IV UD PRN; Protocol PRN Reason: Hypoglycemia Protocol Stop: 06/27/20 07:44 Glucagon (Glucagen) 1 mg IM UD PRN; Protocol PRN Reason: Hypoglycemia Protocol Stop: 06/27/20 07:44 Glucose (Glucose 40%) 15 - 30 gm PO UD PRN; Protocol PRN Reason: Hypoglycemia Protocol Stop: 06/27/20 07:44 Glucose (Dex4 Glucose) 4 - 8 tabs PO UD PRN; Protocol PRN Reason: Hypoglycemia Protocol Stop: 06/27/20 07:44 Heparin Sodium (Porcine) (Heparin Sodium (Porcine)) 5,000 units SQ Q12 [facility] Stop: 07/01/20 20:59 Last Admin: 06/02/20 07:43 Dose: 5,000 units Documented by: Ceftriaxone Sodium 2,000 mg/ (Dextrose) 70 mls @ 100 mls/hr IV Q24H [facility]; Protocol Stop: 06/15/20 19:59 Last Infusion: 06/01/20 21:17 Dose: Infused Documented by: Insulin Aspart (Novolog Flexpen) 0 units SC ACHS [facility]; Protocol Stop: 06/27/20 11:29 Last Admin: 06/02/20 12:32 Dose: 1 units Documented by: Insulin Glargine (Lantus Solostar Pen) 28 units SC DAILY [facility]; Protocol Stop: 07/01/20 15:29 Last Admin: 06/02/20 07:43 Dose: 28 units Documented by: Levothyroxine Sodium (Synthroid) 50 mcg PO DAILYBB [facility] Stop: 06/26/20 11:29 Last Admin: 06/02/20 05:38 Dose: 50 mcg Documented by: Loratadine (Claritin) 10 mg PO QAM [facility] Stop: 07/01/20 08:59 Last Admin: 06/02/20 07:41 Dose: 10 mg Documented by: Magnesium Oxide (Mag-Ox) 400 mg PO DAILY [facility] Stop: 06/26/20 11:29 Last Admin: 05/31/20 09:14 Dose: Not Given Documented by: Metoprolol Succinate (Toprol Xl) 25 mg PO QAM [facility] Stop: 07/02/20 08:59 Last Admin: 06/02/20 08:47 Dose: 25 mg Documented by: Miscellaneous (Carbohydrates For Hypoglycemia) 15 - 30 gm PO UD PRN PRN Reason: Hypoglycemia Treatment Stop: 06/27/20 07:44 Miscellaneous Information (Consult Glycemic Management Pharmacy) 1 ea N/A UD PRN PRN Reason: Consult Stop: 06/26/20 10:35 Nitroglycerin (Nitrostat) 0.4 mg SL UD PRN PRN Reason: Chest Pain Stop: 06/26/20 10:31 Ondansetron HCl (Zofran) 4 mg IV Q6H PRN PRN Reason: Nausea Stop: 06/26/20 13:01 Last Admin: 06/01/20 20:35 Dose: 4 mg Documented by: Pantoprazole Sodium (Protonix) 40 mg PO DAILY [facility] Stop: 06/26/20 11:29 Last Admin: 06/02/20 07:41 Dose: 40 mg Documented by: Tamsulosin HCl (Flomax) 0.4 mg PO HS [facility] Stop: 06/26/20 20:59 Last Admin: 06/01/20 20:34 Dose: 0.4 mg Documented by: Trazodone HCl (Desyrel) 25 mg PO HS [facility] Stop: 06/26/20 20:59 Last Admin: 06/01/20 20:34 Dose: 25 mg Documented by:
--- NOTE | 2020-06-02 18:26 | Progress Notes ---
DATE: 06/02/2020 SUBJECTIVE: The patient feels good. He denies any nausea, vomiting, chest pain, shortness of breath. Permanent pacemaker is working good. Vital signs appears good. He is making lots of urine without Rodriguez. OBJECTIVE: VITAL SIGNS: Blood pressure is 114/62, pulse rate 78, temperature 37.1, 92% on 2 liter nasal cannula. HEENT: Mucous membrane moist. NECK: Supple. No jugular venous distention. CHEST: Bilateral clear to auscultation. CARDIOVASCULAR: S1, S2 regular. ABDOMEN: Soft, nontender. EXTREMITIES: Shows no edema. LABORATORY TESTS: From today was reviewed and kidney function continues to get better slowly. ASSESSMENT AND PLAN: An 84-year-old male who was admitted with severe symptomatic bradycardia secondary to complete heart block which then caused acute renal failure with hyperkalemia. He also had E. coli bacteremia/sepsis. Acute renal failure secondary to combination of symptomatic bradycardia, hypotension from complete heart block as well as bacteremia. Renal function is slowly getting better. Given that he is an 84-year-old with 25+ years of diabetes, renal recovery will be somewhat slow, but at least it is getting better. He does not appear to be in any fluid overload, congestive heart failure or any major electrolyte issues. Continue same.
[2020-06-02] MEDS: cefTRIAXone SODIUM 2,000 MG in DEXTROSE 5% 50 ML IV SCH (20:49)
[2020-06-02] MEDS: TRAZODONE HCL 50 MG TAB PO SCH (20:50)
[2020-06-02] MEDS: TAMSULOSIN HCL 0.4 MG CAP PO SCH (20:50)
[2020-06-03] MEDS: LEVOTHYROXINE SODIUM 50 MCG TABLET PO SCH (04:58)
[2020-06-03 07:03] LABS: Hematocrit (blood only) 25.3 % (42-52); Hemoglobin 8.2 g/dL (14.0-18.0); Mean Corpuscular Hemoglobin 25.2 pg (25-34); Mean Corpuscular Hgb Conc 32.4 g/dL (32-36); Mean Corpuscular Volume 77.6 fL (80-100); Mean Platelet Volume 10.2 fL (7.4-10.4); Platelet Count 262 K/uL (130-400); RDW Standard Deviation 42.3 fL (36.4-46.3); Red Blood Count 3.26 M/uL (4.7-6.1); White Blood Count 13.07 K/uL (4.8-10.8)
[2020-06-03 07:40] LABS: Albumin Level 1.9 gm/dl (3.4-5.0); BUN Creatinine Ratio 32.7 (10-20); Calcium 8.4 mg/dl (8.5-10.1); Est GFR (African American) 34.6; Est GFR (Non-African American) 29.8; Magnesium 2.4 mg/dl (1.8-2.4); Potassium 4.1 mmol/L (3.5-5.1)
[2020-06-03 07:43] LABS: Albumin Globulin Ratio 0.4 (0.9-2); Bilirubin,Total 0.6 mg/dl (0.2-1); Globulin 4.6 gm/dl (2.5-4.0); Total Protein 6.5 gm/dl (6.4-8.2)
[2020-06-03] MEDS: INSULIN GLARGINE SOLOSTAR 100 UNITS/ML 3 ML PEN SC SCH (08:12)
[2020-06-03] MEDS: INSULIN ASPART 100 UNITS/ML 3 ML PEN SC SCH ×4 (08:12→21:08)
[2020-06-03] MEDS: CYANOCOBALAMIN (VITAMIN B-12) 100 MCG TABLET PO SCH (08:13)
[2020-06-03] MEDS: AMLODIPINE BESYLATE 5 MG TAB PO SCH (08:13)
[2020-06-03] MEDS: PANTOprazole 40 MG TAB PO SCH (08:13)
[2020-06-03] MEDS: METOPROLOL SUCC 25MG EXT REL TAB PO SCH (08:13)
[2020-06-03] MEDS: LORATADINE 10 MG TAB PO SCH (08:13)
[2020-06-03] MEDS: HEPARIN SOD 5,000 UNIT/0.5 ML VIAL SQ SCH ×2 (08:14→21:07)
--- NOTE | 2020-06-03 10:12 | Nephrology Progress Note ---
Date of Service June 03, 2020 Assessment & Plan (1) ATN (acute tubular necrosis): Patient with acute kidney injury on CKD. He has baseline CKD stage III and creatinine of 1.4 at baseline. He was admitted with E. coli bacteremia and acute kidney injury due to ATN. Renal function is improving with a creatinine of 2 today. Electrolytes are stable and no signs of volume overload. -Monitor with daily BMP -Monitor input output. (2) Iron deficiency anemia: Due to bacteremia and renal disease. Hemoglobin of 8.2. Monitor and transfuse as needed. Patient will likely need Procrit but this can be done as an outpatient. (3) E. coli septicemia: Continue ceftriaxone per primary team. Renally dose antibiotics for current GFR. Admission and Anticipated Discharge Date Admission Date: May 27, 2020 Subjective He feels better today denies any shortness of breath or pain. No urinary symptoms. Creatinine is downtrending to 2 today Review of Systems Review of Systems: All systems reviewed & are unremarkable except as noted in HPI & below Physical Exam Physical Exam: General exam: Appears comfortable, no acute distress HEENT: Pupils are equal and reactive to light Neck: No JVD, neck is supple trachea is midline Respiratory system: Clear breath sounds bilaterally. Gastrointestinal: Abdomen is soft, non distended, non tender, bowel sounds are present CVS: Regular rate and rhythm. No murmurs, rubs or gallops Musculoskeletal: No joint or muscle tenderness Extremities: Non tender, no edema, peripheral pulses are present Neuro: Oriented, no tremors, no focal neurological deficits Skin: No rashes Results & Data ([facility]) Vital Signs (Past 12 Hours) Vital Signs Temp Pulse Resp BP Pulse Ox 06/03/20 07:36 36.5 C 72 18 118/62 96 06/03/20 03:52 36.9 C 79 19 100/62 94 06/02/20 23:32 37.1 C 66 19 120/66 93 Laboratory Results 06/03/20 06:47 06/03/20 06/03/20 06:47 06:47 WBC 13.07 H RBC 3.26 L MCV 77.6 L MCH 25.2 MCHC 32.4 RDW Std Deviation 42.3 RDW Coeff of Naren 15.0 H Plt Count 262 MPV 10.2 Albumin 1.9 L
--- NOTE | 2020-06-03 11:00 | Cardiology Progress Note ---
Date of Service June 03, 2020 Assessment & Plan (1) E. coli septicemia: Patient presented with fever, E. coli bacteremia. He had a recurrent fever of 38 C on 06/02/2020 at 7:38 AM. This prompted transition back to ceftriaxone intravenously, and repeat cultures are negative thus far. Although patient is eager for discharge, I believe we need to continue IV antibiotics for now and await culture results, in the meantime increase his activity with physical therapy. (2) CHB (complete heart block): Patient underwent dual-chamber permanent pacemaker on 05/31/2020 at which time he had been afebrile, with negative repeat cultures after receiving several days of IV antibiotics. As per previous plan, his dressing was removed today, and per Dr aNir's wound care instructions, this can be left open to air at this point. Patient is tentatively scheduled for wound check and device interrogation on 06/12/2020, Bhargavi Vasquez, 1 PM A post hospital cardiology follow-up with Felice Riggins PA-C of our practice is scheduled for 06/19/2020, 3 PM, Bhargavi Vasquez. (3) Elevated LFTs: AST, ALT continue to improve, alkaline phosphatase remains mildly elevated. (4) Heart murmur: Chronic finding. History of mild aortic valve stenosis on previous echocardiogram 2018, unchanged on echocardiogram this admission. (5) Iron deficiency anemia: History of chronic anemia. Hemoglobin in the range of 8.2-8.8 for several days. Received Venofer IV iron yesterday 06/02/2020.Proceed with oral replacement. (6) Acute kidney injury: Creatinine peaked at 3.23 this admission, down to 2.02 today. Electrolytes stable. DVT prophylaxis: Continue subcutaneous heparin Subjective Patient seen in follow-up of symptomatic bradycardia for which he underwent implantation of dual-chamber pacemaker this hospital stay on 05/31/2020, and history of mild aortic valve stenosis, chronic coronary heart disease. He notes feeling well. His blood pressure and heart rate are stable. Telemetry reveals sinus rhythm with ventricular pacing in the range of 70 to 80 bpm. He states that he feels stronger today, and he is eager for discharge. Review of Systems Review of Systems: All systems reviewed & are unremarkable except as noted in HPI & below Physical Exam Physical Exam: Temp Pulse Resp BP Pulse Ox 36.5 C 72 18 118/62 96 08/03/20 07:36 06/03/20 07:36 06/03/20 07:36 06/03/20 07:36 06/03/20 07:36 Constitutional: WD/WN, vitals as above Respiratory: normal respiratory effort, lungs clear to auscultation Cardiovascular: Rate/Rhythm: regular rate and regular rhythm Heart Sounds: + murmur (II/ systolic murmur heard best at right sternal border) Vessels: no JVD Extremities: no edema Chest (Breasts): Additional Comments: Left infraclavicular pacemaker pocket clean dry and intact, mild ecchymosis around the incision, no drainage, no erythema. Gastrointestinal (Abdomen): normal bowel sounds, soft, nontender, no hepatosplenomegaly Neurologic: PERRL, EOMI, accommodation nl, no face palsy, no dysarthria Results & Data Vital Signs (Past 12 Hours) Vital Signs Temp Pulse Resp BP Pulse Ox 06/03/20 07:36 36.5 C 72 18 118/62 96 06/03/20 03:52 36.9 C 79 19 100/62 94 06/02/20 23:32 37.1 C 66 19 120/66 93 Laboratory Results Cardiac Enzymes 06/03/20 Range/Units 06:47 AST 55 H (15-37) U/L CBC 06/03/20 Range/Units 06:47 WBC 13.07 H (4.8-10.8) K/uL RBC 3.26 L (4.7-6.1) M/uL Hgb 8.2 L (14.0-18.0) g/dL Hct 25.3 L (42-52) % Plt Count 262 (130-400) K/uL Comprehensive Metabolic Panel 06/03/20 Range/Units 06:47 Sodium 136 (136-145) mmol/L Potassium 4.1 (3.5-5.1) mmol/L Chloride 101 (98-107) mmol/L Carbon Dioxide 29 (21-32) mmol/L BUN 66 H (7-18) mg/dl Creatinine 2.02 H (0.6-1.4) mg/dl Glucose 93 (70-99) mg/dl Calcium 8.4 L (8.5-10.1) mg/dl AST 55 H (15-37) U/L ALT 45 (12-78) U/L Alkaline Phosphatase 140 H (45-117) U/L Total Protein 6.5 (6.4-8.2) gm/dl Albumin 1.9 L (3.4-5.0) gm/dl Intake and Output 06/02/20 06/03/20 06/03/20 22:59 06:59 14:59 Intake Total 160 / 690 170 / 690 Balance 160 / 690 170 / 690 Intake: IV 70 / 180 Rocephin 2,000 mg In D5w 50 ml 70 / 70 @ 100 mls/hr IV Q24H [facility] Rx#: [id number] Oral 160 / 510 100 / 510 Other: # Unmeasured Voids 1 1 Weight 78 kg
--- NOTE | 2020-06-03 14:38 | Pharmacy Report ---
Pharmacy Glycemic Short Note 2 - Date of Service June 03, 2020 - Glycemic Short BSG Results (Last 24 hours): 06/02/20 06/02/20 06/03/20 16:16 20:20 06:47 Glucose 93 POC Glucose 181 H 170 H 06/03/20 06/03/20 08:06 11:24 Glucose POC Glucose 185 H 208 H Outpatient Anti-diabetic Regimen: * Lantus 25 units SC qAM * Novolog 8 units with lunch and 22 units with dinner, plus correction factor of 25 mg/dL/unit (over 150 mg/dL) * Empagliflozin * Glimepiride * Linagliptin-metformin * A1c 8.7% on 05/28/20 Risk Factors for Insulin Resistance: * Bacteremia * Recent Surgery: POD 2 s/p pacemaker insertion * Diet: T2DM ASSESSMENT: 06/03: * Patient received 40 units of insulin yesterday: * 28 units basal + 12 units bolus * BSGs ranged from 152 - 181 mg/dL * Fasting BSG of 185 is above goal. Will slightly increase patient's basal dose despite poor appetite given trend upwards in fasting BSGs. * Lunchtime BSG was 208 mg/dL. Will tighten correction factor to account for hyperglycemia. 06/02/20: * Patient received 43 units of insulin yesterday: * 28 units of basal and 15 units of bolus * BSGs ranged from 127 - 202 mg/dL * Fasting BSG of 163 mg/dL is above goal. Of note, Lantus was given late yesterday, therefore slight elevation is anticipated. Continue current dose. * Novolog carb ratio was tightened yesterday (from 8 to 7). Will continue for now. I suspect post prandial elevation yesterday may have been partially due to Lantus dose wearing off. PLAN FOR INPATIENT GLYCEMIC CONTROL: * Continue to hold outpatient oral diabetes medications * Basal insulin - increased * Continue Lantus 30 units daily * Bolus insulin - tightened CF * NovoLog ACHS and at 0200 tonight * Goal Range: Low 110 mg/dL - High 140 mg/dL * Correction Factor: 15 mg/dL/unit * Nutritional / Prandial insulin per carb ratio of 1 unit per 7 grams CHO consumed
[2020-06-03] MEDS: FERROUS FUMARATE/ASCORBIC ACID 65 MG CAPCR PO SCH (15:23)
--- NOTE | 2020-06-03 17:32 | XRay Report ---
XR toe(s) RT min 2V HISTORY: 84 years-old Male ulcer right great toe, sepsis, r/o osteo soft tissue ulcer of the right g reat toe COMPARISON: None TECHNIQUE: 2 views of the right great toe FINDINGS: Soft tissue ulcer of the medial distal right great toe. 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 No acute fracture, dislocation, opaque foreign body or osseous erosion to suggest osteomyelitis. IMPRESSION: No acute fracture or radiographic evidence of osteomyelitis. ACT 112: Negative or not required by law. The above report was generated using voice recognition software. It may contain grammatical, syntax o r spelling errors. Electronically signed by: Tc Clifton M.D. 06/03/2020 5:30 PM
[2020-06-03] MEDS: cefTRIAXone SODIUM 2,000 MG in DEXTROSE 5% 50 ML IV SCH (21:06)
[2020-06-03] MEDS: TAMSULOSIN HCL 0.4 MG CAP PO SCH (21:07)
[2020-06-03] MEDS: TRAZODONE HCL 50 MG TAB PO SCH (21:53)
--- NOTE | 2020-06-03 22:49 | Hospitalist Progress Note ---
Date of Service June 03, 2020 Assessment & Plan (1) Sepsis: Met criteria for severe sepsis + septic shock (due to lactate > 4) per current CMS definition. Serum lactate elevated at 6.7 and followed. Blood culture obtained. Received broad spectrum antibiotic therapy. Systolic BP's as low mid 90's, generally > 100. Received fluid resuscitation. Blood cultures grew E coli as discussed below. (2) Gram-negative bacteremia: Presented with severe sepsis. 2 out of 2 blood cultures grew E coli. Source uncertain. UA benign and urine culture negative. No apparent intestinal or biliary tract pathology on imaging. Healed ulcer distal right great toe- check x-rays to rule out occult osteomyelitis. Intermittent low grade temps. Repeat blood cultures on 05/28 and 06/01 negative so far. Check follow-up ESR, CRP, procalcitonin. Continue ceftriaxone. (3) Complete heart block: 3rd degree heart block with bradycardia at time of admission. Lyme screen negative. Hyperkalemia, but heart block persisted after correction. On metoprolol, but heart block persisted when it was held. Temporary pacemaker placed by Cardiology. Permanent pacemaker recommended when temps down and repeat blood cultures negative- placed 05/31. (4) Elevated troponin level: Serum troponin as high as 3.6. Echo showed normal LV wall motion and systolic function. Doubt acute coronary syndrome. Elevated troponin probably secondary to sepsis. (5) Hypertension: Hemodynamically stable. Continue metoprolol and amlodipine. (6) Acute kidney injury: Serum creatinine 2.73 at time of admission and thiago as high as 3.23. Nephrology consulted. Acute kidney injury due to ATN from sepsis and / or heart block. Creatinine today = 2.02. Follow. (7) Hyperkalemia: Serum K 6.4 at time of admission. Hyperkalemia probably due to GWEN. K today = 4.1. (8) Abnormal liver function tests: AST as high as 741, ALT as high as 689. Bilirubin normal. Alk phos slightly elevated. No apparent hepatic or biliary tract abnormalities on imaging. Elevated LFT's probably due to heart block with decreased cardiac output and/or sepsis. LFT's normalized. (9) Diabetes mellitus type 2, controlled: Hemoglobin A1c 8.7. Continue Lantus + NovoLog. (10) Iron deficiency anemia: Hgb today = 8.2. Follow. (11) Altered mental status: Daughter has noted confusion. 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 Today, oriented to person, place, year, but not day of week. Able to name president. Had difficulty with serial 7's and months of year backwards (only able to answer first 3 correctly for both). Probable metabolic encephalopathy / delirium secondary to sepsis. Continue to monitor. (12) DVT prophylaxis: SQ heparin. Ambulate. (13) Discharge planning issues: Poor functional status. Anticipated need for inpatient rehab. Family Medicine follow-up with Dr. Brown. Admission and Anticipated Discharge Date Admission Date: May 27, 2020 Subjective Recheck for multiple problems. Patient seen in their room around 1210; daughter visiting. Overall, feels better but still weak. Low grade temp yesterday morning. Minimal pain at pacemaker site. Daughter concerned about confusion. Review of Systems: Constitutional- no fever. Cardiac- no chest pain. Pulmonary- no cough or SOB. GI- no nausea, vomiting, diarrhea, melena, hematochezia. - no urinary symptoms. Otherwise, as noted above. Physical Exam Constitutional: no acute distress Respiratory: no respiratory distress Auscultation: lungs clear to auscultation bilaterally Cardiovascular: Rate/Rhythm: regular rate and regular rhythm Heart Sounds: + murmur (III/ sys murmur at base); no gallop and no cardiac rub Vessels: no JVD Extremities: no calf tenderness and no edema Chest (Breasts): Chest: + pacemaker (incision without erythema or drainage) Gastrointestinal (Abdomen): normal bowel sounds, soft, nontender, no hepatosplenomegaly Musculoskeletal: Extremities: + foot abnormality (healed ulceration distal right great toe without erythema or drainage); no cyanosis Skin: no rashes, warm and dry Psychiatric: Orientation: alert; + not oriented x 3 (oriented to person, place, year, president; not day of week) Cognition: + attention not intact (difficulty with serial 7's and months backwards) Results & Data Results & Data ([facility]) Vital Signs (Past 12 Hours) Vital Signs Temp Pulse Resp BP Pulse Ox 06/03/20 19:18 36.8 C 77 18 114/69 94 06/03/20 17:04 95 06/03/20 15:29 36.8 C 88 20 114/64 92 06/03/20 12:24 37.0 C 86 18 110/68 96 Laboratory Results 06/03/20 06:47 06/03/20 06:47 Microbiology 06/01/20 20:02 Blood Aerobic Blood Culture - Preliminary No growth in Aerobic bottle after 48 hours. 06/01/20 20:02 Blood Anaerobic Blood Culture - Preliminary No growth in Anaerobic bottle after 48 hours. 06/01/20 20:07 Blood Aerobic Blood Culture - Preliminary No growth in Aerobic bottle after 48 hours. 06/01/20 20:07 Blood Anaerobic Blood Culture - Preliminary No growth in Anaerobic bottle after 48 hours. 05/28/20 11:33 Blood Aerobic Blood Culture - Final No growth in Aerobic bottle after 5 days. 05/28/20 11:33 Blood Anaerobic Blood Culture - Final No growth in Anaerobic bottle after 5 days. 05/28/20 11:34 Blood Aerobic Blood Culture - Final No growth in Aerobic bottle after 5 days. 05/28/20 11:34 Blood Anaerobic Blood Culture - Final No growth in Anaerobic bottle after 5 days. 05/28/20 14:30 Stool WBC Smear - Final 05/28/20 14:30 Stool Escherichia coli Shiga Toxins Test - Final 05/28/20 14:30 Stool Stool Culture - Final No Salmonella isolated, No Shigella isolated, No Campylobacter jejuni isolated. 05/28/20 11:55 Urine,Clean Catch Urine Culture - Final No growth - less than 1,000 colonies/mL. 05/27/20 05:45 Blood Aerobic Blood Culture - Final Escherichia coli 05/27/20 05:45 Blood Anaerobic Blood Culture - Final Escherichia coli 05/27/20 05:37 Blood Aerobic Blood Culture - Final Escherichia coli 05/27/20 05:37 Blood Anaerobic Blood Culture - Final Escherichia coli
[2020-06-04] MEDS: LEVOTHYROXINE SODIUM 50 MCG TABLET PO SCH (05:50)
[2020-06-04 06:27] LABS: Basophils # (auto) 0.04 K/uL (0-0.2); Basophils % (auto) 0.3 %; Eosinophils # (auto) 0.33 K/uL (0-0.5); Eosinophils % (auto) 2.4 %; Hematocrit (blood only) 28.9 % (42-52); Hemoglobin 9.3 g/dL (14.0-18.0); Immature Granulocytes # (auto) 0.06 K/uL (0.00-0.02); Immature Granulocytes % (auto) 0.4 %; Lymphocytes # (auto) 2.14 K/uL (1.2-3.4); Lymphocytes % (auto) 15.8 %; Mean Corpuscular Hemoglobin 25.3 pg (25-34); Mean Corpuscular Hgb Conc 32.2 g/dL (32-36); Mean Corpuscular Volume 78.7 fL (80-100); Mean Platelet Volume 10.5 fL (7.4-10.4); Monocytes # (auto) 0.98 K/uL (0.11-0.59); Monocytes % (auto) 7.2 %; Neutrophils # (auto) 10.01 K/uL (1.4-6.5); Neutrophils % (auto) 73.9 %; Platelet Count 353 K/uL (130-400); RDW Coefficient of Variation 15.3 % (11.5-14.5); RDW Standard Deviation 43.5 fL (36.4-46.3); Red Blood Count 3.67 M/uL (4.7-6.1); White Blood Count 13.56 K/uL (4.8-10.8)
[2020-06-04 07:15] LABS: Albumin Globulin Ratio 0.4 (0.9-2); BUN Creatinine Ratio 34.7 (10-20); Bilirubin Direct 0.3 mg/dl (0-0.2); Bilirubin,Total 0.6 mg/dl (0.2-1); C Reactive Protein 8.86 mg/dl (0-0.29); Calcium 8.7 mg/dl (8.5-10.1); Creatinine Clr Calc Pharmacy 31.1 ml/min; Est GFR (African American) 36.1; Est GFR (Non-African American) 31.1; Globulin 5.2 gm/dl (2.5-4.0); Potassium 5.5 mmol/L (3.5-5.1); Total Protein 7.2 gm/dl (6.4-8.2)
[2020-06-04] MEDS: INSULIN ASPART 100 UNITS/ML 3 ML PEN SC SCH ×4 (08:22→21:28)
[2020-06-04] MEDS: HEPARIN SOD 5,000 UNIT/0.5 ML VIAL SQ SCH ×2 (08:23→21:27)
[2020-06-04] MEDS: LORATADINE 10 MG TAB PO SCH (08:23)
[2020-06-04] MEDS: AMLODIPINE BESYLATE 5 MG TAB PO SCH (08:24)
[2020-06-04] MEDS: FERROUS FUMARATE/ASCORBIC ACID 65 MG CAPCR PO SCH (08:24)
[2020-06-04] MEDS: METOPROLOL SUCC 25MG EXT REL TAB PO SCH (08:24)
[2020-06-04] MEDS: CYANOCOBALAMIN (VITAMIN B-12) 100 MCG TABLET PO SCH (08:25)
[2020-06-04] MEDS: PANTOprazole 40 MG TAB PO SCH (08:25)
[2020-06-04] MEDS ORDERED: INSULIN GLARGINE SOLOSTAR 100 UNITS/ML 3 ML PEN SC SCH (09:00)
--- NOTE | 2020-06-04 09:47 | Pharmacy Report ---
Pharmacy Glycemic Short Note 2 - Date of Service June 04, 2020 - Glycemic Short BSG Results (Last 24 hours): Outpatient Anti-diabetic Regimen: * Lantus 25 units SC qAM * Novolog 8 units with lunch and 22 units with dinner, plus correction factor of 25 mg/dL/unit (over 150 mg/dL) * Empagliflozin 10 mg PO QAM * Glimepiride 1 mg PO QAM * Linagliptin-metformin 5-1000 mg PO QAM * A1c 8.7% on 05/28/20 Risk Factors for Insulin Resistance: * Bacteremia * Recent Surgery: POD 4 s/p pacemaker insertion * Diet: T2DM ASSESSMENT: 06/04: * Patient received 42 units of insulin yesterday: * 28 units basal + 14 units bolus * BSGs ranged 122 - 208 mg/dL * Fasting BSG this AM was 144 mg/dL. Continue current basal dose. * His appetite continues to be very poor as he did not eat any breakfast this AM. * Lunchtime BSG was elevated at 220 mg/dL. Will tighten CF & CR. 06/03: * Patient received 40 units of insulin yesterday: * 28 units basal + 12 units bolus * BSGs ranged from 152 - 181 mg/dL * Fasting BSG of 185 is above goal. Will slightly increase patient's basal dose despite poor appetite given trend upwards in fasting BSGs. * Lunchtime BSG was 208 mg/dL. Will tighten correction factor to account for hyperglycemia. 06/02/20: * Patient received 43 units of insulin yesterday: * 28 units of basal and 15 units of bolus * BSGs ranged from 127 - 202 mg/dL * Fasting BSG of 163 mg/dL is above goal. Of note, Lantus was given late yesterday, therefore slight elevation is anticipated. Continue current dose. * Novolog carb ratio was tightened yesterday (from 8 to 7). Will continue for now. I suspect post prandial elevation yesterday may have been partially due to Lantus dose wearing off. PLAN FOR INPATIENT GLYCEMIC CONTROL: * Continue to hold outpatient oral diabetes medications * Basal insulin - no change * Continue Lantus 30 units daily * Bolus insulin - tightened CF & CR * NovoLog ACHS and at 0200 tonight * Goal Range: Low 110 mg/dL - High 140 mg/dL * Correction Factor: 15 mg/dL/unit * Nutritional / Prandial insulin per carb ratio of 1 unit per 5 grams CHO consumed
[2020-06-04] MEDS: FUROSEMIDE 20 MG in SYRINGE 0 ML IV ONE ×2 (10:14→11:13)
--- NOTE | 2020-06-04 10:30 | Nephrology Progress Note ---
Date of Service June 04, 2020 Assessment & Plan (1) ATN (acute tubular necrosis): Patient with acute kidney injury on CKD. He has baseline CKD stage III and creatinine of 1.4 at baseline. He was admitted with E. coli bacteremia and acute kidney injury due to ATN. Renal function is improving with a creatinine of 1.95 today. Electrolytes are stable and no signs of volume overload. He has had problems with hyperkalemia in the past. K was 5.5 but repeat is 4.8. -We will give Lasix 20 mg IV 1 time to help with hypokalemia -Monitor with daily BMP -Monitor input output. (2) Iron deficiency anemia: Due to bacteremia and renal disease. Hemoglobin of 9.3. Monitor and transfuse as needed. Patient will likely need Procrit but this can be done as an outpatient. (3) E. coli septicemia: Continue ceftriaxone per primary team. Renally dose antibiotics for current GFR. Admission and Anticipated Discharge Date Admission Date: May 27, 2020 Subjective Patient feels better today. He complains of left arm pain. No shortness of breath. No diarrhea. Potassium is high today at 5.5 and a repeat is 4.8. Review of Systems Review of Systems: All systems reviewed & are unremarkable except as noted in HPI & below Physical Exam Physical Exam: General exam: Appears comfortable, no acute distress HEENT: Pupils are equal and reactive to light Neck: No JVD, neck is supple trachea is midline Respiratory system: Clear breath sounds bilaterally. Gastrointestinal: Abdomen is soft, non distended, non tender, bowel sounds are present CVS: Regular rate and rhythm. No murmurs, rubs or gallops Musculoskeletal: No joint or muscle tenderness Extremities: Non tender, no edema, peripheral pulses are present Neuro: Oriented, no tremors, no focal neurological deficits Skin: No rashes Results & Data ([facility]) Vital Signs (Past 12 Hours) Vital Signs Temp Pulse Pulse Resp BP Pulse Ox 06/04/20 07:57 91 06/04/20 07:54 36.8 C 88 21 137/70 87 L 06/04/20 04:25 37.1 C 88 18 131/75 92 06/04/20 00:04 37.7 C H 85 18 122/75 95 06/04/20 00:00 83 Laboratory Results 06/04/20 09:50 06/04/20 06/04/20 05:49 05:49 WBC 13.56 H RBC 3.67 L MCV 78.7 L MCH 25.3 MCHC 32.2 RDW Std Deviation 43.5 RDW Coeff of Naren 15.3 H Plt Count 353 MPV 10.5 H Albumin 2.0 L
--- NOTE | 2020-06-04 12:40 | Cardiology Progress Note ---
Date of Service June 04, 2020 Assessment & Plan (1) E. coli septicemia: (2) Complete heart block: (3) Fever: pt with recurrent fever. Await ID tele input. Check venous duplex as pt is at risk for LE DVT given time in bed and h/o temporary pacemaker line as DVT can cause fever. SR with ventricular pacing in 80s noted post permanent pacemaker. IV furosemide x 1 for mild rales. Continue rocephin. Continue SQ heparin DVT prophylaxis dose. Subjective Pt feeling well. Mild recurrent fever noted. Blood cultures negative. Physical Exam Physical Exam: Temp Pulse Resp BP Pulse Ox 37.7 C H 81 19 129/73 96 06/04/20 12:09 06/04/20 12:09 06/04/20 12:09 06/04/20 12:09 06/04/20 12:09 Constitutional: WD/WN, vitals as above Respiratory: mild rales at bases Cardiovascular: Rate/Rhythm: regular rhythm Heart Sounds: + murmur (2/6 SM at right sternal border ) Vessels: no JVD Extremities: no edema Gastrointestinal (Abdomen): normal bowel sounds, soft, nontender, no hepatosplenomegaly Neurologic: PERRL, EOMI, accommodation nl, no face palsy, no dysarthria Results & Data Vital Signs (Past 12 Hours) Vital Signs Temp Pulse Resp BP Pulse Ox 06/04/20 12:09 37.7 C H 81 19 129/73 96 06/04/20 07:57 91 06/04/20 07:54 36.8 C 88 21 137/70 87 L 06/04/20 04:25 37.1 C 88 18 131/75 92 Laboratory Results Cardiac Enzymes 06/04/20 Range/Units 05:49 AST 53 H (15-37) U/L CBC 06/04/20 Range/Units 05:49 WBC 13.56 H (4.8-10.8) K/uL RBC 3.67 L (4.7-6.1) M/uL Hgb 9.3 L (14.0-18.0) g/dL Hct 28.9 L (42-52) % Plt Count 353 (130-400) K/uL Neut # (Auto) 10.01 H (1.4-6.5) K/uL Lymph # (Auto) 2.14 (1.2-3.4) K/uL Garza # (Auto) 0.98 H (0.11-0.59) K/uL Eos # (Auto) 0.33 (0-0.5) K/uL Baso # (Auto) 0.04 (0-0.2) K/uL Comprehensive Metabolic Panel 06/04/20 06/04/20 Range/Units 05:49 09:50 Sodium 138 (136-145) mmol/L Potassium 5.5 H D 4.8 (3.5-5.1) mmol/L Chloride 104 (98-107) mmol/L Carbon Dioxide 28 (21-32) mmol/L BUN 68 H (7-18) mg/dl Creatinine 1.95 H (0.6-1.4) mg/dl Glucose 129 H (70-99) mg/dl Calcium 8.7 (8.5-10.1) mg/dl Direct Bilirubin 0.3 H (0-0.2) mg/dl AST 53 H (15-37) U/L ALT 40 (12-78) U/L Alkaline Phosphatase 141 H (45-117) U/L Total Protein 7.2 (6.4-8.2) gm/dl Albumin 2.0 L (3.4-5.0) gm/dl Intake and Output 06/03/20 06/04/20 06/04/20 22:59 06:59 14:59 Intake Total 270 / 510 40 / 510 Output Total 150 / 425 Balance 270 / 85 -110 / 85 Intake: IV 70 / 70 Rocephin 2,000 mg In D5w 50 ml 70 / 70 @ 100 mls/hr IV Q24H [facility] Rx#: [id number] Oral 200 / 440 40 / 440 Output: Urine Amount (Catheter) 150 / 150 External 150 / 150 Other: # Unmeasured Voids 1 Weight 76.7 kg (1) Fever Fever type: unspecified Qualified Code(s): R50.9 - Fever, unspecified
--- NOTE | 2020-06-04 14:48 | XRay Report ---
TWO VIEW CHEST CLINICAL HISTORY: Fever. FINDINGS: AP and lateral chest radiographs are compared to study dated 06/01/2020. The AP view is signi ficantly degraded by patient rotation. A 2-lead cardiac pacemaker is unchanged in position. The heart is enlarged noting atherosclerotic calcification of the thoracic aorta. There is pulmonary vessel co ngestion and interstitial edema. There are bilateral pleural effusions with associated bibasilar cons olidation. There is no pneumothorax. The skeletal structures are osteopenic. The bony thorax appears intact. IMPRESSION: 1. Cardiomegaly and cardiac pacemaker with evidence of congestive failure and interstitial edema. Thi s has modestly worsened from 06/01/2020. 2. There are bilateral pleural effusions with associated consolidation. This likely represents atelec tasis and clinical correlation will be required. ACT 112: Negative or not required by law. Electronically signed by: Vernon Ellison M.D. 06/04/2020 2:47 PM
--- NOTE | 2020-06-04 15:22 | Ultrasound Report ---
BILATERAL LOWER EXTREMITY VENOUS DOPPLER HISTORY: Acute fever. The patient recently had a cardiac catheterization. fever COMPARISON STUDY: Duplex venous Doppler study 05/27/2020 FINDINGS: There is normal compressibility, flow, and augmentation within the bilateral lower extremit y deep venous systems. There is a tiny nonocclusive linear filling defect noted within the right comm on femoral vein IMPRESSION: 1. No definite deep venous thrombosis identified within the right or left lower extremity. 2. Small linear nonocclusive filling defects within the right common femoral vein was not definitivel y seen on the Doppler study from 05/27/2020. This is unlikely to represent a nonocclusive thrombus and may be on a postprocedural basis from recent catheterization. ACT 112: Negative or not required by law. Electronically signed by: Tc Clifton M.D. 06/04/2020 3:21 PM
[2020-06-04] MEDS: TRAZODONE HCL 50 MG TAB PO SCH (21:26)
[2020-06-04] MEDS: cefTRIAXone SODIUM 2,000 MG in DEXTROSE 5% 50 ML IV SCH (21:26)
[2020-06-04] MEDS: TAMSULOSIN HCL 0.4 MG CAP PO SCH (21:27)
--- NOTE | 2020-06-04 23:10 | Hospitalist Progress Note ---
Date of Service June 04, 2020 Assessment & Plan (1) Sepsis: Met criteria for severe sepsis + septic shock (due to lactate > 4) per current CMS definition. Serum lactate elevated at 6.7 and followed. Blood culture obtained. Received broad spectrum antibiotic therapy. Systolic BP's as low mid 90's, generally > 100. Received fluid resuscitation. Blood cultures grew E coli as discussed below. (2) Gram-negative bacteremia: Presented with severe sepsis. 2 out of 2 blood cultures grew E coli. Source uncertain. UA benign and urine culture negative. No apparent intestinal or biliary tract pathology on imaging. Healed ulcer distal right great toe- check x-rays to rule out occult osteomyelitis. Intermittent low grade temps. Repeat blood cultures on 05/28 and 06/01 negative so far. ESR 89, > 90. CRP 8.19, 14.5, 8.86. Procalcitonin 1.56, 29, 50, 3.19. Continue ceftriaxone. (3) Complete heart block: 3rd degree heart block with bradycardia at time of admission. Lyme screen negative. Hyperkalemia, but heart block persisted after correction. On metoprolol, but heart block persisted when it was held. Temporary pacemaker placed by Cardiology. Permanent pacemaker placed on 05/31 after repeat blood cultures negative x 3 days. (4) Elevated troponin level: Serum troponin as high as 3.6. Echo showed normal LV wall motion and systolic function. Doubt acute coronary syndrome. Elevated troponin probably secondary to sepsis. (5) CHF (congestive heart failure): Chest x-ray today showed CHF. LVEF showed moderate concentric LVH, normal LVEF. Probable acute left ventricular diastolic heart failure. Furosemide ordered. (6) Hypertension: Hemodynamically stable. Continue metoprolol and amlodipine. (7) Acute kidney injury: Serum creatinine 2.73 at time of admission and thiago as high as 3.23. Nephrology consulted. Acute kidney injury due to ATN from sepsis and / or heart block. Creatinine today = 1.95. Follow. (8) Hyperkalemia: Serum K 6.4 at time of admission. Hyperkalemia probably due to GWEN. K today = 5.5, repeat 4.8.. (9) Abnormal liver function tests: AST as high as 741, ALT as high as 689. Bilirubin normal. Alk phos slightly elevated. No apparent hepatic or biliary tract abnormalities on imaging. Elevated LFT's probably due to heart block with decreased cardiac output and/or sepsis. LFT's improved. Check HIDA scan. (10) Diabetes mellitus type 2, controlled: Hemoglobin A1c 8.7. Continue Lantus + NovoLog. (11) Iron deficiency anemia: Hgb today = 9.3. Follow. (12) Altered mental status: Daughter has noted confusion. 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 Today, oriented to person, place, year, president. Had difficulty with months of year backwards. Probable metabolic encephalopathy / delirium secondary to sepsis. Continue to monitor. (13) DVT prophylaxis: SQ heparin. Ambulate. (14) Discharge planning issues: Poor functional status. Anticipated need for inpatient rehab. Family Medicine follow-up with Dr. Brown. Admission and Anticipated Discharge Date Admission Date: May 27, 2020 Subjective Recheck for multiple problems. Patient seen in their room around 1030; daughter visiting. Still weak. Intermittent low grade temps. Minimal pain at pacemaker site. Review of Systems: Constitutional- no fever. Cardiac- no chest pain. Pulmonary- no cough or SOB. GI- no nausea, vomiting, diarrhea, melena, hematochezia. - no urinary symptoms. Otherwise, as noted above. Physical Exam Constitutional: no acute distress Respiratory: no respiratory distress Auscultation: + rales Cardiovascular: Rate/Rhythm: regular rate and regular rhythm Heart Sounds: + murmur (III/ sys murmur at base); no gallop and no cardiac rub Vessels: + JVD Extremities: no calf tenderness and no edema Chest (Breasts): Chest: + pacemaker (incision without erythema or drainage) Gastrointestinal (Abdomen): normal bowel sounds, soft, nontender, no hepatosplenomegaly Musculoskeletal: Extremities: + foot abnormality (healed ulceration distal right great toe without erythema or drainage); no cyanosis Skin: no rashes, warm and dry Psychiatric: Orientation: alert; + not oriented x 3 (oriented to person, place, year, president) Cognition: + attention not intact (difficulty with months backwards) Results & Data Results & Data ([facility]) Vital Signs (Past 12 Hours) Vital Signs Temp Pulse Resp BP Pulse Ox 06/04/20 20:00 37.7 C H 84 17 115/69 97 06/04/20 15:46 37.7 C H 85 22 125/71 98 06/04/20 12:09 37.7 C H 81 19 129/73 96 Laboratory Results Laboratory Results - last 24 hr 06/04/20 06/04/20 06/04/20 05:49 05:49 05:49 WBC 13.56 H RBC 3.67 L Hgb 9.3 L Hct 28.9 L MCV 78.7 L MCH 25.3 MCHC 32.2 RDW Std Deviation 43.5 RDW Coeff of Naren 15.3 H Plt Count 353 MPV 10.5 H Immature Gran % (Auto) 0.4 Neut % (Auto) 73.9 Lymph % (Auto) 15.8 [place] % (Auto) 7.2 Eos % (Auto) 2.4 Baso % (Auto) 0.3 Neut # (Auto) 10.01 H Lymph # (Auto) 2.14 [place] # (Auto) 0.98 H Eos # (Auto) 0.33 Baso # (Auto) 0.04 Immature Gran # (Auto) 0.06 H ESR > 90 H Sodium 138 Potassium 5.5 H D Chloride 104 Carbon Dioxide 28 Anion Gap 6.0 BUN 68 H Creatinine 1.95 H Est Cr Clr Drug Dosing 31.1 Est GFR ( Amer) 36.1 Est GFR (Non-Af Amer) 31.1 BUN/Creatinine Ratio 34.7 H Glucose 129 H POC Glucose Calcium 8.7 Total Bilirubin 0.6 Direct Bilirubin 0.3 H AST 53 H ALT 40 Alkaline Phosphatase 141 H C-Reactive Protein 8.86 H Total Protein 7.2 Albumin 2.0 L Globulin 5.2 H Albumin/Globulin Ratio 0.4 L Procalcitonin 06/04/20 06/04/20 06/04/20 05:49 07:51 09:50 WBC RBC Hgb Hct MCV MCH MCHC RDW Std Deviation RDW Coeff of Naren Plt Count MPV Immature Gran % (Auto) Neut % (Auto) Lymph % (Auto) [place] % (Auto) Eos % (Auto) Baso % (Auto) Neut # (Auto) Lymph # (Auto) [place] # (Auto) Eos # (Auto) Baso # (Auto) Immature Gran # (Auto) ESR Sodium Potassium 4.8 Chloride Carbon Dioxide Anion Gap BUN Creatinine Est Cr Clr Drug Dosing Est GFR ( Amer) Est GFR (Non-Af Amer) BUN/Creatinine Ratio Glucose POC Glucose 144 H Calcium Total Bilirubin Direct Bilirubin AST ALT Alkaline Phosphatase C-Reactive Protein Total Protein Albumin Globulin Albumin/Globulin Ratio Procalcitonin 3.19 H 06/04/20 06/04/20 06/04/20 11:45 16:16 20:39 WBC RBC Hgb Hct MCV MCH MCHC RDW Std Deviation RDW Coeff of Naren Plt Count MPV Immature Gran % (Auto) Neut % (Auto) Lymph % (Auto) [place] % (Auto) Eos % (Auto) Baso % (Auto) Neut # (Auto) Lymph # (Auto) [place] # (Auto) Eos # (Auto) Baso # (Auto) Immature Gran # (Auto) ESR Sodium Potassium Chloride Carbon Dioxide Anion Gap BUN Creatinine Est Cr Clr Drug Dosing Est GFR ( Amer) Est GFR (Non-Af Amer) BUN/Creatinine Ratio Glucose POC Glucose 220 H 196 H 199 H Calcium Total Bilirubin Direct Bilirubin AST ALT Alkaline Phosphatase C-Reactive Protein Total Protein Albumin Globulin Albumin/Globulin Ratio Procalcitonin Microbiology 06/01/20 20:02 Blood Aerobic Blood Culture - Preliminary No growth in Aerobic bottle after 48 hours. 06/01/20 20:02 Blood Anaerobic Blood Culture - Preliminary No growth in Anaerobic bottle after 48 hours. 06/01/20 20:07 Blood Aerobic Blood Culture - Preliminary No growth in Aerobic bottle after 48 hours. 06/01/20 20:07 Blood Anaerobic Blood Culture - Preliminary No growth in Anaerobic bottle after 48 hours. 05/28/20 11:33 Blood Aerobic Blood Culture - Final No growth in Aerobic bottle after 5 days. 05/28/20 11:33 Blood Anaerobic Blood Culture - Final No growth in Anaerobic bottle after 5 days. 05/28/20 11:34 Blood Aerobic Blood Culture - Final No growth in Aerobic bottle after 5 days. 05/28/20 11:34 Blood Anaerobic Blood Culture - Final No growth in Anaerobic bottle after 5 days. 05/28/20 14:30 Stool WBC Smear - Final 05/28/20 14:30 Stool Escherichia coli Shiga Toxins Test - Final 05/28/20 14:30 Stool Stool Culture - Final No Salmonella isolated, No Shigella isolated, No Campylobacter jejuni isolated. 05/28/20 11:55 Urine,Clean Catch Urine Culture - Final No growth - less than 1,000 colonies/mL. 05/27/20 05:45 Blood Aerobic Blood Culture - Final Escherichia coli 05/27/20 05:45 Blood Anaerobic Blood Culture - Final Escherichia coli 05/27/20 05:37 Blood Aerobic Blood Culture - Final Escherichia coli 05/27/20 05:37 Blood Anaerobic Blood Culture - Final Escherichia coli
[2020-06-05] MEDS: LEVOTHYROXINE SODIUM 50 MCG TABLET PO SCH (06:26)
[2020-06-05 06:46] LABS: Hematocrit (blood only) 24.2 % (42-52); Hemoglobin 7.8 g/dL (14.0-18.0); Mean Corpuscular Hemoglobin 25.2 pg (25-34); Mean Corpuscular Hgb Conc 32.2 g/dL (32-36); Mean Corpuscular Volume 78.3 fL (80-100); Mean Platelet Volume 9.8 fL (7.4-10.4); Platelet Count 320 K/uL (130-400); RDW Coefficient of Variation 15.4 % (11.5-14.5); RDW Standard Deviation 43.2 fL (36.4-46.3); Red Blood Count 3.09 M/uL (4.7-6.1); White Blood Count 14.03 K/uL (4.8-10.8)
[2020-06-05 07:05] LABS: BUN Creatinine Ratio 34.8 (10-20); Calcium 8.4 mg/dl (8.5-10.1); Creatinine Clr Calc Pharmacy 32.6 ml/min; Est GFR (African American) 38.2; Potassium 4.6 mmol/L (3.5-5.1)
[2020-06-05] MEDS: INSULIN ASPART 100 UNITS/ML 3 ML PEN SC SCH ×4 (08:12→21:00)
[2020-06-05] MEDS: METOPROLOL SUCC 25MG EXT REL TAB PO SCH (08:13)
[2020-06-05] MEDS: HEPARIN SOD 5,000 UNIT/0.5 ML VIAL SQ SCH ×2 (08:13→20:36)
[2020-06-05] MEDS: PANTOprazole 40 MG TAB PO SCH (08:13)
[2020-06-05] MEDS: FERROUS FUMARATE/ASCORBIC ACID 65 MG CAPCR PO SCH (08:13)
[2020-06-05] MEDS: CYANOCOBALAMIN (VITAMIN B-12) 100 MCG TABLET PO SCH (08:13)
[2020-06-05] MEDS: AMLODIPINE BESYLATE 5 MG TAB PO SCH (08:13)
[2020-06-05] MEDS: LORATADINE 10 MG TAB PO SCH (08:13)
[2020-06-05] MEDS ORDERED: INSULIN GLARGINE SOLOSTAR 100 UNITS/ML 3 ML PEN SC SCH (09:00)
--- NOTE | 2020-06-05 09:34 | Nephrology Progress Note ---
Date of Service June 05, 2020 Assessment & Plan (1) ATN (acute tubular necrosis): Patient with acute kidney injury on CKD. He has baseline CKD stage III and creatinine of 1.4 at baseline. He was admitted with E. coli bacteremia and acute kidney injury due to ATN. Renal function is improving with a creatinine of 1.95 today. Electrolytes are stable but now requiring oxygen. He has had problems with hyperkalemia in the past. K was 4.6 today -We will give Lasix 20 mg IV twice daily to help with volume overload -Monitor with daily BMP -Monitor input output. (2) Iron deficiency anemia: Due to bacteremia and renal disease. Hemoglobin of 7.3. He has low iron saturation but will hold off giving iron due to infection. Monitor and transfuse as needed. Patient will likely need Procrit but this can be done as an outpatient. (3) E. coli septicemia: Continue ceftriaxone per primary team. Renally dose antibiotics for current GFR. Admission and Anticipated Discharge Date Admission Date: May 27, 2020 Subjective Reports feeling fine. He denies any shortness of breath and not currently on oxygen by nasal cannula. He was incontinent of urine and required condom catheter. No vomiting or diarrhea. Creatinine is stable. Review of Systems Review of Systems: All systems reviewed & are unremarkable except as noted in HPI & below Physical Exam Physical Exam: General exam: Appears comfortable, no acute distress HEENT: Pupils are equal and reactive to light Neck: No JVD, neck is supple trachea is midline Respiratory system: Crackles bilaterally. Gastrointestinal: Abdomen is soft, non distended, non tender, bowel sounds are present CVS: Regular rate and rhythm. No murmurs, rubs or gallops Musculoskeletal: No joint or muscle tenderness Extremities: Non tender, no edema, peripheral pulses are present Neuro: Oriented, no tremors, no focal neurological deficits Skin: No rashes Results & Data ([facility]) Vital Signs (Past 12 Hours) Vital Signs Temp Pulse Pulse Resp BP Pulse Ox 06/05/20 07:54 36.7 C 76 16 111/62 96 06/05/20 03:19 36.4 C L 86 17 112/61 90 06/04/20 23:59 86 06/04/20 23:50 36.6 C 86 18 96/54 L 92 Laboratory Results 06/05/20 06:25 06/05/20 06:25 WBC 14.03 H RBC 3.09 L MCV 78.3 L MCH 25.2 MCHC 32.2 RDW Std Deviation 43.2 RDW Coeff of Naren 15.4 H Plt Count 320 MPV 9.8
[2020-06-05] MEDS ORDERED: SINCALIDE 1.5 MCG in 0.9 % SODIUM CHLORIDE 100 ML IV SCH (11:00)
--- NOTE | 2020-06-05 11:23 | Nuclear Medicine Report ---
NUCLEAR HEPATOBILIARY SCAN CLINICAL HISTORY: Sepsis. Elevated hepatic transaminases. COMPARISON STUDY: Abdominal ultrasound dated 05/30/2012. TECHNIQUE: Dynamic images of the liver and anterior abdomen were obtained every 5 minutes for a total of 45 minutes following the IV administration of 5mCi of technetium 99m Choletec FINDINGS: The hepatobiliary scan shows prompt and homogeneous hepatic uptake. There is visualized act ivity within the intra and extrahepatic biliary tree at 10 minutes, and within the gallbladder at 15 minutes. There is normal biliary to bowel transit, with small bowel visualized by 35 minutes. IMPRESSION: Unremarkable nuclear hepatobiliary scan. There is no scintigraphic evidence of cholecys titis. ACT 112: Negative or not required by law. Electronically signed by: Vernon Ellison M.D. 06/05/2020 11:21 AM
[2020-06-05] MEDS: FUROSEMIDE 20 MG in SYRINGE 0 ML IV SCH ×2 (11:36→17:36)
--- NOTE | 2020-06-05 11:52 | Pharmacy Report ---
Pharmacy Glycemic Short Note 2 - Date of Service June 05, 2020 - Glycemic Short BSG Results (Last 24 hours): 06/04/20 06/04/20 06/04/20 11:45 16:16 20:39 Glucose POC Glucose 220 H 196 H 199 H 06/05/20 06/05/20 06/05/20 06:25 07:28 11:35 Glucose 189 H POC Glucose 225 H 148 H Outpatient Anti-diabetic Regimen: * Lantus 25 units SC qAM * Novolog 8 units with lunch and 22 units with dinner, plus correction factor of 25 mg/dL/unit (over 150 mg/dL) * Empagliflozin 10 mg PO QAM * Glimepiride 1 mg PO QAM * Linagliptin-metformin 5-1000 mg PO QAM * A1c 8.7% on 05/28/20 ASSESSMENT: 06/05: * Patient with relatively stable insulin requirements (40-50 units/day) * Fasting BSG of 225 mg/dL is above goal. Continue to titrate basal insulin. * Post prandial BSGs were elevated yesterday but are looking better today. Will continue current CF/CR for now. 06/04: * Patient received 42 units of insulin yesterday: * 28 units basal + 14 units bolus * BSGs ranged 122 - 208 mg/dL * Fasting BSG this AM was 144 mg/dL. Continue current basal dose. * His appetite continues to be very poor as he did not eat any breakfast this AM. * Lunchtime BSG was elevated at 220 mg/dL. Will tighten CF & CR. 06/03: * Patient received 40 units of insulin yesterday: * 28 units basal + 12 units bolus * BSGs ranged from 152 - 181 mg/dL * Fasting BSG of 185 is above goal. Will slightly increase patient's basal dose despite poor appetite given trend upwards in fasting BSGs. * Lunchtime BSG was 208 mg/dL. Will tighten correction factor to account for hyperglycemia. 06/02/20: * Patient received 43 units of insulin yesterday: * 28 units of basal and 15 units of bolus * BSGs ranged from 127 - 202 mg/dL * Fasting BSG of 163 mg/dL is above goal. Of note, Lantus was given late yester day, therefore slight elevation is anticipated. Continue current dose. * Novolog carb ratio was tightened yesterday (from 8 to 7). Will continue for now. I suspect post prandial elevation yesterday may have been partially due to Lantus dose wearing off. PLAN FOR INPATIENT GLYCEMIC CONTROL: * Continue to hold outpatient oral diabetes medications * Basal insulin - increase * Continue Lantus 32 units daily * Bolus insulin * NovoLog ACHS and at 0200 tonight * Goal Range: Low 110 mg/dL - High 140 mg/dL * Correction Factor: 15 mg/dL/unit * Nutritional / Prandial insulin per carb ratio of 1 unit per 5 grams CHO consumed
[2020-06-05] MEDS ORDERED: POLYETHYLENE (MIRALAX) 17 GM PACK PO ONE (14:57)
[2020-06-05] MEDS ORDERED: POLYETHYLENE (MIRALAX) 17 GM PACK PO PRN (14:57)
--- NOTE | 2020-06-05 15:22 | Cardiology Progress Note ---
Date of Service June 05, 2020 Assessment & Plan (1) Complete heart block: (2) Iron deficiency anemia: Patient presented with fever and shortness of breath and was found to be in high-grade heart block. Underwent temporary transvenous pacemaker placement in an emergent fashion on 05/27/2020. 2/2 blood cultures positive for E. coli, subsequent blood cultures negative and he underwent a dual-chamber permanent pacemaker on 05/31. He has been off of aspirin therapy. Acute kidney injury and hyperkalemia noted on presentation, which have improved. He has developed pulmonary edema with associated shortness of breath and has responded to furosemide. Echocardiogram reveals normal LVEF with mild aortic valve stenosis, unchanged compared to outpatient echo in 2019. Patient with low-grade mild temperature. He remains on Rocephin. As I had previously documented, the risk of endocarditis being the source of his infection is low as this is not a typical organism, and he did have a foot wound that seem to be the source. At this time for completeness however I think it is reasonable to proceed with transesophageal echocardiogram. He does have anemia, and could have occult GI bleeding. We will plan on taking images from the midesophagus, without passing probe into the transgastric views. We will place anesthesia consult. Continue IV furosemide. COVID -19 test negative on 05/27. Subjective Patient seen and examined. His daughter was at the bedside. Pt continues to feel poor with generalized fatigue. Had several mildly elevated temperatures of 3.7.7C yesterday, normal temperature today. Hgb down to 7.8 g/dl. It is difficult to determine if he has had a subjective fever or not. Review of Systems Review of Systems: All systems reviewed & are unremarkable except as noted in HPI & below Physical Exam Physical Exam: Temp Pulse Resp BP Pulse Ox 37.0 C 81 19 109/69 95 06/05/20 11:49 06/05/20 11:49 06/05/20 11:49 06/05/20 11:49 06/05/20 11:49 Constitutional: no acute distress Respiratory: normal respiratory effort, lungs clear to auscultation Cardiovascular: Rate/Rhythm: regular rhythm Heart Sounds: + murmur Vessels: no JVD Extremities: no edema Chest (Breasts): Additional Comments: Left infraclavicular pocket incision clean dry and intact, no erythema Gastrointestinal (Abdomen): normal bowel sounds, soft, nontender, no hepatosplenomegaly Neurologic: PERRL, EOMI, accommodation nl, no face palsy, no dysarthria Results & Data Vital Signs (Past 12 Hours) Vital Signs Temp Pulse Resp BP Pulse Ox 06/05/20 11:49 37.0 C 81 19 109/69 95 06/05/20 07:54 36.7 C 76 16 111/62 96 06/05/20 03:19 36.4 C L 86 17 112/61 90
--- NOTE | 2020-06-05 15:46 | Anesthesiology Consultation ---
Date of Service June 05, 2020 Assessment & Plan (1) Encounter for pre-operative examination: Chart Review Chart Review: Acceptable Risk for Surgery (Hb has dropped to 7.8 as of this AM - will be rechecked in AM prior to procedure) History Surgery Operation Date: 05/27/20 10:30 Proposed Procedures p Temporary Transcutaneous Pacing - Sumeet Guzman DO Operation Date: 05/28/20 11:00 Proposed Procedures p Pacer with A/V Leads (Dual) - Renita Tomas, Operation Date: 05/31/20 13:00 Proposed Procedures p Pacemaker Insertion - Philipp Nair MD Operation Date: 06/06/20 07:15 Proposed Procedures p Transesophageal Echo w/Anesthesia - Dequan Shukla DO Height/Weight Height: 5 ft 11 in Weight: 76.4 kg Allergies Allergy/AdvReac Type Severity Reaction Status Date / Time rosuvastatin Allergy Severe chest pain Verified 05/27/20 05:34 Medications Home Medications Medication Instructions Recorded Confirmed Last Taken amlodipine 2.5 mg PO DAILY 05/27/20 05/27/20 Unknown aspirin 650 mg PO DAILY 05/27/20 05/27/20 Unknown atorvastatin 80 mg PO DAILY 05/27/20 05/27/20 Unknown cyanocobalamin (vitamin B-12) 250 mcg SUBLINGUAL DAILY 05/27/20 05/27/20 Unknown empagliflozin [Jardiance] 10 mg PO DAILY 05/27/20 05/27/20 Unknown furosemide 20 mg PO DAILY PRN 05/27/20 05/27/20 Unknown glimepiride 1 mg PO QAM 05/27/20 05/27/20 Unknown insulin aspart U-100 [Novolog See Rx Instructions .ROUTE .COMPLEX 05/27/20 05/27/20 Unknown Flexpen U-100 Insulin] insulin glargine [Lantus Solostar 25 unit SUBCUT QAM 05/27/20 05/27/20 Unknown U-100 Insulin] isosorbide mononitrate 90 mg PO DAILY 05/27/20 05/27/20 Unknown levothyroxine 50 mcg PO DAILY 05/27/20 05/27/20 Unknown linagliptin-metformin [Jentadueto 1 tab PO DAILY 05/27/20 05/27/20 Unknown XR] magnesium oxide 250 mg PO DAILY 05/27/20 05/27/20 Unknown metoprolol succinate 25 mg PO DAILY 05/27/20 05/27/20 Unknown nitroglycerin [Nitrostat] 0.4 mg SUBLINGUAL UD PRN 05/27/20 05/27/20 Unknown omeprazole 20 mg PO DAILY 05/27/20 05/27/20 Unknown tamsulosin 0.4 mg PO HS 05/27/20 05/27/20 Unknown trazodone 25 mg PO HS 05/27/20 05/27/20 Unknown Active Medications Generic Name Dose Route Start Last Admin Trade Name Freq PRN Reason Stop Dose Admin Acetaminophen 650 mg 06/01/20 05:19 06/01/20 06:28 Tylenol PO 07/01/20 05:18 650 mg Q6H PRN Administration Fever Amlodipine Besylate 2.5 mg 06/02/20 09:00 06/05/20 08:13 Norvasc PO 07/02/20 08:59 2.5 mg QAM AMAURI Administration Atorvastatin Calcium 80 mg 05/27/20 11:30 05/31/20 08:31 Lipitor PO 06/26/20 11:29 80 mg DAILY AMAURI Administration Cyanocobalamin 250 mcg 05/28/20 09:00 06/05/20 08:13 Vitamin B-12 PO 06/27/20 08:59 250 mcg DAILY AMAURI Administration Docusate Sodium/Ferrous Fumarate 65 mg 06/03/20 11:00 06/05/20 08:13 Michael-Sequels PO 07/03/20 10:59 65 mg QAM AMAURI Administration Heparin Sodium (Porcine) 5,000 units 06/01/20 21:00 06/05/20 08:13 Heparin Sodium (Porcine) SQ 07/01/20 20:59 5,000 units Q12 AMAURI Administration Ceftriaxone Sodium 2,000 mg/ 70 mls @ 100 mls/hr 06/01/20 20:00 06/04/20 22:17 Dextrose IV 06/15/20 19:59 Infused Q24H AMAURI Infusion Protocol Furosemide 20 mg/ Syringe 2 mls @ 4 mls/min 06/05/20 09:45 06/05/20 11:36 IV 07/05/20 09:44 4 mls/min BID17 AMAURI Administration Sincalide 1.5 mcg/ Sodium 101.5 mls @ 200 mls/hr 06/05/20 11:00 06/05/20 11:37 Chloride IV 06/05/20 18:00 Not Given TODAY@1100 AMAURI Insulin Aspart 0 units 05/28/20 11:30 06/05/20 12:33 Novolog Flexpen SC 06/27/20 11:29 1 units ACHS AMAURI Administration Protocol Insulin Glargine 32 units 06/05/20 09:00 06/05/20 08:12 Lantus Solostar Pen SC 07/05/20 08:59 32 units DAILY AMAURI Administration Protocol Levothyroxine Sodium 50 mcg 05/27/20 11:30 06/05/20 06:26 Synthroid PO 06/26/20 11:29 50 mcg DAILYBB AMAURI Administration Magnesium Oxide 400 mg 05/27/20 11:30 05/31/20 09:14 Mag-Ox PO 06/26/20 11:29 Not Given DAILY AMAURI Metoprolol Succinate 25 mg 06/02/20 09:00 06/05/20 08:13 Toprol Xl PO 07/02/20 08:59 25 mg QAM AMAURI Administration Ondansetron HCl 4 mg 05/27/20 13:02 06/01/20 20:35 Zofran IV 06/26/20 13:01 4 mg Q6H PRN Administration Nausea Pantoprazole Sodium 40 mg 05/27/20 11:30 06/05/20 08:13 Protonix PO 06/26/20 11:29 40 mg DAILY AMAURI Administration Tamsulosin HCl 0.4 mg 05/27/20 21:00 06/04/20 21:27 Flomax PO 06/26/20 20:59 0.4 mg HS AMAURI Administration Trazodone HCl 25 mg 05/27/20 21:00 06/04/20 21:26 Desyrel PO 06/26/20 20:59 25 mg HS AMAURI Administration NPO Date Last Intake of Fluids: 05/31/20 Time Last Intake of Fluids: 00:01 Last Intake of Fluids Comment: t Date Last Intake of Solids: 05/31/20 Past Medical History Medical History (Updated 06/05/20 @ 15:46 by Emiliano Jimenez MD) ATN (acute tubular necrosis) CHF (congestive heart failure) Complete heart block Diabetes mellitus type 2, controlled E. coli septicemia Iron deficiency anemia Past Surgical History Surgical History (Updated 08/05/20 @ 15:42 by Emiliano Jimenez MD) History of permanent cardiac pacemaker placement History of temporary cardiac pacemaker treatment Social History Smoking Status: Never smoker Hx Alcohol Use: No Hx Substance Use: No substance use type: does not use Physical Exam Vital Signs Last Vital Signs Temp 37.0 C 06/05/20 11:49 Pulse 81 06/05/20 11:49 Resp 19 06/05/20 11:49 BP 109/69 06/05/20 11:49 Pulse Ox 95 06/05/20 11:49 Testing Laboratory Results 06/05/20 06:25 06/05/20 06:25 PT 13.5 Seconds (9.0-12.0) H 05/31/20 04:09 INR 1.3 (0.9-1.1) H 05/31/20 04:09 APTT 31.6 Seconds (21.0-31.0) H 05/31/20 04:09 Hemoglobin A1c 8.7 % (4.5-5.6) H 05/28/20 04:52 Urine Color Dark Yellow 05/27/20 05:50 Urine Appearance Cloudy (Clear) A 05/27/20 05:50 Urine pH 5.0 (4.5-7.5) 05/27/20 05:50 Ur Specific [place] 1.022 (1.000-1.030) 05/27/20 05:50 Urine Protein 2+ (Negative) H 05/27/20 05:50 Urine Glucose (UA) Negative (Negative) 05/27/20 05:50 Urine Ketones Trace (Negative) H 05/27/20 05:50 Urine Nitrite Negative (Negative) 05/27/20 05:50 Ur Leukocyte Esterase Negative (Negative) 05/27/20 05:50 Urine WBC (Auto) 1-5 /hpf (0-5) 05/27/20 05:50 Urine RBC (Auto) 0-4 /hpf (0-4) 05/27/20 05:50 U Hyaline Cast (Auto) 5-10 /lpf (0-5) H 05/27/20 05:50 U Epithel Cells (Auto) >30 /lpf (0-5) H 05/27/20 05:50 Urine Bacteria (Auto) Negative (Negative) 05/27/20 05:50 06/01/20 20:02 Aerobic Blood Culture - Preliminary Blood No growth in Aerobic bottle after 48 hours. Anaerobic Blood Culture - Preliminary No growth in Anaerobic bottle after 48 hours. 06/01/20 20:07 Aerobic Blood Culture - Preliminary Blood No growth in Aerobic bottle after 48 hours. Anaerobic Blood Culture - Preliminary No growth in Anaerobic bottle after 48 hours. 05/28/20 11:33 Aerobic Blood Culture - Final Blood No growth in Aerobic bottle after 5 days. Anaerobic Blood Culture - Final No growth in Anaerobic bottle after 5 days. 05/28/20 11:34 Aerobic Blood Culture - Final Blood No growth in Aerobic bottle after 5 days. Anaerobic Blood Culture - Final No growth in Anaerobic bottle after 5 days. 05/28/20 14:30 WBC Smear - Final Stool Escherichia coli Shiga Toxins Test - Final Stool Culture - Final No Salmonella isolated, No Shigella isolated, No Campylobacter jejuni isolated. 05/28/20 11:55 Urine Culture - Final Urine,Clean Catch No growth - less than 1,000 colonies/mL. 05/27/20 05:45 Aerobic Blood Culture - Final Blood Escherichia coli Anaerobic Blood Culture - Final Escherichia coli 05/27/20 05:37 Aerobic Blood Culture - Final Blood Escherichia coli Anaerobic Blood Culture - Final Escherichia coli 06/05/20 06/05/20 11:35 07:28 POC Glucose 148 H 225 H Electrocardiogram Date: 05/31/20 atrial paced rate of 82 Chest X-Ray Date: 06/04/20 Findings: + cardiomegaly, + pulmonary vascular congestion and + pleural effusion Echocardiogram Date: 05/27/20 EF: 65-70% LV Function: normal Valvular Disease: + no significant valvular disease
[2020-06-05] MEDS: TAMSULOSIN HCL 0.4 MG CAP PO SCH (20:33)
[2020-06-05] MEDS: cefTRIAXone SODIUM 2,000 MG in DEXTROSE 5% 50 ML IV SCH (20:33)
[2020-06-05] MEDS: TRAZODONE HCL 50 MG TAB PO SCH (20:34)
--- NOTE | 2020-06-05 22:37 | Hospitalist Progress Note ---
Date of Service June 05, 2020 Assessment & Plan (1) Sepsis: Met criteria for severe sepsis + septic shock (due to lactate > 4) per current CMS definition. Serum lactate elevated at 6.7 and followed. Blood cultures obtained. Received broad spectrum antibiotic therapy. Systolic BP's as low mid 90's, generally > 100. Received fluid resuscitation (although not 30 ml/kg because of CHF on chest x- ray). Blood cultures grew E coli as discussed below. (2) Gram-negative bacteremia: Presented with severe sepsis. 2 out of 2 blood cultures grew E coli. Source uncertain. UA benign and urine culture negative. No apparent intestinal or biliary tract pathology on imaging (CT, US, HIDA). Healed ulcer distal right great toe; no apparent osteomyelitis on x-ray. Intermittent low grade temps. Repeat blood cultures on 05/28 and 06/01 negative so far. ESR 89, > 90. CRP 8.19, 14.5, 8.86. Procalcitonin 1.56, 29, 50, 3.19. Venous duplex lower extremities- no apparent DVT. Discussed case with ID. Continue ceftriaxone to complete 2 week course of antibiotics. Further evaluation as necessary for concerns about persistent / recurrent infection. (3) Complete heart block: 3rd degree heart block with bradycardia at time of admission. Lyme screen negative. Had hyperkalemia, but heart block persisted after correction. On metoprolol, but heart block persisted when it was held. Temporary pacemaker placed by Cardiology. Permanent pacemaker placed on 05/31 after repeat blood cultures negative x 3 days. (4) Elevated troponin level: Serum troponin as high as 3.6. Echo showed normal LV wall motion and systolic function. Doubt acute coronary syndrome. Elevated troponin probably secondary to sepsis. (5) CHF (congestive heart failure): Chest x-ray today showed CHF. LVEF showed moderate concentric LVH, normal LVEF. Probable acute left ventricular diastolic heart failure. Furosemide ordered. (6) Hypertension: Hemodynamically stable. Continue metoprolol and amlodipine. (7) Acute kidney injury: Serum creatinine 2.73 at time of admission and thiago as high as 3.23. Nephrology consulted. Acute kidney injury due to ATN from sepsis and / or heart block. Creatinine today = 1.86. Follow. (8) Hyperkalemia: Serum K 6.4 at time of admission. Hyperkalemia probably due to GWEN. K today = 4.6. (9) Abnormal liver function tests: AST as high as 741, ALT as high as 689. Bilirubin normal. Alk phos slightly elevated. No apparent hepatic or biliary tract abnormalities on imaging. Elevated LFT's probably due to heart block with decreased cardiac output and/or sepsis. LFT's improved. HIDA scan normal. (10) Diabetes mellitus type 2, controlled: DM type 2 with complications, usually managed with metformin, linagliptin, empagliflozin, and insulin. Hemoglobin A1c 8.7. Pharmacy consulted for glycemic management. FBS = 225. Continue Lantus + NovoLog per Pharmacy. (11) Iron deficiency anemia: Chronic anemia with baseline Hgb around 10-11. Vegetarian. Hgb day of admission 9.4. Anemia evaluation: Laboratory Tests 06/02/20 06/02/20 06/02/20 08:00 08:00 08:00 Iron 22 L TIBC 159 L Transferrin 129 L Ferritin 235.1 Vitamin B12 > 2000 H Folate 9.00 Hgb today = 7.8. No gross GI bleeding. Anemia probably due to combination of chronic anemia (Fe def, CKD) and acute illness (sepsis). Follow. (12) Altered mental status: Daughter has noted confusion. 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 Mentation a bit slow, but generally oriented. Having difficulty with serial 7's and months of year backwards. Probable metabolic encephalopathy / delirium secondary to sepsis. Discussed nature of delirium with family; recovery times vary. Continue to monitor. (13) DVT prophylaxis: SQ heparin. Ambulate. (14) Discharge planning issues: Poor functional status. Anticipated need for inpatient rehab. Family Medicine follow-up with Dr. Brown. Daughter at bedside this afternoon and given update. Niece given update by phone. Admission and Anticipated Discharge Date Admission Date: May 27, 2020 Subjective Recheck for multiple problems. Patient seen in their room around 0850. Tired. Intermittent low grade temps. Tmax yesterday 37.7. No fever this morning. PO intake not good. Needs assistance with ADL's. Review of Systems: Constitutional- no fever. Cardiac- no chest pain. Pulmonary- rare cough; SOB. GI- no nausea, vomiting, diarrhea, melena, hematochezia. - having some difficulties with urinary incontinence. Otherwise, as noted above. Physical Exam Constitutional: no acute distress Respiratory: no respiratory distress Auscultation: + rales Cardiovascular: Rate/Rhythm: regular rate and regular rhythm Heart Sounds: + murmur (III/ sys murmur at base); no gallop and no cardiac rub Vessels: + JVD Extremities: no calf tenderness and no edema Chest (Breasts): Chest: + pacemaker (incision without erythema or drainage) Gastrointestinal (Abdomen): normal bowel sounds, soft, nontender, no hepatosplenomegaly Musculoskeletal: Extremities: + foot abnormality (healed ulceration distal right great toe without erythema or drainage); no cyanosis Skin: no rashes, warm and dry Psychiatric: Orientation: alert and oriented x 3 (mentation a bit slow, but oriented to person, place, year) Cognition: + attention not intact (difficulty with months backwards) Results & Data Results & Data ([facility]) Vital Signs (Past 12 Hours) Vital Signs Temp Pulse Resp BP Pulse Ox 06/05/20 20:00 37.0 C 76 20 124/59 L 95 06/05/20 16:00 36.8 C 89 18 115/62 96 06/05/20 11:49 37.0 C 81 19 109/69 95 Laboratory Results Laboratory Results - last 24 hr 05/28/20 06/05/20 06/05/20 14:30 06:25 06:25 WBC 14.03 H RBC 3.09 L Hgb 7.8 L Hct 24.2 L MCV 78.3 L MCH 25.2 MCHC 32.2 RDW Std Deviation 43.2 RDW Coeff of Naren 15.4 H Plt Count 320 MPV 9.8 Sodium 138 Potassium 4.6 Chloride 105 Carbon Dioxide 26 Anion Gap 7.0 BUN 65 H Creatinine 1.86 H Est Cr Clr Drug Dosing 32.6 Est GFR ( Amer) 38.2 Est GFR (Non-Af Amer) 33.0 BUN/Creatinine Ratio 34.8 H Glucose 189 H POC Glucose Calcium 8.4 L Stool Comments SEE NOTE 06/05/20 06/05/20 06/05/20 07:28 11:35 16:19 WBC RBC Hgb Hct MCV MCH MCHC RDW Std Deviation RDW Coeff of Naren Plt Count MPV Sodium Potassium Chloride Carbon Dioxide Anion Gap BUN Creatinine Est Cr Clr Drug Dosing Est GFR ( Amer) Est GFR (Non-Af Amer) BUN/Creatinine Ratio Glucose POC Glucose 225 H 148 H 163 H Calcium Stool Comments 06/05/20 20:24 WBC RBC Hgb Hct MCV MCH MCHC RDW Std Deviation RDW Coeff of Naren Plt Count MPV Sodium Potassium Chloride Carbon Dioxide Anion Gap BUN Creatinine Est Cr Clr Drug Dosing Est GFR ( Amer) Est GFR (Non-Af Amer) BUN/Creatinine Ratio Glucose POC Glucose 132 H Calcium Stool Comments Microbiology 06/01/20 20:02 Blood Aerobic Blood Culture - Preliminary No growth in Aerobic bottle after 48 hours. 06/01/20 20:02 Blood Anaerobic Blood Culture - Preliminary No growth in Anaerobic bottle after 48 hours. 06/01/20 20:07 Blood Aerobic Blood Culture - Preliminary No growth in Aerobic bottle after 48 hours. 06/01/20 20:07 Blood Anaerobic Blood Culture - Preliminary No growth in Anaerobic bottle after 48 hours. 05/28/20 11:33 Blood Aerobic Blood Culture - Final No growth in Aerobic bottle after 5 days. 05/28/20 11:33 Blood Anaerobic Blood Culture - Final No growth in Anaerobic bottle after 5 days. 05/28/20 11:34 Blood Aerobic Blood Culture - Final No growth in Aerobic bottle after 5 days. 05/28/20 11:34 Blood Anaerobic Blood Culture - Final No growth in Anaerobic bottle after 5 days. 05/28/20 14:30 Stool WBC Smear - Final 05/28/20 14:30 Stool Escherichia coli Shiga Toxins Test - Final 05/28/20 14:30 Stool Stool Culture - Final No Salmonella isolated, No Shigella isolated, No Campylobacter jejuni isolated. 05/28/20 11:55 Urine,Clean Catch Urine Culture - Final No growth - less than 1,000 colonies/mL. 05/27/20 05:45 Blood Aerobic Blood Culture - Final Escherichia coli 05/27/20 05:45 Blood Anaerobic Blood Culture - Final Escherichia coli 05/27/20 05:37 Blood Aerobic Blood Culture - Final Escherichia coli 05/27/20 05:37 Blood Anaerobic Blood Culture - Final Escherichia coli Diagnostic Findings NUCLEAR HEPATOBILIARY SCAN FINDINGS: The hepatobiliary scan shows prompt and homogeneous hepatic uptake. There is visualized activity within the intra and extrahepatic biliary tree at 10 minutes, and within the gallbladder at 15 minutes. There is normal biliary to bowel transit, with small bowel visualized by 35 minutes. IMPRESSION: Unremarkable nuclear hepatobiliary scan. There is no scintigraphic evidence of cholecystitis. Electronically signed by: Vernon Ellison M.D. 06/05/2020 11:21 AM
[2020-06-06] MEDS: LEVOTHYROXINE SODIUM 50 MCG TABLET PO SCH (06:09)
[2020-06-06 06:27] LABS: Basophils # (auto) 0.03 K/uL (0-0.2); Basophils % (auto) 0.2 %; Eosinophils # (auto) 0.25 K/uL (0-0.5); Eosinophils % (auto) 1.8 %; Hematocrit (blood only) 27.1 % (42-52); Hemoglobin 8.7 g/dL (14.0-18.0); Immature Granulocytes # (auto) 0.06 K/uL (0.00-0.02); Immature Granulocytes % (auto) 0.4 %; Lymphocytes # (auto) 1.64 K/uL (1.2-3.4); Lymphocytes % (auto) 11.7 %; Mean Corpuscular Hemoglobin 25.3 pg (25-34); Mean Corpuscular Hgb Conc 32.1 g/dL (32-36); Mean Corpuscular Volume 78.8 fL (80-100); Mean Platelet Volume 9.9 fL (7.4-10.4); Monocytes # (auto) 1.15 K/uL (0.11-0.59); Monocytes % (auto) 8.2 %; Neutrophils # (auto) 10.92 K/uL (1.4-6.5); Neutrophils % (auto) 77.7 %; Platelet Count 368 K/uL (130-400); RDW Coefficient of Variation 15.6 % (11.5-14.5); RDW Standard Deviation 43.6 fL (36.4-46.3); Red Blood Count 3.44 M/uL (4.7-6.1); White Blood Count 14.05 K/uL (4.8-10.8)
[2020-06-06] MEDS ORDERED: PROPOFOL IV EMULSION 10 MG/ML 20 ML VIAL IV ONE (06:29)
[2020-06-06] MEDS ORDERED: LIDOCAINE HCL 2% 2 ML VIAL/AMP(20MG/ML) INFIL ONE (06:29)
[2020-06-06 07:04] LABS: Albumin Level 1.9 gm/dl (3.4-5.0); BUN Creatinine Ratio 35.4 (10-20); Calcium 8.6 mg/dl (8.5-10.1); Creatinine Clr Calc Pharmacy 35.7 ml/min; Est GFR (African American) 42.6; Est GFR (Non-African American) 36.7; Potassium 5.2 mmol/L (3.5-5.1)
[2020-06-06 07:06] LABS: Albumin Globulin Ratio 0.4 (0.9-2); Bilirubin,Total 0.5 mg/dl (0.2-1); C Reactive Protein 6.75 mg/dl (0-0.29); Globulin 5.1 gm/dl (2.5-4.0)
--- NOTE | 2020-06-06 07:15 | History & Physical Bridge Note ---
Date of Service June 06, 2020 History & Physical Bridge Note I have examined the patient, reviewed the History & Physical and in the interval since the performance of the History & Physical I have noted the following changes of clinical significance: no changes noted since exam yesterday with exception that patient is more alert and conversant. Afebrile yesterday and overnight. Hgb improved to 8.4. Creatinine improved, potassium up to 5.2 mmol /l.AST mildly elevated at 65 u/l. Cardiac Enzymes 06/06/20 Range/Units 06:02 AST 65 H (15-37) U/L CBC 06/06/20 Range/Units 06:02 WBC 14.05 H (4.8-10.8) K/uL RBC 3.44 L (4.7-6.1) M/uL Hgb 8.7 L (14.0-18.0) g/dL Hct 27.1 L (42-52) % Plt Count 368 (130-400) K/uL Neut # (Auto) 10.92 H (1.4-6.5) K/uL Lymph # (Auto) 1.64 (1.2-3.4) K/uL [place] # (Auto) 1.15 H (0.11-0.59) K/uL Eos # (Auto) 0.25 (0-0.5) K/uL Baso # (Auto) 0.03 (0-0.2) K/uL Comprehensive Metabolic Panel 06/06/20 Range/Units 06:02 Sodium 138 (136-145) mmol/L Potassium 5.2 H (3.5-5.1) mmol/L Chloride 106 (98-107) mmol/L Carbon Dioxide 29 (21-32) mmol/L BUN 60 H (7-18) mg/dl Creatinine 1.70 H (0.6-1.4) mg/dl Glucose 159 H (70-99) mg/dl Calcium 8.6 (8.5-10.1) mg/dl AST 65 H (15-37) U/L ALT 41 (12-78) U/L Alkaline Phosphatase 141 H (45-117) U/L Total Protein 7.0 (6.4-8.2) gm/dl Albumin 1.9 L (3.4-5.0) gm/dl Intake and Output 06/05/20 06/06/20 06/06/20 22:59 06:59 14:59 Intake Total 170 / 320 Output Total 150 / 350 Balance 170 / -30 -150 / -30 Intake: IV 70 / 70 Rocephin 2,000 mg In D5w 50 ml 70 / 70 @ 100 mls/hr IV Q24H AMAURI Rx#: [id number] Oral 100 / 250 Output: Urine 150 / 350 Other: # Unmeasured Voids 2 Weight 76.4 kg Proceed with TRENT. Informed consent obtained yesterday, daughter cosigned form yesterday. I reviewed rationale for TRENT with patient again this am and he elects to proceed.
[2020-06-06] MEDS ORDERED: ePHEDrine sulfate 50 MG/ML AMP IV PRN (08:06)
[2020-06-06] MEDS ORDERED: ATROPINE SULFATE 0.1 MG/ML 10ML SYR IV PRN (08:06)
--- NOTE | 2020-06-06 08:31 | Anesthesiology Progress Note ---
Date of Service June 06, 2020 Anesthesia Post Procedure Vital Signs Vital Signs: Temp Pulse Pulse Resp BP BP Pulse Ox 06/06/20 07:12 88 17 138/79 97 06/06/20 03:59 36.6 C 85 19 121/69 91 06/06/20 00:39 68 06/05/20 23:35 36.4 C L 82 19 120/69 90 06/05/20 20:00 37.0 C 76 20 124/59 L 95 06/05/20 16:00 36.8 C 89 18 115/62 96 06/05/20 11:49 37.0 C 81 19 109/69 95 Transfer of Care Handoff Completed per policy Notes Mental Status: see notes below Patient Amnestic to Procedure: Yes Nausea / Vomiting: adequately controlled Pain: adequately controlled Airway Patency, RR, SpO2: stable & adequate BP & HR: stable & adequate Hydration State: stable & adequate Anesthetic Complications: no major complications apparent Notes: pt is lethargic
--- NOTE | 2020-06-06 08:44 | Post Operative Brief Note ---
Cardiology Brief Post Op Date of Surgery June 06, 2020 Pre & Post Diagnosis Procedure date/time 06/06/2020, 7:24 am Preprocedure diagnosis: Fever , recent bacteremia, assess for endocarditis Postprocedure diagnosis: Mobile echodensity on the atrial surface of the mitral valve consistent with vegetation due to endocarditis Procedure Transesophageal echocardiogram: After informed consent was obtained a timeout was performed the patient was monitored in the standard fashion. He was sedated with the assistance of anesthesia receiving a total of 270 mg of IV propofol, and 400 mL of normal saline. Study revealed linear mobile echodensity on the atrial surface of the mitral valve consistent with endocarditis. A separate linear mobile echodensity was noted on the aortic valve, consistent with possible atherosclerosis versus vegetation. Mild calcific aortic valve stenosis was noted. No vegetations were noted on the pacemaker leads or tricuspid valve. Mild mitral valve regurgitation is present. Mild tricuspid valve regurgitation is present. Suspect Artist DO Assistant Luli Yanes, SOLOMON Estimated Blood Loss 0 Findings Consistent with Post-Op Diagnosis Anesthesia Type MAC Disposition Disposition: PCU
[2020-06-06] MEDS ORDERED: INSULIN GLARGINE SOLOSTAR 100 UNITS/ML 3 ML PEN SC SCH (09:00)
--- NOTE | 2020-06-06 10:05 | Pharmacy Report ---
Pharmacy Glycemic Short Note 2 - Date of Service June 06, 2020 - Glycemic Short BSG Results (Last 24 hours): 06/05/20 06/05/20 06/05/20 11:35 16:19 20:24 Glucose POC Glucose 148 H 163 H 132 H 06/06/20 06:02 Glucose 159 H POC Glucose Outpatient Anti-diabetic Regimen: * Lantus 25 units SC qAM * Novolog 8 units with lunch and 22 units with dinner, plus correction factor of 25 mg/dL/unit (over 150 mg/dL) * Empagliflozin 10 mg PO QAM * Glimepiride 1 mg PO QAM * Linagliptin-metformin 5-1000 mg PO QAM * A1c 8.7% on 05/28/20 ASSESSMENT: 06/06 * Improved glycemic control over the past 24 hours, with the exception of elevated fasting: * BSGs ranged from 132 - 225 mg/dL * 32 units of basal and 9 units of bolus (oral intake remains poor) * NPO this morning for TRENT. Fasting BSG = 159 mg/dL. Lantus dose was not given prior to patient being off floor for TRENT. Since diet was resumed with lunch, will continue full dose of basal insulin. * No change to Novolog parameters * TRENT revealed mitral valve endocarditis. Plan to transfer patient to [facility]. 06/05: * Patient with relatively stable insulin requirements (40-50 units/day) * Fasting BSG of 225 mg/dL is above goal. Continue to titrate basal insulin. * Post prandial BSGs were elevated yesterday but are looking better today. Will continue current CF/CR for now. 06/04: * Patient received 42 units of insulin yesterday: * 28 units basal + 14 units bolus * BSGs ranged 122 - 208 mg/dL * Fasting BSG this AM was 144 mg/dL. Continue current basal dose. * His appetite continues to be very poor as he did not eat any breakfast this AM. * Lunchtime BSG was elevated at 220 mg/dL. Will tighten CF & CR. PLAN FOR INPATIENT GLYCEMIC CONTROL: * Continue to hold outpatient oral diabetes medications * Basal insulin * Continue Lantus 32 units SQ daily * Bolus insulin * NovoLog ACHS and at 0200 tonight * Goal Range: Low 110 mg/dL - High 140 mg/dL * Correction Factor: 15 mg/dL/unit * Nutritional / Prandial insulin per carb ratio of 1 unit per 5 grams CHO consumed
--- NOTE | 2020-06-06 10:07 | Cardiology Progress Note ---
Date of Service June 06, 2020 Assessment & Plan (1) Endocarditis of mitral valve: (2) Complete heart block: Mr Luke is an 84-year-old diabetic male who presented on 05/31/2020 with 1 week of fever and shortness of breath with exertion. COVID-19 testing was negative. He was found to have third-degree heart block with ventricular rates in the range of 30 to 50 bpm on presentation to the emergency room, along with temperature of 38 C, acute kidney injury and hyperkalemia. He was taken to the cardiac catheterization laboratory and had an emergent temporary transvenous pacemaker placed in the right femoral vein on 05/31 for heart rate support, and 2/2 cultures drawn that day yielded E. coli. Urinalysis and blood cultures did not suggest prostate/UTI source. No apparent intestinal or biliary tract pathology noted on imaging including CT, ultrasound, and HIDA scan. He did have a healed ulcer of the right great toe. He was initially treated with cefepime, then transitioned to Rocephin, and briefly to cefazolin. Repeat cultures on 05/28, and 06/01/2020 without growth thus far. Fever noted on presentation subsequently resolved. Patient underwent implantation of dual-chamber permanent pacemaker on 05/31/2020. Recurrent fever of 38.1 noted on postoperative day 1, 06/01/2020 4 AM. With several low-grade fevers noted in the meantime the most recent of which was 37.7. Due to recurrent fever, he was transitioned back to Rocephin on 05/31/2020. Patient reported ongoing fatigue, and generalized illness prompting transesophageal echocardiogram today with findings of small mitral valve vegetation, mild mitral regurgitation. A linear echodensity was noted on the aortic aspect of the aortic valve, however this looks somewhat similar to findings on his previous transthoracic echocardiogram dating back to 2019, and although it could be consistent with vegetation, appears to be a chronic finding. No evidence of vegetation on the tricuspid valve or recently placed pacemaker leads. At present, I recommend transfer to tertiary center for consideration of bridging with repeat transvenous pacemaker, extraction of current pacemaker system and leads, and infectious disease consultation for ongoing antibiotic treatment pending replacement of the device. Recommendations discussed with the patient's daughter. Patient accepted in transfer by Dr. Colindres of cardiology at [facility] [place]. Will transfer by [facility]. Case discussed with Dr Buckley. Subjective Patient seen in follow up prior to , during, and post TRENT this am. TRENT findings include mitral valve vegetation. Afebrile last night and again this am. Repeat cultures since 05/27 have remained negative. Physical Exam Physical Exam: Temp Pulse Resp BP Pulse Ox 36.7 C 85 18 125/72 97 06/06/20 09:29 06/06/20 09:29 06/06/20 09:29 06/06/20 09:29 06/06/20 09:29 Constitutional: ill in appearance, no acute distress Respiratory: normal respiratory effort, lungs clear to auscultation Cardiovascular: Rate/Rhythm: regular rhythm Heart Sounds: + murmur (II/ SM) Vessels: no JVD Extremities: no edema Gastrointestinal (Abdomen): normal bowel sounds, soft, nontender, no hepatosplenomegaly Results & Data Vital Signs (Past 12 Hours) Vital Signs Temp Pulse Pulse Resp BP BP Pulse Ox 06/06/20 09:29 36.7 C 85 18 125/72 97 06/06/20 09:00 80 16 125/79 94 06/06/20 08:45 80 16 136/73 94 06/06/20 08:30 83 16 127/71 95 06/06/20 08:20 81 16 124/70 96 06/06/20 08:11 83 16 110/66 97 06/06/20 07:12 88 17 138/79 97 06/06/20 03:59 36.6 C 85 19 121/69 91 06/06/20 00:39 68 06/05/20 23:35 36.4 C L 82 19 120/69 90 Laboratory Results Cardiac Enzymes 06/06/20 Range/Units 06:02 AST 65 H (15-37) U/L CBC 06/06/20 Range/Units 06:02 WBC 14.05 H (4.8-10.8) K/uL RBC 3.44 L (4.7-6.1) M/uL Hgb 8.7 L (14.0-18.0) g/dL Hct 27.1 L (42-52) % Plt Count 368 (130-400) K/uL Neut # (Auto) 10.92 H (1.4-6.5) K/uL Lymph # (Auto) 1.64 (1.2-3.4) K/uL Kay # (Auto) 1.15 H (0.11-0.59) K/uL Eos # (Auto) 0.25 (0-0.5) K/uL Baso # (Auto) 0.03 (0-0.2) K/uL Comprehensive Metabolic Panel 06/06/20 Range/Units 06:02 Sodium 138 (136-145) mmol/L Potassium 5.2 H (3.5-5.1) mmol/L Chloride 106 (98-107) mmol/L Carbon Dioxide 29 (21-32) mmol/L BUN 60 H (7-18) mg/dl Creatinine 1.70 H (0.6-1.4) mg/dl Glucose 159 H (70-99) mg/dl Calcium 8.6 (8.5-10.1) mg/dl AST 65 H (15-37) U/L ALT 41 (12-78) U/L Alkaline Phosphatase 141 H (45-117) U/L Total Protein 7.0 (6.4-8.2) gm/dl Albumin 1.9 L (3.4-5.0) gm/dl Intake and Output 06/05/20 06/06/20 06/06/20 22:59 06:59 14:59 Intake Total 170 / 320 Output Total 150 / 350 Balance 170 / -30 -150 / -30 Intake: IV 70 / 70 Rocephin 2,000 mg In D5w 50 ml 70 / 70 @ 100 mls/hr IV Q24H [facility] Rx#: [id number] Oral 100 / 250 Output: Urine 150 / 350 Other: # Unmeasured Voids 2 Weight 76.4 kg Patient Weight 06/07/20 06:59 Weight 76.4 kg
--- NOTE | 2020-06-06 10:08 | Hospitalist Progress Note ---
Date of Service June 06, 2020 Assessment & Plan (1) Septic shock: Met criteria for severe sepsis + septic shock (due to lactate > 4) at time of admission per current CMS definition. Serum lactate elevated at 6.7 and followed. Blood cultures obtained. Received broad spectrum antibiotic therapy (initially daptomycin + cefepime). Systolic BP's as low mid 90's, generally > 100. Received fluid resuscitation (although not 30 ml/kg because of CHF on initial chest x-ray). Blood cultures grew E coli as discussed below. (2) Gram-negative bacteremia: Presented with severe sepsis. 2 out of 2 blood cultures at time of admission grew E coli (resistant to quinolones, sensitive to penicillins and cephalosporins). Source uncertain. UA benign and urine culture negative. No apparent intestinal or biliary tract pathology on imaging (CT, US, HIDA). No apparent vegetations on TTE 05/27/20. Healed ulcer distal right great toe; no apparent osteomyelitis on x-ray. Intermittent low grade temps on ceftriaxone. Repeat blood cultures on 05/28 and 06/01 negative so far. Serial labs: 05/27/20 05/29/20 06/06/20 05:03 04:31 06:02 WBC 16.67 H 19.78 H 14.05 H 05/27/20 06/04/20 06/06/20 11:26 05:49 06:02 ESR 89 H > 90 H > 90 H 05/27/20 05/30/20 06/06/20 11:26 04:53 06:02 C-Reactive Protein 8.19 H 14.50 H 6.75 H 05/27/20 05/29/20 06/06/20 05:03 04:31 06:02 Procalcitonin 1.56 H 50.23 H 1.21 H Venous duplex lower extremities- no apparent DVT. TRENT today (06/06) showed mitral valve vegetation consistent with endocarditis. Cardiology recommends removal of permanent pacemaker so that new device does not become infected. 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 No valvular vegetations were noted on TTE 05/27/20. TRENT on 06/06/20 demonstrated mitral valve vegetation consistent with endocarditis. Management as discussed above. (4) Complete heart block: 3rd degree heart block with bradycardia at time of admission. Lyme screen negative. Had hyperkalemia, but heart block persisted after correction. On metoprolol, but heart block persisted when it was held. Temporary pacemaker placed by Cardiology. Permanent pacemaker placed on 05/31 after repeat blood cultures negative x 3 days. TRENT 06/06/20 showed mitral valve vegetation consistent with endocarditis. (No apparent ring / deep abscess that might affect conduction.) Now felt that permanent pacemaker needs to be removed in light of endocarditis. Further management per Cardiology. (5) Elevated troponin level: Serum troponin as high as 3.6. Echo showed normal LV wall motion and systolic function. Doubt acute coronary syndrome. Elevated troponin probably secondary to sepsis. (6) CHF (congestive heart failure): Chest x-ray today showed CHF. LVEF showed moderate concentric LVH, normal LVEF. Probable acute left ventricular diastolic heart failure. Received furosemide with improvement. (7) Hypertension: Hemodynamically stable. Continue metoprolol and amlodipine. (8) Acute kidney injury: Serum creatinine 2.73 at time of admission and thiago as high as 3.23. Nephrology consulted. Acute kidney injury due to ATN from sepsis and / or heart block. Creatinine today = 1.70. Follow. (9) Hyperkalemia: Serum K 6.4 at time of admission. Hyperkalemia probably due to GWEN. Serum K subsequently has fluctuated. K today = 5.2. Renal function improving. Chemistries do not suggest acidosis. Not on any K-raising meds. Doubt adrenal insufficiency. Low-K diet? (would be difficult since pt is vegetarian). Follow. (10) Abnormal liver function tests: AST as high as 741, ALT as high as 689. Bilirubin normal. Alk phos slightly elevated. Hepatitis A, B, C screen negative. No apparent hepatic or biliary tract abnormalities on imaging by CT or US. HIDA scan normal. Elevated LFT's probably due to heart block with decreased cardiac output and/or sepsis. 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 Suggest reviewing images with Urology and follow-up as clinically indicated. (12) Diabetes mellitus type 2, controlled: DM type 2 with complications, usually managed with metformin, linagliptin, empagliflozin, and insulin. Hemoglobin A1c 8.7. Pharmacy consulted for glycemic management. FBS = 159. Continue Lantus + NovoLog per Pharmacy. (13) Iron deficiency anemia: Chronic anemia with baseline Hgb around 10-11. Vegetarian. Hgb day of admission 9.4. Anemia evaluation: Laboratory Tests 06/02/20 06/02/20 06/02/20 08:00 08:00 08:00 Iron 22 L TIBC 159 L Transferrin 129 L Ferritin 235.1 Vitamin B12 > 2000 H Folate 9.00 Hgb today = 8.7. No gross GI bleeding. Anemia probably due to combination of chronic anemia (Fe def, CKD) and acute illness (sepsis / endocarditis). Follow. (14) Altered mental status: Daughter has noted confusion. 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 Mentation a bit slow, but generally oriented. Had difficulty with serial 7's and months of year backwards. Probable metabolic encephalopathy / delirium secondary to sepsis. Discussed nature of delirium with family; recovery times vary. Continue to monitor. Avoid meds with [employer] side effects whenever posssible. (15) DVT prophylaxis: SQ heparin. Ambulate. (16) Discharge planning issues: Arrangements being made for transfer to [facility] under the care of Dr. Colindres ([facility] Cardiology). Poor functional status; anticipated eventual need for inpatient rehab. Family Medicine follow-up with Dr. Brown. Admission and Anticipated Discharge Date Admission Date: May 27, 2020 Subjective Recheck for multiple problems. Patient seen in their room around 0930. Underwent TRENT this morning. Found to have vegetation on mitral valve consistent with endocarditis. Cardiology recommends removal of permanent pacemaker so that the new device does not become infected. Complexity of cardiac problems best served at tertiary care facility and arrangements are being made for transfer to [facility]. Daughter given update by Dr. Shukla. Patient still sedated at time of my assessment. No fever over night. Denies chest pain, cough, SOB, nausea, vomiting. Physical Exam Constitutional: no acute distress Respiratory: no respiratory distress Auscultation: + rales Cardiovascular: Rate/Rhythm: regular rate and regular rhythm Heart Sounds: + murmur (III/ sys murmur at base); no gallop and no cardiac rub Vessels: + JVD Extremities: no calf tenderness and no edema Chest (Breasts): Chest: + pacemaker (incision without erythema or drainage) Gastrointestinal (Abdomen): normal bowel sounds, soft, nontender, no hepatosplenomegaly Musculoskeletal: Extremities: + foot abnormality (healed ulceration distal right great toe without erythema or drainage); no cyanosis Skin: no rashes, warm and dry Psychiatric: Orientation: + not alert (sedated after TRENT) Results & Data Results & Data ([facility]) Vital Signs (Past 12 Hours) Vital Signs Temp Pulse Pulse Resp BP BP Pulse Ox 06/06/20 09:29 36.7 C 85 18 125/72 97 06/06/20 09:00 80 16 125/79 94 06/06/20 08:45 80 16 136/73 94 06/06/20 08:30 83 16 127/71 95 06/06/20 08:20 81 16 124/70 96 06/06/20 08:11 83 16 110/66 97 06/06/20 07:12 88 17 138/79 97 06/06/20 03:59 36.6 C 85 19 121/69 91 06/06/20 00:39 68 06/05/20 23:35 36.4 C L 82 19 120/69 90 Laboratory Results Laboratory Results - last 24 hr 06/05/20 06/05/20 06/05/20 11:35 16:19 20:24 WBC RBC Hgb Hct MCV MCH MCHC RDW Std Deviation RDW Coeff of Naren Plt Count MPV Immature Gran % (Auto) Neut % (Auto) Lymph % (Auto) [place] % (Auto) Eos % (Auto) Baso % (Auto) Neut # (Auto) Lymph # (Auto) [place] # (Auto) Eos # (Auto) Baso # (Auto) Immature Gran # (Auto) ESR Sodium Potassium Chloride Carbon Dioxide Anion Gap BUN Creatinine Est Cr Clr Drug Dosing Est GFR ( Amer) Est GFR (Non-Af Amer) BUN/Creatinine Ratio Glucose POC Glucose 148 H 163 H 132 H Calcium Total Bilirubin AST ALT Alkaline Phosphatase C-Reactive Protein Total Protein Albumin Globulin Albumin/Globulin Ratio Procalcitonin 06/06/20 06/06/20 06/06/20 06:02 06:02 06:02 WBC 14.05 H RBC 3.44 L Hgb 8.7 L Hct 27.1 L MCV 78.8 L MCH 25.3 MCHC 32.1 RDW Std Deviation 43.6 RDW Coeff of Naren 15.6 H Plt Count 368 MPV 9.9 Immature Gran % (Auto) 0.4 Neut % (Auto) 77.7 Lymph % (Auto) 11.7 [place] % (Auto) 8.2 Eos % (Auto) 1.8 Baso % (Auto) 0.2 Neut # (Auto) 10.92 H Lymph # (Auto) 1.64 [place] # (Auto) 1.15 H Eos # (Auto) 0.25 Baso # (Auto) 0.03 Immature Gran # (Auto) 0.06 H ESR > 90 H Sodium 138 Potassium 5.2 H Chloride 106 Carbon Dioxide 29 Anion Gap 3.0 BUN 60 H Creatinine 1.70 H Est Cr Clr Drug Dosing 35.7 Est GFR ( Amer) 42.6 Est GFR (Non-Af Amer) 36.7 BUN/Creatinine Ratio 35.4 H Glucose 159 H POC Glucose Calcium 8.6 Total Bilirubin 0.5 AST 65 H ALT 41 Alkaline Phosphatase 141 H C-Reactive Protein 6.75 H Total Protein 7.0 Albumin 1.9 L Globulin 5.1 H Albumin/Globulin Ratio 0.4 L Procalcitonin 06/06/20 06:02 WBC RBC Hgb Hct MCV MCH MCHC RDW Std Deviation RDW Coeff of Naren Plt Count MPV Immature Gran % (Auto) Neut % (Auto) Lymph % (Auto) [place] % (Auto) Eos % (Auto) Baso % (Auto) Neut # (Auto) Lymph # (Auto) [place] # (Auto) Eos # (Auto) Baso # (Auto) Immature Gran # (Auto) ESR Sodium Potassium Chloride Carbon Dioxide Anion Gap BUN Creatinine Est Cr Clr Drug Dosing Est GFR ( Amer) Est GFR (Non-Af Amer) BUN/Creatinine Ratio Glucose POC Glucose Calcium Total Bilirubin AST ALT Alkaline Phosphatase C-Reactive Protein Total Protein Albumin Globulin Albumin/Globulin Ratio Procalcitonin 1.21 H Microbiology 06/01/20 20:02 Blood Aerobic Blood Culture - Preliminary No growth in Aerobic bottle after 48 hours. 06/01/20 20:02 Blood Anaerobic Blood Culture - Preliminary No growth in Anaerobic bottle after 48 hours. 06/01/20 20:07 Blood Aerobic Blood Culture - Preliminary No growth in Aerobic bottle after 48 hours. 06/01/20 20:07 Blood Anaerobic Blood Culture - Preliminary No growth in Anaerobic bottle after 48 hours. 05/28/20 11:33 Blood Aerobic Blood Culture - Final No growth in Aerobic bottle after 5 days. 05/28/20 11:33 Blood Anaerobic Blood Culture - Final No growth in Anaerobic bottle after 5 days. 05/28/20 11:34 Blood Aerobic Blood Culture - Final No growth in Aerobic bottle after 5 days. 05/28/20 11:34 Blood Anaerobic Blood Culture - Final No growth in Anaerobic bottle after 5 days. 05/28/20 14:30 Stool WBC Smear - Final 05/28/20 14:30 Stool Escherichia coli Shiga Toxins Test - Final 05/28/20 14:30 Stool Stool Culture - Final No Salmonella isolated, No Shigella isolated, No Campylobacter jejuni isolated. 05/28/20 11:55 Urine,Clean Catch Urine Culture - Final No growth - less than 1,000 colonies/mL. 05/27/20 05:45 Blood Aerobic Blood Culture - Final Escherichia coli 05/27/20 05:45 Blood Anaerobic Blood Culture - Final Escherichia coli 05/27/20 05:37 Blood Aerobic Blood Culture - Final Escherichia coli 05/27/20 05:37 Blood Anaerobic Blood Culture - Final Escherichia coli
[2020-06-06] MEDS: INSULIN ASPART 100 UNITS/ML 3 ML PEN SC SCH ×3 (10:58→17:44)
[2020-06-06] MEDS ORDERED: INSULIN GLARGINE SOLOSTAR 100 UNITS/ML 3 ML PEN SC ONE (11:45)
[2020-06-06] MEDS: CYANOCOBALAMIN (VITAMIN B-12) 100 MCG TABLET PO SCH (11:59)
[2020-06-06] MEDS: METOPROLOL SUCC 25MG EXT REL TAB PO SCH (11:59)
[2020-06-06] MEDS: HEPARIN SOD 5,000 UNIT/0.5 ML VIAL SQ SCH (12:00)
[2020-06-06] MEDS: FERROUS FUMARATE/ASCORBIC ACID 65 MG CAPCR PO SCH (12:00)
[2020-06-06] MEDS: PANTOprazole 40 MG TAB PO SCH (12:00)
[2020-06-06] MEDS: AMLODIPINE BESYLATE 5 MG TAB PO SCH (12:00)
[2020-06-06] MEDS: FUROSEMIDE 20 MG in SYRINGE 0 ML IV SCH ×2 (12:01→17:45)
--- NOTE | 2020-06-06 15:19 | Communication Note ---
Date of Service: June 06, 2020 Updated patient 's son regarding today's events. Awaiting bed at [facility] [facility] for transfer. Patient stable. He is confused compared to his baseline and son is concerned. I agree, mental status was better on 05/31 and 06/01 compared to today. This could be delirium for multiple reasons , however, embolic stroke a consideration. Will proceed with CT of brain now. Not candidate for MRI at present s/p recent pacemaker and need to have him ready for transfer. Further consideration regarding additional imaging can be performed at [facility] , however, I believe CT can be completed quickly without causing delay.
[2020-06-06] MEDS: ACETAMINOPHEN 325 MG TAB PO PRN (15:28)
--- NOTE | 2020-06-06 16:12 | CT Scan Report ---
CT head/brain wo con CLINICAL HISTORY: confusion, endocarditis,assess for stroke COMPARISON STUDY: 09/13/2010 TECHNIQUE: Axial CT of the brain is performed from the vertex to the skull base. IV contrast was not administered for this examination. A dose lowering technique was utilized adhering to the principles of ALARA. CT DOSE: 767.83 mGy.cm FINDINGS: No intra or extra-axial mass lesions are visualized. There is no CT evidence of acute cortical infarc tion. There is no evidence of midline shift. There is no acute hemorrhage. No calvarial fractures ar e visualized. There are patchy white matter hypodensities likely on a small vessel basis. There is no evidence of pathologic ventricular dilatation. There is no evidence of acute sinusitis IMPRESSION: No acute intracranial findings ACT 112: Negative or not required by law. Electronically signed by: Manuel Gomez M.D. 06/06/2020 4:10 PM
--- NOTE | 2020-06-06 17:51 | Discharge Summary ---
Date of Service Date of Admission: 05/27/20 Date of Discharge: 06/06/20 Admission HPI Per Admitting Provider This is an 84-year-old male with past medical history significant for type 2 diabetes, hyperlipidemia, diabetic macular edema of right eye, hypothyroidism, CAD status post stent, asymptomatic bilateral carotid artery stenosis, GERD, diabetic polyneuropathy and retinopathy, now presents with ongoing fevers and shortness of breath with exertion. 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 Last Wednesday, he had developed fever. Since then, he is having weakness, fatigue, poor appetite, short of breath on minimal exertion and feeling nauseous, some abdominal discomfort. The patient also complains of neck pain. He said he could not flex his neck. This is going on for last 1 week. The fevers are coming in the nighttime and he takes 2 aspirins.His COVID test was done as outpatient at [facility] on 05/22/2020, it came back as negative. But his symptoms are not getting better, they are getting progressively getting worse, so he came to the ER. Initially he was somewhat confused and agitated and his labs showed he has wide complex rhythm and he has temp spike of 38. WBC of 16.6. D-dimer 4820. Potassium was 6.4, creatinine of 2.7. Lactate of 6.7. Troponin of 3.3. Chest x-ray with pulmonary congestion. He was started on oxygen. He was given insulin, dextrose and calcium gluconate in the ER and nebs treatment and is now somewhat alert and awake, can tell his name, knows he is in the hospital, tells today's date as 05/19/2020, but able to answer most of the questions. Denies any headache. Denies any chest pain. Has some nausea and abdominal discomfort. He has also complaints about neck pain. No blurred visions. Denies any tick bites. He says he does not go into the yard. He just works in the labs. Seem to be micturating fine. No rash seen. No lower extremity edema. As per daughter, he developed fever last Wednesday and daughter says she also developed some fever next day. They were worried about COVID. On the monitor, his rhythm looks like type 1 Wenckebach heart block. Principal Diagnosis septic shock E coli bacteremia endocarditis, little shell tribe mitral valve OTHER ACUTE / NEW DIAGNOSES third degree heart block congestive heart failure elevated transaminases acute kidney injury hyperkalemia anemia delirium complex renal cyst Discharge Data Allergies Allergy/AdvReac Type Severity Reaction Status Date / Time rosuvastatin Allergy Severe chest pain Verified 05/27/20 05:34 Consultations 05/27/20 06:23 ED Decision to Admit Stat 05/27/20 10:32 Consult Cardiology Routine Consult Case Management - Discharge Planning Routine Consult Catering Truck Driver Routine Consult Nephrology Routine 05/29/20 08:25 Consult Infectious Diseases Routine 06/05/20 15:16 Consult Anesthesiology Routine 06/06/20 09:52 Burn CD for patient Routine Procedures Performed Operation Date: 05/27/20 10:30 Actual Procedures p Ins/RemTemporary Transvenous Pacer - Sumeet Guzman DO Operation Date: 05/28/20 11:00 <No data on this case meets the specified criteria> Operation Date: 05/31/20 13:00 Actual Procedures p Pacer with A/V Leads (Dual) - Philipp Nair MD s Ins/RemTemporary Transvenous Pacer - Philipp Nair MD Operation Date: 06/06/20 07:15 Actual Procedures p Echo Transesophageal - DO ewa Yanes Echo Color Flow - DO ewa Yanes Echo Doppler Complete - Dequan Shukla DO Ordered Studies 05/27/20 10:40 CL Cath Imgs for PACS use only Stat 05/27/20 13:30 US venous doppler LE BI Urgent 05/27/20 14:15 US renal/blad retro comp Routine 05/28/20 09:53 CT abd pelvis oral con only Routine 05/30/20 US liver Urgent 05/31/20 12:15 CL Cath Imgs for PACS use only Routine 06/04/20 13:01 US venous doppler LE BI Urgent 06/06/20 15:13 CT head/brain wo con Stat Hospital Course (1) Septic shock: Met criteria for severe sepsis + septic shock (due to lactate > 4) at time of admission per current CMS definition. Serum lactate elevated at 6.7 and followed. Blood cultures obtained. Received broad spectrum antibiotic therapy (initially daptomycin + cefepime). Systolic BP's as low mid 90's, generally > 100. Received fluid resuscitation (although not 30 ml/kg because of CHF on initial chest x-ray). Blood cultures grew E coli as discussed below. (2) Gram-negative bacteremia: Presented with severe sepsis/septic shock. 2 out of 2 blood cultures at time of admission grew E coli (resistant to quinol ones, sensitive to penicillins and cephalosporins). Source uncertain. UA benign and urine culture negative. No apparent intestinal or biliary tract pathology on imaging (CT, US, HIDA). No apparent vegetations on TTE 05/27/20. Healed ulcer distal right great toe; no apparent osteomyelitis on x-ray. Intermittent low grade temps on ceftriaxone. Repeat blood cultures on 05/28 and 06/01 negative so far. Serial labs: 05/27/20 05/29/20 06/06/20 05:03 04:31 06:02 WBC 16.67 H 19.78 H 14.05 H 05/27/20 06/04/20 06/06/20 11:26 05:49 06:02 ESR 89 H > 90 H > 90 H 05/27/20 05/30/20 06/06/20 11:26 04:53 06:02 C-Reactive Protein 8.19 H 14.50 H 6.75 H 05/27/20 05/29/20 06/06/20 05:03 04:31 06:02 Procalcitonin 1.56 H 50.23 H 1.21 H Venous duplex lower extremities- no apparent DVT. TRENT 06/06/20 showed mitral valve vegetation consistent with endocarditis. Cardiology recommends removal of permanent pacemaker so that new device does not become infected. 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 No valvular vegetations were noted on TTE 05/27/20. TRENT on 06/06/20 demonstrated mitral valve vegetation consistent with endocarditis. Management as discussed above. (4) Complete heart block: 3rd degree heart block with bradycardia at time of admission. Lyme screen negative. Had hyperkalemia, but heart block persisted after correction. On metoprolol, but heart block persisted when it was held. Temporary pacemaker placed by Cardiology. Permanent pacemaker placed on 05/31 after repeat blood cultures negative x 3 days. TRENT 06/06/20 showed mitral valve vegetation consistent with endocarditis. (No apparent ring / deep abscess that might affect conduction.) Now felt that permanent pacemaker needs to be removed in light of endocarditis. Further management per Cardiology. (5) Elevated troponin level: Serum troponin as high as 3.6. Echo showed normal LV wall motion and systolic function. Doubt acute coronary syndrome. Elevated troponin probably secondary to sepsis. (6) CHF (congestive heart failure): Chest x-ray today showed CHF. LVEF showed moderate concentric LVH, normal LVEF. Probable acute left ventricular diastolic heart failure. Received furosemide with improvement. (7) Hypertension: Hemodynamically stable. Continue metoprolol and amlodipine. (8) Acute kidney injury: Serum creatinine 2.73 at time of admission and thiago as high as 3.23. Nephrology consulted. Acute kidney injury due to ATN from sepsis and / or heart block. Creatinine day of discharge 1.70. Follow. (9) Hyperkalemia: Serum K 6.4 at time of admission. Hyperkalemia probably due to GWEN. Serum K improved, but has subsequently fluctuated. K day of discharge 5.2. Renal function improving. Chemistries at this time do not suggest acidosis. Not on any K-raising meds. Doubt adrenal insufficiency. Low-K diet? (would be difficult since pt is vegetarian). Follow. (10) Abnormal liver function tests: AST as high as 741, ALT as high as 689. Bilirubin normal. Alk phos slightly elevated. Hepatitis A, B, C screen negative. No apparent hepatic or biliary tract abnormalities on imaging by CT or US. HIDA scan normal. Elevated LFT's probably due to heart block with decreased cardiac output and/or sepsis. 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 Suggest reviewing images with Urology and follow-up as clinically indicated. (12) Diabetes mellitus type 2, controlled: DM type 2 with complications, usually managed with metformin, linagliptin, empagliflozin, and insulin. Hemoglobin A1c 8.7. Pharmacy consulted for glycemic management. FBS day of discharge 159. Continue Lantus + NovoLog per Pharmacy. (13) Iron deficiency anemia: Chronic anemia with baseline Hgb around 10-11. Vegetarian. Hgb day of admission 9.4. Anemia evaluation: Laboratory Tests 06/02/20 06/02/20 06/02/20 08:00 08:00 08:00 Iron 22 L TIBC 159 L Transferrin 129 L Ferritin 235.1 Vitamin B12 > 2000 H Folate 9.00 Hgb day of discharge 8.7. No gross GI bleeding. Anemia probably due to combination of chronic anemia (Fe def, CKD) and acute illness (sepsis / endocarditis). Follow. (14) Altered mental status: Daughter has noted confusion that waxes and wanes. Prior to admission, patient was working as a [employer] immunochemist and had no cognitive issues. Often somnolent. Mentation a bit slow, but generally oriented essentially x 3. Had difficulty with serial 7's and months of year backwards. Probable metabolic encephalopathy / delirium secondary to sepsis. Discussed nature of delirium with family; recovery times vary. CT head showed chronic small vessel ischemic changes, no acute events. Was taking trazodone 25 mg HS- hold for now. Continue to monitor cognitive status. Avoid meds with DOCKWORKER side effects whenever possible. (15) DVT prophylaxis: SQ heparin. Ambulate. (Pros and cons of prophylactic SQ heparin considered in light of endocarditis. It was felt that benefits outweigh the risks because of prolonged immobility and presence of temporary pacing wire in RLE for several days.) (16) Discharge planning issues: Arrangements being made for transfer to [facility] under the care of Dr. Colindres ( Cardiology). Poor functional status; anticipated eventual need for inpatient rehab. Family Medicine follow-up with Dr. Brown. Current Inpatient Medications Acetaminophen (Tylenol) 650 mg PO Q6H PRN PRN Reason: Fever Stop: 07/01/20 05:18 Last Admin: 06/06/20 15:28 Dose: 650 mg Documented by: Amlodipine Besylate (Norvasc) 2.5 mg PO QAM [facility] Stop: 07/02/20 08:59 Last Admin: 06/06/20 12:00 Dose: 2.5 mg Documented by: Atorvastatin Calcium (Lipitor) 80 mg PO DAILY [facility] Stop: 06/26/20 11:29 Last Admin: 05/31/20 08:31 Dose: 80 mg Documented by: Cyanocobalamin (Vitamin B-12) 250 mcg PO DAILY [facility] Stop: 06/27/20 08:59 Last Admin: 06/06/20 11:59 Dose: 250 mcg Documented by: Dextrose (Dextrose 50%) 25 - 50 ml IV UD PRN; Protocol PRN Reason: Hypoglycemia Protocol Stop: 06/27/20 07:44 Docusate Sodium/Ferrous Fumarate (Michael-Sequels) [facility] Stop: 07/03/20 10:59 Last Admin: 06/06/20 12:00 Dose: 65 mg Documented by: Glucagon (Glucagen) 1 mg IM UD PRN; Protocol PRN Reason: Hypoglycemia Protocol Stop: 06/27/20 07:44 Glucose (Glucose 40%) 15 - 30 gm PO UD PRN; Protocol PRN Reason: Hypoglycemia Protocol Stop: 06/27/20 07:44 Glucose (Dex4 Glucose) 4 - 8 tabs PO UD PRN; Protocol PRN Reason: Hypoglycemia Protocol Stop: 06/27/20 07:44 Heparin Sodium (Porcine) (Heparin Sodium (Porcine)) 5,000 units SQ Q12 [facility] Stop: 07/01/20 20:59 Last Admin: 06/06/20 12:00 Dose: 5,000 units Documented by: Ceftriaxone Sodium 2,000 mg/ (Dextrose) 70 mls @ 100 mls/hr IV Q24H [facility]; Protocol Stop: 06/15/20 19:59 Last Infusion: 06/05/20 21:15 Dose: Infused Documented by: Furosemide 20 mg/ Syringe 2 mls @ 4 mls/min IV BID17 [facility] Stop: 07/05/20 09:44 Last Admin: 06/06/20 17:45 Dose: 4 mls/min Documented by: Insulin Aspart (Novolog Flexpen) 0 units SC ACHS [facility]; Protocol Stop: 06/27/20 11:29 Last Admin: 06/06/20 17:44 Dose: 5 units Documented by: Insulin Glargine (Lantus Solostar Pen) 32 units SC DAILY [facility]; Protocol Stop: 07/05/20 08:59 Last Admin: 06/05/20 08:12 Dose: 32 units Documented by: Levothyroxine Sodium (Synthroid) 50 mcg PO DAILYBB [facility] Stop: 06/26/20 11:29 Last Admin: 06/06/20 06:09 Dose: 50 mcg Documented by: Magnesium Oxide (Mag-Ox) 400 mg PO DAILY [facility] Stop: 06/26/20 11:29 Last Admin: 05/31/20 09:14 Dose: Not Given Documented by: Metoprolol Succinate (Toprol Xl) 25 mg PO QAM [facility] Stop: 07/02/20 08:59 Last Admin: 06/06/20 11:59 Dose: 25 mg Documented by: Miscellaneous (Carbohydrates For Hypoglycemia) 15 - 30 gm PO UD PRN PRN Reason: Hypoglycemia Treatment Stop: 06/27/20 07:44 Miscellaneous Information (Consult Glycemic Management Pharmacy) 1 ea N/A UD PRN PRN Reason: Consult Stop: 06/26/20 10:35 Nitroglycerin (Nitrostat) 0.4 mg SL UD PRN PRN Reason: Chest Pain Stop: 06/26/20 10:31 Ondansetron HCl (Zofran) 4 mg IV Q6H PRN PRN Reason: Nausea Stop: 06/26/20 13:01 Last Admin: 06/01/20 20:35 Dose: 4 mg Documented by: Pantoprazole Sodium (Protonix) 40 mg PO DAILY [facility] Stop: 06/26/20 11:29 Last Admin: 06/06/20 12:00 Dose: 40 mg Documented by: Polyethylene Glycol (Miralax Powder Packet) 17 gm PO DAILY PRN PRN Reason: Constipation Stop: 07/05/20 14:56 Tamsulosin HCl (Flomax) 0.4 mg PO HS [facility] Stop: 06/26/20 20:59 Last Admin: 06/05/20 20:33 Dose: 0.4 mg Documented by: Home Medications amlodipine 2.5 mg PO DAILY 05/27/20 [History Confirmed 05/27/20] aspirin 650 mg PO DAILY 05/27/20 [History Confirmed 05/27/20] atorvastatin 80 mg PO DAILY 05/27/20 [History Confirmed 05/27/20] cyanocobalamin (vitamin B-12) 250 mcg SUBLINGUAL DAILY 05/27/20 [History Confirmed 05/27/20] empagliflozin [Jardiance] 10 mg PO DAILY 05/27/20 [History Confirmed 05/27/20] furosemide 20 mg PO DAILY PRN 05/27/20 [History Confirmed 05/27/20] glimepiride 1 mg PO QAM 05/27/20 [History Confirmed 05/27/20] insulin aspart U-100 [Novolog Flexpen U-100 Insulin] See Rx Instructions .ROUTE .COMPLEX 05/27/20 [History Confirmed 05/27/20] insulin glargine [Lantus Solostar U-100 Insulin] 25 unit SUBCUT QAM 05/27/20 [History Confirmed 05/27/20] isosorbide mononitrate 90 mg PO DAILY 05/27/20 [History Confirmed 05/27/20] levothyroxine 50 mcg PO DAILY 05/27/20 [History Confirmed 05/27/20] linagliptin-metformin [Jentadueto XR] 1 tab PO DAILY 05/27/20 [History Confirmed 05/27/20] magnesium oxide 250 mg PO DAILY 05/27/20 [History Confirmed 05/27/20] metoprolol succinate 25 mg PO DAILY 05/27/20 [History Confirmed 05/27/20] nitroglycerin [Nitrostat] 0.4 mg SUBLINGUAL UD PRN 05/27/20 [History Confirmed 05/27/20] omeprazole 20 mg PO DAILY 05/27/20 [History Confirmed 05/27/20] tamsulosin 0.4 mg PO HS 05/27/20 [History Confirmed 05/27/20] trazodone 25 mg PO HS 05/27/20 [History Confirmed 05/27/20] Total Time Total Time Spent Total Time Spent (In Minutes): 60 Discharge Plan Discharge Items Patient Disposition: Transfer Acute Care Hospital Reason For Visit: fever, weakness Discharge Diagnosis: septic shock E coli bacteremia little shell tribe mitral valve endocarditis third degree heart block acute kidney injury hyperkalemia delirium Activity: As commented below Non-emergency contact: Primary Care Provider, Hospitalist and Passenger Service Agent Call non-emergency contact if: you have any medication questions and your symptoms worsen Follow-up/Referrals: Beck Brown MD [Primary Care Provider] - Diet: Vegan (no animal product) Addtl Attending Provider Instructions: ACTIVITY As tolerated with walker and assistance. DIET Vegetarian. PRECAUTIONS Fall precautions. Aspiration precautions. Delirium precautions. Skin precautions. VTE PROPHYLAXIS SQ heparin. Ambulate with assistance. RESUSCITATION STATUS Full code. Diagnostic imaging sent to [facility] PACS. CD or DVT with images should accompany patient. Please note current medications at end of hospital course in discharge summary. Thank you for receiving this patient in transfer. Please call or TigerText if you have any questions. Beck Buckley Pending Studies at Discharge: No Stand-Alone Forms: My [facility] Skilled Items Patient informed of condition?: Yes Discharge Level of Care: Other Communicable Disease: No Discharge Prognosis: Stable Lines: Peripheral IV Urinary Catheter: No Medications and DC Order Prescriptions: Discontinued atorvastatin 80 mg tablet 80 mg PO DAILY RF: 0 aspirin 325 mg Tablet 650 mg PO DAILY RF: 0 amlodipine 2.5 mg tablet 2.5 mg PO DAILY RF: 0 isosorbide mononitrate 30 mg tablet extended release 24 hr 90 mg PO DAILY RF: 0 glimepiride 1 mg tablet 1 mg PO QAM RF: 0 tamsulosin 0.4 mg capsule 0.4 mg PO HS RF: 0 omeprazole 20 mg capsule,delayed release(DR/EC) 20 mg PO DAILY RF: 0 metoprolol succinate 25 mg tablet extended release 24 hr 25 mg PO DAILY RF: 0 Jardiance 10 mg tablet 10 mg PO DAILY RF: 0 trazodone 50 mg Tablet 25 mg PO HS RF: 0 levothyroxine 50 mcg Tablet 50 mcg PO DAILY RF: 0 nitroglycerin [Nitrostat] 0.4 mg Tablet, Sublingual 0.4 mg sublingual UD PRN (Reason: Chest Pain) RF: 0 furosemide 20 mg Tablet 20 mg PO DAILY PRN (Reason: swelling) RF: 0 magnesium oxide 250 mg magnesium Tablet 250 mg PO DAILY RF: 0 Lantus Solostar U-100 Insulin 100 unit/mL (3 mL) insulin pen 25 unit SUBCUT QAM RF: 0 cyanocobalamin (vitamin B-12) 500 mcg Tablet, Sublingual 250 mcg SUBLINGUAL DAILY RF: 0 Jentadueto XR 5-1,000 mg tablet, IR - ER, biphasic 24hr 1 tab PO DAILY RF: 0 insulin aspart U-100 [Novolog Flexpen U-100 Insulin] 100 unit/mL (3 mL) insulin pen See Rx Instructions .ROUTE .COMPLEX RF: 0 Krames/Other Patient Handouts: Managing Type 2 Diabetes Admission Data Admit Date/Time: 05/27/20 07:04 Attending Provider: Beck Buckley Admit Provider: Boyd Juarez Primary Care Provider: Beck Brown Other Providers: Pauline Mercado [facility] ; [facility] ; Boyd Juarez ; Medhat Rome ; Dequan Shukla ; Eriberto Ortiz ; Sergio Lubin ; Sumeet Guzman ; Felice Riggins ; Sruthi Monge ; Renita Tomas ; Clement Rich ; Luke Corona ; Malena Sidhu ; Juanpablo Pemberton ; Trung Coates ; Jeremias Britton I. ; Jose Alejandro Beach II ; Jennifer Alvarenga ; Felice Marie ; Flores Richardson ; [facility], ; [facility] ; Emiliano Jimenez
== END 2020-06-06 20:16 | disposition short-term general hospital (02) | DRG 853 ==
LOC: ED 04:21 → 1E 07:04 → SUATTDRO 07:04 → 1E 09:24 → 2S 06-02 15:17